=== PATIENT | male | born 1955 | race Caucasian/White ===

== ENCOUNTER → 2024-06-28 | Outpatient (CLI) | payer MEDICARE, OTHER, SELFPAY ==
--- NOTE | 2024-06-28 08:52 | CDU_ITS ---
Reason For Study: Hx CVA Rt. Velocities/BP Lt. Velocities/BP Prox CCA 49.4/8.8 cm/sec. Prox CCA 75.4/11.7 cm/sec. Mid CCA 63.6/12.6 cm/sec. Mid CCA 53.4/10.6 cm/sec. Dist CCA 38.6/8.8 cm/sec. Dist CCA 42.4/11.7 cm/sec. Prox ICA 14.3/5.1 cm/sec. Prox ICA 14.8/5.0 cm/sec. Mid ICA 42.5/15.8 cm/sec. Mid ICA 26.6/8.1 cm/sec. Dist ICA 45.3/13.9 cm/sec. Dist ICA 34.1/10.4 cm/sec. Rt. ICA/CCA = 0.7. Lt. ICA/CCA = 0.6. Prox ECA 57.8/6.4 cm/sec. Prox ECA 62.9/11.0 cm/sec. Rt. Vert. 33.9/11.8 cm/sec. Lt. Vert. 28.0/7.9 cm/sec. Right Extracranial There is intimal thickening but no significant atherosclerotic plaque noted in the right common carotid artery. There is homogeneous, smooth atherosclerotic plaque noted in the right internal carotid artery. There is intimal thickening but no significant atherosclerotic plaque noted in the right external carotid artery. Antegrade flow is noted in the right vertebral artery. Left Extracranial There is intimal thickening but no significant atherosclerotic plaque noted in the left common carotid artery. There is homogeneous, smooth atherosclerotic plaque noted in the left internal carotid artery. There is intimal thickening but no significant atherosclerotic plaque noted in the left external carotid artery. Antegrade flow is noted in the left vertebral artery. Procedure Carotid Duplex [id number]. This is a Carotid Duplex examination using B-mode, color flow and specral Doppler. Exam performed in department. VL/Carotid Duplex Ultrasound Interpretation Summary Mild (<50%) stenosis right extracranial internal carotid. Mild (<50%) stenosis left extracranial internal carotid. Patent and antegrade vertebrals bilaterally. Ordering Physician: Rut Pate Referring Physician: Rut Pate Performed By: Gaston Wilson RVT and Student
--- NOTE | 2024-06-28 08:52 | VDLE_ITS ---
Reason For Study: Swelling RIGHT LEFT CFV is compressible, spontaneous, phasic, CFV is compressible, spontaneous, phasic, competent and demonstrates normal competent, and demonstrates normal augmentation. augmentation. FV is compressible, spontaneous, phasic, FV is compressible, spontaneous, phasic, competent and demonstrates normal competent and demonstrates normal augmentation. augmentation. POP V is compressible, spontaneous, phasic, POP V is compressible, spontaneous, phasic, competent and demonstrates normal competent and demonstrates normal augmentation. augmentation. T/P Trunk is compressible. T/P Trunk is compressible. PTV is compressible. PTV is compressible. RT PerV is compressible. LT PerV is compressible. SFJ is INCOMPETENT and measures 0.85 cm. SFJ is INCOMPETENT and measures 1.16 cm. GSV proximal thigh measures 0.83x0.96 cm. GSV proximal thigh measures 1.10x1.20 cm. GSV at knee measures 0.61x0.71 cm. GSV at knee measures 0.73.x0.84 cm. GSV INCOMPETENT throughout for greater than GSV INCOMPETENT throughout for greater than 0.5 seconds. 0.5 seconds. INCOMPETENT restorative coordinator noted 12 cm above INCOMPETENT restorative coordinator noted 10 cm above medial malleous. medial malleous. SSV mid calf is competent and measures SSV mid calf is INCOMPETENT for greater than 0.40x0.44 cm. 0.5 seconds and measures 0.24x0.29 cm. Procedure This is a venous duplex using B-mode, color flow and spectral Doppler. Exam performed in department. The exam was diagnostic. Patient was scanned in reverse Trendelenburg position during reflux assessment. VL/Venous Duplex US - Manuel Extrem Interpretation Summary Deep veins of the bilateral lower extremities are patent and compressible segme ntally. There is no evidence of right lower extremity deep vein thrombosis. The bilateral great sap henous veins appear patent and compressible segmentally. Positive for reflux in the right saphenofemoral junction, great saphenous vein throughout, medial calf restorative coordinator. Positive for reflux in the left saphenofemoral junction, great saphenous vein t hroughout, medial calf restorative coordinator, small saphenous vein Ordering Physician: Rut Pate Referring Physician: Teresa Jeffery MD Performed By: Gaston Wilson RVT and Student
== END | disposition home or self-care (01) ==
PROVIDERS: PCP Family Medicine; Referring Provider Physician Assistant; Visit Provider Physician Assistant
DX: I83.93 Asymptomatic varicose veins of bilateral lower extremities (principal); M79.89 Other specified soft tissue disorders; R60.0 Localized edema; Z86.73 Personal history of transient ischemic attack (TIA), and cerebral infarction without residual deficits
CPT/HCPCS: 93880; 93970

== ENCOUNTER → 2024-09-12 | Outpatient (CLI) | payer MEDICARE, SELFPAY ==
--- NOTE | 2024-09-12 12:48 | ECHOD_ITS ---
Reason For Study Reason For Study: EMBOLI Procedure This was a 2D Doppler, Color Flow transthoracic echocardiogram. Exam performed in department. Left Ventricle Normal LV size. Moderate concentric left ventricular hypertrophy. Left ventricular systolic function is normal. The left ventricular ejection fraction is 65 %. No regional wall motion abnormalities noted. Right Ventricle Normal RV size. Normal systolic function. Atria Normal left atrium. Normal right atrium. Mitral Valve Normal mitral valve. Tricuspid Valve Normal tricuspid valve. Mild tricuspid valve insufficiency. Pulmonary artery systolic pressure is 24 mmHg. Aortic Valve Trisinus/trileaflet aortic valve. Mild focal aortic valve calcification. Pulmonic Valve Normal pulmonic valve. Great Vessels Mild to moderately dilated aortic root. The pulmonary artery is normal size. Normal inferior vena cava. Pericardium/Pleural No pericardial effusion. MMode/2D Measurements & Calculations LVIDd: 4.3 cm IVSd: 1.5 cm Ao root diam: 4.0 cm RVDd: 3.6 cm LVPWd: 1.2 cm LAV(MOD-bp): 31.3 ml LVAd ap4: 34.8 cm2 SV(MOD-sp4): 65.1 ml LAV(MOD-bp) Indexed: 14.5 ml/m2 LVLd ap4: 9.2 cm SI(MOD-sp4): 30.3 ml/m2 LAV(MOD-sp2): 29.3 ml EDV(MOD-sp4): 107.3 ml LAV(MOD-sp4): 31.4 ml EDV(sp4-el): 112.0 ml LVAs ap4: 19.1 cm2 LVLs ap4: 7.5 cm ESV(MOD-sp4): 42.2 ml ESV(sp4-el): 41.5 ml EF(MOD-sp4): 60.7 % EF(sp4-el): 63.0 % SV(sp4-el): 70.5 ml LA A4 area: 14.1 cm2 LA dimension(2D): 3.4 cm RA A4 area: 14.0 cm2 TAPSE: 2.5 cm Time Measurements MV dec time: 0.34 sec Doppler Measurements & Calculations MV E max alfredo: 65.5 cm/sec Lat Peak E' Alfredo: 6.3 cm/sec Med Peak E' Alfredo: 4.3 cm/sec MV A max alfredo: 94.2 cm/sec E/E' lat: 10.4 E/E' med: 15.2 MV E/A: 0.70 Ao V2 max: 153.4 cm/sec AI max alfredo: 365.4 cm/sec LV V1 max: 113.2 cm/sec Ao max P.4 mmHg AI max P.4 mmHg LV V1 max P.1 mmHg AI dec slope: 99.3 cm/sec2 AI P1/2t: 1077 msec PA V2 max: 113.8 cm/sec TR max alfredo: 228.0 cm/sec TR max P.8 mmHg ECHO/Echo Complete Interpretation Summary Normal LV size. Left ventricular systolic function is normal. The left ventricular ejection fraction is 65 %. Moderate concentric left ventricular hypertrophy. Pulmonary artery systolic pressure is 24 mmHg. Mild focal aortic valve calcification. Ordering Physician: Lance Carbone Referring Physician: LADONNA DUFFY Performed By: Kaia Felipe RDCS
== END | disposition home or self-care (01) ==
LOC: CVS 12:47
PROVIDERS: PCP Family Medicine; Referring Provider Internal Medicine Cardiovascular Disease; Visit Provider Internal Medicine Cardiovascular Disease
DX: I35.1 Nonrheumatic aortic (valve) insufficiency (principal)
CPT/HCPCS: 93306

== ENCOUNTER → 2024-09-25 | Outpatient (CLI) | payer MEDICARE, SELFPAY ==
--- NOTE | 2024-09-26 07:41 | STRESSREP ---
Stress Test Report Pharmacologic myocardial perfusion stress test. 69-year-old man with a history of preoperative surgical assessment Resting EKG demonstrates sinus rhythm with a rate of 61 bpm. Resting blood pressure is 124/84 mmHg. 0.4 mg of regadenoson was infused per usual protocol followed by rapid intravenous saline flush injection. Continuous EKG monitoring was performed. The maximum heart rate was 80 bpm which was 53% of max impacted heart rate the maximum workload was 1 metabolic equivalent. At rest there were no ST or T wave changes noted to suggest ischemia and at peak infusion nonspecific ST changes were noted which did not meet the criteria for ischemia. No clinical angina is noted. The final blood pressure was 122/82 mmHg. Myocardial perfusion protocol. 14.5 mCi of technetium 99m sestamibi was injected at rest. 0.4 mg of regadenoson was infused per usual protocol. At peak infusion 44.1 mCi of technetium 99m sestamibi was injected stress images were obtained stress and rest images were reconstructed and compared in the short axis vertical long and horizontal long axis. Gated images were also obtained. Perfusion SPECT analysis: Review of the stress images demonstrate normal uptake of tracer noted in all areas of the myocardium. The resting images similar demonstrated normal uptake of tracer noted in all areas of the myocardium. No areas of reversibility are noted to suggest ischemia and no previous infarct is noted. Gated SPECT analysis: The gated ejection fraction is 62%. Conclusion: Normal pharmacologic myocardial perfusion stress test. Preserved ejection fraction.
== END | disposition home or self-care (01) ==
LOC: CVS 05:36
PROVIDERS: PCP Family Medicine; Referring Provider Internal Medicine Cardiovascular Disease; Visit Provider Internal Medicine Cardiovascular Disease
DX: I35.1 Nonrheumatic aortic (valve) insufficiency (principal); I25.10 Atherosclerotic heart disease of native coronary artery without angina pectoris; Q21.12 Patent foramen ovale
CPT/HCPCS: 78452; 93017; A9500; A4216; J2785

== ENCOUNTER → 2024-10-14 | Outpatient (CLI) | payer MEDICARE, SELFPAY ==
--- NOTE | 2024-10-14 07:42 | CT_ITS ---
EXAM: CT Abdomen and Pelvis Without Intravenous Contrast CLINICAL INDICATION: LT GROIN MASS TECHNIQUE: Axial computed tomography images of the abdomen and pelvis without intravenous contrast. This CT exam was performed using one or more of the following dose reduction techniques: automated exposure control, adjustment of the mA and/or kV according to patient size, and/or use of iterative reconstruction technique. COMPARISON: No relevant prior studies available. FINDINGS: LUNG BASES: Unremarkable. No mass. No consolidation. MEDIASTINUM: Small esophageal hiatal hernia. ABDOMEN: LIVER: Hepatomegaly with fatty infiltration. GALLBLADDER AND BILE DUCTS: Unremarkable. No calcified stones. No ductal dilation. PANCREAS: Unremarkable. No ductal dilation. SPLEEN: Unremarkable. No splenomegaly. ADRENALS: Unremarkable. No mass. KIDNEYS AND URETERS: Left renal cysts, largest measuring up to 3.1 cm. No obstructing stones. STOMACH AND BOWEL: Scattered diverticula in the colon. There is mucosal thickening in the sigmoid colon with surrounding inflammation consistent with acute diverticulitis. No abscess. No obstruction. PELVIS: APPENDIX: No findings to suggest acute appendicitis. BLADDER: Urinary bladder calculi. REPRODUCTIVE: The prostate gland is enlarged measuring 6.0 cm in maximum dimension. ABDOMEN and PELVIS: INTRAPERITONEAL SPACE: Unremarkable. No free air. No significant fluid collection. BONES/JOINTS: Grade 1 anterior spondylolisthesis of L4 over L5. Severe endplate degenerative change and disc disease of L4-5. No acute fracture. No dislocation. SOFT TISSUES: Umbilical hernia containing fat. Large left inguinal hernia containing fat. VASCULATURE: Scattered calcified atherosclerotic disease of aorta. No abdominal aortic aneurysm. LYMPH NODES: Unremarkable. No enlarged lymph nodes. CT/Abdomen/Pelvis without Cont IMPRESSION: 1. Scattered diverticula in the colon. There is mucosal thickening in the sig moid colon with surrounding inflammation consistent with acute diverticulitis. No abscess. 2. The prostate gland is enlarged. Correlation with PSA values may be helpful if not previously performed. 3. Small esophageal hiatal hernia. 4. Hepatomegaly with fatty infiltration. 5. Umbilical hernia containing fat. 6. Large left inguinal hernia containing fat. 7. Simple left renal cyst. Reading Location: [facility]
== END | disposition home or self-care (01) ==
LOC: CT 07:37
PROVIDERS: PCP Family Medicine; Referring Provider Family Medicine; Visit Provider Family Medicine
DX: R19.09 Other intra-abdominal and pelvic swelling, mass and lump (principal)
CPT/HCPCS: 74176

== ENCOUNTER 2024-12-07 05:46 | Day surgery (SDC) | payer MEDICARE, SELFPAY ==
--- NOTE | 2024-11-27 18:20 | PAT.ANESEVAL ---
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 When Was Last Pacemaker Check QUESTION #4 FULL TEXT: You/Your Family Experience fever (hyperthermia) with Anesthesia Last Oral Intake Last Oral intake: Last Oral Intake NPO since Meds taken in AM with sips of water? Meds patient instructed to take am of surgery PONV PONV - linux developer: PONV - linux developer Female No 11/23/24 08:20 HX of Motion Sickness Yes 11/23/24 08:20 HX of N/V After Surgery Yes 11/23/24 08:20 Non-Smoker Yes 11/23/24 08:20 Duration of Surgery greater Yes 11/23/24 08:20 than 60 minutes Number of Risk Factors 4 11/23/24 08:20 PONV Score Severe Risk 11/23/24 08:20 Height & Weight Height & Weight: Anesthesia: Height & Weight Height 6 ft 2 in 11/01/24 12:59 Respiratory Assessment Respiratory Assessment - linux developer: Respiratory Tract Infection Hx - linux developer Hx Respiratory Tract Infection No 11/23/24 08:20 STOP Sleep Apnea STOP Sleep Apnea - linux developer: STOP Sleep Apnea - linux developer Hx Hypertension Yes: CONTROLLED WITH MEDS 11/23/24 08:20 Hx Sleep Apnea No 11/23/24 08:20 CPAP BIPAP Do you snore loudly (louder No 11/23/24 08:20 than talking or can be heard Do you often feel tired/ No 11/23/24 08:20 fatigued/ sleepy during daytime? Has anyone observed you stop No 11/23/24 08:20 breathing during sleep? STOP Results Negative 11/23/24 08:20 QUESTION #5 FULL TEXT : Do you snore loudly (louder than talking or can be heard through closed doors)? 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 Specify any problems Hx of Preganancy in last 3 N/A 11/23/24 08:20 Months Nurse Filling Out Transfusion [id number] 11/23/24 08:20 & Questions: Date: 11/23/24 11/23/24 08:20 Time: 08:11/23/24 08:20 Patient unable to answer at this time (ie. confused, unrespo /Reproduction History /Reproductive History - linux developer: /Reproductive Hx- linux developer Hx Now Gestational Age (in weeks): EDC: Hx Hx Para Hx Section SAB PFSH Medical History (Updated 11/23/24 @ 08:37 by Primitivo Casillas) Wears glasses Former smoker History of Holter monitoring Cardiology follow-up encounter History of echocardiogram History of stress test Left inguinal hernia BPH (benign prostatic hyperplasia) Patent foramen ovale Nonrheumatic aortic (valve) insufficiency Carotid stenosis History of CVA (cerebrovascular accident) Varicose veins of legs Bilateral thumb pain History of elevated PSA Prediabetes Hx of arterial ischemic stroke HTN (hypertension) Home Medications ?Medication ?Instructions ?Recorded ?Last Taken ?Type Lactobacillus acidophilus 1 1,000 mmu cells PO QODAY 03/24/24 Unknown History billion cell capsule amlodipine 10 mg tablet 10 mg PO QDAY 03/24/24 Unknown History atorvastatin 20 mg tablet 20 mg PO QDAY 03/24/24 Unknown History betamethasone dipropionate 0.05 % 1 applic topical BID 03/24/24 Unknown History topical cream glucosamine HCl 750 mg tablet 750 mg PO QDAY 03/24/24 Unknown History multivitamin 1 tab PO QAM 03/24/24 Unknown History saw palmetto 500 mg capsule 1,000 mg PO QDAY 03/24/24 Unknown History Allergy/AdvReac Type Severity Reaction Status Date / Time Penicillins Allergy Intermediate Rash Verified 11/23/24 08:18 Family History Other CVA (cerebral vascular accident) Diabetes Hypertension Surgical History Hx of cholecystectomy (~2003) S/P hernia surgery (~1971) Social History Smoking Status: Former smoker Tobacco: How many years used: 20 alcohol intake: never substance use type: does not use Audit: Pertinent Findings Pertinent Findings EKG Perinent findings: August 18, 2024. Sinus rhythm. First-degree AV block. Stress test pertinent findings: September 26, 2024. EF of 62%. No ischemia. No previous infarct. Echo (EF%) pertinent findings: September 12, 2024. EF 65%. PASP is 24 mmHg. No aortic stenosis noted. Consult pertinent findings: August 18, 2024. Dr. Carbone. 1. History of arterial ischemic stroke?acute-will repeat echo (see above) with a bubble study. Continue antiplatelet therapy. No contraindication to venous surgery. 2. Patent foramen ovale?acute-patient has a history of patent danielle ovale. Repeat echo. 3. Nonrheumatic aortic valve insufficiency?acute-mild per history. Repeat echo. Additional pertinent findings: 07/05/2023. 30-day event monitor. Average rhythm was sinus. Ventricular burden was 1%. Ventricular burden was less than 1%. 9 triggered events corresponded to sinus rhythm with PVCs. No symptoms were recorded. Recommendation Anesthesia Recommendation Anesthesia recommendation: OPTIMIZED for anesthesia (Patient is cleared for surgery. No cardiac cath was found.)
[2024-12-07] VITALS (9 sets, daily range): BP systolic 93–139; BP diastolic 59–89; PULSE 61–78; RESP 14–18; TEMP 36.2–36.3; O2SAT 92–98; BMI 27.0
--- OUTSIDE RECORDS SUMMARY | 2024-12-07 05:50 | XMS RPT_ITS | CCD ---
Author Organization [facility] Care Team Providers Care Merchandise For Resale Purchasing Agent Name Role Phone Neena العلي II Unavailable Teresa Quintero Julie O Unavailable Unavailable Teresa Duffy Unavailable Unavailable Unavailable Unavailable Unavailable Clive REESE, Teresa Suarez Primary Care Provider [phone] Dr. Teresa Duffy Primary Care Unavail ana Duffy, Dr. Teresa Suarez Attending Unavail Dr. Teresa Rob Referring Unavail MD NEENA Phillips Referring Karen Duffy, Dr. Teresa Suarez Primary Care Unavail MD NEENA Phillips Attending MD NEENA Matos Attending MD NEENA Matos Referring Unavailyisel Duffy, Dr. Teresa Suarez Primary Care Unavail MD TERESA Rob Primary Care Unavaila ble العلي II, Dr. Neena Guevara Referring Unavai lable العلي II, Dr. Neena Guevara Attending Unavai labcourt العلي II, Dr. Neena Guevara Attending Unavai lable العلي II, Dr. Neena Guevara Admitting MD TERESA Garcia Primary Care Unavaila ble العلي II, Dr. Neena Guevara Referring Teresa Garcia MD Primary Care Provider Teresa Duffy MD Primary Care Provider Teresa Duffy MD Primary Care Provider Teresa Duffy MD Unavailable Nannette Desir LPN Unavailable Unavailable TERESA DUFFY Primary Care Unavailable JOB BANKS Attending Unava ilable LEYDI RENAE Attending Unavailable TERESA DUFFY Primary Care Unavailable TERESA DUFFY Primary Care Unavailable KEN VERGARA Referring Unavailable KEN VERGARA Attending Unavailable JOB BANKS Referring Unava ilable TERESA DUFFY Primary Care Unavailable URMILAPATRICIA Perez Admitting Unavailab le CARMENZA GARCIA Attending Unavailable KEN VERGARA Consulting Unavailable TERESA DUFFY Primary Care Unavailable MARY KAY FOX Attending Unavailabl MARY KAY Yung Attending Unavailabl e TERESA DUFFY Primary Care Unavailable TERESA DUFFY Primary Care Unavailable TERESA DUFFY Primary Care Unavailable TERESA DUFFY Referring Unavailable TERESA DUFFY Primary Care Unavailable CARMENZA GARCIA Referring Unavailable TERESA DUFFY Primary Care Unavailable TERESA DUFFY Referring Unavailable TERESA DUFFY Primary Care Unavailable TERESA DUFFY Referring Unavailable TERESA DUFFY Primary Care Unavailable Clive REESE, Teresa Suarez Primary Care Provider TERESA DUFFY Primary Care Unavailable JUNIOR SHIPLEY Attending Unavailable SIRIA MACK Referring UnavailTeresa Cote MD Unavailable Teresa Duffy MD Primary Care Provider Teresa Duffy MD Primary Care Provider Dr. Teresa Duffy MD Primary Care Provider [phone] Dr. Teresa Duffy MD Referring Provider Rut Contreras Attending Provider Rut Contreras Referring Provider Dr. Tim Ramirez MD Attending Provider Dr. Lance Carbone MD Attending Provider Dr. Lance Carbone MD Referring Provider Dr. Teresa Duffy MD Primary Care Provider Rut Contreras Attending Provider Dr. Teresa Duffy MD Referring Provider Raf REESE, Dr. Lucas Other Provider [phone] Clive REESE, Dr. Teresa Ha Attending Provider TERESA DUFFY Attending Unavailable TERESA DUFFY Primary Care Unavailable TERESA DUFFY Attending Unavailable TERESA DUFFY Primary Care Unavailable TERESA DUFFY Attending Unavailable TERESA DUFFY Primary Care Unavailable Clive REESE, Dr. Teresa Ha Primary Care Provider Herlinda GREER, Rut Attending Provider [phone] Tiffani REESE, Dr. Gary Freedman Attending Provider Pate, Rut Referring Unavailable Teresa Duffy Primary Care Unavailable Tim Ramirez Attending Unavailable Teresa Duffy Primary Care Unavailable Pate, Rut Attending Unavailable Teresa Duffy Referring Unavailable Gary Nixon Attending Unavailable Gary Nixon Referring Unavailable Teresa Duffy Primary Care Unavailable Teresa Duffy Attending Unavailable Teresa Duffy Referring Unavailable Teresa Duffy Primary Care Unavailable Pate, Rut Attending Unavailable Pate, Rut Referring Unavailable Teresa Duffy Primary Care Unavailable Teresa Duffy Primary Care Unavailable Raf, Lance Attending Unavailable Raf, Lance Referring Unavailable Raf, Lance Attending Unavailable Raf, Magnolia Referring Unavailable Teresa Duffy Primary Care Unavailable Teresa Duffy Primary Care Unavailable Raf, Magnolia Attending Unavailable Teresa Duffy Referring Unavailable Raf, Magnolia Attending Unavailable Teresa Duffy Primary Care Unavailable Raf, Magnolia Referring Unavailable Raf, Magnolia Consulting Unavailable Raf, Lance Attending Unavailable Teresa Duffy Primary Care Unavailable Pate, Rut Attending Unavailable Teresa Duffy Primary Care Unavailable Teresa Duffy Referring Unavailable Pate, Rut Attending Unavailable Teresa Duffy Primary Care Unavailable Teresa Duffy Referring Unavailable Gary Nixon Attending Unavailable Teresa Duffy Referring Unavailable Teresa Duffy Primary Care Unavailable Allergies Allergy Classification Reported Allergen(s) Allergy Type Date of Onset Reaction(s) Facility Penicillins (antibiotic) (1 source) Penicillins; Translations: [Penicillins] Drug Allergy [facility] Work Phone: (20 sources) Penicillins; Translations: [Penicillins] Allergy to drug (finding) 5 [facility] (17 sources) Penicillins Drug Allergy 5 Intolerance, Unknown [facility] (1 source) Penicillins Propensity to adverse reactions 3 Unknown [facility] (3 sources) Penicillins Allergy to substance 5 Rash [facility] (1 source) Penicillins Drug allergy (disorder) 5 [facility] Repository Medications Current Medications Medication Drug Class(es) Dates Sig (Normalized) Sig (Original) amLODIPine 10 mg oral tablet (20 sources) Dihydropyridine Calcium Channel Rosa Start: 03-24-2024 take 1 tablet by mouth once daily Amlodipine 10 mg tablet Active 10 mg PO daily March 24, 2024 12:00am Start: 04-13-2023 End: 04-14-2023 amLODIPine (NORVASC) tablet 10 mg Start: 05-15-2019 End: 08-05-2023 take 1 tablet by mouth once daily amLODIPine (Norvasc) 10 mg tablet Indications: Primary hypertension Take 1 tablet (10 mg) by mouth once daily. 90 tablet 3 08/05/2023 Active Comment on above: Take 10 mg by mouth once daily. atorvastatin 20 mg oral tablet (20 sources) HMG-CoA Reductase Inhibitor Start: 04-12-2023 End: 04-14-2023 atorvastatin (LIPITOR) tablet 40 mg Start: 06-15-2017 take 1 tablet by florencia th once daily Atorvastatin 20 mg tablet Active 20 mg PO daily March 24, 2024 12:00am betamethasone 0.5 mg/ml topical cream (20 sources) Corticosteroid Start: 03-24-2024 Betamethasone Dipropionate 0.05 % cream Active 1 NMA TOPICAL TWICE A DAY March 24, 2024 12:00am Start: 08-05-2023 End: 08-05-2023 betamethasone dipropionate 0 .05 % cream Indications: Healthcare maintenance Apply 1 Application topically once daily. 15 g 3 08/05/2023 Active Betamethasone Di propionate 0.05 % External Cream APPLY SPARINGLY TO AFFECTED AREA(S) ONCE DAILY Quantity: 1 Refills: 0 Ordered: 17-Apr-2022 Teresa Duffy MD Active glucosamine hydrochloride 750 mg oral tablet (20 sources) Start: 08-06-2020 take 1 tablet by mouth once daily Glucosamine Hcl 750 mg tablet Active 750 mg PO daily March 24, 2024 12:00am administer with a meal Start: 08-06-2020 take 1 tablet by florencia th once daily Glucosamine 750 MG Oral Tablet Take 1 tablet daily Quantity: 30 Refills: 5 Ordered: 06-Aug-2020 Teresa Duffy MD Start : 06-Aug-2020 Active Comment on above: Take by mouth. L. acidophilus/Bifid. animalis (Probiotic) 5 billion cell CpSP (2 sources) L. acidophilus/B ifid. animalis (Probiotic) 5 billion cell CpSP Take by mouth . 0 Active lactobacillus acidophilus [id number] unt oral capsule (16 sources) Start: 03-24-2024 Lactobacillus Acidophilus 1 billion cell capsule Active 1000 NMA PO daily March 24, 2024 12:00am take 1 tablet by mouth once georgette y Lactobacillus acidophilus (PROBIOTIC ACIDOPHILUS ORAL) Take 1 tablet by mouth once daily. Active take 1 tablet by mouth once georgette y Lactobacillus acidophilus (PROBIOTIC ACIDOPHILUS ORAL) Take 1 tablet by mouth once daily. 0 Active multivitamin (THERAGRAN) per tablet (4 sources) take 1 tablet by florencia th once daily multivitamin (THERAGRAN) per tablet Take 1 (one) tablet by mouth daily . 0 Active take 1 tablet by mouth once georgette y multivitamin (THERAGRAN) per tablet Take 1 (one) tablet by mouth daily . 0 multivitamin tablet (13 sources) multivitamin tab let Take by mouth. Active multivitamin tab let Take by mouth. 0 Active Multivitamin tablet (3 sources) Start: 03-24-2024 Multivitamin t ablet Active 1 {tbl} PO EVERY MORNING March 24, 2024 12:00am Saw Dresher 160 mg capsule (3 sources) Saw Dresher 160 mg capsule Take by mouth. Active Saw Dresher 160 mg capsule Take by mouth. 0 Active Comment on above: Take by mouth. Saw Dresher (6 sources) Start: 03-24-2024 take 1 capsule by mouth once daily at mealtime Saw Dresher 500 mg capsule Active 1000 mg PO daily March 24, 2024 12:00am give with food (meal/snack) Saw Dresher CAP S Refills: 0 Active SAW PALMETTO ORAL (15 sources) SAW PALMETTO ORA L Take by mouth. Active SAW PALMETTO ORA L Take by mouth . 0 Active SAW PALMETTO ORA L Take by mouth. 0 Active Completed/Discontinued Medications Medication Drug Class(es) Dates Sig (Normalized) Sig (Original) Acetaminophen (1 source) Start: 04-12-2023 End: 04-14-2023 take 1 tablet by mouth every four hours as needed for headache acetaminophen (TYLENOL) tablet 650 mg aspirin 81 mg chewable tablet (10 sources) Platelet Aggregation Inhibitor, Nonsteroidal Anti-inflammatory Drug Start: 04-13-2023 End: 05-15-2023 aspirin 81 mg chewable tablet Chew and Swallow 1 (one) tablet (81 mg total) daily Start: 04/15/23. 30 tablet 0 04/15/2023 05/15/2023 take 1 tablet by mouth once georgette y aspirin 81 MG EC tablet Take 1 (one) tablet (81 mg total) by mouth daily . 0 Active azithromycin 500 mg oral tablet (3 sources) Macrolide Antimicrobial Start: 01-06-2022 take 1 tablet by mouth once daily Azithromycin 500 MG Oral Tablet TAKE 1 TABLET DAILY UNTIL FINISHED. Quantity: 5 Refills: 0 Ordered: 06-Jan-2022 Teresa Duffy MD Start : 06-Jan-2022 Active benoxinate hydrochloride 4 mg/ml / fluorescein sodium 3 mg/ml ophthalmic solution (1 source) Diagnostic Dye Start: 04-06-2023 End: 04-07-2023 fluorescein-benoxi olesya 0.3-0.4 % 1 Drop (FLURESS) bromfenac 0.7 mg/ml ophthalmic solution (2 sources) Nonsteroidal Anti-inflammatory Drug Start: 07-28-2021 End: 04-06-2023 take 1 drop(s) into the eye(s) four times daily bromfenac (PROLENSA) 0.07 % drop Use 1 Drop in the left eye four times daily. 0 07/28/2021 04/06/2023 Discontinued (Course of therapy completed) Start: 07-28-2021 take 1 drop(s) into the eye(s) four times daily bromfenac (PROLENSA) 0.07 % drop Use 1 Drop in the left eye four times daily. 0 07/28/2021 Active Comment on above: Use 1 Drop in the le ft eye four times daily. clopidogrel 75 mg oral tablet (20 sources) P2Y12 Platelet Inhibitor Start: End: take 1 tablet by mouth once daily Clopidogrel 75 mg tablet Discontinued 75 mg PO daily July 27, 2024 1:00am August 18, 2024 1:01pm Start: 04-13-2023 End: 11-02-2023 take 1 tablet by mouth once daily clopidogrel (Plavix) 75 mg tablet Indications: Primary hypertension take 1 tablet by mouth once daily 30 tablet 05/26/2023 Active docusate sodium 50 mg / sennosides, care home 8.6 mg oral tablet (1 source) Start: 04-12-2023 End: 04-14-2023 senna-docusate (SENNA-S) 8.6-50 mg per tablet 1 tablet 0.4 ml enoxaparin sodium 100 mg/ml prefilled syringe (1 source) Low Molecular Weight Heparin Start: 04-13-2023 End: 04-14-2023 enoxaparin (LOVENOX) syringe 40 mg gadoterate meglumine (DOTAREM) injection 20 mL (1 source) Start: 04-12-2023 End: 04-12-2023 gadoterate meglumine (DOTAREM) injection 20 mL Multiple Vitamin TABS (3 sources) Multiple Vitamin TABS Refills: 0 Active Multiple Vitamin TABS (15 sources) Multiple Vitamin TABS Quantity: 0 Refills: 0 Ordered: 14-Sep-2018 DO Active multivitamin (THERAGRAN) per tablet 1 tablet (1 source) Start: 04-12-2023 End: 04-14-2023 take 1 tablet by mouth once daily 1 tablet, Oral, Daily, First dose on Wed04/12/23 at 0900 perflutren lipid microspheres (Definity) injection 2 mL of dilution (2 sources) Start: 04-30-2023 End: 04-30-2023 perflutren lipid microspheres (Definity) injection 2 mL of dilution phenylephrine hydrochloride 25 mg/ml ophthalmic solution (1 source) alpha-1 Adrenergic Agonist Start: 04-06-2023 End: 04-07-2023 PHENYLephrine 2.5 % 1 Drop (AK-DILATE, LOUIS-SYNEPHRINE) microencapsulated potassium chloride 20 meq extended release oral tablet (2 sources) Start: 04-13-2023 End: 04-13-2023 potassium chloride SA (K-DUR,KLOR-CON) CR tablet 20 mEq propylene glycol 6 mg/ml ophthalmic solution (2 sources) Start: 07-28-2021 End: 04-06-2023 propylene glycoL (SYSTANE COMPLETE) 0.6 % drop Use 1 Drop in the left eye three times daily. 0 07/28/2021 04/06/2023 Discontinued (Discontinued by Patient) Start: 07-28-2021 propylene glyc oL (SYSTANE COMPLETE) 0.6 % drop Use 1 Drop in the left eye three times daily. 0 07/28/2021 Active Comment on above: Use 1 Drop in the le ft eye three times daily. saccharomyces boulardii 250 mg oral capsule (3 sources) End: take 1 capsule by mouth in the morning saccharomyces boulardii (Florastor) 250 mg capsule Take 1 capsule (250 mg) by mouth in the morning and 1 capsule (250 mg) before bedtime. 0 04/19/2023 Discontinued (Duplicate order) Saw Dresher CAPS (15 sources) Saw Dresher CAP S Quantity: 0 Refills: 0 Ordered: 14-Sep-2018 DO Active Sodium Chloride (1 source) Start: End: sodium chloride (PF) (NS) flush 5 mL tropicamide 10 mg/ml ophthalmic solution (1 source) Anticholinergic Start: End: tropicamide 1 % 1 Drop (MYDRIACYL) Problems Active Problems Problem Classification Problem Date Documented Da te Episodic/Chronic Abdominal hernia (1 source) Left inguinal hernia ; Translations: [Unilateral inguinal hernia, without obstruction or gangrene, not specified as recurrent] 11-01-2024 Episodic Abdominal pain (1 source) Unspecified abdominal pain; Translations: [Unspecified abdominal pain] Onset: 10-15-2022 Episodic Acute cerebrovascular disease (20 sources) Cerebral infarction, unspecified; Translations: [Cerebral artery occlusion, unspecified with cerebral infarction] Onset: 04-11-2023 04-13-2023 Chronic Allergic reactions (10 sources) Nummular eczema; Translations: [Contact dermatitis and other eczema, unspecified cause] Onset: 11-24-2022 11-26-2022 Episodic Calculus of urinary tract (20 sources) History of calculus of kidney; Translations: [Personal history of urinary calculi] Onset: 10-15-2022 11-26-2022 Episodic Cardiac and circulatory congenital anomalies (8 sources) Patent foramen ovale; Translations: [Patent foramen ovale] Onset: 08-18-2024 07-27-2024 Chronic Cataract (6 sources) Bilateral senile combined form cataracts of eyes; Translations: [Combined forms of age-related cataract, bilateral] Onset: 10-10-2014 Chronic Coronary atherosclerosis and other heart disease (1 source) Atherosclerotic heart disease of [place] coronary artery without angina pectoris; Translations: [Atherosclerotic heart disease of [place] coronary artery without angina pectoris] Onset: 10-11-2024 Chronic Deficiency and other anemia (16 sources) Increased hemoglobin; Translations: [Other hemoglobinopathies] Resolved: 08-06-2020 08-11-2024 Chronic Diabetes mellitus without complication (20 sources) Impaired fasting glycaemia; Translations: [Impaired fasting glucose] Onset: 06-18-2022 06-18-2022 Episodic Disorders of lipid metabolism (4 sources) Hypercholesterolemia; Translations: [Pure hypercholesterolemia, unspecified] Onset: 02-14-2020 Chronic Essential hypertension (20 sources) Hypertensive disorder; Translations: [Unspecified essential hypertension] Onset: 04-05-2018 Chronic Genitourinary symptoms and ill-defined conditions (12 sources) Blood in urine; Translations: [Hematuria, unspecified] Episodic Heart valve disorders (8 sources) Aortic incompetence, non-rheumatic ; Translations: [Nonrheumatic aortic (valve) insufficiency] Onset: 10-11-2024 07-27-2024 Chronic Hyperplasia of prostate (20 sources) Hyperplasia of prostate; Translations: [Benign localized hyperplasia of prostate with urinary obstruction and other lower urinary tract symptoms (LUTS)] Onset: 06-18-2022 06-18-2022 Chronic Immunizations and screening for infectious disease (3 sources) Viral screening status; Translations: [Encounter for screening for other viral diseases] Onset: 02-03-2024 08-05-2023 Episodic Occlusion or stenosis of precerebral arteries (6 sources) Carotid artery stenosis; Translations: [Occlusion and stenosis of unspecified carotid artery] 07-27-2024 Chronic Comment on above: mild <50% bilaterall y Other and ill-defined cerebrovascular disease (4 sources) Cerebrovascular disease; Translations: [Other cerebrovascular vasospasm and vasoconstriction] Onset: 05-12-2023 04-13-2023 Chronic Other and ill-defined cerebrovascular disease (1 source) Other cerebrovascular vasospasm and vasoconstriction; Translations: [Other cerebrovascular vasospasm and vasoconstriction] Onset: 05-12-2023 Chronic Other and ill-defined cerebrovascular disease (2 sources) Cerebrovascular disease, unspecified; Translations: [Cerebrovascular disease, unspecified] Onset: 04-30-2023 Chronic Other circulatory disease (13 sources) History of cerebrovascular accident; Translations: [Personal history of transient ischemic attack (TIA), and cerebral infarction without residual deficits] 07-27-2024 Episodic Other connective tissue disease (3 sources) Pain in thumb ; Translations: [Pain in right finger(s)] 07-27-2024 Episodic Other eye disorders (4 sources) Constricted pupil; Translations: [Miosis] Onset: 03-04-2022 Chronic Other eye disorders (5 sources) Bilateral vitreous floaters; Translations: [Other vitreous opacities, bilateral] Onset: 10-10-2014 09-17-2015 Chronic Other eye disorders (1 source) Bilateral pinguecula of eyes; Translations: [Pinguecula, bilateral] 04-25-2024 Episodic Other gastrointestinal disorders (2 sources) Groin mass; Translations: [Other intra-abdominal and pelvic swelling, mass and lump] 09-18-2024 Episodic Other gastrointestinal disorders (1 source) Other intra-abdominal and pelvic swelling, mass and lump; Translations: [Other intra-abdominal and pelvic swelling, mass and lump] Onset: 10-18-2024 Episodic Other hematologic conditions (4 sources) Increased hemoglobin; Translations: [Elevated hemoglobin] Episodic Other lower respiratory disease (7 sources) Cough; Translations: [Cough] Episodic Other male genital disorders (1 source) Impotence; Translations: [Erectile dysfunction] Chronic Other male genital disorders (7 sources) Male erectile dysfunction, unspecified; Translations: [Erectile dysfunction] Chronic Other nervous system disorders (2 sources) Aphasia; Translations: [Aphasia] Onset: 04-11-2023 Chronic Other non-traumatic joint disorders (2 sources) Bilateral pain of joint of hands; Translations: [Pain in joints of right hand] 08-04-2022 Episodic Other nutritional; endocrine; and metabolic disorders (2 sources) Obesity; Translations: [Obesity] Chronic Other nutritional; endocrine; and metabolic disorders (1 source) Body mass index 25-29 - overweight; Translations: [BMI 28.0-28.9,adult] Chronic Other nutritional; endocrine; and metabolic disorders (5 sources) Overweight in adulthood with body mass index of 25 or more but less than 30; Translations: [Overweight] Episodic Other nutritional; endocrine; and metabolic disorders (5 sources) Body mass index 25-29 - overweight; Translations: [Body Mass Index 28.0-28.9, adult] Episodic Residual codes; unclassified (18 sources) At risk of heart disease; Translations: [Other specified conditions influencing health status] Episodic Residual codes; unclassified (3 sources) History of clinical finding in subject; Translations: [Personal history of other specified conditions] 07-27-2024 Episodic Screening and history of mental health and substance abuse codes (2 sources) Personal history of nicotine dependence; Translations: [Personal history of tobacco use] Onset: 11-24-2022 11-26-2022 Episodic Transient cerebral ischemia (1 source) Transient cerebral ischemia Unclassified (2 sources) Mass; Translations: [Mass] Onset: 09-18-2024 Unclassified (2 sources) Annual Exam; Translations: [Annual Exam] Onset: 08-11-2024 Past or Other Problems Problem Classification Problem Date Documented Date Episodic/Chronic Aortic; peripheral; and visceral artery aneurysms (20 sources) Dilatation of aorta; Translations: [Aortic ectasia, unspecified site] Onset: 06-18-2022 Resolved: 04-19-2023 08-04-2022 Chronic Other circulatory disease (1 source) Personal history of transient ischemic attack (TIA), and cerebral infarction without residual deficits; Translations: [Personal history of transient ischemic attack (TIA), and cerebral infarction without residual deficits] Onset: 08-18-2024 Episodic Other connective tissue disease (4 sources) Pain in right finger(s); Translations: [Pain in right finger(s)] Onset: 02-11-2024 Episodic Other connective tissue disease (4 sources) Pain in left finger(s); Translations: [Pain in left finger(s)] Onset: 02-11-2024 Episodic Other connective tissue disease (3 sources) Bilateral thumb pain; Translations: [Pain in right finger(s)] 02-11-2024 Episodic Other eye disorders (5 sources) Corneal scar; Translations: [Unspecified corneal scar and opacity] Onset: 03-04-2022 Episodic Other eye disorders (3 sources) Meibomian gland dysfunction of bilateral eyes; Translations: [Meibomian gland dysfunction right eye, upper and lower eyelids] Onset: 02-04-2018 02-04-2018 Episodic Other eye disorders (1 source) Chalazion of lower eyelid of left eye; Translations: [Chalazion left lower eyelid] Onset: 02-04-2018 Resolved: 03-09-2018 03-09-2018 Episodic Other non-traumatic joint disorders (20 sources) Joint pain; Translations: [Pain in joint, site unspecified] Onset: 06-18-2022 06-18-2022 Episodic Other nutritional; endocrine; and metabolic disorders (1 source) Overweight in adulthood with body mass index of 25 or more but less than 30; Translations: [Overweight with body mass index (BMI) of 28 to 28.9 in adult] Other screening for suspected conditions (not mental disorders or infectious disease) (20 sources) Raised prostate specific antigen; Translations: [Patient encounter status] Onset: 06-18-2022 06-18-2022 Episodic Other skin disorders (3 sources) Cutaneous horn; Translations: [Other specified epidermal thickening] Onset: 10-10-2014 10-10-2014 Episodic Residual codes; unclassified (1 source) Influenza vaccination declined; Translations: [Immunization not carried out because of patient refusal] 02-11-2024 Episodic Spondylosis; intervertebral disc disorders; other back problems (20 sources) Chronic neck pain; Translations: [Cervicalgia] Onset: 06-18-2022 06-18-2022 Episodic Unclassified (5 sources) Patient encounter status; Translations: [Screening for cardiovascular condition] Unclassified (13 sources) Onset: 08-04-2022 Resolved: 08-11-2024 08-04-2022 Varicose veins of lower extremity (11 sources) Varicose veins of lower extremity; Translations: [Varicose veins of bilateral lower extremities with pain] Onset: 02-11-2024 02-11-2024 Episodic NEGATED: Highlighted row has not occurred!Residual codes; unclassified (13 sources) Disease Episodic Results Test Name Value Interpretation Reference Range Facility MR/PATJimenez 11-27-2024 MR/PAT.[facility] Medical Records Department [address] [place] [address] PAT - Anesthesia 11/27/24 1820 MR#: [id number] Acct: [id number] Name: NEENA ROMAN Rep #: [id number] : [id number] 69 From: John Oquendo MD PCP: Dr. Teresa Duffy MD [place] [facility] [place] Race: C [place] [facility] [place] Pre-Assessment Diagnosis/Proposed Procedure Planned Operative Procedure(s): ROBOTIC LEFT INGUINAL HERNIA WITH MESH, UMBILICAL Anesthesia History Anesthesia History - dopster: Anesthesia History - dopster Hx Hospitalization No 11/23/24 08:20 Any Problems With Anesthesia No 11/23/24 08:20 Cholinesterase deficiency No 11/23/24 08:20 You/Your Family Experience No 11/23/24 08:20 fever (hyperthermia) with Relationship Recent Exposure to Contagious Disease Does patient have nerve No 11/23/24 08:20 stimulator Patient instructed to have device shut off --Does patient have Pacemaker or ICD? When Was Last Pacemaker Check QUESTION #4 FULL TEXT: You/Your Family Experience fever (hyperthermia) with Anesthesia Last Oral Intake Last Oral intake: Last Oral Intake NPO since Meds taken in AM with sips of water? Meds patient instructed to take am of surgery PONV PONV - dopster: PONV - dopster Female No 11/23/24 08:20 HX of Motion Sickness Yes 11/23/24 08:20 HX of N/V After Surgery Yes 11/23/24 08:20 Non-Smoker Yes 11/23/24 08:20 Duration of Surgery greater Yes 11/23/24 08:20 than 60 minutes Number of Risk Factors 4 11/23/24 08:20 PONV Score Severe Risk 11/23/24 08:20 Height Weight Height Weight: Anesthesia: Height Weight Height 6 ft 2 in 11/01/24 12:59 Respiratory Assessment Respiratory Assessment - dopster: Respiratory Tract Infection Hx - dopster Hx Respiratory Tract Infection No 11/23/24 08:20 STOP Sleep Apnea STOP Sleep Apnea - dopster: STOP Sleep Apnea - dopster Hx Hypertension Yes: CONTROLLED WITH MEDS 11/23/24 08:20 Hx Sleep Apnea No 11/23/24 08:20 CPAP BIPAP Do you snore loudly (louder No 11/23/24 08:20 than talking or can be heard Do you often feel tired/ No 11/23/24 08:20 fatigued/ sleepy during daytime? Has anyone observed you stop No 11/23/24 08:20 breathing during sleep? STOP Results Negative 11/23/24 08:20 QUESTION #5 FULL TEXT : Do you snore loudly (louder than talking or can be heard through closed doors)? 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 Specify any problems Hx of Preganancy in last 3 N/A 11/23/24 08:20 Months Nurse Filling Out Transfusion CPOWERS2 11/23/24 08:20 Questions: Date: 11/23/24 11/23/24 08:20 Time: 11/23/24 08:20 Patient unable to answer at this time (ie. confused, unrespo /Reproduction History /Reproductive History - dopster: /Reproductive Hx- dopster Hx Now Gestational Age (in weeks): EDC: Hx Hx Para Hx Section SAB PFSH Medical History (Updated 11/23/24 @ 08:37 by Primitivo Casillas) Wears glasses Former smoker History of Holter monitoring Cardiology follow-up encounter History of echocardiogram History of stress test Left inguinal hernia BPH (benign prostatic hyperplasia) Patent foramen ovale Nonrheumatic aortic (valve) insufficiency Carotid stenosis History of CVA (cerebrovascular accident) Varicose veins of legs Bilateral thumb pain History of elevated PSA Prediabetes Hx of arterial ischemic stroke HTN (hypertension) Home Medications ???Medication ???Instructions ???Recorded ???Last Taken ???Type Lactobacillus acidophilus 1 1,000 mmu cells PO QODAY 03/24/24 Unknown History billion cell capsule amlodipine 10 mg tablet 10 mg PO QDAY 03/24/24 Unknown His tory atorvastatin 20 mg tablet 20 mg PO QDAY 03/24/24 Unknown His tory betamethasone dipropionate 0.05 % 1 applic topical BID (more content not included)... Normal [facility] Surgery Visit Reporton 11-01 Surgery Visit Report [facility] [address] [place] [address] OFFICE VISIT Date of Service: 11/01/24 MR#: [id number] Acct: [id number] Name: NEENA ROMAN Rep #: [id number] : 1955 Provider: Dr. Gary delgado MD Age/Sex: 69/M Location: [facility] Status: Signed Intake Vital Signs 08/18/24 12:56 11/01/24 12:59 Height 6 ft 1 in 6 ft 2 in Weight: 208 lb 4 oz BMI 26.7 BP 132/78 H Blood Pressure Location Rt brachial Position Sitting Respiration 18 Pulse 63 Pulse Source Monitor Temp 97.2 F L Temp Source Temporal Pulse Oximetry (%) 97 Oxygen Delivery Method room air Intake Visit Reasons: UMBILICAL, INGUINAL HERNIAS Chief Complaint: umbilical, inguinal herias Accompanied by: Is patient in pain?: No Allergies Penicillins Allergy (Intermediate, Verified 11/01/24 13:00) Rash Medications ???Medication ???Instructions ???Recorded ???Confirmed ???Type Lactobacillus acidophilus 1 1,000 mmu cells PO QDAY 03/24/24 0 11/01/24 History billion cell capsule amlodipine 10 mg tablet 10 mg PO QDAY 03/24/24 11/01/24 Hi story atorvastatin 20 mg tablet 20 mg PO QDAY 03/24/24 11/01/24 Hi story betamethasone dipropionate 0.05 % 1 applic topical BID 03/24/2409/22 History topical cream glucosamine HCl 750 mg tablet 750 mg PO QDAY 03/24/24 11/01/24 H istory multivitamin 1 tab PO QAM 03/24/24 11/01/24 His rosalba saw katlino 500 mg capsule 1,000 mg PO QDAY 03/24/24 11/01/24 History Have you fallen in the past year?: No PFSH Medical History Left inguinal hernia BPH (benign prostatic hyperplasia) Patent foramen ovale Nonrheumatic aortic (valve) insufficiency Carotid stenosis History of CVA (cerebrovascular accident) Prediabetes Varicose veins of legs Bilateral thumb pain History of elevated PSA Hx of arterial ischemic stroke HTN (hypertension) Surgical History Hx of cholecystectomy ( 2003) S/P hernia surgery ( 1971) Family History Other CVA (cerebral vascular accident) Diabetes Hypertension Social History Smoking Status: Former smoker Tobacco: How many years used: 20 alcohol intake: never substance use type: does not use HPI HPI HPI: The patient is a 69-year-old male who is being seen today for evaluation of a left inguinal hernia as well as an umbilical hernia. He states that this is causing him increasing pain and discomfort. He underwent recent imaging that showed left inguinal hernia as well as an umbilical hernia containing fat. Patient presents today for evaluation of these hernias and to discuss possible repair ROS General General: Yes fatigue; No weight change, appetite, colon cancer, breast cancer or weakness HEENT HEENT: No difficulty swallowing, eye injury, eye surgery, swollen glands or hoarseness Endo Endocrine: No thyroid disease, diabetes mellitus, thyroid cancer, Hair loss, heat intolerance or cold intolerance Skin Skin: No rash or changing moles Musc Musculoskeletal: No back problems, arthritis, rheumatoid arthritis, gout or joint pain Cardio Cardiovascular: No murmur, pacemaker, heart disease, atrial fibrillation, high blood pressure, heart attack, heart stent, palpitations, shortness of breath with exertion or chest pain Psych Psychiatric: No depression, anxiety or hearing voices Resp Respiratory: No shortness of breath, No sleep apnea, No cough, No COPD, No asthma, No emphysema and No wheezing Gastro Gastrointestinal: No abdominal pain, No nausea or vomiting, No diarrhea, No constipation, No blood in stool, No acid reflux, No hemorrhoids, No ulcers, No gallbladder problem and No black,tarry stools Mahesh Hematologic: No blood thinners, No blood disorders, No bleeding, No anemia and No blood clots Neuro Neurologic: No numbness, No tingling and No weakness Exam Const General: cooperative, healthy appearing and comfortable [facility] Head: normal to inspection, normocephalic and atraumatic Eyes General: appearance normal, both eyes and all related structures Resp Effort Inspection: normal respiratory effort GI Other: Examination of the abdomen reveals soft nontender abdomen. He does have a small fat-containing umbilical hernia Other: Patient has a moderate-sized left inguinal hernia that is reducible. No evidence of right inguinal hernia Assessment and Plan Assessment and Plan (1) Left inguinal hernia: Status: Acute Plan: The patient is a 69-year-old male with a left inguinal hernia as well as a small fat-containing umbilical her (more content not included)... Normal [facility] Abdomen/Pelvis without Conto n 10-14-2024 Abdomen/Pelvis without Cont [facility] Services [address] [place] [address] [id number] Abdomen/Pelvis without Cont MR#: [id number] Acct: [id number] Name: NEENA ROMAN Rep #: [id number] : 1955 M 69 From: Laron Bey MD PCP: Dr. Teresa Duffy MD Status: REG CLI Study: Abdomen/Pelvis without Cont Date of Exam: 09/28 12/22 Exam# [id number] Ordering Dr: Teresa Duffy MD EXAM: CT Abdomen and Pelvis Without Intravenous Contrast CLINICAL INDICATION: LT GROIN MASS TECHNIQUE: Axial computed tomography images of the abdomen and pelvis without intravenous contrast. This CT exam was performed using one or more of the following dose reduction techniques: automated exposure control, adjustment of the mA and/or kV according to patient size, and/or use of iterative reconstruction technique. COMPARISON: No relevant prior studies available. FINDINGS: LUNG BASES: Unremarkable. No mass. No consolidation. MEDIASTINUM: Small esophageal hiatal hernia. ABDOMEN: LIVER: Hepatomegaly with fatty infiltration. GALLBLADDER AND BILE DUCTS: Unremarkable. No calcified stones. No ductal dilation. PANCREAS: Unremarkable. No ductal dilation. SPLEEN: Unremarkable. No splenomegaly. ADRENALS: Unremarkable. No mass. KIDNEYS AND URETERS: Left renal cysts, largest measuring up to 3.1 cm. No obstructing stones. STOMACH AND BOWEL: Scattered diverticula in the colon. There is mucosal thickening in the sigmoid colon with surrounding inflammation consistent with acute diverticulitis. No abscess. No obstruction. PELVIS: APPENDIX: No findings to suggest acute appendicitis. BLADDER: Urinary bladder calculi. REPRODUCTIVE: The prostate gland is enlarged measuring 6.0 cm in maximum dimension. ABDOMEN and PELVIS: INTRAPERITONEAL SPACE: Unremarkable. No free air. No significant fluid collection. BONES/JOINTS: Grade 1 anterior spondylolisthesis of L4 over L5. Severe endplate degenerative change and disc disease of L4-5. No acute fracture. No dislocation. SOFT TISSUES: Umbilical hernia containing fat. Large left inguinal hernia containing fat. VASCULATURE: Scattered calcified atherosclerotic disease of aorta. No abdominal aortic aneurysm. LYMPH NODES: Unremarkable. No enlarged lymph nodes. CT/Abdomen/Pelvis without Cont IMPRESSION: 1. Scattered diverticula in the colon. There is mucosal thickening in the sigmoid colon with surrounding inflammation consistent with acute diverticulitis. No abscess. 2. The prostate gland is enlarged. Correlation with PSA values may be helpful if not previously performed. 3. Small esophageal hiatal hernia. 4. Hepatomegaly with fatty infiltration. 5. Umbilical hernia containing fat. 6. Large left inguinal hernia containing fat. 7. Simple left renal cyst. Reading Location: [facility] CC: Dr. Teresa Duffy MD Grouter Helper: Signed Normal [facility] Stress Reporton 09-26-2024 Stress Report [facility] [address] [place] [address] MR#: [id number] Acct: [id number] Name: NEENA ROMAN Rep #: [id number] : 1955 69 From: Lance Carbone MD Primary Care: Dr. Teresa Duffy MD Status: REG CLI Referring Dr: Lance Carbone MD Sex: M C Stress Test Report Pharmacologic myocardial perfusion stress test. 69-year-old man with a history of preoperative surgical assessment Resting EKG demonstrates sinus rhythm with a rate of 61 bpm. Resting blood pressure is 124/84 mmHg. 0.4 mg of regadenoson was infused per usual protocol followed by rapid intravenous saline flush injection. Continuous EKG monitoring was performed. The maximum heart rate was 80 bpm which was 53% of max impacted heart rate the maximum workload was 1 metabolic equivalent. At rest there were no ST or T wave changes noted to suggest ischemia and at peak infusion nonspecific ST changes were noted which did not meet the criteria for ischemia. No clinical angina is noted. The final blood pressure was 122/82 mmHg. Myocardial perfusion protocol. 14.5 mCi of technetium 99m sestamibi was injected at rest. 0.4 mg of regadenoson was infused per usual protocol. At peak infusion 44.1 mCi of technetium 99m sestamibi was injected stress images were obtained stress and rest images were reconstructed and compared in the short axis vertical long and horizontal long axis. Gated images were also obtained. Perfusion SPECT analysis: Review of the stress images demonstrate normal uptake of tracer noted in all areas of the myocardium. The resting images similar demonstrated normal uptake of tracer noted in all areas of the myocardium. No areas of reversibility are noted to suggest ischemia and no previous infarct is noted. Gated SPECT analysis: The gated ejection fraction is 62%. Conclusion: Normal pharmacologic myocardial perfusion stress test. Preserved ejection fraction. 09/26/24 0744 Date Lance Carbone MD CC: Dr. Lance Carbone MD; Dr. Teresa Duffy MD Date Dictated: 09/26/2441 Date Transcribed: 09/26/24740 Grouter Helper: CO Signed Normal [facility] Echo Completeon 09-12-2024 Echo Complete [facility] [address] [place] [address] Echo Complete 09/12/24 1306 MR#: [id number] Acct: [id number] Name: NEENA ROMAN Rep #: [id number] : 1955 69 From: Lance Carbone MD Attending Dr: Dr. Lance Carbone MD Status: LEIGH ANN GAO Ordering Dr: Lance Carbone MD Date: 09/12/24 Location: [facility] Sex: M C Admitted: Reason For Study Reason For Study: EMBOLI Procedure This was a 2D Doppler, Color Flow transthoracic echocardiogram. Exam performed in department. Left Ventricle Normal LV size. Moderate concentric left ventricular hypertrophy. Left ventricular systolic function is normal. The left ventricular ejection fraction is 65 %. No regional wall motion abnormalities noted. Right Ventricle Normal RV size. Normal systolic function. Atria Normal left atrium. Normal right atrium. Mitral Valve Normal mitral valve. Tricuspid Valve Normal tricuspid valve. Mild tricuspid valve insufficiency. Pulmonary artery systolic pressure is 24 mmHg. Aortic Valve Trisinus/trileaflet aortic valve. Mild focal aortic valve calcification. Pulmonic Valve Normal pulmonic valve. Great Vessels Mild to moderately dilated aortic root. The pulmonary artery is normal size. Normal inferior vena cava. Pericardium/Pleural No pericardial effusion. MMode/2D Measurements Calculations LVIDd: 4.3 cm IVSd: 1.5 cm Ao root diam: 4.0 cm RVDd: 3.6 cm LVPWd: 1.2 cm LAV(MOD-bp): 31.3 ml LVAd ap4: 34.8 cm2 SV(MOD-sp4): 65.1 ml LAV(MOD-bp) Indexed: 14.5 ml/m2 LVLd ap4: 9.2 cm SI(MOD-sp4): 30.3 ml/m2 LAV(MOD-sp2): 29.3 ml EDV(MOD-sp4): 107.3 ml LAV(MOD-sp4): 31.4 ml EDV(sp4-el): 112.0 ml LVAs ap4: 19.1 cm2 LVLs ap4: 7.5 cm ESV(MOD-sp4): 42.2 ml ESV(sp4-el): 41.5 ml EF(MOD-sp4): 60.7 % EF(sp4-el): 63.0 % SV(sp4-el): 70.5 ml LA A4 area: 14.1 cm2 LA dimension(2D): 3.4 cm RA A4 area: 14.0 cm2 TAPSE: 2.5 cm Time Measurements MV dec time: 0.34 sec Doppler Measurements Calculations MV E max devonte: 65.5 cm/sec Lat Peak E' Devonte: 6.3 cm/sec Med Peak E' Devonte: 4.3 cm/sec MV A max devonte: 94.2 cm/sec E/E' lat: 10.4 E/E' med: 15.2 MV E/A: 0.70 Ao V2 max: 153.4 cm/sec AI max devonte: 365.4 cm/sec LV V1 max: 113.2 cm/sec Ao max P.4 mmHg AI max P.4 mmHg LV V1 max P.1 mmHg AI dec slope: 99.3 cm/sec2 AI P1/2t: 1077 msec PA V2 max: 113.8 cm/sec TR max devonte: 228.0 cm/sec TR max P.8 mmHg ECHO/Echo Complete Interpretation Summary Normal LV size. Left ventricular systolic function is normal. The left ventricular ejection fraction is 65 %. Moderate concentric left ventricular hypertrophy. Pulmonary artery systolic pressure is 24 mmHg. Mild focal aortic valve calcification. Ordering Physician: Lance Carbone Referring Physician: TERESA DUFFY Performed By: Kaia Felipe RDCS 09/12/241628 Date Lance Carbone MD CC: Dr. Lance Carbone MD; Dr. Teresa Duffy MD Date Dictated: 09/12/241305 Date Transcribed: 09/12/241628 Grouter Helper: Signed Normal [facility] Echocardiogram study reportO rdered By: Lance Carbone on 09-12-2024 Study report [facility] [address] [place] [address] Echo Complete 09/12/24 1306 MR#: [id number] Acct: [id number] Name: NEENA ROMAN Rep #:[id number] : 1955 69 From: Lance Sharma Attending Dr: MD Jasmeet Mayers tatus: LEIGH ANN CLI Ordering Dr: Lance Carbone MD Date: Location: [facility] Sex: M C Admitted: Reason For Study Reason For Study: EMBOLI Procedure This was a 2D Doppler, Color Flow transthoracic echocardiogram. Exam performed in department. Left Ventricle Normal LV size. Moderate concentric left ventricular hypertrophy. Left ventricular systolic function is normal. The left ventricular ejection fraction is 65 %. No regional wall motion abnormalities noted. Right Ventricle Normal RV size. Normal systolic function. Atria Normal left atrium. Normal right atrium. Mitral Valve Normal mitral valve. Tricuspid Valve Normal tricuspid valve. Mild tricuspid valve insufficiency. Pulmonary artery systolic pressure is 24 mmHg. Aortic Valve Trisinus/trileaflet aortic valve. Mild focal aortic valve calcification. Pulmonic Valve Normal pulmonic valve. Great Vessels Mild to moderately dilated aortic root. The pulmonary artery is normal size. Normal inferior vena cava. Pericardium/Pleural No pericardial effusion. MMode/2D Measurements & Calculations LVIDd: 4.3 cm IVSd: 1.5 cm Ao root diam: 4.0 cm RVDd: 3.6 cm LVPWd: 1.2 cm LAV(MOD-bp): 31.3 ml LVAd ap4: 34.8 cm2 SV(MOD-sp4): 65.1 ml LAV(MOD-bp) Indexed: 14.5 ml/m2 LVLd ap4: 9.2 cm SI(MOD-sp4): 30.3 ml/m2 LAV(MOD-sp2): 29.3 ml EDV(MOD-sp4): 107.3 ml LAV(MOD-sp4): 31.4 ml EDV(sp4-el): 112.0 ml LVAs ap4: 19.1 cm2 LVLs ap4: 7.5 cm ESV(MOD-sp4): 42.2 ml ESV(sp4-el): 41.5 ml EF(MOD-sp4): 60.7 % EF(sp4-el): 63.0 % SV(sp4-el): 70.5 ml LA A4 area: 14.1 cm2 LA dimension(2D): 3.4 cm RA A4 area: 14.0 cm2 TAPSE: 2.5 cm Time Measurements MV dec time: 0.34 sec Doppler Measurements & Calculations MV E max devonte: 65.5 cm/sec Lat Peak E' Devonte: 6.3 cm/sec Med Peak E' Devonte: 4.3 cm/sec MV A max devonte: 94.2 cm/sec E/E' lat: 10.4 E/E' med: 15.2 MV E/A: 0.70 Ao V2 max: 153.4 cm/sec AI max devonte: 365.4 cm/sec LV V1 max: 113.2 cm/sec Ao max P.4 mmHg AI max P.4 mmHg LV V1 max P.1 mmHg AI dec slope: 99.3 cm/sec2 AI P1/2t: 1077 msec PA V2 max: 113.8 cm/sec TR max devonte: 228.0 cm/sec TR max P.8 mmHg ECHO/Echo Complete Interpretation Summary Normal LV size. Left ventricular systolic function is normal. The left ventricular ejection fraction is 65 %. Moderate concentric left ventricular hypertrophy. Pulmonary artery systolic pressure is 24 mmHg. Mild focal aortic valve calcification. Ordering Physician: Lance Carbone Referring Physician: TERESA DUFFY Performed By: Kaia Felipe RDCS 09/12/24 1629 Date _ Lance Carbone MD CC: Dr. Lance Carbone MD; Dr. Teresa Duffy MD ~ Date Dictated: 09/12/24 1306 Date Transcribed: 09/12/24 1629 Grouter Helper: Signed [facility] Work Phone: 12 Lead EKG performed by [facility] on 08-18-2024 12 Lead EKG performed by [facility] [address] [place] [address] 12 Lead EKG performed by [facility] 08/18/24 1257 MR#: [id number] Acct: [id number] Name: NEENA ROMAN Rep #: [id number] : 1955 69 From: Lance Carbone MD Attending Dr: Dr. Lance Carbone MD Status: DEP A MB Ordering Dr: Lance Carbone MD Date: 08/18/24 [place] [facility] [place]: M C Admitted: BMS/12 Lead EKG performed by [facility] ECG Report Interpretation ----Sinus Rhythm -First degree A-V block Lu = [id number] RHYTHMElectronically signed on 08/19/2024 at 11:08 by Lance Carbone [employer] Version [id number] 08/19/24 1112 Date Lance Carbone MD CC: Dr. Teresa Duffy MD Date Dictated: 08/18/24 1257 Date Transcribed: 08/18/24 1257 Grouter Helper: CO Signed Normal [facility] Cardiology Visit Reporton Cardiology Visit Report [facility] [address] [place] [address] OFFICE VISIT Date of Service: 08/18/24 MR#: [id number] Acct: [id number] Name: NEENA ROMAN Rep #: [id number] : 1955 Provider: Dr. Lance Carbone MD Age/Sex: 69/M [place] [facility] [place]: Signed HPI HPI History of Present Illness Details: 69-year-old man who presents for preoperative cardiac evaluation. He has had a remote history of a transient ischemic attack and has a history of venous reflux and saw the vascular surgeon. He apparently had a bubble study performed in 2022 which demonstrated evidence of a nyovz-ze-[id number] shunt. There was mild aortic regurgitation noted. He is therefore being referred for cardiology evaluation. He denies any chest pain or shortness breath or paroxysmal nocturnal dyspnea noted pedal edema no neck arm or jaw discomfort suggest angina. Previous carotid duplex demonstrated no significant stenosis and a CCTA demonstrated coronary calcium score of 209. The LAD was 209 the left circumflex left main and right coronary artery were all 0. Previous 30-day event monitor demonstrated average heart rate of 73 bpm and no acute changes. Lipid profile demonstrates total cholesterol of 88 HDL 38 and LDL of 36. His physical exam here is unremarkable and his electrocardiogram demonstrates sinus with a rate of 64 bpm. Intake Vital Signs 03/24/24 09:44 08/18/24 12:56 Height 6 ft 1 in 6 ft 1 in Weight: 209 lb BMI 27.6 BP 136/90 H Blood Pressure Location Lt brachial Position Sitting Respiration 16 Pulse 66 Pulse Source Monitor Intake Visit Reasons: HX OF TIA ([facility]) Clothing Pattern Preparer Required: No Accompanied by: Significant Other Is patient in pain?: No Allergies Penicillins Allergy (Intermediate, Verified 08/18/24 13:00) Rash Medications ???Medication ???Instructions ???Recorded ???Confirmed ???Type Lactobacillus acidophilus 1 1,000 mmu cells PO QDAY 03/24/24 0 08/18/24 History billion cell capsule amlodipine 10 mg tablet 10 mg PO QDAY 03/24/24 08/18/24 Hi story atorvastatin 20 mg tablet 20 mg PO QDAY 03/24/24 08/18/24 Hi story betamethasone dipropionate 0.05 % 1 applic topical BID 03/24/24 History topical cream glucosamine HCl 750 mg tablet 750 mg PO QDAY 03/24/24 08/18/24 H istory multivitamin 1 tab PO QAM 03/24/24 08/18/24 His tory saw palmetto 500 mg capsule 1,000 mg PO QDAY 03/24/24 08/18/24 History Have you fallen in the past year?: Yes [facility] Medical History BPH (benign prostatic hyperplasia) Patent foramen ovale Nonrheumatic aortic (valve) insufficiency Carotid stenosis History of CVA (cerebrovascular accident) Prediabetes Varicose veins of legs Bilateral thumb pain History of elevated PSA Hx of arterial ischemic stroke HTN (hypertension) Surgical History Hx of cholecystectomy ( 2003) S/P hernia surgery ( 1971) Family History Other CVA (cerebral vascular accident) Diabetes Hypertension Social History Smoking Status: Former smoker Tobacco: How many years used: 20 ROS Const Const: Negative for fatigue, weakness, headache(s), daytime sleepiness or difficulty sleeping ENT ENT: Negative for headache(s), dizziness or Nosebleed/epistaxis Cardio Chest Pain: No Palpitations: No Edema: None Resp Respiratory: Negative for SOB with activity, SOB at rest, SOB orthopnea SOB lying down or Cough GI GI: Negative nausea, vomiting or heartburn Neuro Neuro: Negative for dizziness, lightheadedness, near syncope, headache(s) or weakness Endo Endo: Negative for fatigue Cardiology Exam Const Appearance: cooperative, healthy appearing, no acute distress, well developed and well groomed Nutritional Appearance: average body habitus and well nourished Orientation: alert, awake and oriented x3 Head Head: normal to inspection, normocephalic and atraumatic Ears: hearing grossly normal bilaterally and external ears normal Nose: external nose normal, nares normal, nasal mucous membranes and turbinates normal, septum normal and no nasal discharge Face and Sinus: face symmetric Mouth: oral mucosae normal, tongue normal, oropharynx normal and moist mucous membranes Teeth and gingiva: dentition normal Throat: posterior oropharynx normal, tonsils normal and uvula midline Eyes General: appearance normal, both eyes and all related structures Eyelids: eyelids normal Conjunctivae: conjunctivae normal Pupils: PERRL, normal by confrontation and accommodation normal EOM: EOM intact bilaterally Neck Neck: normal visual inspection, trachea m (more content not included)... Normal [facility] CBC (INCLUDES DIFF/PLT)on ABSOLUTE BAND NEUTROPHILS Normal [facility] Comment on above: Performed By: #### 8 563, 6399, 7600, 927, 70851, 13721, 38984 #### [facility] of [address], [address] [place] [address] Packaging Technician: Maykel Russell MD ABSOLUTE BASOPHILS Normal [facility] Comment on above: Performed By: #### 8 563, 6399, 7600, 927, 15781, 65189, 65333 #### [facility] of [address], [address] [place] [address] Packaging Technician: Maykel Russell MD ABSOLUTE BLASTS Normal [facility] Comment on above: Performed By: #### 8 563, 6399, 7600, 927, 58399, 30862, 66660 #### [facility] of [address], [address] [place] [address] Packaging Technician: Maykel Russell MD ABSOLUTE EOSINOPHILS [facility] Comment on above: Performed By: #### 8 563, 6399, 7600, 927, 66268, 19961, 12264 #### [facility] of [address], [address] [place] [address] Packaging Technician: Maykel Russell MD ABSOLUTE LYMPHOCYTES [facility] Comment on above: Performed By: #### 8 563, 6399, 7600, 927, 53586, 98519, 20252 #### [facility] of [address], [address] [place] [address] Packaging Technician: Maykel Russell MD ABSOLUTE METAMYELOCYTES Normal [facility] Comment on above: Performed By: #### 8 563, 6399, 7600, 927, 41178, 62065, 16104 #### [facility] of [place] [address] Packaging Technician: Maykel Russell MD ABSOLUTE MONOCYTES Normal [facility] Comment on above: Performed By: #### 8 563, 6399, 7600, 927, 70302, 49970, 80403 #### [facility] of [place] [address], [address] [place] [address] Packaging Technician: Maykel Russell MD ABSOLUTE MYELOCYTES Normal [facility] Comment on above: Performed By: #### 8 563, 6399, 7600, 927, 94467, 44619, 18515 #### [facility] of [place] [address] , [address] [place] [address] Packaging Technician: Maykel Russell MD ABSOLUTE NEUTROPHILS [facility] Comment on above: Performed By: #### 8 563, 6399, 7600, 927, 96772, 07440, 20000 #### [facility] of [address], [address] [place] [address] Packaging Technician: Maykel Russell MD ABSOLUTE NUCLEATED RBC Normal [facility] Comment on above: Performed By: #### 8 563, 6399, 7600, 927, 73607, 65363, 67633 #### [facility] of [place] [address] [address] , [address] [place] [address] Packaging Technician: Maykel Russell MD ABSOLUTE PROMYELOCYTES Normal [facility] Comment on above: Performed By: #### 8 563, 6399, 7600, 927, 94659, 91487, 05304 #### [facility] of [place] [address] , [address] [place] [address] Packaging Technician: Maykel Russell MD BAND NEUTROPHILS Normal [facility] Comment on above: Performed By: #### 8 563, 6399, 7600, 927, 09981, 99926, 17640 #### [facility] of [facility] [address] , [address] [place] [address] Packaging Technician: Maykel Russell MD BASOPHILS Normal [facility] Comment on above: Performed By: #### 8 563, 6399, 7600, 927, 64138, 32291, 65630 #### [facility] of [place] [address] [address] , [address] [place] [address] Packaging Technician: Maykel Russell MD BLASTS Normal [facility] Comment on above: Performed By: #### 8 563, 6399, 7600, 927, 23527, 82142, 94982 #### [facility] of [facility] [address], [address] [place] [address] Packaging Technician: Maykel Russell MD COMMENT(S) Normal [facility] Comment on above: Performed By: #### 8 563, 6399, 7600, 927, 73760, 24934, 79570 #### [facility] of [place] [address], [address] [place] [address] Packaging Technician: Maykel Russell MD [facility] Normal [facility] Comment on above: Performed By: #### 8 563, 6399, 7600, 927, 01130, 68784, 12298 #### [facility] of [facility] [address], [address] [place] [address] Packaging Technician: Maykel Russell MD [facility] Normal [facility] Comment on above: Performed By: #### 8 563, 6399, 7600, 927, 27630, 45882, 40380 #### [facility] of [facility] [address], [address] [place] [address] Packaging Technician: Maykel Russell MD [facility] Normal [facility] Comment on above: Performed By: #### 8 563, 6399, 7600, 927, 45747, 35768, 54339 #### [facility] of [facility] [address], [address] [place] [address] Packaging Technician: Maykel Russell MD [facility] Normal [facility] Comment on above: Performed By: #### 8 563, 6399, 7600, 927, 65376, 51273, 11653 #### [facility] of [facility] [address], [address] [place] [address] Packaging Technician: Maykel Russell MD [facility] Normal [facility] Comment on above: Performed By: #### 8 563, 6399, 7600, 927, 16881, 18787, 54962 #### [facility] of [facility] [address], [address] [place] [address] Packaging Technician: Maykel Russell MD [facility] Normal [facility] Comment on above: Performed By: #### 8 563, 6399, 7600, 927, 98359, 47293, 37758 #### [facility] of [facility] [address], [address] [place] [address] Packaging Technician: Maykel Russell MD MCV Normal [facility] Comment on above: Performed By: #### 8 563, 6399, 7600, 927, 07174, 58540, 81757 #### [facility] [address], [address] [place] [address] Packaging Technician: Maykel Russell MD METAMYELOCYTES Normal [facility] Comment on above: Performed By: #### 8 563, 6399, 7600, 927, 79326, 50444, 23571 #### [facility] of [place] [address], [address] [place] [address] Packaging Technician: Maykel Russell MD MONOCYTES Normal [facility] Comment on above: Performed By: #### 8 563, 6399, 7600, 927, 76471, 09684, 22751 #### [facility] of [facility] [address], [address] [place] [address] Packaging Technician: Maykel Russell MD MPV Normal [facility] Comment on above: Performed By: #### 8 563, 6399, 7600, 927, 55274, 90601, 67115 #### [facility] [address], [address] [place] [address] Packaging Technician: Maykel Russell MD MYELOCYTES Normal [facility] Comment on above: Performed By: #### 8 563, 6399, 7600, 927, 54515, 91478, 82430 #### [facility] [address], [address] [place] [address] Packaging Technician: Maykel Russell MD NEUTROPHILS Normal [facility] Comment on above: Performed By: #### 8 563, 6399, 7600, 927, 18238, 94453, 93934 #### [facility] [address], [address] [place] [address] Packaging Technician: Maykel Russell MD NUCLEATED RBC Normal [facility] Comment on above: Performed By: #### 8 563, 6399, 7600, 927, 34119, 62485, 27670 #### [facility] [address], [address] [place] [address] Packaging Technician: Maykel Russell MD PLATELET COUNT Normal [facility] Comment on above: Performed By: #### 8 563, 6399, 7600, 927, 31134, 04066, 44783 #### [facility] [address], [address] [place] [address] Packaging Technician: Maykel Russell MD PROMYELOCYTES Normal [facility] Comment on above: Performed By: #### 8 563, 6399, 7600, 927, 81977, 24341, 00386 #### [facility] [address], [address] [place] [address] Packaging Technician: Maykel Russell MD RDW Normal [facility] Comment on above: Performed By: #### 8 563, 6399, 7600, 927, 54169, 43547, 87625 #### [facility] [address], [address] [place] [address] Packaging Technician: Maykel Russell MD REACTIVE LYMPHOCYTES [facility] Comment on above: Performed By: #### 8 563, 6399, 7600, 927, 02675, 39084, 07901 #### [facility] [address], [address] [place] [address] Packaging Technician: Maykel Russell MD RED BLOOD CELL COUNT [facility] Comment on above: Performed By: #### 8 563, 6399, 7600, 927, 27299, 22472, 35339 #### [facility] of [facility] [address], [address] [place], [place] [address] Packaging Technician: Maykel Russell MD WHITE BLOOD CELL COUNT Normal [facility] Comment on above: Performed By: #### 8 563, 6399, 7600, 927, 41261, 45569, 34689 #### [facility] [address], [address] [place] [address] Packaging Technician: Maykel Russell MD COMPREHENSIVE METABOLIC PANE L W/ANION GAPon 08-03-2024 ALBUMIN Normal [facility] Comment on above: Performed By: #### 8 563, 6399, 7600, 927, 03787, 11543, 36434 #### [facility] [address], [address] [place] [address] Packaging Technician: Maykel Russell MD ALKALINE PHOSPHATASE [facility] Comment on above: Performed By: #### 8 563, 6399, 7600, 927, 19815, 99080, 88335 #### [facility] [address], [address] [place] [address] Packaging Technician: Maykel Russell MD ALT Normal [facility] Comment on above: Performed By: #### 8 563, 6399, 7600, 927, 84572, 02568, 69324 #### [facility] [address], [address] [place] [address] Packaging Technician: Maykel Russell MD AST Normal [facility] Comment on above: Performed By: #### 8 563, 6399, 7600, 927, 63914, 33879, 59855 #### [facility] [address], [address] [place] [address] Packaging Technician: Maykel Russell MD BILIRUBIN, TOTAL Normal [facility] Comment on above: Performed By: #### 8 563, 6399, 7600, 927, 01221, 49145, 82467 #### [facility] [address], [address] [place] [address] Packaging Technician: Maykel Russell MD CALCIUM Normal [facility] Comment on above: Performed By: #### 8 563, 6399, 7600, 927, 01137, 10409, 05138 #### [facility] [address], [address] [place] [address] Packaging Technician: Maykel Russell MD CARBON DIOXIDE Normal [facility] Comment on above: Performed By: #### 8 563, 6399, 7600, 927, 28806, 30487, 56190 #### [facility] [address], [address] [place] [address] Packaging Technician: Maykel Russell MD CHLORIDE Normal [facility] Comment on above: Performed By: #### 8 563, 6399, 7600, 927, 91086, 79581, 90500 #### [facility] [address], [address] [place] [address] Packaging Technician: Maykel Russell MD CREATININE Normal [facility] Comment on above: Performed By: #### 8 563, 6399, 7600, 927, 21724, 48142, 60777 #### [facility] [address], [address] [place] [address] Packaging Technician: Maykel Russell MD EGFR Normal [facility] Comment on above: Performed By: #### 8 563, 6399, 7600, 927, 30949, 66240, 38837 #### [facility] [address], [address] [place] [address] Packaging Technician: Maykel Russell MD ELECTROLYTE BALANCE Normal [facility] Comment on above: Performed By: #### 8 563, 6399, 7600, 927, 55713, 89410, 93737 #### [facility] [address], [address] [place] [address] Packaging Technician: Maykel Russell MD GLUCOSE Normal [facility] Comment on above: Performed By: #### 8 563, 6399, 7600, 927, 46757, 60625, 69039 #### [facility] [address], [address] [place] [address] Packaging Technician: Maykel Russell MD POTASSIUM Normal [facility] Comment on above: Performed By: #### 8 563, 6399, 7600, 927, 83653, 81034, 61985 #### [facility] of [place] [address], [address] [place] [address] Packaging Technician: Maykel Russell MD PROTEIN, TOTAL Normal [facility] Comment on above: Performed By: #### 8 563, 6399, 7600, 927, 58902, 57120, 00363 #### [facility] of [place] [address] , [address] [place] [address] Packaging Technician: Maykel Russell MD SODIUM Normal [facility] Comment on above: Performed By: #### 8 563, 6399, 7600, 927, 59913, 31279, 79291 #### [facility] of [address] , [address] [place] [address] Packaging Technician: Maykel Russell MD UREA NITROGEN (BUN) Normal [facility] Comment on above: Performed By: #### 8 563, 6399, 7600, 927, 93640, 46338, 85303 #### [facility] of [place] [address] , [address] [place] [address] Packaging Technician: Maykel Russell MD HEMOGLOBIN A1c WITH eAGon eAG (mg/dL) Normal [facility] Comment on above: Performed By: #### 8 563, 6399, 7600, 927, 16869, 41126, 32236 #### [facility] of [place] [address] , [address] [place] [address] Packaging Technician: Maykel Russell MD eAG (mmol/L) Normal [facility] Comment on above: Performed By: #### 8 563, 6399, 7600, 927, 53418, 91201, 72880 #### [facility] of [place] [address] , [address] [place] [address] Packaging Technician: Maykel Russell MD HEMOGLOBIN A1c Normal [facility] Comment on above: Performed By: #### 8 563, 6399, 7600, 927, 09116, 93826, 59832 #### [facility] of [place] [address] Packaging Technician: Maykel Russell MD LIPID PANEL, [facility] 03-0 CHOL/HDLC RATIO Normal [facility] Comment on above: Order Comment: FASTI NG:YES FASTING: YES Performed By: #### 8 563, 6399, 7600, 927, 15966, 75973, 71324 #### [facility] [address], [address] [place] [address] Packaging Technician: Maykel Russell MD CHOLESTEROL, TOTAL Normal [facility] Comment on above: Order Comment: FASTI NG:YES FASTING: YES Performed By: #### 8 563, 6399, 7600, 927, 11806, 74754, 48437 #### [facility] of [address], [address] [place] [address] Packaging Technician: Maykel Russell MD HDL CHOLESTEROL Normal [facility] Comment on above: Order Comment: FASTI NG:YES FASTING: YES Performed By: #### 8 563, 6399, 7600, 927, 23881, 39131, 19484 #### [facility] [place] [address] Packaging Technician: Maykel Russell MD LDL-CHOLESTEROL Normal [facility] Comment on above: Order Comment: FASTI NG:YES FASTING: YES Performed By: #### 8 563, 6399, 7600, 927, 67727, 87203, 06366 #### [facility] of [address], [address] [place] [address] Packaging Technician: Maykel Russell MD NON HDL CHOLESTEROL Normal [facility] Comment on above: Order Comment: FASTI NG:YES FASTING: YES Performed By: #### 8 563, 6399, 7600, 927, 96281, 47503, 77515 #### [facility] of [address], [address] [place] [address] Packaging Technician: Maykel Russell MD TRIGLYCERIDES Normal [facility] Comment on above: Order Comment: FASTI NG:YES FASTING: YES Performed By: #### 8 563, 6399, 7600, 927, 22163, 44450, 53551 #### [facility] of [address], [address] [place] [address] Packaging Technician: Maykel Russell MD TSH W/REFLEX TO FT4on 2024 TSH W/REFLEX TO FT4 Normal [facility] Comment on above: Performed By: #### 8 563, 6399, 7600, 927, 21262, 56360, 68513 #### [facility] of [place] [address] Packaging Technician: Maykel Russell MD URINALYSIS MICROSCOPICon BACTERIA NONE SEEN Normal NONE SEEN [facility] Comment on above: Performed By: #### 8 563, 6399, 7600, 927, 33448, 11798, 94461 #### [facility] of [address], [address] [place] [address] Packaging Technician: Maykel Russell MD HYALINE CAST NONE SEEN Normal NONE SEEN [facility] Comment on above: Performed By: #### 8 563, 6399, 7600, 927, 34638, 82670, 77256 #### [facility] of [address], [address] [place] [address] Packaging Technician: Maykel Russell MD NOTE Normal [facility] Comment on above: Result Comment: This urine was analyzed for the presence of WBC, RBC, bacteria, casts, and other formed elements. Only those elements seen were reported. Performed By: #### 8 563, 6399, 7600, 927, 82090, 88857, 77185 #### [facility] of [address] , [address] [place] [address] Packaging Technician: Maykel Russell MD RBC 0-2 Normal < OR = 2 [facility] Comment on above: Performed By: #### 8 563, 6399, 7600, 927, 06314, 46322, 06659 #### [facility] of [address], [address] [place] [address] Packaging Technician: Maykel Russell MD SQUAMOUS EPITHELIAL CELLS NONE SEEN Normal < OR = 5 [facility] Comment on above: Performed By: #### 8 563, 6399, 7600, 927, 71175, 53205, 13551 #### [facility] of [place] [address] , [address] [place] [address] Packaging Technician: Maykel Russell MD WBC NONE SEEN Normal < OR = 5 [facility] Comment on above: Performed By: #### 8 563, 6399, 7600, 927, 46786, 58681, 55409 #### [facility] of [address], [address] [place] [address] Packaging Technician: Maykel Russell MD VITAMIN B12on 08-03-2024 VITAMIN B12 Normal [facility] Comment on above: Performed By: #### 8 563, 6399, 7600, 927, 34111, 81169, 29010 #### [facility] of [address], [address] [place] [address] Packaging Technician: Maykel Russell MD MR/Kassie 07-11-2024 MR/SHAYLA [facility] [address] [place] [address]. [address] [place] [address] OFFICE VISIT Date of Service: 07/11/24 MR#: [id number] Acct: [id number] Name: NEENA ROMAN Rep #: [id number] : 1955 Provider: ZOEY Brown Age/Sex: 69/M Location: [facility] Status: Signed Intake Vital Signs 03/24/24 09:44 07/11/24 10:06 Height 6 ft 1 in Weight: 211 lb BP 139/86 H Blood Pressure Location Rt brachial Position Sitting Respiration 16 Pulse 62 Pulse Source Monitor Temp 98 F Temp Source Temporal Pulse Oximetry (%) 93 Oxygen Delivery Method room air Intake Visit Reasons: 6 WK FU Is patient in pain?: Yes Allergies Penicillins Allergy (Intermediate, Verified 07/11/24 10:08) Rash Medications ???Medication ???Instructions ???Recorded ???Confirmed ???Type Lactobacillus acidophilus 1 1,000 mmu cells PO QDAY 03/24/24 0 07/11/24 History billion cell capsule amlodipine 10 mg tablet 10 mg PO QDAY 03/24/24 07/11/24 Hi story atorvastatin 20 mg tablet 20 mg PO QDAY 03/24/24 07/11/24 Hi story betamethasone dipropionate 0.05 % 1 applic topical BID 03/24/2404/24 History topical cream glucosamine HCl 750 mg tablet 750 mg PO QDAY 03/24/24 07/11/24 H istory multivitamin 1 tab PO QAM 03/24/24 07/11/24 His tory saw palmetto 500 mg capsule 1,000 mg PO QDAY 03/24/24 07/11/24 History Have you fallen in the past year?: No PFSH Medical History Varicose veins of legs Bilateral thumb pain History of elevated PSA Hx of arterial ischemic stroke HTN (hypertension) Surgical History Hx of cholecystectomy ( 2003) S/P hernia surgery ( 1971) Family History Other CVA (cerebral vascular accident) Diabetes Hypertension Social History Smoking Status: Former smoker Tobacco: How many years used: 20 HPI HPI HPI: NEENA ROMAN, is a 69 M who presents to the office today for follow-up after venous reflux study and carotid duplex. 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 He has continued with conservative measures including measured compression stockings, leg elevation, and exercise regimen. His symptoms are overall stable, somewhat improved. He does not have wounds; no pain just mostly heaviness/fatigue. Carotid duplex demonstrated <50% stenosis bilaterally which correlates to CTA report found in clinisync. No recurrent CVA symptoms. No new neurologic symptoms. At last OV, referred to cardiology due to his prior echo at outside hospital which had positive bubble study. He states he has not heard from cardiology to schedule. ROS General General: No weight change, appetite, fatigue, colon cancer, breast cancer or weakness HEENT HEENT: No difficulty swallowing, eye injury, eye surgery, swollen glands or hoarseness Endo Endocrine: No thyroid disease, diabetes mellitus, thyroid cancer, Hair loss, heat intolerance or cold intolerance Skin Skin: No rash or changing moles Musc Musculoskeletal: Yes arthritis and joint pain; No back problems, rheumatoid arthritis or gout Cardio Cardiovascular: Yes high blood pressure; No murmur, pacemaker, heart disease, atrial fibrillation, heart attack, heart stent, palpitations, shortness of breat with exertion or chest pain Psych Psychiatric: No depression, anxiety or hearing voices Resp Respiratory: No shortness of breath, No sleep apnea, No cough, No COPD, No asthma, No emphysema and No wheezing Gastro Gastrointestinal: No abdominal pain, No nausea or vomiting, No diarrhea, No constipation, No blood in stool, No acid reflux, No hemorrhoids, No ulcers, No gallbladder problem and No black,tarry stools Mahesh Hematologic: No blood thinners, No blood disorders, No bleeding, No anemia and No blood clots Neuro Neurologic: No system reviewed and no additional complaints, except as documented, No as per HPI, No abnormal gait, No abnormal hearing, No abnormal movements, No abnormal speech, No behavioral changes, No burning sensations, No confusion, No convulsions, No disequilibrium, No dizziness, No localized weakness, No frequent falls, No headache(s), No lack of coordination, No loss of vision, No memory loss, No numbness, No other visual disturbances, No radicular pain, No restless legs, No sensory deficit, No syncope, No tingling, No tremor(s), No weakness and No other Exam Const General: cooperative, comfortable and no acute distress Orientation: alert, awake and oriented x3 HENMT Head: normal to inspection, normocephalic and atraumatic Ears: hearing gr (more content not included)... Normal [facility] Carotid Duplex Ultrasoundon 06-28-2024 Carotid Duplex Ultrasound [facility] [place] [address] Carotid Duplex Ultrasound 06/28/24 1017 MR#: [id number] Acct: [id number] Name: NEENA ROMAN Rep #: [id number] : 1955 69 From: Tim Ramirez MD Attending Dr: ZOEY Brown Status: REG CLI Ordering Dr: Rut Pate Date: 06/28/24 Location: [facility] Sex: M C Admitted: Reason For Study: Hx CVA Rt. Velocities/BP Lt. Velocities/BP Prox CCA 49.4/8.8 cm/sec. Prox CCA 75.4/11.7 cm/sec. Mid CCA 63.6/12.6 cm/sec. Mid CCA 53.4/10.6 cm/sec. Dist CCA 38.6/8.8 cm/sec. Dist CCA 42.4/11.7 cm/sec. Prox ICA 14.3/5.1 cm/sec. Prox ICA 14.8/5.0 cm/sec. Mid ICA 42.5/15.8 cm/sec. Mid ICA 26.6/8.1 cm/sec. Dist ICA 45.3/13.9 cm/sec. Dist ICA 34.1/10.4 cm/sec. Rt. ICA/CCA = 0.7. Lt. ICA/CCA = 0.6. Prox ECA 57.8/6.4 cm/sec. Prox ECA 62.9/11.0 cm/sec. Rt. Vert. 33.9/11.8 cm/sec. Lt. Vert. 28.0/7.9 cm/sec. Right Extracranial There is intimal thickening but no significant atherosclerotic plaque noted in the right common carotid artery. There is homogeneous, smooth atherosclerotic plaque noted in the right internal carotid artery. There is intimal thickening but no significant atherosclerotic plaque noted in the right external carotid artery. Antegrade flow is noted in the right vertebral artery. Left Extracranial There is intimal thickening but no significant atherosclerotic plaque noted in the left common carotid artery. There is homogeneous, smooth atherosclerotic plaque noted in the left internal carotid artery. There is intimal thickening but no significant atherosclerotic plaque noted in the left external carotid artery. Antegrade flow is noted in the left vertebral artery. Procedure Carotid Duplex 21219. This is a Carotid Duplex examination using B-mode, color flow and specral Doppler. Exam performed in department. VL/Carotid Duplex Ultrasound Interpretation Summary Mild (<50%) stenosis right extracranial internal carotid. Mild (<50%) stenosis left extracranial internal carotid. Patent and antegrade vertebrals bilaterally. Ordering Physician: Rut Pate Referring Physician: Rut Pate Performed By: Gaston Wilson RVT and Student 06/28/24 1551 Date Tim Ramirez MD CC: ZOEY Brown; Dr. Teresa Duffy MD Date Dictated: 06/28/24 1017 Date Transcribed: 06/28/24 1551 Grouter Helper: Signed Normal [facility] Venous Duplex US - Manuel [facility] 06-28-2024 Venous Duplex US - Manuel [facility] [address] [place] [address] Venous Duplex US - Manuel [facility] 06/28/24 0912 MR#: [id number] Acct: [id number] Name: NEENA ROMAN Rep #: [id number] : 1955 69 From: Tim Ramirez MD Attending Dr: ZOEY Brown Status: REG CLI Ordering Dr: Rut Pate Date: 06/28/24 Location: CVS Sex: M C Admitted: Reason For Study: Swelling RIGHT LEFT CFV is compressible, spontaneous, phasic, CFV is compressible, spontaneous, phasic, competent and demonstrates normal competent, and demonstrates normal augmentation. augmentation. FV is compressible, spontaneous, phasic, FV is compressible, spontaneous, phasic, competent and demonstrates normal competent and demonstrates normal augmentation. augmentation. POP V is compressible, spontaneous, phasic, POP V is compressible, spontaneous, phasic, competent and demonstrates normal competent and demonstrates normal augmentation. augmentation. T/P Trunk is compressible. T/P Trunk is compressible. PTV is compressible. PTV is compressible. RT PerV is compressible. LT PerV is compressible. SFJ is INCOMPETENT and measures 0.85 cm. SFJ is INCOMPETENT and measures 1.16 cm. GSV proximal thigh measures 0.83x0.96 cm. GSV proximal thigh measures 1.10x1.20 cm. GSV at knee measures 0.61x0.71 cm. GSV at knee measures 0.73.x0.84 cm. GSV INCOMPETENT throughout for greater than GSV INCOMPETENT throughout for greater than 0.5 seconds. 0.5 seconds. INCOMPETENT lacrosse player noted 12 cm above INCOMPETENT lacrosse player noted 10 cm above medial malleous. medial malleous. SSV mid calf is competent and measures SSV mid calf is INCOMPETENT for greater than 0.40x0.44 cm. 0.5 seconds and measures 0.24x0.29 cm. Procedure This is a venous duplex using B-mode, color flow and spectral Doppler. Exam performed in department. The exam was diagnostic. Patient was scanned in reverse Trendelenburg position during reflux assessment. VL/Venous Duplex US - Manuel Extrem Interpretation Summary Deep veins of the bilateral lower extremities are patent and compressible segmentally. There is no evidence of right lower extremity deep vein thrombosis. The bilateral great saphenous veins appear patent and compressible segmentally. Positive for reflux in the right saphenofemoral junction, great saphenous vein throughout, medial calf lacrosse player. Positive for reflux in the left saphenofemoral junction, great saphenous vein throughout, medial calf lacrosse player, small saphenous vein Ordering Physician: Rut Pate Referring Physician: Teresa Duffy MD Performed By: Gaston Wilson RVT and Student 06/28/241546 Date Tim Ramirez MD CC: ZOEY Brown; Dr. Teresa Duffy MD Date Dictated: 06/28/24911 Date Transcribed: 06/28/241546 Grouter Helper: Signed [facility] MR/BMS.BVSon 06-01-2024 MR/BMS.BVS [facility] [address] [place] [address] OFFICE VISIT Date of Service: 06/01/24 MR#: [id number] Acct: [id number] Name: NEENA ROMAN Rep #: [id number] : 1955 Provider: ZOEY Brown Age/Sex: 69/M Location: [facility] Status: Signed Intake Vital Signs 03/24/24 09:44 06/01/24 09:10 Height 6 ft 1 in Weight: 212 lb 213 lb BMI 27.9 BP 137/90 H 143/86 H Blood Pressure Location Lt brachial Lt brachial Position Sitting Sitting Respiration 16 16 Pulse 68 64 Pulse Source Monitor Monitor Temp 98.4 F 98.2 F Temp Source Temporal Temporal Pulse Oximetry (%) 93 95 Oxygen Delivery Method room air room air Intake Visit Reasons: 2-3M FU Is patient in pain?: No Allergies Penicillins Allergy (Intermediate, Verified 06/01/24 09:11) Rash Medications ???Medication ???Instructions ???Recorded ???Confirmed ???Type Lactobacillus acidophilus 1 1,000 mmu cells PO QDAY 03/24/24 06/01/24 History billion cell capsule amlodipine 10 mg tablet 10 mg PO QDAY 03/24/24 06/01/24 History atorvastatin 20 mg tablet 20 mg PO QDAY 03/24/24 06/01/24 History betamethasone dipropionate 0.05 % 1 applic topical BID 03/24/24 06/01/24 History topical cream glucosamine HCl 750 mg tablet 750 mg PO QDAY 03/24/24 06/01/24 History multivitamin 1 tab PO QAM 03/24/24 06/01/24 History saw palmetto 500 mg capsule 1,000 mg PO QDAY 03/24/24 06/01/24 History Have you fallen in the past year?: No PFSH Medical History Varicose veins of legs Bilateral thumb pain History of elevated PSA Hx of arterial ischemic stroke HTN (hypertension) Surgical History Hx of cholecystectomy ( 2003) S/P hernia surgery ( 1971) Family History Other CVA (cerebral vascular accident) Diabetes Hypertension Social History (Updated 06/01/24 @ 09:09 by Kelsea Pascual) Smoking Status: Former smoker Tobacco: How many years used: 20 HPI HPI HPI: NEENA ROMAN, is a 69 M who presents to the office today for follow-up of his bilateral lower extremity varicose veins with associated lower extremity fatigue and heaviness. At his last office visit, he was instructed to start conservative management measures including use of measured compression stockings, leg elevation at rest, and regular exercise. He has been wearing 20-30mmHg knee-high compression stockings daily as directed. He has noticed maybe mild improvement but not significant in his lower extremity fatigue and heaviness. He remains without wounds. We had also discussed his history of stroke last year for which he was treated at [facility]; we requested records to determine if any carotid workup had been completed and received only an echocardiogram report from [facility] which did show + bubble study with LtR shunt/PFO. Reviewed other available records in clinisync: MRI Brain showing L parietal infarct; CTA Neck reporting tortuous bilateral carotid arteries without hemodynamic stenosis. He states no one discussed the echo findings/PFO with him, he has not seen cardiology for this. ROS General General: No weight change, appetite, fatigue, colon cancer, breast cancer or weakness HEENT HEENT: No difficulty swallowing, eye injury, eye surgery, swollen glands or hoarseness Endo Endocrine: No thyroid disease, diabetes mellitus, thyroid cancer, Hair loss, heat intolerance or cold intolerance Skin Skin: No rash or changing moles Musc Musculoskeletal: Yes arthritis and joint pain; No back problems, rheumatoid arthritis or gout Cardio Cardiovascular: Yes high blood pressure; No murmur, pacemaker, heart disease, atrial fibrillation, heart attack, heart stent, palpitations, shortness of breat with exertion or chest pain Psych Psychiatric: No depression, anxiety or hearing voices Resp Respiratory: No shortness of breath, No sleep apnea, No cough, No COPD, No asthma, No emphysema and No wheezing Gastro Gastrointestinal: No abdominal pain, No nausea or vomiting, No diarrhea, No constipation, No blood in stool, No acid reflux, No hemorrhoids, No ulcers, No gallbladder problem and No black,tarry stools Mahesh Hematologic: No blood thinners, No blood disorders, No bleeding, No anemia and No blood clots Neuro Neurologic: No system reviewed and no additional complaints, except as documented, No as per HPI, No abnormal gait, Yes abnormal hearing, No abnormal movements, No abnormal speech, No behavioral changes, No burning sensations, No confusion, No convulsions, No disequilibrium, No dizziness, Yes localized weakness, No frequent falls, No headache(s), No lack of coordination, No (more content not included)... Normal [facility] OCT MACULA CIRRUS OU (BOTH E YES)on 04-25-2024 [facility] Radiology Study observation (narrative) [facility] MR/Kassie 03-24-2024 MR/BMSDAISHA [facility] [address] [place] [address] OFFICE VISIT Date of Service: 03/24/24 MR#: [id number] Acct: [id number] Name: NEENA ROMAN Rep #: [id number] : 1955 Provider: ZOEY Brown Age/Sex: 68/M [facility] Status: Signed Intake Vital Signs 03/24/24 09:44 Height 6 ft 1 in Weight: 212 lb BMI 27.9 BP 137/90 H Blood Pressure Location Lt brachial Position Sitting Respiration 16 Pulse 68 Pulse Source Monitor Temp 98.4 F Temp Source Temporal Pulse Oximetry (%) 93 Oxygen Delivery Method room air Intake Visit Reasons: PAINFUL VARICOSE VEINS BLE Is patient in pain?: No Allergies Penicillins Allergy (Intermediate, Verified 03/24/24 09:46) Rash Medications ???Medication ???Instructions ???Recorded ???Confirmed ???Type Lactobacillus acidophilus 1 1,000 mmu cells PO QDAY 03/24/24 03/24/24 History billion cell capsule amlodipine 10 mg tablet 10 mg PO QDAY 03/24/24 03/24/24 History atorvastatin 20 mg tablet 20 mg PO QDAY 03/24/24 03/24/24 History betamethasone dipropionate 0.05 % 1 applic topical BID 03/24/24 03/24/24 History topical cream glucosamine HCl 750 mg tablet 750 mg PO QDAY 03/24/24 03/24/24 History multivitamin 1 tab PO QAM 03/24/24 03/24/24 History saw palmetto 500 mg capsule 1,000 mg PO QDAY 03/24/24 03/24/24 History Have you fallen in the past year?: Yes PFSH Medical History (Updated 03/24/24 @ 20:35 by ZOEY Brown) Varicose veins of legs Bilateral thumb pain History of elevated PSA Hx of arterial ischemic stroke HTN (hypertension) Surgical History (Updated 03/24/24 @ 09:43 by Kelsea Pascual) Hx of cholecystectomy ( 2003) S/P hernia surgery ( 1971) Family History (Updated 03/24/24 @ 09:47 by Kelsea Pascual) Other CVA (cerebral vascular accident) Diabetes Hypertension HPI HPI HPI: NEENA ROMAN, is a 68 M who presents to the office today for evaluation of bilateral lower extremity varicose veins. He is accompanied to [facility] today by his . He reports a 20 to 30-year history of bilateral lower extremity varicosities which have progressively worsened with time. His primary symptom is significant lower extremity fatigue and heaviness which worsens as the day goes on. He does not typically notice much aching, burning, or itching along the varicosities. He also typically does not have much edema. He does not have any wounds. He denies any prior venous interventions or history of VTE. He has been wearing nonmeasured compression stockings of uncertain strength and seeing some benefit from this. He also has history of stroke 1 year ago. His symptoms were dysarthria and aphasia. He reports he was initially treated at [facility] and then transferred to [facility], sounds like he received TNK. Fortunately, his symptoms did fully resolve. He notes he had workup but is not sure ultimately if they determined the most likely source. He is uncertain if he was found to have any significant carotid disease. No no prior strokes send no recurrence. He denies any known history of A-fib, CHF, or other cardiac disease. His medical history is otherwise significant for hypertension. He is a former smoker. He is not diabetic. ROS General General: No weight change, appetite, fatigue, colon cancer, breast cancer or weakness HEENT HEENT: No difficulty swallowing, eye injury, eye surgery, swollen glands or hoarseness Endo Endocrine: No thyroid disease, diabetes mellitus, thyroid cancer, Hair loss, heat intolerance or cold intolerance Skin Skin: No rash or changing moles Musc Musculoskeletal: Yes arthritis; No back problems, rheumatoid arthritis, gout or joint pain Cardio Cardiovascular: Yes high blood pressure; No murmur, pacemaker, heart disease, atrial fibrillation, heart attack, heart stent, palpitations, shortness of breat with exertion or chest pain Psych Psychiatric: No depression, anxiety or hearing voices Resp Respiratory: No shortness of breath, No sleep apnea, No cough, No COPD, No asthma, No emphysema and No wheezing Gastro Gastrointestinal: No abdominal pain, No nausea or vomiting, No diarrhea, No constipation, No blood in stool, No acid reflux, No hemorrhoids, No ulcers, Yes gallbladder problem and No black,tarry stools Mahesh Hematologic: No blood disorders, No bleeding, No anemia and No blood clots Neuro Neurologic: No system reviewed and no additional complaints, except as documented, No as per HPI, No abnormal gait, No abnormal hearing, No abnormal movements, No abnormal speech, No behavioral changes, No burning sensations, No confusion, No convulsions, No disequilibrium, No dizziness, No localized weakness, No frequent falls, No headache(s), No lack of coordination (more content not included)... Normal [facility] XR HAND LEFT 3+ VIEWSon 01-29 XR HAND LEFT 3+ VIEWS Interpreted By: Yosef Butts, STUDY: XR HAND LEFT 3+ VIEWS; ; 02/11/2024 8:41 am INDICATION: Signs/Symptoms:dx. ,M79.644 Pain in right finger(s),M79.645 Pain in left finger(s) COMPARISON: None. ACCESSION NUMBER(S): [id number] ORDERING CLINICIAN: TERESA DUFFY FINDINGS: Left hand, three views There is severe joint space narrowing osteophytosis in the 1st CMC joint. Mild osteophytosis in the 1st IP and 2nd and 3rd DIP joints. There is no erosions or chondrocalcinosis. 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 ,M79.644 Pain in right finger(s),M79.645 Pain in left finger(s) COMPARISON: None. ACCESSION NUMBER(S): [id number] ORDERING CLINICIAN: TERESA DUFFY FINDINGS: Right hand, three views There is joint space narrowing osteophytosis in the 2nd and 3rd MCP joints and in the 2nd DIP joint. Mild osteophytosis in the 3rd and 4th MCP joints as well. There is mild joint space narrowing status the 1st CMC joint. There is no erosions. There is no chondrocalcinosis. There is no fracture or dislocation seen IMPRESSION: Mild multifocal degenerative changes throughout the hand as described above MACRO: None Signed by: Yosef Butts 02/12/2024 9:53 AM Dictation workstation: [id number] [facility] Basic metabolic 2000 panelon 02-03-2024 Anion gap [Moles/Vol] 9 mmol/L Low 10-20 [facility] Comment on above: Performed By: #### 2 4321-2 #### JLUIS SOUSA ([id number]) [facility] ([facility]) [address] [place] [address] Calcium [Mass/Vol] 9.9 mg/dL Normal 8.6-10.3 [facility] Comment on above: Performed By: #### 2 4321-2 #### JLUIS SOUSA ([id number]) [facility] ([facility]) [address] [place] [address] Chloride [Moles/Vol] 104 mmol/L Normal 98-107 [facility] Comment on above: Performed By: #### 2 4321-2 #### JLUIS SOUSA ([id number]) [facility] ([facility]) [address] [place] [address] CO2 [Moles/Vol] 29 mmol/L Normal 21-32 [facility] Comment on above: Performed By: #### 2 4321-2 #### JLUIS SOUSA ([id number]) [facility] ([facility]) [address] [place] [address] Creatinine [Mass/Vol] 0.95 mg/dL Normal 0.50-1.30 [facility] Comment on above: Performed By: #### 2 1-2 #### JLUIS SOUSA ([id number]) [facility] ([facility]) [address] [place] [address] Glomerular filtration rate/1.73 sq M.predicted 86 mL/min/1.73m*2 Normal >60 [facility] Comment on above: Result Comment: Calc ulations of estimated GFR are performed using the 2020 CKD-EPI Study Refit equation without the race variable for the IDMS-Traceable creatinine methods. https://jasn.asnjournals.org/content//ASN.34572 42833 Performed By: #### 2 1-2 #### JLUIS SOUSA ([id number]) [facility] ([facility]) [facility] [place] [address] Glucose [Mass/Vol] 100 mg/dL High 74-99 [facility] Comment on above: Performed By: #### 2 4321-2 #### JLUIS SOUSA ([id number]) [facility] ([facility]) [facility] [place] [address] Potassium [Moles/Vol] 4.2 mmol/L Normal 3.5-5.3 [facility] Comment on above: Performed By: #### 2 4321-2 #### JLUIS SOUSA ([id number]) [facility] ([facility]) [facility] [place] [address] Sodium [Moles/Vol] 138 mmol/L Normal 136-145 [facility] Comment on above: Performed By: #### 2 4321-2 #### JLUIS SOUSA ([id number]) [facility] ([facility]) [address] [place] [address] Urea nitrogen [Mass/Vol] 21 mg/dL Normal 6-23 [facility] Comment on above: Performed By: #### 2 4321-2 #### JLUIS SOUSA ([id number]) [facility] ([facility]) [address] [place] [address] HbA1c (Bld) [Mass fraction]o n 02-03-2024 Average glucose Estimated from glycated hemoglobin (Bld) [Mass/Vol] 128 mg/dL Normal Not Established [facility] Comment on above: Order Comment: Diagn osis of Diabetes-Adults Non-Diabetic: < or = 5.6% Increased risk for developing diabetes: 5.7-6.4% Diagnostic of diabetes: > or = 6.5% Performed By: #### 4 548-4 #### LONNIE Callejas ([id number]) [facility] ([facility]) [address] [place] [address] Hemoglobin A1c/Hemoglobin.to cecille 02-03-2024 HbA1c (Bld) [Mass fraction] 6.1 % High see below [facility] Comment on above: Order Comment: Diagn osis of Diabetes-Adults Non-Diabetic: < or = 5.6% Increased risk for developing diabetes: 5.7-6.4% Diagnostic of diabetes: > or = 6.5% Performed By: #### 4 548-4 #### LONNIE Callejas ([id number]) [facility] ([facility]) [address] [place] [address] Hepatitis C virus Abon 02-02 HCV Ab Ql (S) Non-Reactive Normal Nonreactive [facility] Comment on above: Result Comment: Resu lts from patients taking biotin supplements or receiving high-dose biotin therapy should be interpreted with caution due to possible interference with this test. Providers may contact their local laboratory for further information. Performed By: #### 1 6128-1 #### LONNIE Callejas ([id number]) [facility] ([facility]) [address] [place] [address] CBC W Auto Differential pane l (Bld)on 07-26-2023 Basophils (Bld) [#/Vol] 0.06 x10*3/uL Normal 0.00-0.10 [facility] Comment on above: Performed By: #### 5 7021-8 #### JLUIS SOUSA ([id number]) [facility] ([facility]) [address] [place] [address] Basophils/100 WBC (Bld) 0.8 % Normal 0.0-2.0 [facility] Comment on above: Performed By: #### 5 7021-8 #### JLUIS SOUSA ([id number]) [facility] ([facility]) [address] [place] [address] Eosinophils (Bld) [#/Vol] 0.19 x10*3/uL Normal 0.00-0.70 [facility] Comment on above: Performed By: #### 5 7021-8 #### JLUIS SOUSA ([id number]) [facility] ([facility]) [address] [place] [address] Eosinophils/100 WBC (Bld) 2.7 % Normal 0.0-6.0 [facility] Comment on above: Performed By: #### 5 7021-8 #### JLUIS SOUSA ([id number]) [facility] ([facility]) [address] [place] [address] Erythrocyte distribution width (RBC) [Ratio] 14.3 % Normal 11.5-14.5 [facility] Comment on above: Performed By: #### 5 7021-8 #### JLUIS SOUSA ([id number]) [facility] ([facility]) [address] [place] [address] Hematocrit (Bld) [Volume fraction] 49.0 % Normal 41.0-52.0 [facility] Comment on above: Performed By: #### 5 7021-8 #### JLUIS SOUSA ([id number]) [facility] ([facility]) [address] [place] [address] Hemoglobin (Bld) [Mass/Vol] 16.6 g/dL Normal 13.5-17.5 [facility] Comment on above: Performed By: #### 5 7021-8 #### JLUIS SOUSA ([id number]) [facility] ([facility]) [address] [place] [address] 134[address] Immature granulocytes (Bld) [#/Vol] 0.01 x10*3/uL Normal 0.00-0.70 [facility] Comment on above: Performed By: #### 5 7021-8 #### JLUIS SOUSA ([id number]) [facility] ([facility]) [address] [place] [address] Immature granulocytes/100 WBC (Bld) 0.1 % Normal 0.0-0.9 [facility] Comment on above: Result Comment: Rosalba ture Granulocyte Count (IG) includes promyelocytes, myelocytes and metamyelocytes but does not include bands. Percent differential counts (%) should be interpreted in the context of the absolute cell counts (cells/UL). Performed By: #### 5 7021-8 #### JLUIS SOUSA ([id number]) [facility] ([facility]) [address] [place] [address] Lymphocytes (Bld) [#/Vol] 1.46 x10*3/uL Normal 1.20-4.80 [facility] Comment on above: Performed By: #### 5 7021-8 #### JLUIS SOUSA ([id number]) [facility] ([facility]) [address] [place] [address] 09041 Lymphocytes/100 WBC (Bld) 20.5 % Normal 13.0-44.0 [facility] Comment on above: Performed By: #### 5 7021-8 #### JLUIS SOUSA ([id number]) [facility] ([facility]) [address] [place] [address] 72844 MCH (RBC) [Entitic mass] 29.4 pg Normal 26.0-34.0 [facility] Comment on above: Performed By: #### 5 7021-8 #### JLUIS SOUSA ([id number]) [facility] ([facility]) [address] [place] [address] 91753 MCHC (RBC) [Mass/Vol] 33.9 g/dL Normal 32.0-36.0 [facility] Comment on above: Performed By: #### 5 7021-8 #### JLUIS SOUSA ([id number]) [facility] ([facility]) [address] [place] [address] 30006 MCV (RBC) [Entitic vol] 87 fL Normal 80-100 [facility] Comment on above: Performed By: #### 5 7021-8 #### JLUIS SOUSA ([id number]) [facility] ([facility]) [address] [place] [address] 99796 Monocytes (Bld) [#/Vol] 0.56 x10*3/uL Normal 0.10-1.00 [facility] Comment on above: Performed By: #### 5 7021-8 #### JLUIS SOUSA ([id number]) [facility] ([facility]) [address] [place] [address] 38[address] Monocytes/100 WBC (Bld) 7.9 % Normal 2.0-10.0 [facility] Comment on above: Performed By: #### 5 7021-8 #### JLUIS SOUSA ([id number]) [facility] ([facility]) [address] [place] [address] Neutrophils (Bld) [#/Vol] 4.83 x10*3/uL Normal 1.20-7.70 [facility] Comment on above: Result Comment: Perc ent differential counts (%) should be interpreted in the context of the absolute cell counts (cells/uL). Performed By: #### 5 7021-8 #### JLUIS SOUSA ([id number]) [facility] ([facility]) [address] [place] [address] 81346 Neutrophils/100 WBC (Bld) 68.0 % Normal 40.0-80.0 [facility] Comment on above: Performed By: #### 5 7021-8 #### JLUIS SOUSA ([id number]) [facility] ([facility]) [address] [place] [address] 64935 Nucleated RBC/100 WBC (Bld) [Ratio] 0.0 /100 WBCs Normal 0.0-0.0 [facility] Comment on above: Performed By: #### 5 7021-8 #### JLUIS SOUSA ([id number]) [facility] ([facility]) [address] [place] [address] 70619 Platelets (Bld) [#/Vol] 218 x10*3/uL Normal 150-450 [facility] Comment on above: Performed By: #### 5 7021-8 #### JLUIS SOUSA ([id number]) [facility] ([facility]) [address] [place] [address] 58386 RBC (Bld) [#/Vol] 5.65 x10*6/uL Normal 4.50-5.90 [facility] Comment on above: Performed By: #### 5 7021-8 #### JLUIS SOUSA ([id number]) [facility] ([facility]) [address] [place] [address] 32109 WBC (Bld) [#/Vol] 7.1 x10*3/uL Normal 4.4-11.3 [facility] Comment on above: Performed By: #### 5 7021-8 #### JLUIS SOUSA ([id number]) [facility] ([facility]) [address] [place] [address] 35537 Comprehensive metabolic 2000 panelon 07-26-2023 Albumin BCP dye [Mass/Vol] 4.5 g/dL Normal 3.4-5.0 [facility] Comment on above: Performed By: #### 2 4323-8 #### JLUIS SOUSA ([id number]) [facility] ([facility]) [address] [place] [address] 84093 ALP [Catalytic activity/Vol] 56 U/L Normal 33-136 [facility] Comment on above: Performed By: #### 2 4323-8 #### JLUIS SOUSA ([id number]) [facility] ([facility]) [address] [place] [address] ALT With P-5'-P [Catalytic activity/Vol] 23 U/L Normal 10-52 [facility] Comment on above: Result Comment: Rosa ents treated with Sulfasalazine may generate falsely decreased results for ALT. Performed By: #### 2 4323-8 #### JLUIS SOUSA ([id number]) [facility] ([facility]) [address] [place] [address] Anion gap [Moles/Vol] 11 mmol/L Normal 10-20 [facility] Comment on above: Performed By: #### 2 432-8 #### JLUIS SOUSA ([id number]) [facility] ([facility]) [address] [place] [address] 82528 AST With P-5'-P [Catalytic activity/Vol] 28 U/L Normal 9-39 [facility] Comment on above: Performed By: #### 2 4322-8 #### JLUIS SOUSA ([id number]) [facility] ([facility]) [address] [place] [address] Bilirubin [Mass/Vol] 2.0 mg/dL High 0.0-1.2 [facility] Comment on above: Performed By: #### 2 432-8 #### JLUIS SOUSA ([id number]) [facility] ([facility]) [address] [place] [address] 83938 Calcium [Mass/Vol] 9.3 mg/dL Normal 8.6-10.3 [facility] Comment on above: Performed By: #### 2 4323-8 #### JLUIS SOUSA ([id number]) [facility] ([facility]) [address] [place] [address] 79717 Chloride [Moles/Vol] 106 mmol/L Normal 98-107 [facility] Comment on above: Performed By: #### 2 4323-8 #### JLUIS SOUSA ([id number]) [facility] ([facility]) [address] [place] [address] 96889 CO2 [Moles/Vol] 27 mmol/L Normal 21-32 [facility] Comment on above: Performed By: #### 2 4323-8 #### JLUIS SOUSA ([id number]) [facility] ([facility]) [address] [place] [address] Creatinine [Mass/Vol] 0.87 mg/dL Normal 0.50-1.30 [facility] Comment on above: Performed By: #### 2 4323-8 #### JLUIS SOUSA ([id number]) [facility] ([facility]) [address] [place] [address] GFR/1.73 sq M.predicted MDRD (S/P/Bld) [Vol rate/Area] mL/min/{1.73_m2} Normal >60 [facility] Comment on above: Result Comment: Calc ulations of estimated GFR are performed using the 2020 CKD-EPI Study Refit equation without the race variable for the IDMS-Traceable creatinine methods. https://jasn.asnjournals.org/content/early//ASN.32077 44561 Performed By: #### 2 4323-8 #### JLUIS SOUSA ([id number]) [facility] ([facility]) [facility] [place] [address] Glucose [Mass/Vol] 99 mg/dL Normal 74-99 [facility] Comment on above: Performed By: #### 2 4323-8 #### JLUIS SOUSA ([id number]) [facility] ([facility]) [address] [place] [address] Potassium [Moles/Vol] 3.9 mmol/L Normal 3.5-5.3 [facility] Comment on above: Performed By: #### 2 4323-8 #### JLUIS SOUSA ([id number]) [facility] ([facility]) [facility] [place] [address] Protein [Mass/Vol] 6.6 g/dL Normal 6.4-8.2 [facility] Comment on above: Performed By: #### 2 4323-8 #### JLUIS SOUSA ([id number]) [facility] ([facility]) [facility] [place] [address] Sodium [Moles/Vol] 140 mmol/L Normal 136-145 [facility] Comment on above: Performed By: #### 2 4323-8 #### JLUIS SOUSA ([id number]) [facility] ([facility]) [address] [place] [address] 26827 Urea nitrogen [Mass/Vol] 16 mg/dL Normal 6-23 [facility] Comment on above: Performed By: #### 2 4323-8 #### JLUIS SOUSA ([id number]) [facility] ([facility]) [address] [place] [address] 93376 HbA1c (Bld) [Mass fraction]o n 07-26-2023 Average glucose Estimated from glycated hemoglobin (Bld) [Mass/Vol] 131 mg/dL Normal Not Established [facility] Comment on above: Order Comment: Diagn osis of Diabetes-Adults Non-Diabetic: < or = 5.6% Increased risk for developing diabetes: 5.7-6.4% Diagnostic of diabetes: > or = 6.5% Monitoring of Diabetes Age (y)....................... Therapeutic Goal (%) Adults: >18.........................<7.0 Pediatrics: 13-18...................<7.5 Pediatrics: 7-12....................<8.0 Pediatrics: 0-6..................... 7.5-8.5 [place] [employer]. Diabetes Care 33(S1), May 2009 Performed By: #### 4 548-4 #### JLUIS SOUSA ([id number]) [facility] ([facility]) [address] [place] [address] 60001 Hemoglobin A1c/Hemoglobin.to cecille 07-26-2023 HbA1c (Bld) [Mass fraction] 6.2 % High see below [facility] Comment on above: Order Comment: Diagn osis of Diabetes-Adults Non-Diabetic: < or = 5.6% Increased risk for developing diabetes: 5.7-6.4% Diagnostic of diabetes: > or = 6.5% Monitoring of Diabetes Age (y)....................... Therapeutic Goal (%) Adults: >18.........................<7.0 Pediatrics: 13-18...................<7.5 Pediatrics: 7-12....................<8.0 Pediatrics: 0-6..................... 7.5-8.5 [employer]. Diabetes Care 33(S1)May 2009 Performed By: #### 4 548-4 #### JLUIS SOUSA ([id number]) [facility] ([facility]) [address] [place] [address] Lipid 1996 panelon 4 Cholesterol [Mass/Vol] 88 mg/dL Normal 0-199 Un [facility] Comment on above: Result Comment: Age Desirable Borderline High High 0-19 Y 0 - 169 170 - 199 >/= 200 20-24 Y 0 - 189 190 - 224 >/= 225 >24 Y 0 - 199 200 - 239 >/= 240 All ranges are based on fasting samples. Specific therapeutic targets will vary based on patient-specific cardiac risk. Pediatric guidelines reference:Pediatrics 2011, 128(S5).Adult guidelines reference: NCEP ATPIII Guidelines,ALICIA 2001, 258:2486-97 Venipuncture immediately after or during the administration of Metamizole may lead to falsely low results. Testing should be performed immediately prior to Metamizole dosing. Performed By: #### 2 4331-1 #### JLUIS SOUSA ([id number]) [facility] ([facility]) [address] [place] [address] 59634 Cholesterol in HDL [Mass/Vol] 38.0 mg/dL Normal [facility] Comment on above: Result Comment: Age Very Low Low Normal High 0-19 Y < 35 < 40 40-45 ---- 20-24 Y ---- < 40 >45 ---- >24 Y ---- < 40 40-60 >60 Performed By: #### 2 4331-1 #### JLUIS SOUSA ([id number]) [facility] ([facility]) [address] [place] [address] 94316 Cholesterol in LDL [Mass/Vol] 36 mg/dL Normal <=99 [facility] Comment on above: Result Comment: Near Borderline AGE Desirable Optimal High High Very High 0-19 Y 0 - 109 --- 110-129 >/= 130 ---- 20-24 Y 0 - 119 --- 120-159 >/= 160 ---- >24 Y 0 - 99 100-129 130-159 160-189 >/=190 Performed By: #### 2 4331-1 #### JLUIS SOUSA ([id number]) [facility] ([facility]) [address] [place] [address] 75526 Cholesterol in VLDL [Mass/Vol] 14 mg/dL Normal 0-40 [facility] Comment on above: Performed By: #### 2 4331-1 #### JLUIS SOUSA ([id number]) [facility] ([facility]) [address] [place] [address] 64895 CHOLESTEROL/HDL RATIO 2.3 Normal [facility] Comment on above: Result Comment: Ref Values Desirable < 3.4 High Risk > 5.0 Performed By: #### 2 4331-1 #### JLUIS SOUSA ([id number]) [facility] ([facility]) [address] [place] [address] 01703 NON HDL CHOLESTEROL 50 mg/dL Normal 0-149 [facility] Comment on above: Result Comment: Age Desirable Borderline High High Very High 0-19 Y 0 - 119 120 - 144 >/= 145 >/= 160 20-24 Y 0 - 149 150 - 189 >/= 190 ---- >24 Y 30 mg/dL above LDL Cholesterol goal Performed By: #### 2 4331-1 #### JLUIS SOUSA ([id number]) [facility] ([facility]) [address] [place] [address] 65501 Triglyceride [Mass/Vol] 68 mg/dL Normal 0-149 [facility] Comment on above: Result Comment: Age Desirable Borderline High High Very High 0 D-90 D 19 - 174 ---- ---- ---- 91 D- 9 Y 0 - 74 75 - 99 >/= 100 ---- 10-19 Y 0 - 89 90 - 129 >/= 130 ---- 20-24 Y 0 - 114 115 - 149 >/= 150 ---- >24 Y 0 - 149 150 - 199 200- 499 >/= 500 Venipuncture immediately after or during the administration of Metamizole may lead to falsely low results. Testing should be performed immediately prior to Metamizole dosing. Performed By: #### 2 4331-1 #### JLUIS SOUSA ([id number]) [facility] ([facility]) [address] [place], [place] [id number] MCT-CARDIAC EVENT MONITORon 07-05-2023 MCT-CARDIAC EVENT MONITOR This is a summary report. The complete report is available in the patient's medical record. If you cannot access the medical record, please contact the sending organization for a detailed fax or copy. ?? [place] REPORT: 05/22/2023 - 06/20/2023 ?? INDICATIONS: CEREBRAL INFARCTION This is a 30-day event monitor indication for the study is cerebral infarction Minimum heart rate 48 bpm, average 73 bpm, maximum 133 bpm Ventricular ectopy total burden 1% Supraventricular ectopy total burden less than 1% No high-grade AV block, no pauses, no atrial fibrillation 9 patient triggered events correspond to sinus rhythm with PVCs, no symptoms were recorded Normal [facility] TRANSTHORACIC ECHO (TTE) COM PLETEon 04-30-2023 TRANSTHORACIC ECHO ([place]) [place] [address] [phone], TRANSTHORACIC ECHOCARDIOGRAM REPORT Patient Name: NEENA Suarez Physician: [id number] Alfredo Ballard MD Study Date: 04/30/2023 Ordering Provider: [id number] TERESA DUFFY MRN/PID: [id number] Fellow: Nurse: Isabelle Guerrero RN Date of /Age: 10 1955 Head Of English: Herman Parker RDCS years Gender: M Additional Staff: Height: 187.96 cm Admit Date: Weight: 94.80 kg Admission Status: Outpatient BSA: 2.21 m2 Department Location: [facility] Echo Lab Blood Pressure: 148 /84 mmHg Study Type: TRANSTHORACIC ECHO (TTE) COMPLETE Diagnosis/ICD: Cerebrovascular disease, unspecified-I67.9 CPT Codes: Echo Complete w Full Doppler-31992 Study Detail: The following Echo studies were performed: 2D, M-Mode, Doppler and color flow. Definity used as a contrast agent for endocardial border definition and agitated saline used as a contrast agent for intraseptal flow evaluation. Total contrast used for this procedure was 2.00cc mL via IV push. PHYSICIAN INTERPRETATION: Left Ventricle: Left ventricular systolic function is normal, with an estimated ejection fraction of 60%. There are no regional wall motion abnormalities. The left ventricular cavity size is normal. Spectral Doppler shows a pseudonormal pattern of left ventricular diastolic filling. Left Atrium: The left atrium is normal in size. Right Ventricle: The right ventricle is normal in size. There is normal right ventricular global systolic function. Right Atrium: The right atrium is normal in size. Aortic Valve: The aortic valve is probably trileaflet. There is mild aortic valve regurgitation. The peak instantaneous gradient of the aortic valve is 11.7 mmHg. The mean gradient of the aortic valve is 6.0 mmHg. Mitral Valve: The mitral valve is normal in structure. There is no evidence of mitral valve regurgitation. Tricuspid Valve: The tricuspid valve is structurally normal. No evidence of tricuspid regurgitation. Pulmonic Valve: The pulmonic valve is not well visualized. The pulmonic valve regurgitation was not well visualized. Pericardium: There is no pericardial effusion noted. Aorta: The aortic root is normal. Systemic Veins: The inferior vena cava appears to be of normal size. CONCLUSIONS: 1. Left ventricular systolic function is normal with a 60% estimated ejection fraction. 2. Spectral Doppler shows a pseudonormal pattern of left ventricular diastolic filling. 3. Mild aortic valve regurgitation. 4. Bubble study is positive for a rgceo-vv-fvyl shunt consistent with a patent foramen ovale (PFO). QUANTITATIVE DATA SUMMARY: 2D MEASUREMENTS: Normal Ranges: Ao Root d: 3.50 cm (2.0-3.7cm) LAs: 3.30 cm (2.7-4.0cm) IVSd: 1.27 cm (0.6-1.1cm) LVPWd: 1.17 cm (0.6-1.1cm) LVIDd: 4.20 cm (3.9-5.9cm) LVIDs: 2.86 cm LV Mass Index: 82.4 g/m2 LV % FS 31.9 % LA VOLUME: Normal Ranges: LA Vol A4C: 39.0 ml (22+/-6mL/m2) LA Vol A2C: 36.2 ml LA Vol BP: 38.8 ml LA Vol Index A4C: 17.6ml/m2 LA Vol Index A2C: 16.3 ml/m2 LA Vol Index BP: 17.5 ml/m2 LA Area A4C: 14.6 cm2 LA Area A2C: 14.5 cm2 LA Major Beryl A4C: 4.6 cm LA Major Beryl A2C: 4.9 cm LA Volume Index: 16.2 ml/m2 LA Vol A4C: 35.7 ml LA Vol A2C: 35.9 ml LV SYSTOLIC FUNCTION BY 2D PLANIMETRY (MOD): Normal Ranges: EF-A4C View: 55.4 % (>=55%) EF-A2C View: 62.5 % EF-Biplane: 58.5 % LV DIASTOLIC FUNCTION: Normal Ranges: MV Peak E: 0.74 m/s (0.7-1.2 m/s) MV Peak A: 0.75 m/s (0.42-0.7 m/s) E/A Ratio: 1.00 (1.0-2.2) MV lateral e' 0.10 m/s MV medial e' 0.07 m/s MITRAL VALVE: Normal Ranges: MV DT: 243 msec (150-240msec) AORTIC VALVE: Normal Ranges: AoV Vmax: 1.71 m/s (<=1.7m/s) AoV Peak P.7 mmHg (<20mmHg) AoV Mean P.0 mmHg (1.7-11.5mmHg) LVOT Max Devonte: 1.19 m/s (<=1.1m/s) AoV VTI: 34.70 cm (18-25cm) LVOT VTI: 25.00 cm LVOT Diameter: 2.30 cm (1.8-2.4cm) AoV Area, VTI: 2.99 cm2 (2.5-5.5cm2) AoV Area,Vmax: 2.89 cm2 (2.5-4.5cm2) AoV Dimensionless Index: 0.72 RIGHT VENTRICLE: RV Basal 3.51 cm RV Mid 2.57 cm RV Major 7.8 cm TAPSE: 21.7 mm RV s' 0.14 m/s [id number] Alfredo Ballard MD Electronically signed on 04/30/2023 at 8:26:44 PM Final [facility] US Heart TransthoracicOrdere d By: Alfredo Ballard on 04-30-2023 Aortic Valve Area by Continuity of Peak Velocity 2.89 [facility] Work Phone: 39 Aortic Valve Area by Continuity of VTI 2.99 [facility] Work Phone: 39 AV mn grad 6.0 [facility] Work Phone: 39 AV pk grad 11.7 [facility] Work Phone: 39 AV pk devonte 1.71 [facility] Work Phone: 39 LA vol index A/L 17.5 [facility] Work Phone: 39 LV A4C EF 55.4 [facility] Work Phone: 39 LV biplane EF 59 [facility] Work Phone: 39 LVIDd 4.20 [facility] Work Phone: 39 LVOT diam 2.30 [facility] Work Phone: 39 MV E/A ratio 1.00 [facility] Work Phone: 39 RV free wall pk S' 13.90 [facility] Work Phone: [phone] Tricuspid annular plane systolic excursion 2.2 [facility] Work Phone: [facility] Work Phone: Heart Transthoracicon [place] [phone], TRANSTHORACIC ECHOCARDIOGRAM REPORT Patient Name: NEENA ROMAN Reading Physician: [id number] Alfredo Ballard MD Study Date: 04/30/2023 Ordering Provider: [id number] TERESA DUFFY MRN/PID: [id number] Fellow: Nurse: Isabelle Guerrero RN Date of /Age: 10 1955 Head Of English: Herman Parker RDCS years Gender: M Additional Staff: Height: 187.96 cm Admit Date: Weight: 94.80 kg Admission Status: Outpatient BSA: 2.21 m2 Department Location: [facility] Echo Lab Blood Pressure: 148 /84 mmHg Study Type: TRANSTHORACIC ECHO (TTE) COMPLETE Diagnosis/ICD: Cerebrovascular disease, unspecified-I67.9 CPT Codes: Echo Complete w Full Doppler-98000 Study Detail: The following Echo studies were performed: 2D, M-Mode, Doppler and color flow. Definity used as a contrast agent for endocardial border definition and agitated saline used as a contrast agent for intraseptal flow evaluation. Total contrast used for this procedure was 2.00cc mL via IV push. PHYSICIAN INTERPRETATION: Left Ventricle: Left ventricular systolic function is normal, with an estimated ejection fraction of 60%. There are no regional wall motion abnormalities. The left ventricular cavity size is normal. Spectral Doppler shows a pseudonormal pattern of left ventricular diastolic filling. Left Atrium: The left atrium is normal in size. Right Ventricle: The right ventricle is normal in size. There is normal right ventricular global systolic function. Right Atrium: The right atrium is normal in size. Aortic Valve: The aortic valve is probably trileaflet. There is mild aortic valve regurgitation. The peak instantaneous gradient of the aortic valve is 11.7 mmHg. The mean gradient of the aortic valve is 6.0 mmHg. Mitral Valve: The mitral valve is normal in structure. There is no evidence of mitral valve regurgitation. Tricuspid Valve: The tricuspid valve is structurally normal. No evidence of tricuspid regurgitation. Pulmonic Valve: The pulmonic valve is not well visualized. The pulmonic valve regurgitation was not well visualized. Pericardium: There is no pericardial effusion noted. Aorta: The aortic root is normal. Systemic Veins: The inferior vena cava appears to be of normal size. CONCLUSIONS: 1. Left ventricular systolic function is normal with a 60% estimated ejection fraction. 2. Spectral Doppler shows a pseudonormal pattern of left ventricular diastolic filling. 3. Mild aortic valve regurgitation. 4. Bubble study is positive for a ghcvf-qx-dgqo shunt consistent with a patent foramen ovale (PFO). QUANTITATIVE DATA SUMMARY: 2D MEASUREMENTS: Normal Ranges: Ao Root d: 3.50 cm (2.0-3.7cm) LAs: 3.30 cm (2.7-4.0cm) IVSd: 1.27 cm (0.6-1.1cm) LVPWd: 1.17 cm (0.6-1.1cm) LVIDd: 4.20 cm (3.9-5.9cm) LVIDs: 2.86 cm LV Mass Index: 82.4 g/m2 LV % FS 31.9 % LA VOLUME: Normal Ranges: LA Vol A4C: 39.0 ml (22+/-6mL/m2) LA Vol A2C: 36.2 ml LA Vol BP: 38.8 ml LA Vol Index A4C: 17.6ml/m2 LA Vol Index A2C: 16.3 ml/m2 LA Vol Index BP: 17.5 ml/m2 LA Area A4C: 14.6 cm2 LA Area A2C: 14.5 cm2 LA Major Beryl A4C: 4.6 cm LA Major Beryl A2C: 4.9 cm LA Volume Index: 16.2 ml/m2 LA Vol A4C: 35.7 ml LA Vol A2C: 35.9 ml LV SYSTOLIC FUNCTION BY 2D PLANIMETRY (MOD): Normal Ranges: EF-A4C View: 55.4 % (>=55%) EF-A2C View: 62.5 % EF-Biplane: 58.5 % LV DIASTOLIC FUNCTION: Normal Ranges: MV Peak E: 0.74 m/s (0.7-1.2 m/s) MV Peak A: 0.75 m/s (0.42-0.7 m/s) E/A Ratio: 1.00 (1.0-2.2) MV lateral e' 0.10 m/s MV medial e' 0.07 m/s MITRAL VALVE: Normal Ranges: MV DT: 243 msec (150-240msec) AORTIC VALVE: Normal Ranges: AoV Vmax: 1.71 m/s (<=1.7m/s) AoV Peak P.7 mmHg (<20mmHg) AoV Mean P.0 mmHg (1.7-11.5mmHg) LVOT Max Devonte: 1.19 m/s (<=1.1m/s) AoV VTI: 34.70 cm (18-25cm) LVOT VTI: 25.00 cm LVOT Diameter: 2.30 cm (1.8-2.4cm) AoV Area, VTI: 2.99 cm2 (2.5-5.5cm2) AoV Area,Vmax: 2.89 cm2 (2.5-4.5cm2) AoV Dimensionless Index: 0.72 RIGHT VENTRICLE: RV Basal 3.51 cm RV M (more content not included)... MYRTLEO Alfredo Ballard MD - 04/30/2023 [place] [address] [phone], TRANSTHORACIC ECHOCARDIOGRAM REPORT Patient Name: NEENA Samantha JONAH Reading Physician: [id number] Alfredo Ballard MD Study Date: 04/30/2023 Ordering Provider: [id number] TERESA DUFFY MRN/PID: [id number] Fellow: Nurse: Isabelle Guerrero RN Date of /Age: 10 1955 Head Of English: Herman Parker RDCS years Gender: M Additional Staff: Height: 187.96 cm Admit Date: Weight: 94.80 kg Admission Status: Outpatient BSA: 2.21 m2 Department Location: [facility] Echo Lab Blood Pressure: 148 /84 mmHg Study Type: TRANSTHORACIC ECHO (TTE) COMPLETE Diagnosis/ICD: Cerebrovascular disease, unspecified-I67.9 CPT Codes: Echo Complete w Full Doppler-11681 Study Detail: The following Echo studies were performed: 2D, M-Mode, Doppler and color flow. Definity used as a contrast agent for endocardial border definition and agitated saline used as a contrast agent for intraseptal flow evaluation. Total contrast used for this procedure was 2.00cc mL via IV push. PHYSICIAN INTERPRETATION: Left Ventricle: Left ventricular systolic function is normal, with an estimated ejection fraction of 60%. There are no regional wall motion abnormalities. The left ventricular cavity size is normal. Spectral Doppler shows a pseudonormal pattern of left ventricular diastolic filling. Left Atrium: The left atrium is normal in size. Right Ventricle: The right ventricle is normal in size. There is normal right ventricular global systolic function. Right Atrium: The right atrium is normal in size. Aortic Valve: The aortic valve is probably trileaflet. There is mild aortic valve regurgitation. The peak instantaneous gradient of the aortic valve is 11.7 mmHg. The mean gradient of the aortic valve is 6.0 mmHg. Mitral Valve: The mitral valve is normal in structure. There is no evidence of mitral valve regurgitation. Tricuspid Valve: The tricuspid valve is structurally normal. No evidence of tricuspid regurgitation. Pulmonic Valve: The pulmonic valve is not well visualized. The pulmonic valve regurgitation was not well visualized. Pericardium: There is no pericardial effusion noted. Aorta: The aortic root is normal. Systemic Veins: The inferior vena cava appears to be of normal size. CONCLUSIONS: 1. Left ventricular systolic function is normal with a 60% estimated ejection fraction. 2. Spectral Doppler shows a pseudonormal pattern of left ventricular diastolic filling. 3. Mild aortic valve regurgitation. 4. Bubble study is positive for a ggmhb-rr-egss shunt consistent with a patent foramen ovale (PFO). QUANTITATIVE DATA SUMMARY: 2D MEASUREMENTS: Normal Ranges: Ao Root d: 3.50 cm (2.0-3.7cm) LAs: 3.30 cm (2.7-4.0cm) IVSd: 1.27 cm (0.6-1.1cm) LVPWd: 1.17 cm (0.6-1.1cm) LVIDd: 4.20 cm (3.9-5.9cm) LVIDs: 2.86 cm LV Mass Index: 82.4 g/m2 LV % FS 31.9 % LA VOLUME: Normal Ranges: LA Vol A4C: 39.0 ml (22+/-6mL/m2) LA Vol A2C: 36.2 ml LA Vol BP: 38.8 ml LA Vol Index A4C: 17.6ml/m2 LA Vol Index A2C: 16.3 ml/m2 LA Vol Index BP: 17.5 ml/m2 LA Area A4C: 14.6 cm2 LA Area A2C: 14.5 cm2 LA Major Beryl A4C: 4.6 cm LA Major Beryl A2C: 4.9 cm LA Volume Index: 16.2 ml/m2 LA Vol A4C: 35.7 ml LA Vol A2C: 35.9 ml LV SYSTOLIC FUNCTION BY 2D PLANIMETRY (MOD): Normal Ranges: EF-A4C View: 55.4 % (>=55%) EF-A2C View: 62.5 % EF-Biplane: 58.5 % LV DIASTOLIC FUNCTION: Normal Ranges: MV Peak E: 0.74 m/s (0.7-1.2 m/s) MV Peak A: 0.75 m/s (0.42-0.7 m/s) E/A Ratio: 1.00 (1.0-2.2) MV lateral e' 0.10 m/s MV medial e' 0.07 m/s MITRAL VALVE: Normal Ranges: MV DT: 243 msec (150-240msec) AORTIC VALVE: Normal Ranges: AoV Vmax: 1.71 m/s (<=1.7m/s) AoV Peak P.7 mmHg (<20mmHg) AoV Mean P.0 mmHg (1.7-11.5mmHg) LVOT Max Devonte: 1.19 m/s (<=1.1m/s) AoV VTI: 34.70 cm (18-25cm) LVOT VTI: 25.00 cm LVOT Diameter: 2.30 cm (1.8-2.4cm) AoV Area, VTI: 2.99 cm2 (2.5-5.5cm2) AoV Area,Vmax: 2.89 cm2 (2.5-4.5cm2) AoV Dimensionless Index: 0.72 RIGHT VENTRICLE: RV Basal 3.51 cm RV Mid 2.57 cm RV Major 7.8 cm TAPSE: 21.7 mm RV s' 0.14 m/s [id number] Alfredo Ballard MD Electronically signed on 04/30/2023 at 8:26:44 PM Final [facility] Work Phone: Basic metabolic 2000 panelon 04-14-2023 Anion gap [Moles/Vol] 11 mmol/L 10 - 2 0 mmol/L [facility] Calcium [Mass/Vol] 8.7 mg/dL 8.4 - 10. 2 mg/dL [facility] Chloride [Moles/Vol] 111 mmol/L High 98 - 10 8 mmol/L [facility] Creatinine [Mass/Vol] 0.89 mg/dL 0.80 - 1.30 mg/dL [facility] GFR/1.73 sq M.predicted CKD-EPI (S/P/Bld) [Vol rate/Area] 92 - PINF [facility] Comment on above: Estimated GFR was ca lculated using the 2020 CKD-EPI creatinine equation. Glucose [Mass/Vol] 148 mg/dL High 65 - 99 mg/dL [facility] HCO3 [Moles/Vol] 20 mmol/L Low 21 - 32 mmol/L [facility] Interpretation and review of laboratory results Abnormal [facility] Potassium [Moles/Vol] 3.6 mmol/L 3.5 - 5.1 mmol/L [facility] Sodium [Moles/Vol] 138 mmol/L 135 - 145 mmol/L [facility] Urea nitrogen [Mass/Vol] 17 mg/dL 8 - 25 mg/dL [facility] Urea nitrogen/Creatinine [Mass ratio] 19.1 mg/mg 10.0 - 20.0 [facility] has implemented the eGFR calculation approach that does not have a coefficient for race that conforms to the NKF-ASN Task Force Recommendations. [facility] CBC panel Auto (Bld)on 04-14 Erythrocyte distribution width (RBC) [Entitic vol] 14.2 % 11.6 - 14.8 % [facility] Hematocrit (Bld) [Volume fraction] 46.0 % 41.0 - 53.0 % [facility] Hemoglobin (Bld) [Mass/Vol] 15.5 g/dL 13.5 - 17.5 g/dL [facility] MCH (RBC) [Entitic mass] 29.5 pg 26.0 - 34.0 pg [facility] MCHC (RBC) [Mass/Vol] 33.7 g/dL 31.0 - 37.0 g/dL [facility] MCV (RBC) [Entitic vol] 87.5 fL 80.0 - 100.0 fL [facility] Nucleated RBC (Bld) [#/Vol] 0.00 10*3/uL [facility] Nucleated RBC/100 WBC (Bld) [Ratio] 0.0 % [facility] Platelet mean volume (Bld) [Entitic vol] 9.6 fL 9.4 - 12.4 fL [facility] Platelets (Bld) [#/Vol] 210 10*3/uL [facility] RBC (Bld) [#/Vol] 5.26 10*6/uL [facility] WBC (Bld) [#/Vol] 10.34 10*3/uL [facility] Basic metabolic 2000 panelon 04-13-2023 Anion gap [Moles/Vol] 7 mmol/L Low 10 - 2 0 mmol/L [facility] Calcium [Mass/Vol] 8.4 mg/dL 8.4 - 10. 2 mg/dL [facility] Chloride [Moles/Vol] 112 mmol/L High 98 - 10 8 mmol/L [facility] Creatinine [Mass/Vol] 0.82 mg/dL 0.80 - 1.30 mg/dL [facility] GFR/1.73 sq M.predicted CKD-EPI (S/P/Bld) [Vol rate/Area] 94 - PINF [facility] Comment on above: Estimated GFR was ca lculated using the 2020 CKD-EPI creatinine equation. Glucose [Mass/Vol] 95 mg/dL 65 - 99 mg/dL [facility] HCO3 [Moles/Vol] 26 mmol/L 21 - 32 mmol/L [facility] Interpretation and review of laboratory results Abnormal [facility] Potassium [Moles/Vol] 3.7 mmol/L 3.5 - 5.1 mmol/L [facility] Sodium [Moles/Vol] 141 mmol/L 135 - 145 mmol/L [facility] Urea nitrogen [Mass/Vol] 16 mg/dL 8 - 25 mg/dL [facility] Urea nitrogen/Creatinine [Mass ratio] 19.5 mg/mg 10.0 - 20.0 [facility] has implemented the eGFR calculation approach that does not have a coefficient for race that conforms to the NKF-ASN Task Force Recommendations. [facility] CBC panel Auto (Bld)on 04-13 Erythrocyte distribution width (RBC) [Entitic vol] 14.1 % 11.6 - 14.8 % [facility] Hematocrit (Bld) [Volume fraction] 41.2 % 41.0 - 53.0 % [facility] Hemoglobin (Bld) [Mass/Vol] 13.9 g/dL 13.5 - 17.5 g/dL [facility] MCH (RBC) [Entitic mass] 29.5 pg 26.0 - 34.0 pg [facility] MCHC (RBC) [Mass/Vol] 33.7 g/dL 31.0 - 37.0 g/dL [facility] MCV (RBC) [Entitic vol] 87.5 fL 80.0 - 100.0 fL [facility] Nucleated RBC (Bld) [#/Vol] 0.00 10*3/uL [facility] Nucleated RBC/100 WBC (Bld) [Ratio] 0.0 % [facility] Platelet mean volume (Bld) [Entitic vol] 9.7 fL 9.4 - 12.4 fL [facility] Platelets (Bld) [#/Vol] 185 10*3/uL [facility] RBC (Bld) [#/Vol] 4.71 10*6/uL [facility] WBC (Bld) [#/Vol] 9.31 10*3/uL [facility] Potassium Levelon 04-13-2023 Potassium [Moles/Vol] 3.8 mmol/L 3.5 - 5.1 mmol/L [facility] Potassium [Moles/Vol]on 03-31 Interpretation and review of laboratory results Normal [facility] XR HAND LEFT 2 VIEWSon 04-13 XR HAND LEFT 2 VIEWS EXAMINATION: XR HAND LEFT 2 VIEWS 04/13/2023 10:32 AM HISTORY: ORDERING SYSTEM PROVIDED HISTORY: Pain, swelling, TECHNOLOGIST PROVIDED HISTORY: Illness/Other Reason for exam: LT HAND PAIN X 1 DAYATTN: 1ST METACARPl Cancer History: u Surgery, RadiationHistory: u Encounter Type: Initial Additional signs and symptoms: . ORDERING SYSTEM PROVIDED DIAGNOSIS CODES: COMPARISON: None. FINDINGS: Two views of the left hand obtained. Bone mineralization normal. Alignment normal. No acute fracture. No dislocation. Severe osteoarthritis in the 1st carpometacarpal joint with joint space narrowing and osteophyte formation. Mild degenerative changes in multiple interphalangeal joints. IMPRESSION: 1. No fracture or dislocation. 2. Severe osteoarthritis in the 1st carpometacarpal joint. [email or web address] Workstation ID: [id number] Dictated by: JACINTO DEL REAL on WedApr 13, 2023 11:59:39 AM EST Transcribed by: TARA NIEVES on WedApr 13, 2023 12:18:30 PM EST Finalized by: JACINTO DEL REAL on WedApr 13, 2023 3:54:52 PM EST Normal [facility] Comment on above: Order Comment: Injur y/Trauma or Illness?:Illness/Other How long have you had these symptoms (acute/chronic)?:Acute Reason for exam?:LT HAND PAIN X 1 DAYATTN: 1ST METACARPl History of cancer?:u Surgeries, chemotherapy, or radiation?:u Type of Exam?:Initial Additional signs and symptoms?:. XR Hand Left 2 Viewson 04-13 1. No fracture or dislocation. 2. Severe osteoarthritis in the 1st carpometacarpal joint. [email or web address] Workstation ID: [id number] GE RIS EXAMINATION: XR HAND LEFT 2 VIEWS 04/13/2023 10:32 AM HISTORY: ORDERING SYSTEM PROVIDED HISTORY: Pain, swelling, TECHNOLOGIST PROVIDED HISTORY: Illness/Other Reason for exam: LT HAND PAIN X 1 DAYATTN: 1ST METACARPl Cancer History: u Surgery, RadiationHistory: u Encounter Type: Initial Additional signs and symptoms: . ORDERING SYSTEM PROVIDED DIAGNOSIS CODES: COMPARISON: None. FINDINGS: Two views of the left hand obtained. Bone mineralization normal. Alignment normal. No acute fracture. No dislocation. Severe osteoarthritis in the 1st carpometacarpal joint with joint space narrowing and osteophyte formation. Mild degenerative changes in multiple interphalangeal joints. GE RIS Jacinto Del Real MD - 04/13/2023 EXAMINATION: XR HAND LEFT 2 VIEWS 04/13/2023 10:32 AM HISTORY: ORDERING SYSTEM PROVIDED HISTORY: Pain, swelling, TECHNOLOGIST PROVIDED HISTORY: Illness/Other Reason for exam: LT HAND PAIN X 1 DAYATTN: 1ST METACARPl Cancer History: u Surgery, RadiationHistory: u Encounter Type: Initial Additional signs and symptoms: . ORDERING SYSTEM PROVIDED DIAGNOSIS CODES: COMPARISON: None. FINDINGS: Two views of the left hand obtained. Bone mineralization normal. Alignment normal. No acute fracture. No dislocation. Severe osteoarthritis in the 1st carpometacarpal joint with joint space narrowing and osteophyte formation. Mild degenerative changes in multiple interphalangeal joints. IMPRESSION: 1. No fracture or dislocation. 2. Severe osteoarthritis in the 1st carpometacarpal joint. [facility] Workstation ID: [id number] [facility] Radiology Study observation (narrative) [facility] XR Hand Left 2 ViewsOrdered By: Jacinto Del Real on 04-13-2023 [facility] Work Phone: Basic metabolic 2000 panelon 04-12-2023 Anion gap [Moles/Vol] 8 mmol/L Low 10 - 2 0 mmol/L [facility] Calcium [Mass/Vol] 8.2 mg/dL Low 8.4 - 10. 2 mg/dL [facility] Chloride [Moles/Vol] 111 mmol/L High 98 - 10 8 mmol/L [facility] Creatinine [Mass/Vol] 0.77 mg/dL Low 0.80 - 1.30 mg/dL [facility] GFR/1.73 sq M.predicted CKD-EPI (S/P/Bld) [Vol rate/Area] 96 - PINF [facility] Comment on above: Estimated GFR was ca lculated using the 2020 CKD-EPI creatinine equation. Glucose [Mass/Vol] 101 mg/dL High 65 - 99 mg/dL [facility] HCO3 [Moles/Vol] 26 mmol/L 21 - 32 mmol/L [facility] Potassium [Moles/Vol] 3.6 mmol/L 3.5 - 5.1 mmol/L [facility] Sodium [Moles/Vol] 141 mmol/L 135 - 145 mmol/L [facility] Urea nitrogen [Mass/Vol] 18 mg/dL 8 - 25 mg/dL [facility] Urea nitrogen/Creatinine [Mass ratio] 23.4 mg/mg High 10.0 - 20.0 [facility] has implemented the eGFR calculation approach that does not have a coefficient for race that conforms to the NKF-ASN Task Force Recommendations. [facility] CBC panel Auto (Bld)on 04-12 Erythrocyte distribution width (RBC) [Entitic vol] 14.2 % 11.6 - 14.8 % [facility] Hematocrit (Bld) [Volume fraction] 40.8 % Low 41.0 - 53.0 % [facility] Hemoglobin (Bld) [Mass/Vol] 14.0 g/dL 13.5 - 17.5 g/dL [facility] Interpretation and review of laboratory results Abnormal [facility] MCH (RBC) [Entitic mass] 30.0 pg 26.0 - 34.0 pg [facility] MCHC (RBC) [Mass/Vol] 34.3 g/dL 31.0 - 37.0 g/dL [facility] MCV (RBC) [Entitic vol] 87.6 fL 80.0 - 100.0 fL [facility] Nucleated RBC (Bld) [#/Vol] 0.00 10*3/uL [facility] Nucleated RBC/100 WBC (Bld) [Ratio] 0.0 % [facility] Platelet mean volume (Bld) [Entitic vol] 10.2 fL 9.4 - 12.4 fL [facility] Platelets (Bld) [#/Vol] 191 10*3/uL [facility] RBC (Bld) [#/Vol] 4.66 10*6/uL [facility] WBC (Bld) [#/Vol] 8.87 10*3/uL [facility] ECHOCARDIOGRAM COMPLETE W BU BBLE STUDYon 04-12-2023 ECHOCARDIOGRAM COMPLETE W BUBBLE STUDY Patient Info Name: NEENA ROMAN Age: 68 years : 1955 Gender: Male Ht: 188 cm Wt: 98 kg BSA: 2.28 m2 HR: 62 bpm BP: 156 / 97 mmHg Heart Rhythm: Sinus Rhythm Technical Quality: Fair, Technically difficult Exam Date: 04/12/2023 8:33 AM Patient Status: Inpatient Head Of English: Soraya Reilly RDCS Exam Type: ECHOCARDIOGRAM COMPLETE W BUBBLE STUDY Study Info Indications G45.9 - Transient cerebral ischemic attack, unspecified Referring Physician: JOB BANKS ; [id number] BMI: 27.73 kg/m2 Summary 1. Left ventricular systolic function is normal with an ejection fraction by Biplane Method of Discs of 63 %. 2. RV is enlarged with normal RV function. 3. There is grade 1 diastolic dysfunction, consistent with impaired relaxation and low or normal left atrial pressures. 4. Trileaflet aortic valve, mild leaflet thickening and focal calcification. No significant stenosis. Trivial AI. 5. There is no pulmonary hypertension, estimated right ventricle systolic pressure is 27 mmHg. 6. Technically difficult saline contrast study due to image quality and timing of saline injection. There is evidence of a right to left shunt identified with saline contrast with both free breathing and Valsalva. . History/Risk Factors Hypertension: Yes Dyslipidemia: Yes Tobacco Use: Former History/Risk Factors History of Stroke. Procedure(s): Complete two-dimensional, color flow and Doppler transthoracic echocardiogram is performed. Saline contrast injection was performed. Left Ventricle Left ventricular chamber dimension is normal. Left ventricular systolic function is normal with an ejection fraction by Biplane Method of Discs of 63 %. Normal left ventricular mass. Left ventricular segmental wall motion is normal. There is grade 1 diastolic dysfunction, consistent with impaired relaxation and low or normal left atrial pressures. Right Ventricle RV is enlarged with normal RV function. Left Atria Left atrial chamber is normal with a left atrial volume index of 29 ml/m2 by BP MOD. Right Atria Right atrial chamber dimension is normal. Atrial Septum Technically difficult saline contrast study due to image quality and timing of saline injection. There is evidence of a right to left shunt identified with saline contrast with both free breathing and Valsalva. . Aortic Valve Trileaflet aortic valve, mild leaflet thickening and focal calcification. No significant stenosis. Trivial AI. Pulmonic Valve The pulmonic valve is normal. There is no pulmonic valve stenosis. There is no pulmonic regurgitation. Mitral Valve The mitral valve has normal leaflets. There is no mitral valve stenosis. There is no mitral valve regurgitation. Tricuspid Valve The tricuspid valve leaflets are normal. There is no significant tricuspid valve stenosis. There is trace tricuspid valve regurgitation. There is no pulmonary hypertension, estimated right ventricle systolic pressure is 27 mmHg. Pericardium/Pleural There is no pericardial effusion. Inferior Vena Cava Dilated inferior vena cava with >50% collapse upon inspiration consistent with elevated right atrial pressure. Aorta The aortic measurements are indexed to age and body surface area. The aortic root is normal measuring 3.7 cm with an index of 1.6 cm/m2. Wall Motion Scoring Wall Motion Scoring Index: 1.00 Left Ventricular Outflow Tract ---- Name Value Normal ---- LVOT 2D ---- LVOT Diameter 2.4 cm LVOT Doppler ---- LVOT Peak Velocity 1.2 m/s LVOT Mean Gradient 3 mmHg LVOT VTI 27 cm LVOT VTI/AV VTI Ratio 0.9 LVOT Stroke Volume 121 ml LVOT Stroke Index 53.03 ml/m2 Pulmonic Valve ---- Name Value Normal ---- RVOT Doppler ---- RVOT Peak Velocity 84 cm/s RVOT Mean Gradient 2 mmHg RVOT VTI 23 cm PV Doppler ---- PV Peak Velocity 0.94 m/s PV Mean Gradient 2 mmHg PV VTI 24 cm Mitral Valve ---- Name Value Normal ---- MV Doppler ---- MV Peak Velocity 1.02 m/s MV Mean Gradient 2 mmHg MV VTI 33 cm MV Decel [place] 223 cm/s2 MV PHT 101 ms MV Area (PHT) 2.2 cm2 4.0-5.0 MV Area (Cont Eq VTI) (more content not included)... Normal [facility] Comment on above: Order Comment: Recs per neurology Echocardiogram complete with bubble studyOrdered By: Myra Driscoll on 04-12-2023 Aortic valve area 4.21571 cm [facility] Work Phone: [phone] mean gradient 4 mmHg [facility] Work Phone: [phone] [facility] Work Phone: [phone] [facility] Work Phone: Echocardiogram complete with bubble studyon 04-12-2023 Patient Info Name: NEENA ROMAN Age: 68 years : 1955 Gender: Male Ht: 188 cm Wt: 98 kg BSA: 2.28 m2 HR: 62 bpm BP: 156 / 97 mmHg Heart Rhythm: Sinus Rhythm Technical Quality: Fair, Technically difficult Exam Date: 04/12/2023 8:33 AM Patient Status: Inpatient Head Of English: Soraya Reilly [facility] Exam Type: ECHOCARDIOGRAM COMPLETE W BUBBLE STUDY Study Info Indications G45.9 - Transient cerebral ischemic attack, unspecified Referring Physician: JOB BANKS ; [id number] BMI: 27.73 kg/m2 Summary 1. Left ventricular systolic function is normal with an ejection fraction by Biplane Method of Discs of 63 %. 2. RV is enlarged with normal RV function. 3. There is grade 1 diastolic dysfunction, consistent with impaired relaxation and low or normal left atrial pressures. 4. Trileaflet aortic valve, mild leaflet thickening and focal calcification. No significant stenosis. Trivial AI. 5. There is no pulmonary hypertension, estimated right ventricle systolic pressure is 27 mmHg. 6. Technically difficult saline contrast study due to image quality and timing of saline injection. There is evidence of a right to left shunt identified with saline contrast with both free breathing and Valsalva. . History/Risk Factors Hypertension: Yes Dyslipidemia: Yes Tobacco Use: Former History/Risk Factors History of Stroke. Procedure(s): Complete two-dimensional, color flow and Doppler transthoracic echocardiogram is performed. Saline contrast injection was performed. Left Ventricle Left ventricular chamber dimension is normal. Left ventricular systolic function is normal with an ejection fraction by Biplane Method of Discs of 63 %. Normal left ventricular mass. Left ventricular segmental wall motion is normal. There is grade 1 diastolic dysfunction, consistent with impaired relaxation and low or normal left atrial pressures. Right Ventricle RV is enlarged with normal RV function. Left Atria Left atrial chamber is normal with a left atrial volume index of 29 ml/m2 by BP MOD. Right Atria Right atrial chamber dimension is normal. Atrial Septum Technically difficult saline contrast study due to image quality and timing of saline injection. There is evidence of a right to left shunt identified with saline contrast with both free breathing and Valsalva. . Aortic Valve Trileaflet aortic valve, mild leaflet thickening and focal calcification. No significant stenosis. Trivial AI. Pulmonic Valve The pulmonic valve is normal. There is no pulmonic valve stenosis. There is no pulmonic regurgitation. Mitral Valve The mitral valve has normal leaflets. There is no mitral valve stenosis. There is no mitral valve regurgitation. Tricuspid Valve The tricuspid valve leaflets are normal. There is no significant tricuspid valve stenosis. There is trace tricuspid valve regurgitation. There is no pulmonary hypertension, estimated right ventricle systolic pressure is 27 mmHg. Pericardium/Pleural There is no pericardial effusion. Inferior Vena Cava Dilated inferior vena cava with >50% collapse upon inspiration consistent with elevated right atrial pressure. Aorta The aortic measurements are indexed to age and body surface area. The aortic root is normal measuring 3.7 cm with an index of 1.6 cm/m2. Wall Motion Scoring Wall Motion Scoring Index: 1.00 Left Ventricular Outflow Tract ---- Name Value Normal ---- LVOT 2D ---- LVOT Diameter 2.4 cm LVOT Doppler ---- LVOT Peak Velocity 1.2 m/s LVOT Mean Gradient 3 mmHg LVOT VTI 27 cm LVOT VTI/AV VTI Ratio 0.9 LVOT Stroke Volume 121 ml LVOT Stroke Index 53.03 ml/m2 Pulmonic Valve ---- Name Value Normal ---- RVOT Doppler ---- RVOT Peak Velocity 84 cm/s RVOT Mean Gradient 2 mmHg RVOT VTI 23 cm PV Doppler ----- (more content not included)... [employer] SYNAPSE CV Myra Driscoll MD - 04/12/2023 Patient Info Name: NEENA ROMAN Age: 68 years : 1955 Gender: Male Ht: 188 cm Wt: 98 kg BSA: 2.28 m2 HR: 62 bpm BP: 156 / 97 mmHg Heart Rhythm: Sinus Rhythm Technical Quality: Fair, Technically difficult Exam Date: 04/12/2023 8:33 AM Patient Status: Inpatient Head Of English: Soraya Reilly [facility] Exam Type: ECHOCARDIOGRAM COMPLETE W BUBBLE STUDY Study Info Indications G45.9 - Transient cerebral ischemic attack, unspecified Referring Physician: JOB BANKS ; [id number] BMI: 27.73 kg/m2 Summary 1. Left ventricular systolic function is normal with an ejection fraction by Biplane Method of Discs of 63 %. 2. RV is enlarged with normal RV function. 3. There is grade 1 diastolic dysfunction, consistent with impaired relaxation and low or normal left atrial pressures. 4. Trileaflet aortic valve, mild leaflet thickening and focal calcification. No significant stenosis. Trivial AI. 5. There is no pulmonary hypertension, estimated right ventricle systolic pressure is 27 mmHg. 6. Technically difficult saline contrast study due to image quality and timing of saline injection. There is evidence of a right to left shunt identified with saline contrast with both free breathing and Valsalva. . History/Risk Factors Hypertension: Yes Dyslipidemia: Yes Tobacco Use: Former History/Risk Factors History of Stroke. Procedure(s): Complete two-dimensional, color flow and Doppler transthoracic echocardiogram is performed. Saline contrast injection was performed. Left Ventricle Left ventricular chamber dimension is normal. Left ventricular systolic function is normal with an ejection fraction by Biplane Method of Discs of 63 %. Normal left ventricular mass. Left ventricular segmental wall motion is normal. There is grade 1 diastolic dysfunction, consistent with impaired relaxation and low or normal left atrial pressures. Right Ventricle RV is enlarged with normal RV function. Left Atria Left atrial chamber is normal with a left atrial volume index of 29 ml/m2 by BP MOD. Right Atria Right atrial chamber dimension is normal. Atrial Septum Technically difficult saline contrast study due to image quality and timing of saline injection. There is evidence of a right to left shunt identified with saline contrast with both free breathing and Valsalva. . Aortic Valve Trileaflet aortic valve, mild leaflet thickening and focal calcification. No significant stenosis. Trivial AI. Pulmonic Valve The pulmonic valve is normal. There is no pulmonic valve stenosis. There is no pulmonic regurgitation. Mitral Valve The mitral valve has normal leaflets. There is no mitral valve stenosis. There is no mitral valve regurgitation. Tricuspid Valve The tricuspid valve leaflets are normal. There is no significant tricuspid valve stenosis. There is trace tricuspid valve regurgitation. There is no pulmonary hypertension, estimated right ventricle systolic pressure is 27 mmHg. Pericardium/Pleural There is no pericardial effusion. Inferior Vena Cava Dilated inferior vena cava with >50% collapse upon inspiration consistent with elevated right atrial pressure. Aorta The aortic measurements are indexed to age and body surface area. The aortic root is normal measuring 3.7 cm with an index of 1.6 cm/m2. Wall Motion Scoring Wall Motion Scoring Index: 1.00 Left Ventricular Outflow Tract ---- Name Value Normal ---- LVOT 2D ---- LVOT Diameter 2.4 cm LVOT Doppler ---- LVOT Peak Velocity 1.2 m/s LVOT Mean Gradient 3 mmHg LVOT VTI 27 cm LVOT VTI/AV VTI Ratio 0.9 LVOT Stroke Volume 121 ml LVOT Stroke Index 53.03 ml/m2 Pulmonic Valve ---- Name Value Normal ---- RVOT Doppler ---- RVOT Peak Velocity 84 cm/s RVOT Mean Gradient 2 mmHg RVOT VTI 23 cm PV Doppler ---- PV Peak Velocity 0.94 m/s PV Mean Gradient 2 mmHg PV VTI 24 cm Mitral Valve ---- Name Value Normal ---- MV Doppler ---- MV Peak Velocity 1.02 m/s MV Mean Gradien (more content not included)... [facility] HbA1c (Bld) [Mass fraction]O rdered By: Jose Martin Granda on 04-12-2023 Average glucose Estimated from glycated hemoglobin (Bld) [Mass/Vol] 126 mg/dL High 68 - 114 mg/dL [facility] Interpretation and review of laboratory results Abnormal [facility] Normal: 4.0% - 5.6% Increased risk for diabetes: 5.7% - 6.4% Diabetes: >= 6.5% Pediatrics: No established reference range Estimated average glucose: 68-114 mg/dL [facility] Hemoglobin [id number] By: Velma Granda on 04-12-2023 HbA1c (Bld) [Mass fraction] 6.0 % High 4.0 - 5.6 % [facility] Lipid 1996 panelon 3 Cholesterol [Mass/Vol] 71 mg/dL Low 100 - 199 mg/dL [facility] Comment on above: National Cholesterol Education Program Guidelines: Cholesterol Desirable: <200 mg/dL Borderline High: 200-239 mg/dL High: greater than or equal to 240 mg/dL Cholesterol in HDL [Mass/Vol] 37 mg/dL Low 40 - 59 mg/dL [facility] Comment on above: National Cholesterol Education Program Guidelines: HDL Cholesterol Low: <40 mg/dL Near Optimal: 40-59 mg/dL High: greater than or equal to 60 mg/dL Cholesterol in LDL [Mass/Vol] 27 mg/dL 10 - 130 mg/dL [facility] Comment on above: National Cholesterol Education Program Guidelines: LDL Cholesterol Optimal: <100 mg/dL Near Optimal/above Optimal: 100-129 mg/dL Borderline High: 130-159 mg/dL High: 160-189 mg/dL Very High: greater than or equal to 190 mg/dL Cholesterol non HDL [Mass/Vol] 34 mg/dL [facility] Comment on above: National Cholesterol Education Program Guidelines: NON HDL Cholesterol Desirable: <130 mg/dL Borderline High: 130-159 mg/dL High: 160-189 mg/dL Very High: > or = 190 mg/dL Cholesterol.total/Chol esterol in HDL [Mass ratio] 1.9 {ratio} ratio [facility] Comment on above: Males Cholesterol/HD L Ratio: Average risk: 5.0 1/2 average risk: 3.4 2 x average risk: 9.6 Triglyceride [Mass/Vol] 36 mg/dL 30 - 150 mg/dL [facility] Comment on above: National Cholesterol Education Program Guidelines: Triglyceride Normal: <150 mg/dL Borderline High: 150-199 mg/dL High: 200-499 mg/dL Very High: greater than or equal to 500 mg/dL MR BRAIN WITH AND WITHOUT CO NTRASTon 04-12-2023 MR BRAIN WITH AND WITHOUT CONTRAST EXAMINATION: MR BRAIN WITH AND WITHOUT CONTRAST HISTORY: ORDERING SYSTEM PROVIDED HISTORY: Stroke, follow up; Recs per Neurolgy, TECHNOLOGIST PROVIDED HISTORY: Illness/Other Reason for exam: cva Encounter Type: Initial Additional signs and symptoms: cva ORDERING SYSTEM PROVIDED DIAGNOSIS CODES: COMPARISON: None Correlation: Noncontrast CT examination of the head and a CTA examination of the head neck both done 04/11/2023 TECHNIQUE: MRI brain with and without contrast. CONTRAST: GADOTERATE MEGLUMINE 0.5 MMOL/ML (376.9 MG/ML) INTRAVENOUS SOLUTION - 20 mL, FINDINGS: There is mild generalized cerebral and cerebellar atrophy. There is an approximate 5 cm area of somewhat ribbon like diffusion-weighted signal abnormality in the left parietal region. This primarily involves the cortical mccord matter and is low in signal intensity on the axial diffusion coefficient images. The findings are consistent with acute/subacute area of infarction.There is extensive patchy confluent high-signal intensity in the periventricular white matter of the cerebral hemispheres and numerous scattered high-signal intensity white-matter lesions consistent with other chronic small vessel ischemic changes. No intra-axial or extra-axial mass, intracranial hemorrhage or any abnormal extra-axial fluid collection is seen. There is some mild related mass effect in the area of acute/subacute infarction but no midline shift. There is mild ex vacuo enlargement of the ventricular system fell proportional to the atrophy seen. The basilar, posterior cerebral, middle cerebral and anterior cerebral arteries are patent. Sella is not expanded. The globes appear intact and unremarkable. There is no obvious orbital pathology. The cerebellar tonsils are anatomically positioned. There is minimal ethmoid sinus mucosal thickening. The paranasal sinuses otherwise are clear, as are the mastoids. IMPRESSION: 1. 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 2. Mild atrophy. 3. Other extensive chronic small vessel ischemic changes. Workstation ID: [id number] Dictated by: TIM FREY on WedApr 12, 2023 4:59:08 PM EST Transcribed by: TIM FREY on WedApr 12, 2023 4:59:08 PM EST Finalized by: TIM FREY on WedApr 12, 2023 4:59:08 PM EST Normal [facility] Comment on above: Order Comment: Injur y/Trauma or Illness?:Illness/Other How long have you had these symptoms (acute/chronic)?:Acute Reason for exam?:cva Type of Exam?:Initial Additional signs and symptoms?:cva MR Brain With And Without Co ntraston 04-12-2023 1. 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 2. Mild atrophy. 3. Other extensive chronic small vessel ischemic changes. Workstation ID: [id number] Moe Delo EXAMINATION: MR BRAIN WITH AND WITHOUT CONTRAST HISTORY: ORDERING SYSTEM PROVIDED HISTORY: Stroke, follow up; Recs per Neurolgy, TECHNOLOGIST PROVIDED HISTORY: Illness/Other Reason for exam: cva Encounter Type: Initial Additional signs and symptoms: cva ORDERING SYSTEM PROVIDED DIAGNOSIS CODES: COMPARISON: None Correlation: Noncontrast CT examination of the head and a CTA examination of the head neck both done 04/11/2023 TECHNIQUE: MRI brain with and without contrast. CONTRAST: GADOTERATE MEGLUMINE 0.5 MMOL/ML (376.9 MG/ML) INTRAVENOUS SOLUTION - 20 mL, FINDINGS: There is mild generalized cerebral and cerebellar atrophy. There is an approximate 5 cm area of somewhat ribbon like diffusion-weighted signal abnormality in the left parietal region. This primarily involves the cortical mccord matter and is low in signal intensity on the axial diffusion coefficient images. The findings are consistent with acute/subacute area of infarction.There is extensive patchy confluent high-signal intensity in the periventricular white matter of the cerebral hemispheres and numerous scattered high-signal intensity white-matter lesions consistent with other chronic small vessel ischemic changes. No intra-axial or extra-axial mass, intracranial hemorrhage or any abnormal extra-axial fluid collection is seen. There is some mild related mass effect in the area of acute/subacute infarction but no midline shift. There is mild ex vacuo enlargement of the ventricular system fell proportional to the atrophy seen. The basilar, posterior cerebral, middle cerebral and anterior cerebral arteries are patent. Sella is not expanded. The globes appear intact and unremarkable. There is no obvious orbital pathology. The cerebellar tonsils are anatomically positioned. There is minimal ethmoid sinus mucosal thickening. The paranasal sinuses otherwise are clear, as are the mastoids. [employer] [facility] Tim Frey M D - 04/12/2023 EXAMINATION: MR BRAIN WITH AND WITHOUT CONTRAST HISTORY: ORDERING SYSTEM PROVIDED HISTORY: Stroke, follow up; Recs per Neurolgy, TECHNOLOGIST PROVIDED HISTORY: Illness/Other Reason for exam: cva Encounter Type: Initial Additional signs and symptoms: cva ORDERING SYSTEM PROVIDED DIAGNOSIS CODES: COMPARISON: None Correlation: Noncontrast CT examination of the head and a CTA examination of the head neck both done 04/11/2023 TECHNIQUE: MRI brain with and without contrast. CONTRAST: GADOTERATE MEGLUMINE 0.5 MMOL/ML (376.9 MG/ML) INTRAVENOUS SOLUTION - 20 mL, FINDINGS: There is mild generalized cerebral and cerebellar atrophy. There is an approximate 5 cm area of somewhat ribbon like diffusion-weighted signal abnormality in the left parietal region. This primarily involves the cortical mccord matter and is low in signal intensity on the axial diffusion coefficient images. The findings are consistent with acute/subacute area of infarction.There is extensive patchy confluent high-signal intensity in the periventricular white matter of the cerebral hemispheres and numerous scattered high-signal intensity white-matter lesions consistent with other chronic small vessel ischemic changes. No intra-axial or extra-axial mass, intracranial hemorrhage or any abnormal extra-axial fluid collection is seen. There is some mild related mass effect in the area of acute/subacute infarction but no midline shift. There is mild ex vacuo enlargement of the ventricular system fell proportional to the atrophy seen. The basilar, posterior cerebral, middle cerebral and anterior cerebral arteries are patent. Sella is not expanded. The globes appear intact and unremarkable. There is no obvious orbital pathology. The cerebellar tonsils are anatomically positioned. There is minimal ethmoid sinus mucosal thickening. The paranasal sinuses otherwise are clear, as are the mastoids. IMPRESSION: 1. 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 2. Mild atrophy. 3. Other extensive chronic small vessel ischemic changes. Workstation ID: [id number] [facility] Radiology Study observation (narrative) [facility] MR Brain With And Without Co ntrastOrdered By: Tim Frey on 04-12-2023 [facility] Work Phone: No Panel Informationon 04-12 Interpretation and review of laboratory results Abnormal [facility] CT ANGIOGRAM HEAD NECK (STRO KE)on 04-11-2023 CT ANGIOGRAM HEAD NECK (STROKE) EXAMINATION: CT ANGIOGRAM HEAD NECK (STROKE) HISTORY: Aphasia COMPARISON: None available at time of dictation. TECHNIQUE: CT angiogram of the head and neck was performed. Coronal, sagittal and 3-D reformats were created and reviewed. Carotid stenosis measurements were made according to the NASCET criteria. Dose reduction techniques were achieved by using automated exposure control and/or adjustment of mA and/or kV according to patient size and/or use of iterative reconstruction technique CONTRAST: The amount and type of contrast are recorded in the medical record. FINDINGS: CTA Neck: No flow-limiting stenosis at the origin of the great vessels. The subclavian and axillary arteries are widely patent. There is tortuosity of the cervical internal carotid arteries. However, no hemodynamically significant region of extracranial carotid narrowing, dissection or evidence of carotid occlusion. The vertebral arteries are codominant. Both vertebral arteries are patent at their origins and throughout their course within the neck. CTA head: No flow limiting intracranial arterial stenosis or evidence of large vessel occlusion. There is no evidence of an intracranial aneurysm. The dural sinuses are opacified with intravascular contrast material. The left posterior communicating artery is prominent with the P1 segment of the left posterior cerebral artery correspondingly hypoplastic. The A1 segment of the left anterior cerebral artery is also hypoplastic and smaller than its counterpart on the left. These latter findings reflect developmental intracranial vascular variation. IMPRESSION: 1. No flow limiting arterial stenosis within the neck. 2. No evidence of intracranial large vessel occlusion. Workstation ID: [id number] Dictated by: NICKI TAYLOR on Scott Apr 11, 2023 9:56:39 PM EST Transcribed by: NICKI TAYLOR on Scott Apr 11, 2023 9:56:39 PM EST Finalized by: NICKI TAYLOR on Scott Apr 11, 2023 9:56:39 PM EST [facility] Comment on above: Order Comment: Injur y/Trauma or Illness?:Illness/Other How long have you had these symptoms (acute/chronic)?:Acute Reason for exam?:aphasia Type of Exam?:Initial Additional signs and symptoms?:aphasia CT HEAD WITHOUT CONTRAST ([facility])on 04-11-2023 CT HEAD WITHOUT CONTRAST (STROKE) EXAMINATION: CT HEAD WITHOUT CONTRAST (STROKE) HISTORY: Difficulty speaking COMPARISON: None TECHNIQUE: CT of the head was performed. Axial, coronal, sagittal reformats were created and reviewed. Dose reduction techniques were achieved by using automated exposure control and/or adjustment of mA and/or kV according to patient size and/or use of iterative reconstruction technique. CONTRAST: None FINDINGS: No acute intracranial hemorrhage, extra-axial fluid collection, midline shift or mass effect is seen. No space-occupying lesion is demonstrated. Sulcal and ventricular prominence is compatible with intracranial volume loss. Areas of diminished attenuation are seen within the hemispheric white matter. While nonspecific, they likely reflect chronic microvascular ischemic change. No CT evidence of an acute ischemic event. Only a small amount of mucosal thickening is seen within the paranasal sinuses. The mastoids are well aerated. IMPRESSION: 1. No CT evidence of an acute intracranial hemorrhage or acute ischemic event. 2. Intracranial volume loss and probable superimposed chronic microvascular ischemic change. Workstation ID: [id number] Dictated by: NICKI TAYLOR on Scott Apr 11, 2023 8:51:13 PM EST Transcribed by: NICKI TAYLOR on Scott Apr 11, 2023 8:51:13 PM EST Finalized by: NICKI TAYLOR on Scott Apr 11, 2023 8:51:13 PM EST [facility] Comment on above: Order Comment: Injur y/Trauma or Illness?:Illness/Other How long have you had these symptoms (acute/chronic)?:Acute Reason for exam?:PT WOKE UP FROM [facility] TODAY WITH SPEAKING TROUBLE, Type of Exam?:Initial Additional signs and symptoms?:difficulty speaking XR CHEST PA/APon 04-11-2023 XR CHEST PA/AP EXAMINATION: XR CHEST PA/AP 04/11/2023 8:53 pm HISTORY: ORDERING SYSTEM PROVIDED HISTORY: ams, TECHNOLOGIST PROVIDED HISTORY: Illness/Other Reason for exam: aphasia Cancer History: u Surgery, RadiationHistory: u Encounter Type: Initial Additional signs and symptoms: aphasia ORDERING SYSTEM PROVIDED DIAGNOSIS CODES: R47.01 Aphasia COMPARISON: None FINDINGS: Trachea, mediastinum and heart size are unremarkable. The lungs show slight chronic changes without effusion or nodule or pneumothorax. Diaphragm and bony elements are intact. IMPRESSION: Nonacute portable chest. Workstation ID: [id number] Dictated by: KEN MARQUES on WedApr 11, 2023 9:30:04 PM EST Transcribed by: KNE MARQUES on WedApr 11, 2023 9:30:04 PM EST Finalized by: KEN MARQUES on Scott Apr 11, 2023 9:30:04 PM EST [facility] Comment on above: Order Comment: Injur y/Trauma or Illness?:Illness/Other How long have you had these symptoms (acute/chronic)?:Acute Reason for exam?:aphasia History of cancer?:u Surgeries, chemotherapy, or radiation?:u Type of Exam?:Initial Additional signs and symptoms?:aphasia Order Reconciliationon 11-24 Order Reconciliation Page 1 Discharge Reconciliation Document Reconciliation Type: Discharge requested on behalf of Neena العلي (Physician) done by Neena العلي) Discharge - Reconciliation: 24-Nov-2022 10:27 by: Neena العلي) Home Medications EnteredHOME MEDICATIONS AT DISCHARGE DateReconciliation Comment/ Additional Information glucosamine 1 tab(s) orally once a day 20-Nov-2022 11:41 glucosamine 1 tab(s) orally once a day 20-Nov-2022 11:41 glucosamine is continued as glucosamine Lipitor 20 mg oral tablet 1 tab(s) orally once a day 17-Oct-2018 13:37 Lipitor 20 mg oral tablet 1 tab(s) orally once a day 17-Oct-2018 13:37 Lipitor 20 mg oral tablet is continued as Lipitor 20 mg oral tablet Multiple Vitamins oral tablet 1 tab(s) orally once a day 17-Oct-2018 13:37 Multiple Vitamins oral tablet 1 tab(s) orally once a day 17-Oct-2018 13:37 Multiple Vitamins oral tablet is continued as Multiple Vitamins oral tablet Norvasc 10 mg oral tablet 1 tab(s) orally once a day 17-Oct-2018 13:36 Norvasc 10 mg oral tablet 1 tab(s) orally once a day 17-Oct-2018 13:36 Norvasc 10 mg oral tablet is continued as Norvasc 10 mg oral tablet Probiotic Formula oral capsule 1 cap(s) orally once a day 20-Nov-2022 11:41 Probiotic Formula oral capsule 1 cap(s) orally once a day 20-Nov-2022 11:41 Probiotic Formula oral capsule is continued as Probiotic Formula oral capsule Saw Dresher oral capsule 1 cap(s) orally once a day 17-Oct-2018 13:38 Saw Dresher oral capsule 1 cap(s) orally once a day 17-Oct-2018 13:38 Saw Dresher oral capsule is continued as Saw Dresher oral capsule Current OrdersDateHOME MEDICATIONS AT DISCHARGE DateReconciliation Comment/ Additional Information dexAMETHasone Injectable (DECADRON)DOSE = 6 mg IntraVenous Push OnceClinician Notes: ACS-PREOP 24-Nov-2022 07:04 dexAMETHasone Injectable is not required Lactated Ringers Infusion IV Bag Volume = 1,000 mL Run at: 100 mL/hr IntraVenous Clinician Notes: Shaye-operative order ONLY 24-Nov-2022 07:04 Lactated Ringers Infusion is not required Midazolam Injectable (VERSED)DOSE = 1 mg IntraVenous Push Once, PRN AnxietyClinician Notes: ACS-PREOP 24-Nov-2022 07:04 Midazolam Injectable is not required Naloxone Injectable (NARCAN)DOSE = 0.2 mg IntraVenous Push Once, PRN If patient RR below 10, obtunded or unarousableClinician Notes: DO NOT ADMINISTER UNTIL PHYSiCIAN HAS BEEN NOTIFIED AND ASSESSED PATIENT 24-Nov-2022 07:04 Naloxone Injectable is not required Ondansetron Injectable (ZOFRAN)DOSE = 4 mg IntraVenous Push Once, PRN PONV, first lineClinician Notes: ACS-PREOP 24-Nov-2022 07:04 Ondansetron Injectable is not required Home Medications Added During Discharge Reconciliation Call Physician For: inability to urinate every 8-12 hours and your bladder becomes too full or painful. Call Physician For: signs and sypmtoms of infection Increased redness or swelling at incision site, increased pain/tenderness at surgical site, increased temperature greater than 100 degress, increasing and/or progressive drainage from surgical site, and/or unusual odor from surgical site. Diet Regular Discharge Discharge Diagnosis< N20.0 Right renal stone Discharge Provider, Neena العلي Discharge Disposition : .Home Condition at Discharge: Satisfactory Discharge Communication Instructions for Nursing Only: Remove IV prior to discharge from hospital. Do not remove any midline, if present, without an order from the provider. Discharge Instructions - PHR After your discharge from the hospital, two Summary of Care Documents will be available online in your Personal Health Record (PHR). 1.Consolidated-Clinica l Document Architecture (C-CDA) Patient Discharge Summary This document is a summary of your hospital stay to be kept for your reference.2.C-CDA Visit Summary This document is a summary of your hospital stay to be shared with your follow-up providers (doctor, orderlies teacher, physical therapist, etc.). Follow Up with Dr العلي in 3 Months hydrocodone-acetaminop hen 5 mg-325 mg oral tablet 1 tab(s) orally every 8 hours Post Procedure Discharge Criteria Criteria: Easily arousable / responding appropriately; Significant complications are absent; SpO2 = or > 92%, or if SpO2 < 92%, maintains within 2% of baseline; Vital signs +/- 20% of preprocedure status; Ambulates without dizziness / age appropriate activity and ambulatory status returns to pre-procedure baseline. All Active Home Medications at time of Discharge Reconciliation: 24-Nov-2022 10:27 Call Physician For: inability to urinate every 8-12 hours and your bladder becomes too full or painful. Call Physician For: signs and sypmtoms of infection Increased redness or swelling at incision site, increased pain/tenderness at surgical site, increased temperature greater than 100 degress, increasing and/or progressive drainage from surgical site, and/or unusual odor from surgical site. Diet Regular D (more content not included)... Normal [facility] Patient Profile - Preop v3on 11-20-2022 Patient Profile - Preop v3 Patient Profile - Preop: Initial Info: Patient DemographicsName: NEENA ROMAN Date: 1955 Address: [address] [place] [address] Primary Phone [phone] Call Attemptedattempt 1 Instructions Givenappropriate clothing, bring responsible adult as the driver starting gate (procedure may be cancelled if no driver starting gate), center location, insurance information Prep Instructions Reviewedyes Instructed to Have No Fluids Aftermidnight How to be AddressedJOHN Spoken Language PreferredEnglish Source of Informationpatient Stated Reason for AdmissionBLASTING A KIDNEY STONE Primary Contact Name and NumberRAQUELALTACarlosTERESA IN [facility] Medications Brought to [facility] General Health: Weight in kg96.9 kilogram(s) Weight in kye945.6 pound(s) Weight Methodactual (measured) Scale Typestanding Height in feet6 feet Height in inches1.98 inch(es) Height in cm187.9 centimeter(s) Height Methodstated BMI (kg/m2)27.445 square meter Patient or Family Member Reaction to Anesthesiano previous reaction; no previous family member reaction Blood Avoidance/Restrictions none Previous Transfusion Reactionnot applicable Health Mgmt: Symptoms/Conditions Managed at [facility] Barriers to Managing Healthnone Relationship/Environ: Lives Withspouse Living Arrangementshouse Resource/Environmental Concernsnone Anticipated Transition [place] [facility] Anticipated at Transitionnone Tobacco Use: Tobacco Useno Pre-op Checklist: Arrival [id number] Arrival Time10:05 NPOyes Last Food [id number] 18:00 Last Clear Fluid [id number] 18:00 ID Band On Patientpatient ID (name), allergy Consent Signedyes H&P Completeyes Anesthesia Assessment Completedyes EKG Performednot ordered Chest X-Ray Performednot ordered Preop Antibioticsnot ordered Type and Screen Resultedn/a Chlorhexadine Bath Givennot applicable Nasal Antiseptic Appliednot applicable Soap and Water Bath the Night Before Surgerynot applicable Hair Washed with Shampoonot applicable Bowel Prepno Surgical Site Infection Preventionyes Pain Scales and Managementyes Additional Information: Information Review: Allergies, Home Meds and Significant Events have been Reviewed and Verified with Patient/Familyyes Allergy, Intolerance, Adverse Event: Allergies: penicillin: Drug, Rash, Active Problem List: Medical History: BPH (benign prostatic hyperplasia): Catalog Name: Benign prostatic hyperplasia without lower urinary tract symptoms Hypertension: Catalog Name: Essential (primary) hypertension Hypercholesteremia: Catalog Name: Pure hypercholesterolemia, unspecified Surg History: History of tonsillectomy: Catalog Name: Acquired absence of other organs History of laparoscopic cholecystectomy: Catalog Name: Acquired absence of other specified parts of digestive tract History of hernia repair: Catalog Name: Other specified postprocedural states Electronic Signatures: Anali Carreon (KAMLESH) (Signed 24-Nov-2022 10:14) Authored: Initial Info, General Health, Health Mgmt, Relationship/Environ, Pre-op Checklist, Additional Information Neha Frey) (Signed 20-Nov-2022 11:45) Authored: Initial Info, General Health, Tobacco Use, Additional Information Last Updated: 24-Nov-2022 10:14 by Anali Carreon (KAMLESH) [facility] Office Visit (Urology)on Follow-up visit Diagnoses/Problems Assessed Benign prostatic hyperplasia with urinary obstruction and other lower urinary tract symptoms (600.21) (N40.1,N13.8) Elevated PSA measurement (790.93) (R97.20) History of kidney stones (V13.01) (Z87.442) Former smoker (V15.82) (Z87.891) Patient Discussion/Summary KUB and renal U/S Pros/cons of R ESWL reviewed-Will scheduled Stone prevention discussed. Diet reviewed. Discussed fluid intake All available PSA values reviewed, Options discussed. Questions answered. Pros and cons of prostate biopsy reviewed. Other options discussed. Questions answered Discussed MRI Diet changes for prostate health discussed and educational information given. Pros/Cons of prostate health supplements discussed. Treatment options for LUTS reviewed Discussed timed voiding. Discussed fluid and caffeine intake Treatment options for ED reviewed. Lifestyle change to help prevent UTIs discussed. Encouraged fluid intake. F/U R ESWL Chief Complaint renal u/s results History of Present IllnessPatient is here for renal u/s results. Hx of kidney stones. Recent U/S showed nonobstructing bilateral intrarenal stone and cortical cysts. Chronic hx of elevated PSA. Most recent PSA was 4.98 on 10/20. Prior PSA was 4.92 on 07/22. Prior PSA was 4.70 on 12/2020. Prior PSA was 4.51 on 12/2019. . Prior PSA was 4.42 on 07/2019. Prior PSA was 5.02 on 12/2018. Prior PSA was 9.12 on 05/2018. No fhx of prostate ca. 1 negative bx on 07/2018. Denies bone pain. Denies weight loss. Chronic BPH sx are mild and stable. some urgency and frequency. Denies dysuria. Denies hematuria. Nocturia 1-2x... Pt. does not take any medication for the prostate... . ED is mild. No medication for this Review of Systems Constitutional: No fever, No chills. Eye: Negative. Ear/Nose/Mouth/Throat: Negative. Respiratory: No shortness of breath, No cough. Cardiovascular: No chest pain, No peripheral edema. Gastrointestinal: No nausea, Genitourinary: Negative except as documented in history of present illness. Hematology/Lymphatics: Patient denies being on blood thinners.. Endocrine: Negative. Immunologic: Not immunocompromised. Musculoskeletal: Negative Integumentary: Negative. Neurologic: Alert and oriented X4. Psychiatric: Negative. 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) Arthralgia (719.40) (M25.50) Benign prostatic hyperplasia with urinary obstruction and other lower urinary tract symptoms (600.21) (N40.1,N13.8) Chronic neck pain (723.1,338.29) (M54.2,G89.29) Cough (786.2) (R05.9) History of Elevated hemoglobin (282.7) (D58.2) Elevated PSA measurement (790.93) (R97.20) Encounter for Medicare annual wellness exam (V70.0) (Z00.00) History of kidney stones (V13.01) (Z87.442) Hypertension, unspecified type (401.9) (I10) Prediabetes (790.29) (R73.03) Past Medical History Problems Benign prostatic hyperplasia with urinary obstruction and other lower urinary tract symptoms (600.21) (N40.1,N13.8) Chronic neck pain (723.1,338.29) (M54.2,G89.29) History of Elevated hemoglobin (282.7) (D58.2) Resolved Date: 06 Aug 2020 History of kidney stones (V13.01) (Z87.442) Hypertension, unspecified type (401.9) (I10) Surgical History Problems History of Cholecystectomy History of Colonoscopy 2 years ago History of Hernia repair History of Tonsillectomy Family History Mother Family history of dementia (V17.2) (Z81.8) Father Family history of cerebrovascular accident (CVA) (V17.1) (Z82.3) Brother Family history of dementia (V17.2) (Z81.8) Social History Problems Daily caffeinated coffee consumption Former smoker (V15.82) (Z87.891) No illicit drug use Occasional alcohol use Allergies Medication Penicillins Recorded By: Latasha Duckworth; 09/14/2018 1:46:24 PM Current Meds Medication NameInstruction amLODIPine Besylate 10 MG Oral TabletTake 1 tablet daily Atorvastatin Calcium 20 MG Oral TabletTake 1 tablet daily Betamethasone Dipropionate 0.05 % External CreamAPPLY SPARINGLY TO AFFECTED AREA(S) ONCE DAILY Glucosamine 750 MG Oral TabletTake 1 tablet daily Multiple Vitamin TABS Saw Dresher CAPS Vitals Vital Signs Recorded: 18Nov2022 07:47AM Yqgukijrdhm65 Bhlfpj846 lb BMI Ipwxxetmzx53.25 kg/m2 BSA Calculated2.26 Tobacco Useb) No PHQ-2 Patient Declined/Screening not indicatedYes Falls Screening (Age 18+)a) No falls within the last year Physical Exam A/O x 3 in No apparent distress Constitutional: General appearance normal Respiratory: Respiratory effort is normal Gastrointestinal:Abdom en is not tender Genitourinary: Kidneys: Not palpable Bilaterally Bladder: Not palpable or tender Scrotum: No mass. No Hydrocele Epididymis: No spermatocele. Not tender Testicles: no mass Urethra: No Discharge Penis: WNL...No lesions Prostate: deferred Signatures Electronically signed by (more content not included)... Normal [facility] Tobacco Screening.on 023 Fall risk assessment a) No falls within the last year [facility] Work Phone: Tobacco use status CPHS b) No XC[facility]la[facility] Work Phone: Tobacco Screening. Yes MP-Uro logy[facility] Work Phone: ABDOMEN AP VIEWon 10-15-2022 ABDOMEN AP VIEW Patient Name: NEENA ROMAN STUDY: ABDOMEN AP VIEW; ; 10/15/2022 10:32 am INDICATION: NONE Z87.442: History of kidney stones. COMPARISON: Abdomen radiograph dated 01/22/2021. ACCESSION NUMBER(S): [id number] ORDERING CLINICIAN: NEENA العلي FINDINGS: Two views of abdomen and pelvis were performed. There is a 1.1 cm radiopaque density projecting over the right upper quadrant in the expected region of the right renal fossa and can represent right renal calculus. There are also punctate radiopaque densities projecting over the expected region of the left renal fossa with the largest measuring approximally 3 mm and could represent nonobstructing left renal calculi. Bowel gas pattern is nonobstructive. Visualized lung bases are clear. Acute osseous findings. Multilevel degenerative changes of the lumbar spine are noted. IMPRESSION: Redemonstration of bilateral renal calculi largest measuring approximally 1.1 cm in the right kidney. Electronically signed by: DICKSON FRAGA MD [facility] RENAL BILATon 10-15-2022 US RENAL BILAT Patient Name: NEENA ROMAN STUDY: US RENAL BILAT; 10/15/2022 10:34 am INDICATION: NONE Z87.442: History of kidney stones. COMPARISON: 08/01/2021 ACCESSION NUMBER(S): [id number] ORDERING CLINICIAN: NEENA العلي TECHNIQUE: Multiple images of the kidneys were obtained , with color Doppler for blood flow. FINDINGS: RIGHT KIDNEY: The right kidney measures 12.8 cm in length. The renal cortex is within normal limits. A 1 cm echogenicity with shadowing at the upper pole renal sinus and additional 9 mm similar echogenicity would indicate nonobstructing calculi, slightly enlarged from the previous exam. As implied no hydronephrosis. Color Doppler demonstrates renal blood flow. LEFT KIDNEY: The left kidney measures 14.9 cm in length. The renal contour is lobulated, particularly at the mid/upper pole.. An exophytic cyst with thin septation indicating Bosniak 2 cyst is designated at the midpole measuring 4.4 x 2.8 x 3.9 cm. This is felt to correspond to the cyst designated at the superolateral pole on the prior exam. An additional 6.2 x 6.1 cm cyst is present and designated at the mid/superior pole, probably corresponds to that designated at the lower pole on the prior exam. An 8 x 7 x 2 mm echogenicity with slight shadowing and twinkle artifact at the midpole would indicate a nonobstructing calculus fairly similar to the prior exam. Color Doppler demonstrates renal blood flow. BLADDER: The underdistended bladder contour is indented at the floor by prostatomegaly . There is mural thickening probably from muscularis hypertrophy and mild trabeculation. The measured volume was 234 mL. Bilateral ureteral jets were evident. OTHER FINDINGS: The prostate measures 4.4 x 4.6 x 4.8 cm, with a volume of 50 mL. IMPRESSION: Nonobstructing bilateral intrarenal calculi described. Cortical cysts as described. Prostatomegaly. Electronically signed by: FORD GUAN MD [facility] Office Visit (Urology)on Follow-up visit Diagnoses/Problems Assessed Elevated PSA measurement (790.93) (R97.20) History of kidney stones (V13.01) (Z87.442) Benign prostatic hyperplasia with urinary obstruction and other lower urinary tract symptoms (600.21) (N40.1,N13.8) Patient Discussion/Summary Past U/S reviewed New U/S ordered KUB ordered Stone prevention discussed. Diet reviewed. Discussed fluid intake All available PSA values reviewed, Options discussed. Questions answered. Pros and cons of prostate biopsy reviewed. Other options discussed. Questions answered MRI discussed WIll follow PSA Treatment options for LUTS reviewed Discussed timed voiding. Discussed fluid and caffeine intake Treatment options for ED reviewed. F/U with KUB and renal U/S Chief Complaint Yearly w/ PSA History of Present IllnessPatient has chronic hx of elevated PSA. Most recent PSA was 4.98 on 10/20. Prior PSA was 4.92 on 07/22. Prior PSA was 4.70 on 12/2020. Prior PSA was 4.51 on 12/2019. . Prior PSA was 4.42 on 07/2019. Prior PSA was 5.02 on 12/2018. Prior PSA was 9.12 on 05/2018. No fhx of prostate ca. 1 negative bx on 07/2018. Denies bone pain. Denies weight loss. Chronic BPH sx are mild and stable. some urgency and frequency. Denies dysuria. Denies hematuria. Nocturia 1-2x... Pt. does not take any medication for the prostate... Pt. has hx of kidney stones.No recent sx...No flank pain...No N/V... ED is mild. No medication for this Review of Systems Constitutional: No fever, No chills. Eye: Negative. Ear/Nose/Mouth/Throat: Negative. Respiratory: No shortness of breath, No cough. Cardiovascular: No chest pain, No peripheral edema. Gastrointestinal: No nausea, Genitourinary: Negative except as documented in history of present illness. Hematology/Lymphatics: Patient denies being on blood thinners.. Endocrine: Negative. Immunologic: Not immunocompromised. Musculoskeletal: Negative Integumentary: Negative. Neurologic: Alert and oriented X4. Psychiatric: Negative. 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) Arthralgia (719.40) (M25.50) Benign prostatic hyperplasia with urinary obstruction and other lower urinary tract symptoms (600.21) (N40.1,N13.8) Chronic neck pain (723.1,338.29) (M54.2,G89.29) Cough (786.2) (R05.9) History of Elevated hemoglobin (282.7) (D58.2) Elevated PSA measurement (790.93) (R97.20) Encounter for Medicare annual wellness exam (V70.0) (Z00.00) History of kidney stones (V13.01) (Z87.442) Hypertension, unspecified type (401.9) (I10) Prediabetes (790.29) (R73.03) Past Medical History Problems Benign prostatic hyperplasia with urinary obstruction and other lower urinary tract symptoms (600.21) (N40.1,N13.8) Chronic neck pain (723.1,338.29) (M54.2,G89.29) History of Elevated hemoglobin (282.7) (D58.2) Resolved Date: 06 Aug 2020 History of kidney stones (V13.01) (Z87.442) Hypertension, unspecified type (401.9) (I10) Surgical History Problems History of Cholecystectomy History of Colonoscopy 2 years ago History of Hernia repair History of Tonsillectomy Family History Mother Family history of dementia (V17.2) (Z81.8) Father Family history of cerebrovascular accident (CVA) (V17.1) (Z82.3) Brother Family history of dementia (V17.2) (Z81.8) Social History Problems Daily caffeinated coffee consumption Former smoker (V15.82) (Z87.891) No illicit drug use Occasional alcohol use Allergies Medication Penicillins Recorded By: Latasha Duckworth; 09/14/2018 1:46:24 PM Current Meds Medication NameInstruction amLODIPine Besylate 10 MG Oral TabletTake 1 tablet daily Atorvastatin Calcium 20 MG Oral TabletTake 1 tablet daily Betamethasone Dipropionate 0.05 % External CreamAPPLY SPARINGLY TO AFFECTED AREA(S) ONCE DAILY Glucosamine 750 MG Oral TabletTake 1 tablet daily Multiple Vitamin TABS Saw Dresher CAPS Vitals Vital Signs Recorded: [id number] 08:20AM Heart Rate65 Oolgpjur710 Xvbfagiye51 Height6 ft 2 in Zrpkcb442 lb BMI Llfqqaxuen48.63 kg/m2 BSA Calculated2.28 Tobacco Useb) No PHQ-2 Patient Declined/Screening not indicatedYes Falls Screening (Age 18+)a) No falls within the last year Physical Exam A/O x 3 in No apparent distress Constitutional: General appearance normal Respiratory: Respiratory effort is normal Gastrointestinal:Abdom en is not tender Genitourinary: Kidneys: Not palpable Bilaterally Bladder: Not palpable or tender Scrotum: No mass. No Hydrocele Epididymis: No spermatocele. Not tender Testicles: no mass. Absent Right Urethra: No Discharge Penis: WNL...No lesions. circfumcised Prostate: Symmetric. No Nodules. SMooth Seminal Vesicles: No mass Sphincter Tone: normal Signatures Electronically signed by : Nenea العلي II, MD; Oct 02 2022 8:27AM EST (Author) Normal [employer] PROSTATE SPECIFIC AGon 09-23 Prostate specific Ag [Mass/Vol] 4.98 ng/mL High 0.00 - 4.00 [facility] Comment on above: Result Comment: The FDA requires that the method used for PSA assay be reported to the physician. Values obtained with different assay methods must not be used interchangeably. This test was performed at [facility] using the [employer] PSA assay is a two-site immunoenzymatic sandwich assay. The assay is approved for measurement of prostate-specific antigen (PSA)in serum and may be used in conjunction with a digital rectal examination in men 50 years and older as an aid in detection of prostate cancer. 8-Pghrl-bofzcojhm inhibitors (e.g. Proscar, Finasteride, Avodart, Dutasteride and Kimberly) for the treatment of BPH have been shown to lower PSA levels by an average of 50% after 6 months of treatment. Performed By: #### P SA #### [facility] [address] [place] [address] ALBUMIN, URINE SPOTon 2022 ALBUMIN,URINE 33.5 mg/L Normal Not Established [facility] Comment on above: Performed By: #### A LBSP #### [facility] [address] [place] [address] ALBUMIN/CREAT RATIO 34.8 ug/mg organic preparation analyst High 0.0 - 30.0 [facility] Comment on above: Performed By: #### A LBSP #### [facility] [address] [place] [address] CREATININE,URINE 96.2 mg/dL Normal 20.0 - 370.0 [facility] Comment on above: Performed By: #### A LBSP #### [facility] [address] [place] [address] CBC AND DIFFERENTIALon 07-20 % AUTOMATED IMMATURE GRAN 0.3 % Normal 0.0 - 0.9 [facility] Comment on above: Result Comment: Rosalba ture Granulocyte Count (IG) includes promyelocytes, myelocytes and metamyelocytes but does not include bands. Percent differential counts (%) should be interpreted in the context of the absolute cell counts (cells/L). Performed By: #### C BCDF #### [address] [address] Basophils (Bld) [#/Vol] 0.05 10*3/uL Normal 0.00 - 0.10 [facility] Comment on above: Performed By: #### C BCDF #### [address] [address] Basophils/100 WBC (Bld) 0.8 % Normal 0.0 - 2.0 [facility] Comment on above: Performed By: #### C BCDF #### [address] [address] Eosinophils (Bld) [#/Vol] 0.16 10*3/uL Normal 0.00 - 0.70 [facility] Comment on above: Performed By: #### C BCDF #### [address] [address] Eosinophils/100 WBC (Bld) 2.5 % Normal 0.0 - 6.0 [facility] Comment on above: Performed By: #### C BCDF #### [address] [address] Erythrocyte distribution width (RBC) [Ratio] 13.2 % Normal 11.5 - 14.5 [facility] Comment on above: Performed By: #### C BCDF #### [address] [address] Hematocrit (Bld) [Volume fraction] 46.3 % Normal 41.0 - 52.0 [facility] Comment on above: Performed By: #### C BCDF #### [address] [address] Hemoglobin (Bld) [Mass/Vol] 15.4 g/dL Normal 13.5 - 17.5 [facility] Comment on above: Performed By: #### C BCDF #### [address] [address] Lymphocytes (Bld) [#/Vol] 1.39 10*3/uL Normal 1.20 - 4.80 [facility] Comment on above: Performed By: #### C BCDF #### [address] [address] Lymphocytes/100 WBC (Bld) 21.7 % Normal 13.0 - 44.0 [facility] Comment on above: Performed By: #### C BCDF #### [address] [address] MCHC (RBC) [Mass/Vol] 33.3 g/dL Normal 32.0 - 36.0 [facility] Comment on above: Performed By: #### C BCDF #### [address] [address] MCV (RBC) [Entitic vol] 90 fL Normal 80 - 100 [facility] Comment on above: Performed By: #### C BCDF #### [address] [address] Monocytes (Bld) [#/Vol] 0.51 10*3/uL Normal 0.10 - 1.00 [facility] Comment on above: Performed By: #### C BCDF #### [address] [address] Monocytes/100 WBC (Bld) 8.0 % Normal 2.0 - 10.0 [facility] Comment on above: Performed By: #### C BCDF #### [address] [address] Neutrophils (Bld) [#/Vol] 4.28 10*3/uL Normal 1.20 - 7.70 [facility] Comment on above: Result Comment: Perc ent differential counts (%) should be interpreted in the context of the absolute cell counts (cells/L). Performed By: #### C BCDF #### [address] [address] Neutrophils/100 WBC (Bld) 66.7 % Normal 40.0 - 80.0 [facility] Comment on above: Performed By: #### C BCDF #### [address] [address] Platelets (Bld) [#/Vol] 218 10*3/uL Normal 150 - 450 [facility] Comment on above: Performed By: #### C BCDF #### [address] [address] RBC 5.14 x10E12/L Normal 4.50 - 5.90 [facility] Comment on above: Performed By: #### C BCDF #### [address] [address] WBC (Bld) [#/Vol] 6.4 10*3/uL Normal 4.4 - 11.3 [facility] Comment on above: Performed By: #### C BCDF #### [address] [address] COMPREHENSIVE PANELon 2022 Albumin [Mass/Vol] 4.1 g/dL Normal 3.4 - 5.0 [facility] Comment on above: Performed By: #### C MP #### [address] [address] ALP [Catalytic activity/Vol] 48 U/L Normal 33 - 136 [facility] Comment on above: Performed By: #### C MP #### [address] [address] ALT [Catalytic activity/Vol] 21 U/L Normal 10 - 52 [facility] Comment on above: Result Comment: Rosa ents treated with Sulfasalazine may generate falsely decreased results for ALT. Performed By: #### C MP #### [address] [address] Anion gap [Moles/Vol] 11 mmol/L Normal 10 - 20 [facility] Comment on above: Performed By: #### C MP #### [address] [address] AST [Catalytic activity/Vol] 25 U/L Normal 9 - 39 [facility] Comment on above: Performed By: #### C MP #### [address] [address] Bilirubin [Mass/Vol] 1.5 mg/dL High 0.0 - 1.2 [facility] Comment on above: Performed By: #### C MP #### [address] [address] Calcium [Mass/Vol] 9.3 mg/dL Normal 8.6 - 10.3 [facility] Comment on above: Performed By: #### C MP #### [address] [address] Chloride [Moles/Vol] 107 mmol/L Normal 98 - 107 [facility] Comment on above: Performed By: #### C MP #### [address] [address] Creatinine [Mass/Vol] 0.87 mg/dL Normal 0.50 - 1.30 [facility] Comment on above: Performed By: #### C MP #### [address] [address] eGFR MALE >90 Normal >90 [facility] Comment on above: Result Comment: CALC ULATIONS OF ESTIMATED GFR ARE PERFORMED USING THE 2020 CKD-EPI STUDY REFIT EQUATION WITHOUT THE RACE VARIABLE FOR THE IDMS-TRACEABLE CREATININE METHODS. https://jasn.asnjournals.org/content/early//ASN.85364 [address] Performed By: #### C MP #### [address] [address] Glucose [Mass/Vol] 99 mg/dL Normal 74 - 99 [facility] Comment on above: Performed By: #### C MP #### [address] [address] HCO3 (Bld) [Moles/Vol] 26 mmol/L Normal 21 - 32 [facility] Comment on above: Performed By: #### C MP #### [address] [address] Potassium [Moles/Vol] 3.7 mmol/L Normal 3.5 - 5.3 [facility] Comment on above: Performed By: #### C MP #### [address] [address] Protein [Mass/Vol] 6.7 g/dL Normal 6.4 - 8.2 [facility] Comment on above: Performed By: #### C MP #### [address] [address] Sodium [Moles/Vol] 140 mmol/L Normal 136 - 145 [facility] Comment on above: Performed By: #### C MP #### [address] [address] Urea nitrogen [Mass/Vol] 21 mg/dL Normal 6 - 23 [facility] Comment on above: Performed By: #### C MP #### [address] [address] Complete Blood Count + Diffe rentialon 07-20-2022 Basophils/100 WBC (Bld) 0.8 % 0.0 - 2.0 [facility] Work Phone: Erythrocyte distribution width (RBC) [Ratio] 13.2 % See Below [facility] Phone: Comment on above: Reference Range: 11. 5 - 14.5 Hematocrit (Bld) [Volume fraction] 46.3 % See Below [facility] Phone: Comment on above: Reference Range: 41. 0 - 52.0 Hemoglobin (Bld) [Mass/Vol] 15.4 g/dL See Below [facility] Phone: Comment on above: Reference Range: 13. 5 - 17.5 Lymphocytes/100 WBC (Bld) 21.7 % See Below [facility] Phone: Comment on above: Reference Range: 13. 0 - 44.0 MCHC (RBC) [Mass/Vol] 33.3 g/dL See Below [facility] Work Phone: Comment on above: Reference Range: 32. 0 - 36.0 MCV (RBC) [Entitic vol] 90 fL 80 - 100 [facility] [employer] Phone: Monocytes/100 WBC (Bld) 8.0 % 2.0 - 10.0 [facility] Phone: Neutrophils/100 WBC (Bld) 66.7 % See Below [facility] [employer] Phone: Comment on above: Reference Range: 40. 0 - 80.0 Platelets (Bld) [#/Vol] 218 10*3/uL 150 - 450 [facility] Phone: RBC (Bld) [#/Vol] 5.14 {x10E12/L} See Below [facility] Phone: Comment on above: Reference Range: 4.5 0 - 5.90 WBC (Bld) [#/Vol] 6.4 10*3/uL 4.4 - 11.3 [facility]: Complete Blood Count + Differential 0.05 {x10E9/L} See Below [facility] [employer] Phone: Comment on above: Reference Range: 0.0 0 - 0.10 Complete Blood Count + Differential 0.16 {x10E9/L} See Below [facility] Phone: Comment on above: Reference Range: 0.0 0 - 0.70 Complete Blood Count + Differential 0.51 {x10E9/L} See Below [facility] Phone: Comment on above: Reference Range: 0.1 0 - 1.00 Complete Blood Count + Differential 1.39 {x10E9/L} See Below [facility] Phone: Comment on above: Reference Range: 1.2 0 - 4.80 Complete Blood Count + Differential 4.28 {x10E9/L} See Below [facility] Phone: Comment on above: Reference Range: 1.2 0 - 7.70 Percent differential counts (%) should be interpreted in the context of the absolute cell counts (cells/L). Complete Blood Count + Differential 2.5 % 0.0 - 6.0 [facility] [employer] Phone: Complete Blood Count + Differential 0.3 % 0.0 - 0.9 [facility] [employer] Phone: Comment on above: Immature Granulocyte Count (IG) includes promyelocytes, myelocytes and metamyelocytes but does not include bands. Percent differential counts (%) should be interpreted in the context of the absolute cell counts (cells/L). HEMOGLOBIN A1Con 07-20-2022 Glucose [Mass/Vol] 123 mg/dL Normal [facility] Comment on above: Performed By: #### H BA1E #### [facility] [address] [place] [address] HbA1c (Bld) [Mass fraction] 5.9 % Abnormal [facility] Comment on above: Result Comment: Diag nosis of Diabetes-Adults Non-Diabetic: < or = 5.6% Increased risk for developing diabetes: 5.7-6.4% Diagnostic of diabetes: > or = 6.5% . Monitoring of Diabetes Age (y) Therapeutic Goal (%) Adults: >18 <7.0 Pediatrics: 13-18 <7.5 7-12 <8.0 0- 6 7.5-8.5 [employer]. Diabetes Care 33(S1), May 2009. Performed By: #### H BA1E #### [id number] [place] [address] Hemoglobin A1Con 07-20-2022 Glucose [Mass/Vol] 123 mg/dL [facility] Work Phone: HbA1c (Bld) [Mass fraction] 5.9 % Abnormal [facility] Work Phone: Comment on above: Diagnosis of Diabete s-Adults Non-Diabetic: < or = 5.6% Increased risk for developing diabetes: 5.7-6.4% Diagnostic of diabetes: > or = 6.5%. Monitoring of Diabetes Age (y) Therapeutic Goal (%) Adults: >18 <7.0 Pediatrics: 13-18 <7.5 7-12 <8.0 0- 6 7.5-8.5 [employer]. Diabetes Care 33(S1), May 2009. LIPID PANEL (CORONARY RISK 2 )on 07-20-2022 Cholesterol [Mass/Vol] 81 mg/dL Normal 0 - 199 [facility] Comment on above: Result Comment: . AGE DESIRABLE BORDERLINE HIGH HIGH 0-19 Y 0 - 169 170 - 199 >/= 200 20-24 Y 0 - 189 190 - 224 >/= 225 >24 Y 0 - 199 200 - 239 >/= 240 All ranges are based on fasting samples. Specific therapeutic targets will vary based on patient-specific cardiac risk. . Pediatric guidelines reference:Pediatrics 2011, 128(S5). Adult guidelines reference: NCEP ATPIII Guidelines, ALICIA 2001, 258:2486-97 . Venipuncture immediately after or during the administration of Metamizole may lead to falsely low results. Testing should be performed immediately prior to Metamizole dosing. Performed By: #### L IPID #### [address] [place] [address] Cholesterol in HDL [Mass/Vol] 42.0 mg/dL Normal [facility] Comment on above: Result Comment: . AGE VERY LOW LOW NORMAL HIGH 0-19 Y < 35 < 40 40-45 ---- 20-24 Y ---- < 40 >45 ---- >24 Y ---- < 40 40-60 >60 . Performed By: #### L IPID #### [address] [address] Cholesterol in LDL [Mass/Vol] 32 mg/dL Normal 0 - 99 [facility] Comment on above: Result Comment: . NEAR BORD AGE DESIRABLE OPTIMAL HIGH HIGH VERY HIGH 0-19 Y 0 - 109 --- 110-129 >/= 130 ---- 20-24 Y 0 - 119 --- 120-159 >/= 160 ---- >24 Y 0 - 99 100-129 130-159 160-189 >/=190 . Performed By: #### L IPID #### [address] [address] Cholesterol in VLDL [Mass/Vol] 7 mg/dL Normal 0 - 40 [facility] Comment on above: Performed By: #### L IPID #### [address] [address] Cholesterol.total/Chol esterol in HDL [Mass ratio] 1.9 {ratio} Normal [facility] Comment on above: Result Comment: REF VALUES DESIRABLE < 3.4 HIGH RISK > 5.0 Performed By: #### L IPID #### [address] [address] Triglyceride [Mass/Vol] 35 mg/dL Normal 0 - 149 [facility] Comment on above: Result Comment: . AGE DESIRABLE BORDERLINE HIGH HIGH VERY HIGH 0 D-90 D 19 - 174 ---- ---- ---- 91 D- 9 Y 0 - 74 75 - 99 >/= 100 ---- 10-19 Y 0 - 89 90 - 129 >/= 130 ---- 20-24 Y 0 - 114 115 - 149 >/= 150 ---- >24 Y 0 - 149 150 - 199 200- 499 >/= 500 . Venipuncture immediately after or during the administration of Metamizole may lead to falsely low results. Testing should be performed immediately prior to Metamizole dosing. Performed By: #### L IPID #### [address] [address] Laboratory - Chemistry and C hemistry - challengeon 07-20-2022 Albumin BCP dye [Mass/Vol] 4.1 g/dL 3.4 - 5.0 [facility] [employer] Work Phone: Albumin Ql (U) 33.5 mg/L See Below [facility] [employer] Work Phone: Comment on above: Reference Range: Not Established Albumin/Creatinine DL <= 20 mg/L (U) [Mass ratio] 34.8 {ug/mg_crt} above high threshold 0.0 - 30.0 [facility] [employer] Work Phone: ALP [Catalytic activity/Vol] 48 U/L 33 - 136 [facility] Work Phone: ALT With P-5'-P [Catalytic activity/Vol] 21 U/L 10 - 52 [facility] [employer] Work Phone: Comment on above: Patients treated wit h Sulfasalazine may generate falsely decreased results for ALT. Anion gap [Moles/Vol] 11 mmol/L 10 - 20 [facility] [employer] Work Phone: AST With P-5'-P [Catalytic activity/Vol] 25 U/L 9 - 39 [facility] [employer] Work Phone: Bilirubin [Mass/Vol] 1.5 mg/dL above high threshold 0.0 - 1.2 [facility] Work Phone: Calcium [Mass/Vol] 9.3 mg/dL 8.6 - 10.3 [facility] [employer] Work Phone: Chloride [Moles/Vol] 107 mmol/L 98 - 107 [facility] [employer] Work Phone: CO2 [Moles/Vol] 26 mmol/L 21 - 32 [facility] [employer] Work Phone: Creatinine (U) [Mass/Vol] 96.2 mg/dL See Below [facility] Phone: Comment on above: Reference Range: 20. 0 - 370.0 Creatinine [Mass/Vol] 0.87 mg/dL See Below [facility] Phone: Comment on above: Reference Range: 0.5 0 - 1.30 Glucose [Mass/Vol] 99 mg/dL 74 - 99 [facility] Phone: Potassium [Moles/Vol] 3.7 mmol/L 3.5 - 5.3 [facility] Phone: Protein [Mass/Vol] 6.7 g/dL 6.4 - 8.2 [facility] Phone: Sodium [Moles/Vol] 140 mmol/L 136 - 145 [facility] Phone: Urea nitrogen [Mass/Vol] 21 mg/dL 6 - 23 [facility] Phone: Lipid Panelon 07-20-2022 Cholesterol [Mass/Vol] 81 mg/dL 0 - 199 [facility] Phone: Comment on above: . AGE DESIRABLE BORD ROBBY HIGH HIGH 0-19 Y 0 - 169 170 - 199 >/= 200 20-24 Y 0 - 189 190 - 224 >/= 225 >24 Y 0 - 199 200 - 239 >/= 240 All ranges are based on fasting samples. Specific therapeutic targets will vary based on patient-specific cardiac risk.. Pediatric guidelines reference:Pediatrics 2011, 128(S5). Adult guidelines reference: NCEP ATPIII Guidelines, ALICIA 2001, 258:2486-97. Venipuncture immediately after or during the administration of Metamizole may lead to falsely low results. Testing should be performed immediately prior to Metamizole dosing. Cholesterol in HDL [Mass/Vol] 42.0 mg/dL [facility] Phone: Comment on above: . AGE VERY LOW LOW N ORMAL HIGH 0-19 Y < 35 < 40 40-45 ---- 20-24 Y ---- < 40 >45 ---- >24 Y ---- < 40 40-60 >60. Cholesterol in LDL [Mass/Vol] 32 mg/dL 0 - 99 [employer] Phone: Comment on above: . NEAR BORD AGE DARNELL RABLE OPTIMAL HIGH HIGH VERY HIGH 0-19 Y 0 - 109 --- 110-129 >/= 130 ---- 20-24 Y 0 - 119 --- 120-159 >/= 160 ---- >24 Y 0 - 99 100-129 130-159 160-189 >/=190. Cholesterol.total/Chol esterol in HDL [Mass ratio] 1.9 {ratio} [employer] Phone: Comment on above: REF VALUESDESIRABLE < 3.4HIGH RISK > 5.0 Triglyceride [Mass/Vol] 35 mg/dL 0 - 149 [employer] Phone: Comment on above: . AGE DESIRABLE BORD ROBBY HIGH HIGH VERY HIGH 0 D-90 D 19 - 174 ---- ---- ----91 D- 9 Y 0 - 74 75 - 99 >/= 100 ---- 10-19 Y 0 - 89 90 - 129 >/= 130 ---- 20-24 Y 0 - 114 115 - 149 >/= 150 ---- >24 Y 0 - 149 150 - 199 200- 499 >/= 500. Venipuncture immediately after or during the administration of Metamizole may lead to falsely low results. Testing should be performed immediately prior to Metamizole dosing. Lipid Panel 7 mg/dL 0 - 40 [employer] Phone: No Panel Informationon 07-20 >90 >90 [employer] Phone: Comment on above: CALCULATIONS OF MARIO MATED GFR ARE PERFORMED USING THE 2020 CKD-EPI STUDY REFIT EQUATION WITHOUT THE RACE VARIABLE FOR THE IDMS-TRACEABLE CREATININE METHODS.https://jasn.asnjournals.org/content/early//A SN.4027643384 VITAMIN B12on 07-20-2022 Cobalamin (Vitamin B12) [Mass/Vol] 390 pg/mL Normal 211 - 911 [facility] Comment on above: Performed By: #### V TB12 #### [facility] [address] [place] [address] Vitamin B12, Serumon 023 Cobalamin (Vitamin B12) [Mass/Vol] 390 pg/mL 211 - 911 -[facility] Work Phone: Tobacco Screening.on Fall risk assessment a) No falls within the last year -[facility] [facility] Work Phone: Tobacco use status CPHS b) No -[facility] Work Phone: Tobacco Screening.on Fall risk assessment a) No falls within the last year -[facility] 205 DO Work Phone: Tobacco use status CPHS b) No -[facility] 205 DO Work Phone: Ultrasound Abdomen Aortaon 0 08-05-2021 Ultrasound Abdomen Aorta Normal -[facility] 205 DO Work Phone: Radiologyon 08-01-2021 US Kidney - bilateral Normal - [facility] 205 DO Work Phone: Complete Blood Count + Diffe rentialon 07-24-2021 Basophils/100 WBC (Bld) 0.7 % 0.0 - 2.0 VZ-Uvfuvnb-B [facility] Work Phone: [phone] Erythrocyte distribution width (RBC) [Ratio] 13.6 % See Below NB-Ofunjvl-S [facility] Work Phone: Comment on above: Reference Range: 11. 5 - 14.5 Hematocrit (Bld) [Volume fraction] 49.9 % See Below NH-Zaazbxu-P [facility] Work Phone: Comment on above: Reference Range: 41. 0 - 52.0 Hemoglobin (Bld) [Mass/Vol] 17.6 g/dL above high threshold See Below GD-Fshsflo-W [employer] Phone: Comment on above: Reference Range: 13. 5 - 17.5 Lymphocytes/100 WBC (Bld) 21.7 % See Below YA-Neugdzq-T [employer] Work Phone: Comment on above: Reference Range: 13. 0 - 44.0 MCHC (RBC) [Mass/Vol] 35.3 g/dL See Below [employer] Work Phone: Comment on above: Reference Range: 32. 0 - 36.0 MCV (RBC) [Entitic vol] 89 fL 80 - 100 IB-Dfgkxpl-X Cent[facility] Work Phone: Monocytes/100 WBC (Bld) 7.5 % 2.0 - 10.0 RJ-Qigvmiy-M [facility] Work Phone: Neutrophils/100 WBC (Bld) 68.6 % See Below OT-Zykrgni-Q [facility] Work Phone: Comment on above: Reference Range: 40. 0 - 80.0 Platelets (Bld) [#/Vol] 200 10*3/uL 150 - 450 LT-Fevwvgo-S [facility] Work Phone: RBC (Bld) [#/Vol] 5.60 {x10E12/L} See Below [employer] [facility] Work Phone: Comment on above: Reference Range: 4.5 0 - 5.90 WBC (Bld) [#/Vol] 7.6 10*3/uL 4.4 - 11.3 [facility] Work Phone: Complete Blood Count + Differential 0.10 {x10E9/L} See Below QQ-Glsxlkt-V [employer] Phone: Comment on above: Reference Range: 0.0 0 - 0.10 Reference Range: 0.0 0 - 0.70 Complete Blood Count + Differential 0.60 {x10E9/L} See Below [facility] Work Phone: Comment on above: Reference Range: 0.1 0 - 1.00 Complete Blood Count + Differential 1.60 {x10E9/L} See Below [facility] Work Phone: Comment on above: Reference Range: 1.2 0 - 4.80 Complete Blood Count + Differential 5.20 {x10E9/L} See Below [facility] Work Phone: Comment on above: Reference Range: 1.2 0 - 7.70 Percent differential counts (%) should be interpreted in the context of the absolute cell counts (cells/L). Complete Blood Count + Differential 1.5 % 0.0 - 6.0 [facility] Phone: Complete Blood Count + Differential 0.1 {/100_WBC} [facility] Work Phone: Hemoglobin A1Con 07-24-2021 Glucose [Mass/Vol] 134 mg/dL [facility] Work Phone: HbA1c (Bld) [Mass fraction] 6.3 % Abnormal [facility] [employer] Phone: Comment on above: Diagnosis of Diabete s-Adults Non-Diabetic: < or = 5.6% Increased risk for developing diabetes: 5.7-6.4% Diagnostic of diabetes: > or = 6.5%. Monitoring of Diabetes Age (y) Therapeutic Goal (%) Adults: >18 <7.0 Pediatrics: 13-18 <7.5 7-12 <8.0 0- 6 7.5-8.5 [place] [employer]. Diabetes Care 33(S1), May 2009. Laboratory - Chemistry and C hemistry - challengeon 07-24-2021 Albumin BCP dye [Mass/Vol] 4.3 g/dL 3.4 - 5.0 [facility] Work Phone: ALP [Catalytic activity/Vol] 60 U/L 33 - 136 CO-Loewwyi-L [facility] Work Phone: ALT With P-5'-P [Catalytic activity/Vol] 23 U/L 10 - 52 IJ-Rxkksmx-G [facility] Work Phone: Comment on above: Patients treated wit h Sulfasalazine may generate falsely decreased results for ALT. Anion gap [Moles/Vol] 11 mmol/L 10 - 20 MP- Urology-A [facility] Work Phone: AST With P-5'-P [Catalytic activity/Vol] 27 U/L 9 - 39 QA-Bgcztmp-T [facility] Work Phone: Bilirubin [Mass/Vol] 2.1 mg/dL above high threshold 0.0 - 1.2 GX-Bjtzgyo-U [facility] Work Phone: Calcium [Mass/Vol] 9.3 mg/dL 8.6 - 10.3 MP-Uro logy-A [facility] Work Phone: Chloride [Moles/Vol] 106 mmol/L 98 - 107 MP-U rology-A [facility] Work Phone: CO2 [Moles/Vol] 28 mmol/L 21 - 32 MP-Urolog y-A [facility] Work Phone: Creatinine [Mass/Vol] 0.84 mg/dL See Below MP- Urology-A [facility] Work Phone: Comment on above: Reference Range: 0.5 0 - 1.30 Glucose [Mass/Vol] 92 mg/dL 74 - 99 MP-Uro logy-A [facility] Work Phone: Potassium [Moles/Vol] 4.0 mmol/L 3.5 - 5.3 MP- Urology-A [facility] Work Phone: Protein [Mass/Vol] 7.0 g/dL 6.4 - 8.2 MP-Uro logy-A [facility] Work Phone: Sodium [Moles/Vol] 141 mmol/L 136 - 145 MP-Uro logy-A [facility] Work Phone: TSH Qn 1.62 m[IU]/L See Below QN-Phspgwd-M Cent[facility] Work Phone: Comment on above: Reference Range: 0.4 4 - 3.98 TSH testing is performed using different testing methodology at [facility] than at other [facility]. Direct result comparisons should only be made within the same method. Urea nitrogen [Mass/Vol] 18 mg/dL 6 - 23 [facility] Work Phone: Lipid Panelon 07-24-2021 Cholesterol [Mass/Vol] 88 mg/dL 0 - 199 [facility] Work Phone: Comment on above: . AGE DESIRABLE BORD ORBBY HIGH HIGH 0-19 Y 0 - 169 170 - 199 >/= 200 20-24 Y 0 - 189 190 - 224 >/= 225 >24 Y 0 - 199 200 - 239 >/= 240 All ranges are based on fasting samples. Specific therapeutic targets will vary based on patient-specific cardiac risk.. Pediatric guidelines reference:Pediatrics 2011, 128(S5). Adult guidelines reference: NCEP ATPIII Guidelines, ALICIA 2001, 258:2486-97. Venipuncture immediately after or during the administration of Metamizole may lead to falsely low results. Testing should be performed immediately prior to Metamizole dosing. Cholesterol in HDL [Mass/Vol] 38.0 mg/dL Abnormal [facility] Work Phone: Comment on above: . AGE VERY LOW LOW N ORMAL HIGH 0-19 Y < 35 < 40 40-45 ---- 20-24 Y ---- < 40 >45 ---- >24 Y ---- < 40 40-60 >60. Cholesterol in LDL [Mass/Vol] 35 mg/dL 0 - 99 [facility] Work Phone: Comment on above: . NEAR BORD AGE DARNELL RABLE OPTIMAL HIGH HIGH VERY HIGH 0-19 Y 0 - 109 --- 110-129 >/= 130 ---- 20-24 Y 0 - 119 --- 120-159 >/= 160 ---- >24 Y 0 - 99 100-129 130-159 160-189 >/=190. Cholesterol.total/Chol esterol in HDL [Mass ratio] 2.3 {ratio} [employer] Work Phone: Comment on above: REF VALUESDESIRABLE < 3.4HIGH RISK > 5.0 Triglyceride [Mass/Vol] 77 mg/dL 0 - 149 [employer] Work Phone: Comment on above: . AGE DESIRABLE BORD ROBBY HIGH HIGH VERY HIGH 0 D-90 D 19 - 174 ---- ---- ----91 D- 9 Y 0 - 74 75 - 99 >/= 100 ---- 10-19 Y 0 - 89 90 - 129 >/= 130 ---- 20-24 Y 0 - 114 115 - 149 >/= 150 ---- >24 Y 0 - 149 150 - 199 200- 499 >/= 500. Venipuncture immediately after or during the administration of Metamizole may lead to falsely low results. Testing should be performed immediately prior to Metamizole dosing. Lipid Panel 15 mg/dL 0 - 40 [employer] Work Phone: No Panel Informationon 07-24 >90 >90 [employer] Work Phone: Comment on above: CALCULATIONS OF MARIO MATED GFR ARE PERFORMED USING THE 2020 CKD-EPI STUDY REFIT EQUATION WITHOUT THE RACE VARIABLE FOR THE IDMS-TRACEABLE CREATININE METHODS.https://jasn.asnjournals.org/content//A .3278454229 Prostate Specific Antigenon 07-24-2021 Prostate specific Ag [Mass/Vol] 4.92 ng/mL above high threshold See Below [employer] Work Phone: Comment on above: Reference Range: 0.0 0 - 4.00The FDA requires that the method used for PSA assay be reported to the physician. Values obtained with different assay methods must not be used interchangeably. [facility] the Access [employer] PSA assay is a two-site immunoenzymatic sandwich assay. The assay is approved for measurement of prostate-specific antigen (PSA)in serum and may be used in conjunction with a digital rectal examination in men 50 years and older as an aid in detection of prostate cancer.3-Jngyd-gatyemdcr inhibitors (e.g. Proscar, Finasteride, Avodart, Dutasteride and Kimberly) for the treatment of BPH have been shown to lower PSA levels by an average of 50% after 6 months of treatment. Urinalysison 07-24-2021 Color (U) Yellow See Below [employer] Phone: [phone] Comment on above: Reference Range: STR AW,YELLOW Glucose Ql (U) Negative NEGATIVE [employer] Phone: [phone] Ketones Ql (U) Negative NEGATIVE [employer] Phone: [phone] Leukocyte esterase Test strip Ql (U) Negative NEGATIVE [employer] Phone: [phone] pH (U) 7.0 [pH] 5.0 - 8.0 [employer] Phone: [phone] Protein (U) [Mass/Vol] Negative NEGATIVE [employer] Phone: RBC (U) [#/Vol] SMALL(1+) Abnormal NEGATIVE [employer] Phone: [phone] Specific gravity (U) [Rel density] 1.015 1 See Below [employer] Phone: [phone] Comment on above: Reference Range: 1.0 05 - 1.035 Urinalysis Negative NEGATIVE [employer] Phone: [phone] Urinalysis <2.0 0.0 - 1.9 [employer] Phone: Urinalysis HAZY CLEAR [employer] Phone: [phone] Urinalysis, Microscopicon Urinalysis, Microscopic 1+ [employer] Work Phone: [phone] Urinalysis, Microscopic None 0-5 [employer] Work Phone: IO UA (automated w/o microsc opy)on 01-22-2021 Protein (U) [Mass/Vol] 30 mg/dL MP -Urology-R [facility] 232 DO Work Phone: IO UA (automated w/o microscopy) Trace NA-Abvigyu-W [facility] 232 DO Work Phone: IO UA (automated w/o microscopy) Negative HS-Vdbcxrq-V [facility] 232 DO Work Phone: IO UA (automated w/o microscopy) Normal (0.2-1.0 mg/dl) MP-Urolog y-R [facility] 232 DO Work Phone: IO UA (automated w/o microscopy) 7.0 1 AT-Frywdvd-B [facility] 232 DO Work Phone: IO UA (automated w/o microscopy) 1.020 1 PP-Bwrjplm-K [place] [address] DO Work Phone: IO UA (automated w/o microscopy) Clear XZ-Omheoar-I [place] [address] DO Work Phone: IO UA (automated w/o microscopy) Yellow FO-Arhlgtv-P [facility] 232 DO Work Phone: Radiologyon 01-22-2021 XR Abdomen AP Normal MP-Urology- R [place] [address] DO Work Phone: Tobacco Screening.on 021 Fall risk assessment a) No falls within the last year JJ-Xqqtaeu-A [facility] 232 DO Work Phone: Tobacco use status CPHS b) No KA-Qnqlqic-R [place] [address] DO Work Phone: Prostate Specific Antigenon 01-08-2021 Prostate specific Ag [Mass/Vol] 4.70 ng/mL above high threshold See Below ZD-Pvdswxg-R land Work Phone: Comment on above: Reference Range: 0.0 0 - 4.00The FDA requires that the method used for PSA assay be reported to the physician. Values obtained with different assay methods must not be used interchangeably. This testwas performed at [facility] using the [employer] PSA assay is a two-site immunoenzymatic sandwich assay. The assay is approved for measurement of prostate-specific antigen (PSA)in serum and may be used in conjunction with a digital rectal examination in men 50 years and older as an aid in detection of prostate cancer.8-Ydibo-qqrxjedtr inhibitors (e.g. Proscar, Finasteride, Avodart, Dutasteride and Kimberly) for the treatment of BPH have been shown to lower PSA levels by an average of 50% after 6 months of treatment. Complete Blood Count + Diffe thea 07-24-2020 Basophils (Bld) [#/Vol] 0.10 {x10E9/L} See Below [facility] Phone: Comment on above: Reference Range: 0.0 0 - 0.10 Basophils/100 WBC (Bld) 0.7 % 0.0 - 2.0 [facility] [employer] Phone: Eosinophils (Bld) [#/Vol] 0.20 {x10E9/L} See Below [facility] [employer] Phone: Comment on above: Reference Range: 0.0 0 - 0.70 Eosinophils/100 WBC (Bld) 2.7 % 0.0 - 6.0 [facility] Phone: Erythrocyte distribution width (RBC) [Ratio] 13.3 % See Below [facility] [employer] Phone: Comment on above: Reference Range: 11. 5 - 14.5 Hematocrit (Bld) [Volume fraction] 51.2 % See Below [facility] [employer] Phone: Comment on above: Reference Range: 41. 0 - 52.0 Hemoglobin (Bld) [Mass/Vol] 17.5 g/dL See Below [facility] [employer] Phone: Comment on above: Reference Range: 13. 5 - 17.5 Lymphocytes (Bld) [#/Vol] 1.50 {x10E9/L} See Below [facility] Phone: Comment on above: Reference Range: 1.2 0 - 4.80 Lymphocytes/100 WBC (Bld) 21.7 % See Below [facility] [employer] Phone: Comment on above: Reference Range: 13. 0 - 44.0 MCHC (RBC) [Mass/Vol] 34.1 g/dL See Below [facility] Work Phone: Comment on above: Reference Range: 32. 0 - 36.0 MCV (RBC) [Entitic vol] 91 fL 80 - 100 [facility] [employer] Phone: Monocytes (Bld) [#/Vol] 0.70 {x10E9/L} See Below [facility] [employer] Phone: Comment on above: Reference Range: 0.1 0 - 1.00 Monocytes/100 WBC (Bld) 9.7 % 2.0 - 10.0 [facility] Phone: Neutrophils (Bld) [#/Vol] 4.50 {x10E9/L} See Below [facility] Phone: Comment on above: Reference Range: 1.2 0 - 7.70 Percent differential counts (%) should be interpreted in the context of the absolute cell counts (cells/L). Neutrophils/100 WBC (Bld) 65.2 % See Below [facility] Phone: Comment on above: Reference Range: 40. 0 - 80.0 Platelets (Bld) [#/Vol] 194 {x10E9/L} 150 - 450 [facility] [employer] Phone: RBC (Bld) [#/Vol] 5.62 {x10E12/L} See Below [facility] Work Phone: Comment on above: Reference Range: 4.5 0 - 5.90 WBC (Bld) [#/Vol] 0.1 {/100_WBC} [facility] Phone: WBC (Bld) [#/Vol] 6.8 {x10E9/L} 4.4 - 11.3 [facility] Phone: Ferritin, Serumon 07-24-2020 Ferritin [Mass/Vol] 91 ug/L 20 - 300 [facility] Phone: Hemoglobin A1Con 07-24-2020 HbA1c (Bld) [Mass fraction] 126 {MG/DL} [facility] Phone: HbA1c (Bld) [Mass fraction] 6.0 % [facility] Phone: Comment on above: Diagnosis of Diabete s-Adults Non-Diabetic: < or = 5.6% Increased risk for developing diabetes: 5.7-6.4% Diagnostic of diabetes: > or = 6.5%. Monitoring of Diabetes Age (y) Therapeutic Goal (%) Adults: >18 <7.0 Pediatrics: 13-18 <7.5 7-12 <8.0 0- 6 7.5-8.5 [place] [employer]. Diabetes Care 33(S1), May 2009. Lipid Panelon 07-24-2020 Cholesterol [Mass/Vol] 83 mg/dL 0 - 199 [facility] Phone: Comment on above: . AGE DESIRABLE BORD ROBBY HIGH HIGH 0-19 Y 0 - 169 170 - 199 >/= 200 20-24 Y 0 - 189 190 - 224 >/= 225 >24 Y 0 - 199 200 - 239 >/= 240 All ranges are based on fasting samples. Specific therapeutic targets will vary based on patient-specific cardiac risk.. Pediatric guidelines reference:Pediatrics 2011, 128(S5). Adult guidelines reference: NCEP ATPIII Guidelines, ALICIA 2001, 258:2486-97. Venipuncture immediately after or during the administration of Metamizole may lead to falsely low results. Testing should be performed immediately prior to Metamizole dosing. Cholesterol in HDL [Mass/Vol] 36.0 mg/dL Abnormal [employer] Phone: Comment on above: . AGE VERY LOW LOW N ORMAL HIGH 0-19 Y < 35 < 40 40-45 ---- 20-24 Y ---- < 40 >45 ---- >24 Y ---- < 40 40-60 >60. Cholesterol in LDL [Mass/Vol] 30 mg/dL 0 - 99 [employer] Phone: Comment on above: . NEAR BORD AGE DARNELL RABLE OPTIMAL HIGH HIGH VERY HIGH 0-19 Y 0 - 109 --- 110-129 >/= 130 ---- 20-24 Y 0 - 119 --- 120-159 >/= 160 ---- >24 Y 0 - 99 100-129 130-159 160-189 >/=190. Cholesterol.total/Chol esterol in HDL [Mass ratio] 2.3 {ratio} [employer] Phone: Comment on above: REF VALUESDESIRABLE < 3.4HIGH RISK > 5.0 Triglyceride [Mass/Vol] 85 mg/dL 0 - 149 [employer] Phone: Comment on above: . AGE DESIRABLE BORD ROBBY HIGH HIGH VERY HIGH 0 D-90 D 19 - 174 ---- ---- ----91 D- 9 Y 0 - 74 75 - 99 >/= 100 ---- 10-19 Y 0 - 89 90 - 129 >/= 130 ---- 20-24 Y 0 - 114 115 - 149 >/= 150 ---- >24 Y 0 - 149 150 - 199 200- 499 >/= 500. Venipuncture immediately after or during the administration of Metamizole may lead to falsely low results. Testing should be performed immediately prior to Metamizole dosing. Lipid Panel 17 mg/dL 0 - 40 [employer] Phone: Metabolic Panelon 07-24-2020 ALP [Catalytic activity/Vol] 51 U/L 33 - 136 [facility] land Work Phone: Anion gap [Moles/Vol] 11 mmol/L 10 - 20 [facility] land Work Phone: Bilirubin [Mass/Vol] 1.9 mg/dL above high threshold 0.0 - 1.2 [facility] land Work Phone: Calcium [Mass/Vol] 9.3 mg/dL 8.6 - 10.3 [facility] land Work Phone: Chloride [Moles/Vol] 106 mmol/L 98 - 107 [facility] land Work Phone: CO2 [Moles/Vol] 26 mmol/L 21 - 32 [facility] Work Phone: Creatinine [Mass/Vol] 0.83 mg/dL See Below [facility] land Work Phone: Comment on above: Reference Range: 0.5 0 - 1.30 Glucose [Mass/Vol] 108 mg/dL above high threshold 74 - 99 [facility] land Work Phone: Potassium [Moles/Vol] 3.8 mmol/L 3.5 - 5.3 [facility] land Work Phone: Protein [Mass/Vol] 7.0 g/dL 6.4 - 8.2 [facility] land Work Phone: Sodium [Moles/Vol] 139 mmol/L 136 - 145 [facility] land Work Phone: Urea nitrogen [Mass/Vol] 21 mg/dL 6 - 23 [facility] land Work Phone: Otheron 07-24-2020 Albumin BCP dye [Mass/Vol] 4.5 g/dL 3.4 - 5.0 [facility] [employer] Work Phone: ALT With P-5'-P [Catalytic activity/Vol] 34 U/L 10 - 52 [facility] [employer] Work Phone: Comment on above: Patients treated wit h Sulfasalazine may generate falsely decreased results for ALT. AST With P-5'-P [Catalytic activity/Vol] 35 U/L 9 - [facility] [facility] [employer] Work Phone: >60 >60 [facility] [employer] Work Phone: Comment on above: CALCULATIONS OF MARIO MATED GFR ARE PERFORMED USING THE MDRD STUDY EQUATION FOR THE IDMS-TRACEABLE CREATININE METHODS. CLIN CHEM 2007;53:766-72 Thyroidon 07-24-2020 TSH Qn 1.90 {mIU/L} See Below [facility] [employer] Phone: Comment on above: Reference Range: 0.4 4 - 3.98 TSH testing is performed using different testing methodology at [facility] than at other [facility]. Direct result comparisons should only be made within the same method. Urinalysison 07-24-2020 Appearance (U) HAZY CLEAR [facility] [employer] Phone: Color (U) Yellow See Below [facility] [employer] Phone: Comment on above: Reference Range: STR AW,YELLOW Glucose Ql (U) Negative NEGATIVE [facility] [employer] Work Phone: Ketones Ql (U) Negative NEGATIVE [facility] [employer] Phone: Leukocyte esterase Test strip Ql (U) Negative NEGATIVE [facility] [employer] Phone: pH (U) 6.0 [pH] 5.0 - 8.0 [facility] [employer] [facility] Work Phone: Protein (U) [Mass/Vol] Negative NEGATIVE [facility] Phone: RBC (U) [#/Vol] Negative NEGATIVE [facility] Phone: Specific gravity (U) [Rel density] 1.016 See Below [facility] Phone: Comment on above: Reference Range: 1.0 05 - 1.035 Urinalysis Negative NEGATIVE [facility] [place] Phone: Urinalysis <2.0 0.0 - 1.9 [facility] [place] Phone: Vitamin B12, Serumon 021 Cobalamin (Vitamin B12) [Mass/Vol] 280 pg/mL 211 - 911 [facility] [place] Phone: Vitamin D 25-Hydroxyon 07-24 Calcidiol [Mass/Vol] 32 ng/mL [facility] Work Phone: Comment on above: .DEFICIENCY: < 20 NG /MLINSUFFICIENCY: 20-29 NG/MLSUFFICIENCY: 30-100 NG/MLTHIS ASSAY ACCURATELY QUANTIFIES THE SUM OFVITAMIN D3, 25-HYDROXY AND VIT D2,25-HYDROXY. Hematologyon 01-10-2020 Hematocrit (Bld) [Volume fraction] 51.4 % See Below [facility] Work Phone: Comment on above: Reference Range: 41. 0 - 52.0 Hemoglobin (Bld) [Mass/Vol] 17.6 g/dL above high threshold See Below [facility] Work Phone: Comment on above: Reference Range: 13. 5 - 17.5 Prostate Specific Antigenon 01-10-2020 Prostate specific Ag [Mass/Vol] 4.51 ng/mL above high threshold See Below [facility] Work Phone: Comment on above: Reference Range: 0.0 0 - 4.00The FDA requires that the method used for PSA assay be reported to the physician. Values obtained with different assay methods must not be used interchangeably. [facility] using the Access [employer] PSA assay is a two-site immunoenzymatic sandwich assay. The assay is approved for measurement of prostate-specific antigen (PSA)in serum and may be used in conjunction with a digital rectal examination in men 50 years and older as an aid in detection of prostate cancer.4-Ohglz-qrjtgibvx inhibitors (e.g. Proscar, Finasteride, Avodart, Dutasteride and Kimberly) for the treatment of BPH have been shown to lower PSA levels by an average of 50% after 6 months of treatment. PSA Totalon 01-18-2019 PSA Total 5.02 ng/mL [facility] Comment on above: Result Comment: AGE- SPECIFIC REFERENCE RANGES FOR SERUM PSA REFERENCE RANGE NG/ML AGE ASIANS BLACKS WHITE 40-49 0-2 0-2 0-2.5 50-59 0-3 0-4 0-3.5 60-69 0-4 0-4.5 0-4.5 70-79 0-5 0-5.5 0-6.5 PSA INCREASES WITH AGE, RACE, AND EJACULATION WITHIN 48 HRS. [facility] VOL24,NO.2, , PG.339 Performed By: #### 1 [id number] #### [facility] [address] [place] [address] Surgical Pathologyon 10-18-2018 [facility] Name NEENA ROMAN Pathologist: Esme Alvarado MD Date of Procedure: 10/18/2018 Date Received: 10/18/2018 Date Reported 10/20/2018 Submitting Physician: ABHIJEET LOPEZ MD Location: [facility] Other External # FINAL DIAGNOSIS A. BX GASTRIC ESOPHAGEAL JUNCTION: --SQUAMOUS AND GLANDULAR MUCOSA SHOWING RARE GOBLET CELLS CONSISTENT WITH INTESTINAL METAPLASIA/WOMACK'S ESOPHAGUS. --FOCAL ACUTE AND CHRONIC INFLAMMATION. --SQUAMOUS MUCOSA SHOWING CHANGES SUGGESTIVE OF ACUTE REFLUX ESOPHAGITIS. --NEGATIVE FOR DYSPLASIA. --SEE COMMENT. Note COMMENT: Dr. Tiffany Trimble has reviewed the material and concurs. Deeper sections are done and interpreted. Alcian blue/PAS stain done and interpreted with appropriate control material shows a rare goblet cells suggestive of Womack's esophagus with intestinal metaplasia. Electronically Signed Out By Esme Alvarado MD/[facility] By the signature on this report, the individual or group listed as making the Final Interpretation/Diagnos is certifies that they have reviewed this case. Clinical History: ANEMIA Specimens Submitted As: A: BX GASTRIC ESOPHAGEAL JUNCTION Gross Description: A. BX GASTRIC ESOPHAGEAL JUNCTION: Designated EG junction biopsy are 3 arango tissue fragments one of which is a carmen which may not survive processing aggregating to at most 2 mm embedded in one cassette. [facility]/10/18/2018 The assays/tests were performed with appropriate positive and negative controls which stained appropriately. Normal [facility] History and Physical - Surge ry > 30 dayson 10-18-2018 History and Physical - Surgery > 30 days History of Present Illness: History Present Illness: Reason for surgery: anemia egd colon HPI: agree with h and p Allergies: Allergies: penicillin: Rash Home Medication Review: Home Medications Reviewed: yes Impression/Procedure: Impression and Planned Procedure: same,egd colon Vital Signs: Temperature C: 36.1 degrees C Temperature F: 96.9 degrees F Heart Rate: 59 beats per minute Respiratory Rate: 20 breath per minute Blood Pressure Systolic: 137 mm/Hg Blood Pressure Diastolic: 86 mm/Hg Physical Exam: Respiratory/Thorax: Patent airways, CTAB, normal breath sounds with good chest expansion, thorax symmetric Cardiovascular: Regular, rate and rhythm, no murmurs, 2+ equal pulses of the extremities, normal S 1and S 2 Signatures/Attestation /Certification: Attending Provider Inpatient Certification StatementN/A - observation patient/other outpatient visits Electronic Signatures: Abhijeet Lopez) (Signed 18-Oct-2018 10:33) Authored: History of Present Illness, Allergies, Home Medication Review, Impression/Procedure, Physical Exam, Signatures/Attestation /Certification Last Updated: 18-Oct-2018 10:33 by Abhijeet Lopez) Normal [facility] Preop Checkliston 10-18-2018 Preop Checklist Preop Checklist: Preop Checklist: Arrival [id number] Arrival Time08:45 Procedure TypeEGD AND COLONOSOCPY NPO [id number] 09:06 ID Band Onyes Allergy Bandyes Consent Signedyes H&P Completeyes Anesthesia Assessment Completedpending EKG Performedyes Chest X-Ray Performednot ordered HCG Urine TestN/A Chlorhexadine Bath Givennot applicable Hair Washedno Soap and water bath with hair shampoo the night before surgeryno SCD's Appliednot applicable HILARIA Hose Appliednot ordered Denturesnot applicable Prostheticsnot applicable Hearing Aidsnot applicable Valuables Securedleft in patient room Glasses / Contactsnot applicable Bowel Prepyes TypeMiralax Bowel Prep Completed as Instructedyes Stools Clearyes Cardiovascular Assessment: Extremitieswarm Respiratory Assessment: Respirationsunlabored Neurological Assessment: Level of Consciousnessalert, oriented Mobilitymoves all extremities Able to Express Selfyes Age Appropriateyes Emotional Statuscalm Language / Communication: Language / CommunicationEnglish Electronic Signatures: Sobeida Chacon (KAMLESH PRN) (Signed 18-Oct-2018 09:07) Authored: Preop Checklist Last Updated: 18-Oct-2018 09:07 by Sobeida Chacon (KAMLESH PRN) Normal [facility] Patient Profile - Preop v2on 10-17-2018 Patient Profile - Preop v2 Profile: Initial Info: How to be AddressedJohn Spoken Language PreferredEnglish Source of Informationpatient Are you currently using the Personal Electronic Health Record or PeerflixUHCAREno Are you interested in learning more about [facility] for the management of your healthdeclined Stated Reason for AdmissionEGD and colonoscopy Primary Contact Name and NumberPAtient: [phone] Other Contact Names and NumbersJulie() [phone] Limitations on Visitors/Phone Callsnone Patient Belongingsremains with patient Patient Belongings Remaining with Patientclothing Medications Brought to Hospitalno General Health: Weight in kg97.5 kilogram(s) Weight in jgg921 pound(s) Weight Methodstated Height in cm187.9 centimeter(s) Height in feet6 feet Height in inches2 inch(es) Height Methodstated BMI (kg/m2)27.615 square meter Patient or Family Member Reaction to Anesthesiano previous reaction; no previous family member reaction; No metal Surgeries: colonoscopy, tonsils, hernia inguinal, gallbladder, prostate biopsy Blood Avoidance/Restrictions none Previous Transfusion Reactionno Health Mgmt: Symptoms/Conditions Managed at Homecardiovascular; peripheral/neurovascul ar; genitourinary Cardiovascular Symptoms/Conditionshyp ertension Cardiovascular Symptoms/Conditions Commenthigh cholesterol Genitourinary Symptoms/Conditions CommentBPH Peripheral Neurovascular Symptoms/Conditionsvar icosities Barriers to Managing Healthnone Relationship/Environ: Resource/Environmental Concernsnone Services Anticipated at Transitionnone Lives Withspouse; adult child(miguel angel) Living Arrangementshouse Anticipated Transition [place] Substance: Current or Former Substance Use never: e-Cigarette/Vaping, Street Drugs YES: Cigarette/Tobacco, Alcohol Tobacco Cessation Education (provide if tobacco use within the last 12 mos)not applicable Other Tobacco Use Commentsformer smoker of 20 years, pipe about 6-8 times a day, quit 2 years ago Alcohol Use Statuscurrent alcohol Alcohol Amount1-2 drinks Alcohol Frequencymonthly or less Alcohol Typebeer Alcohol Last Useone week ago Problems Related to Alcohol Useno Risk Screens: Advance Directive Medicalyes Advance Directive typeLiving Will, Durable Power of Audit Director for Healthcare Advance Directive Mental Healthnot applicable During the past month, have you often been bothered by feeling down, depressed or hopelessno During the past month, have you often had little interest or pleasure in doing thingsno Have you had any thoughts of harming yourselfno Have you had any thoughts of harming anyone elseno Are you or have you been threatened or abused physically,emotionally or sexually abused by anyoneno Do you feel UNSAFE going back to the place you are livingno Patient is Able to be Assessed for Learningyes Factors Influencing Readiness to Learninterest in learning Factors that Impact Ability to Learnnone Devices/Methods Used to Communicateglasses Learning Preferencesverbal instruction Cultural Considerationsnone Developmental Considerationsnone Holiness Considerationsnone Other learner availableno Falls RiskPatient location auto qualifies him/her for HIGH RISK. Are there any cultural, spiritual, sabianist practices/values/needs that are important for us to knowno Do you want a visit/item from Pastoral [facility] Would you like your Electronics Engineering Professor/Welding Machine Operator Friction notifiedno Pain Scalenumerical 0-10 Pain Scale Educationteaching provided Current Pain Level0 = None Acceptable Pain Level8 = Severe Expression of Pain (nonverbal)verbalizati on Lifestyle Changes/Adaptations in Response to Painno change Barriers to Reporting Painnone Chronic Painno Information Review: Allergies, Home Meds and Significant Events have been Reviewed and Verified with Patient/Familyyes Allergy, Intolerance, Adverse Event: Allergies: penicillin: Drug, Rash, Active Electronic Signatures: Sobeida Chacon (KAMLESH PRN) (Signed 18-Oct-2018 09:01) Authored: Profile, Additional Information Cookie Guerrero (KAMLESH PRN) (Signed 17-Oct-2018 13:45) Authored: Profile, Additional Information Last Updated: 18-Oct-2018 09:01 by Sobeida Chacon (KAMLESH PRN) Normal [facility] Auto Diffon 08-03-2018 Basophils (Bld) [#/Vol] 0.1 E3/mcL Normal 0.0-0.2 [facility] Comment on above: Order Comment: Order Added by Discern Expert. Performed By: #### 2 [id number] #### [facility] [address] [place] [address]668 Basophils/100 WBC (Bld) 1.1 % Normal 0.0-2.0 [facility] Comment on above: Order Comment: Order Added by Discern Expert. Performed By: #### 2 [id number] #### [facility] [address] [place] [address] 13333 Eos Absolute 0.2 E3/mcL Normal 0.0-0.7 [facility] Comment on above: Order Comment: Order Added by Discern Expert. Performed By: #### 2 [id number] #### [facility] [address] [place] [address] 64027 Eosinophils/100 WBC (Bld) 2.7 % Normal 0.0-11.0 [facility] Comment on above: Order Comment: Order Added by Discern Expert. Performed By: #### 2 [id number] #### [facility] [address] [place] [address] 11789 Lymphocytes (Bld) [#/Vol] 1.6 E3/mcL Normal 1.2-3.4 [facility] Comment on above: Order Comment: Order Added by Discern Expert. Performed By: #### 2 [id number] #### [facility] [place] [address] Lymphocytes/100 WBC (Bld) 25.1 % Normal 20.0-55.0 [facility] Comment on above: Order Comment: Order Added by Discern Expert. Performed By: #### 2 [id number] #### [facility] [address] [place] [address] [place] Absolute 0.6 E3/mcL Normal 0.0-0.7 [facility] Comment on above: Order Comment: Order Added by Discern Expert. Performed By: #### 2 [id number] #### [facility] [address] [place] [address] Monocytes/100 WBC (Bld) 9.9 % Normal 0.0-10.0 [facility] Comment on above: Order Comment: Order Added by Discern Expert. Performed By: #### 2 [id number] #### [facility] [address] [place] [address] Neutro Absolute 3.9 E3/mcL Normal 1.4-6.5 [facility] Comment on above: Order Comment: Order Added by Discern Expert. Performed By: #### 2 [id number] #### [facility] [address] [place] [id number] Neutro Auto 61.2 % Normal 37.0-75.0 [facility] Comment on above: Order Comment: Order Added by Discern Expert. Performed By: #### 2 [id number] #### [facility] [address] [place] [address] CBC w/ Auto Diffon 9 Erythrocyte distribution width (RBC) [Ratio] 17.2 % High 11.5-14.5 [facility] Comment on above: Performed By: #### 2 [id number] #### [facility] [address] [place] [address] Hematocrit (Bld) [Volume fraction] 36.8 % Low 42.0-52.0 [facility] Comment on above: Performed By: #### 2 [id number] #### [facility] [address] [place] [address] Hemoglobin (Bld) [Mass/Vol] 11.9 g/dL Low 13.5-18.0 [facility] Comment on above: Performed By: #### 2 [id number] #### [facility] [address] [place] [address] MCH (RBC) [Entitic mass] 25.0 pg Low 27.0-31.0 [facility] Comment on above: Performed By: #### 2 [id number] #### [facility] [address] [place] [address] MCHC (RBC) [Mass/Vol] 32.3 g/dL Low 33.0-37.0 [facility] Comment on above: Performed By: #### 2 [id number] #### [facility] [address] [place] [address] MCV (RBC) [Entitic vol] 77.3 fL Low 78.0-100.0 [facility] Comment on above: Performed By: #### 2 [id number] #### [facility] [address] [place] [address] Platelet mean volume (Bld) [Entitic vol] 7.7 fL Normal 7.4-11.0 [facility] Comment on above: Performed By: #### 2 [id number] #### [facility] [address] [place] [address] Platelets (Bld) [#/Vol] 288 E3/mcL Normal 130-400 [facility] Comment on above: Performed By: #### 2 [id number] #### [facility] [place] [address] RBC (Bld) [#/Vol] 4.76 E6/mcL Normal 3.90-6.[address] [facility] Comment on above: Performed By: #### 2 [id number] #### [facility] [address] [place] [address] WBC (Bld) [#/Vol] 6.4 E3/mcL Normal 3.6-11.0 [facility] Comment on above: Performed By: #### 2 [id number] #### [facility] [address] [place] [address] CMPon 08-03-2018 Albumin [Mass/Vol] 4.4 g/dL Normal 3.4-5.[address] [facility] Comment on above: Performed By: #### 2 [id number] #### [facility] [employer] [address] [place] [address] Albumin/Globulin [Mass ratio] 1.9 {ratio} Normal 1.1-1.9 [facility] Comment on above: Performed By: #### 2 [id number] #### [facility] [employer] [address] [place] [address] 29049 Alk Phos 53 Int._Unit/L Normal 33-136 [facility] Comment on above: Performed By: #### 2 [id number] #### [facility] [employer] [address] [place] [address] 85485 ALT [Catalytic activity/Vol] 19 Int._Unit/L Normal 10-52 [facility] Comment on above: Performed By: #### 2 [id number] #### [facility] [employer] [address] [place] [address] 53781 Anion gap [Moles/Vol] 9 mmol/L Low 10-20 [facility] Comment on above: Performed By: #### 2 [id number] #### [facility] [employer] [address] [place] [address] 91267 AST [Catalytic activity/Vol] 25 Int._Unit/L Normal 9-39 [facility] Comment on above: Performed By: #### 2 [id number] #### [facility] [employer] [address] [place] [address] 75611 Bili Total 1.38 mg/dL High 0.00-1.20 [facility] Comment on above: Performed By: #### 2 [id number] #### [facility] [employer] [address] [place] [address]4724 Calcium [Mass/Vol] 9.0 mg/dL Normal 8.6-10.[address] [facility] Comment on above: Performed By: #### 2 [id number] #### [facility] [employer] [address] [place] [address] 48524 Chloride [Moles/Vol] 107 mmol/L Normal 98-[address] [facility] Comment on above: Performed By: #### 2 712282 #### [facility] [employer] [address] [place] [address] 58689 CO2 [Moles/Vol] 27.0 mmol/L Normal 21.0-32.0 [facility] Comment on above: Performed By: #### 2 [id number] #### [facility] [employer] [address] [place] [address] 07580 Creatinine [Mass/Vol] 0.8 mg/dL Normal 0.5-1.3 [facility] Comment on above: Performed By: #### 2 [id number] #### [facility] [employer] [address] [place] [address] 22775 Globulin (S) [Mass/Vol] 2.0 g/dL Normal 2.0-4.0 [facility] Comment on above: Performed By: #### 2 901097 #### [facility] [employer] [address] [place] [address] 19192 Glucose [Mass/Vol] 102 mg/dL High 70-[address] [facility] Comment on above: Performed By: #### 2 [id number] #### [facility] [employer] [address] [place] [address] 86490 Potassium [Moles/Vol] 4.1 mmol/L Normal 3.5-5.3 [facility] Comment on above: Performed By: #### 2 [id number] #### [facility] [employer] [address] [place] [address] 95360 Protein [Mass/Vol] 6.7 g/dL Normal 6.4-8.[address] [facility] Comment on above: Performed By: #### 2 [id number] #### [facility] [employer] [address] [place] [address] 09938 Sodium [Moles/Vol] 139 mmol/L Normal 136-[address] [facility] Comment on above: Performed By: #### 2 [id number] #### [facility] [employer] [address] [place] [address] 89436 Urea nitrogen [Mass/Vol] 20 mg/dL Normal 6-23 [facility] Comment on above: Performed By: #### 2 [id number] #### [facility] [employer] [address] [place] [address] 53655 Urea nitrogen/Creatinine [Mass ratio] 25.0 ratio Normal 5.4-30.0 [facility] Comment on above: Performed By: #### 2 [id number] #### [facility] [employer] [address] [place] [address] 00092 [id number] 08-03-2018 HbA1c (Bld) [Mass fraction] 6.3 % Normal 4.0-6.3 [facility] Comment on above: Performed By: #### 3 [id number] #### [facility] Chemistry Manual Subsection [address] [place] [address] Lipid Profileon 08-03-2018 Cholesterol [Mass/Vol] 88 mg/dL Normal 0-[address] [facility] Comment on above: Result Comment: TOTTano Callejas CHOLEESTEROL: <200 NORMAL 200 - 239 BORDERLINE HIGH >240 HIGH Performed By: #### 3 [id number] #### [facility] [employer] [address] [place] [address] Cholesterol in HDL [Mass/Vol] 43 mg/dL Normal 40-60 [facility] Comment on above: Performed By: #### 3 [id number] #### [facility] [employer] [address] [place] [address] 20387 Cholesterol in LDL [Mass/Vol] 33 mg/dL Normal 0-130 [facility] Comment on above: Result Comment: <100 OPTIMAL 100-129 NEAR / ABOVE OPTIMAL 130-159 BORDERLINE HIGH 160-189 HIGH >190 VERY HIGH CALC LDL NOT VALID WHEN TRIGLYCERIDE IS >400 MG/DL Performed By: #### 3 [id number] #### [facility] [employer] [address] [place] [address] 49917 Cholesterol in VLDL [Mass/Vol] 12 mg/dL Normal 0-40 [facility] Comment on above: Performed By: #### 3 [id number] #### [facility] [employer] [address] [place] [address] 84152 Triglyceride [Mass/Vol] 58 mg/dL Normal 0-149 [facility] Comment on above: Result Comment: AGE DESIRABLE BORDERLINE HIGH 91 D - 9 Y 0 - 74 75 - 99 > 100 10 - 19 Y 0 - 89 90 - 129 > 130 20 -24 Y 0 - 114 115 - 149 > 150 > 25 0 - 149 150 - 199 200 - 499 Performed By: #### 3 [id number] #### [facility] [employer] [address] [place] [address] 83683 Morphon 08-03-2018 Anisocytosis Ql (Bld) 1+ Normal [facility] Comment on above: Order Comment: Order Added by Discern Expert. Performed By: #### 1 [id number] #### [facility] [address] [place] [address] 06887 Hypochromasia 2+ Normal [facility] Comment on above: Order Comment: Order Added by Discern Expert. Performed By: #### 1 [id number] #### [facility] [place] [id number] RBC morphology finding Nom (Bld) SEE MORPHOLOGY Normal [facility] Comment on above: Order Comment: Order Added by Discern Expert. Performed By: #### 1 [id number] #### [facility] [place] [address] eGFRon 08-03-2018 GFR/1.73 sq M predicted among non-blacks MDRD (S/P/Bld) [Vol rate/Area] mL/min/{1.73_m2} Normal [facility] Comment on above: Order Comment: Order added by Discern Expert. Performed By: #### 1 [id number] #### [facility] [employer] [address] [place], [place] [id number] zzplt morphon 08-03-2018 Platelet morphology finding Nom (Bld) NORMAL Normal [facility] Comment on above: Performed By: #### 9 [id number] #### [facility] [address] [place], [place] [address] Platelets (Bld) [#/Vol] NORMAL Normal [facility] Comment on above: Performed By: #### 9 [id number] #### [facility] [address] [place], [place] [id number] PSA Totalon 06-13-2018 PSA Total 9.12 ng/mL [facility] Comment on above: Result Comment: AGE- SPECIFIC REFERENCE RANGES FOR SERUM PSA REFERENCE RANGE NG/ML AGE ASIANS BLACKS WHITE 40-49 0-2 0-2 0-2.5 50-59 0-3 0-4 0-3.5 60-69 0-4 0-4.5 0-4.5 70-79 0-5 0-5.5 0-6.5 PSA INCREASES WITH AGE, RACE, AND EJACULATION WITHIN 48 HRS. [facility] VOL24,NO.2, , PG.339 Performed By: #### 1 [id number] #### [facility] [employer] [address] [place] [address]20 Vital Signs Date Time Vital Sign Value Performing Clinician Facility 11-01-2024 12:59-0400 Body height 187.[address] Teresa Duffy MD Work Phone: [facility] 11-01-2024 12:59-0400 Body mass index (BMI) [Ratio] 26.7 kg/m2 Dr. Teresa Duffy MD Work Phone: [facility] 11-01-2024 12:59-0400 Body temperature 97.2 [degF] Dr. Teresa Duffy MD Work Phone: [facility] 11-01-2024 12:59-0400 Body weight 94.[address] Teresa Duffy MD Work Phone: [phone] [place] [address] 11-01-2024 12:59-0400 Diastolic blood pressure 78 mm[Hg] Dr. Teresa Duffy MD Work Phone: [phone] [place] [address] 11-01-2024 12:59-0400 Heart rate 63 /min Dr. Teresa Duffy MD Work Phone: [phone] [place] [address] 11-01-2024 12:59-0400 Respiratory rate 18 /min Dr. Teresa Duffy MD Work Phone: [phone])[phone] [place] [address] 11-01-2024 12:59-0400 SaO2% (BldA) [Mass fraction] 97 % Dr. Teresa Duffy MD Work Phone: [facility] 11-01-2024 12:59-0400 Systolic blood pressure 132 mm[Hg] Dr. Teresa Duffy MD Work Phone: [facility] 09-18-2024 12:55-0400 Body height 188 cm Teresa Duffy MD Work Phone: [facility] 09-18-2024 12:55-0400 Body mass index (BMI) [Ratio] 26.83 kg/m2 Teresa Duffy MD Work Phone: [facility] 09-18-2024 12:55-0400 Body weight 94.8 kg Teresa Duffy MD Work Phone: [facility] 09-18-2024 12:55-0400 Diastolic blood pressure 80 mm[Hg] Teresa Duffy MD Work Phone: [facility] 09-18-2024 12:55-0400 Heart rate 76 /min Teresa Duffy MD Work Phone: [facility] 09-18-2024 12:55-0400 Systolic blood pressure 142 mm[Hg] Teresa Duffy MD Work Phone: [facility] 08-18-2024 12:56-0400 Body height 185.[address] Teresa Duffy MD Work Phone: [facility] 08-18-2024 12:56-0400 Body mass index (BMI) [Ratio] 27.6 kg/m2 Dr. Teresa Duffy MD Work Phone: [facility] 08-18-2024 12:56-0400 Body weight 94.[address] Teresa Duffy MD Work Phone: [facility] 08-18-2024 12:56-0400 Diastolic blood pressure 90 mm[Hg] Dr. Teresa Duffy MD Work Phone: [facility] 08-18-2024 12:56-0400 Heart rate 66 /min Dr. Teresa Duffy MD Work Phone: [facility] 08-18-2024 12:56-0400 Respiratory rate 16 /min Dr. Teresa Duffy MD Work Phone: [facility] 08-18-2024 12:56-0400 Systolic blood pressure 136 mm[Hg] Dr. Teresa Duffy MD Work Phone: [facility] 08-11-2024 08:04-0400 Body height 188 cm Teresa Duffy MD Work Phone: [facility] 08-11-2024 08:04-0400 Body mass index (BMI) [Ratio] 26.96 kg/m2 Teresa Duffy MD Work Phone: [facility] 08-11-2024 08:04-0400 Body weight 95.25 kg Teresa Duffy MD Work Phone: [facility] 08-11-2024 08:04-0400 Diastolic blood pressure 82 mm[Hg] Teresa Duffy MD Work Phone: [facility] 08-11-2024 08:04-0400 Heart rate 64 /min Teresa Duffy MD Work Phone: [facility] 08-11-2024 08:04-0400 Systolic blood pressure 138 mm[Hg] Teresa Duffy MD Work Phone: [facility] 07-11-2024 10:06-0500 Body temperature 98 [degF] Dr. Teresa Duffy MD Work Phone: [facility] 07-11-2024 10:06-0500 Body weight 95.[address] Teresa Duffy MD Work Phone: [facility] 07-11-2024 10:06-0500 Diastolic blood pressure 86 mm[Hg] Dr. Teresa Duffy MD Work Phone: [facility] 07-11-2024 10:06-0500 Heart rate 62 /min Dr. Teresa Duffy MD Work Phone: [facility] 07-11-2024 10:06-0500 Respiratory rate 16 /min Dr. Teresa Duffy MD Work Phone: [facility] 07-11-2024 10:06-0500 SaO2% (BldA) [Mass fraction] 93 % Dr. Teresa Duffy MD Work Phone: [facility] 07-11-2024 10:06-0500 Systolic blood pressure 139 mm[Hg] Dr. Teresa Duffy MD Work Phone: [facility] 06-01-2024 09:10-0500 Body temperature 98.2 [degF] Dr. Teresa Duffy MD Work Phone: [facility] 06-01-2024 09:10-0500 Body weight 96.[address] Teresa Duffy MD Work Phone: [facility] 06-01-2024 09:10-0500 Diastolic blood pressure 86 mm[Hg] Dr. Teresa Duffy MD Work Phone: [facility] 06-01-2024 09:10-0500 Heart rate 64 /min Dr. Teresa Duffy MD Work Phone: [facility] 06-01-2024 09:10-0500 Respiratory rate 16 /min Dr. Teresa Duffy MD Work Phone: [facility] 06-01-2024 09:10-0500 SaO2% (BldA) [Mass fraction] 95 % Dr. Teresa Duffy MD Work Phone: [facility] 06-01-2024 09:10-0500 Systolic blood pressure 143 mm[Hg] Dr. Teresa Duffy MD Work Phone: [facility] 02-11-2024 08:00-0400 Body height 188 cm Teresa Duffy MD Work Phone: [facility] 02-11-2024 08:00-0400 Body mass index (BMI) [Ratio] 27.35 kg/m2 Teresa Duffy MD Work Phone: [facility] 02-11-2024 08:00-0400 Body weight 96.62 kg Teresa Duffy MD Work Phone: [facility] 02-11-2024 08:00-0400 Diastolic blood pressure 80 mm[Hg] Teresa Duffy MD Work Phone: [facility] 02-11-2024 08:00-0400 Heart rate 64 /min Teresa Duffy MD Work Phone: [facility] 02-11-2024 08:00-0400 Systolic blood pressure 138 mm[Hg] Teresa Duffy MD Work Phone: [facility] 11-02-2023 09:46-0400 Diastolic blood pressure 92 mm[Hg] Mary Kay Fox CNP Work Phone: [facility] Comment on above: advised to monitor and notify pcp 11-02-2023 09:46-0400 Heart rate 61 /min Mary Kay Fox CNP Work Phone: [facility] 11-02-2023 09:46-0400 Respiratory rate 16 /min Mary Kay Fox CNP Work Phone: [facility] 11-02-2023 09:46-0400 SaO2% (BldA) [Mass fraction] 97 % Mary Kay Fox CNP Work Phone: [facility] 11-02-2023 09:46-0400 Systolic blood pressure 156 mm[Hg] Mary Kay Fox CNP Work Phone: [facility] Comment on above: advised to monitor and notify pcp 11-02-2023 09:21-0400 Body height 188 cm Mary Kay Fox CNP Work Phone: [facility] 11-02-2023 09:21-0400 Body mass index (BMI) [Ratio] 27.6 kg/m2 Mary Kay Fox CNP Work Phone: [facility] 11-02-2023 09:21-0400 Body weight 97.52 kg Mary Kay Fox CNP Work Phone: [facility] 08-05-2023 07:59-0500 Body height 188 cm Teresa Duffy MD Work Phone: [facility] 08-05-2023 07:59-0500 Body mass index (BMI) [Ratio] 27.35 kg/m2 Teresa Duffy MD Work Phone: [facility] 08-05-2023 07:59-0500 Body weight 96.62 kg Teresa Duffy MD Work Phone: [facility] 08-05-2023 07:59-0500 Diastolic blood pressure 80 mm[Hg] Teresa Duffy MD Work Phone: [facility] 08-05-2023 07:59-0500 Heart rate 64 /min Teresa Duffy MD Work Phone: [facility] 08-05-2023 07:59-0500 Systolic blood pressure 124 mm[Hg] Teresa Duffy MD Work Phone: [facility] 05-11-2023 10:43-0500 Diastolic blood pressure 82 mm[Hg] Mary Kay Yasmany DRUM BARKER OPERATOR Work Phone: [facility] 05-11-2023 10:43-0500 Heart rate 65 /min Mary Kay Fox DRUM BARKER OPERATOR Work Phone: [facility] 05-11-2023 10:43-0500 Respiratory rate 16 /min Mary Kay Yasmany DRUM BARKER OPERATOR Work Phone: [facility] 05-11-2023 10:43-0500 SaO2% (BldA) [Mass fraction] 98 % Mary Kay Fox DRUM BARKER OPERATOR Work Phone: [facility] 05-11-2023 10:43-0500 Systolic blood pressure 138 mm[Hg] Mary Kay Yasmany DRUM BARKER OPERATOR Work Phone: [facility] 04-30-2023 08:20-0500 Body height [address] 04-30-2023 08:20-0500 Body mass index (BMI) [Ratio] 26.83 kg/m2 [address] 04-30-2023 08:20-0500 Body weight 94.[address] 04-30-2023 08:20-0500 Diastolic blood pressure 84 mm[Hg] [address] 04-30-2023 08:20-0500 Heart rate 59 /min [address] 04-30-2023 08:20-0500 Respiratory rate 18 /min [address] 04-30-2023 08:20-0500 SaO2% (BldA) [Mass fraction] 96 % [address] 04-30-2023 08:20-0500 Systolic blood pressure 148 mm[Hg] [facility] 04-19-2023 13:20-0500 Body height 188 cm Teresa Duffy MD Work Phone: [facility] 04-19-2023 13:20-0500 Body mass index (BMI) [Ratio] 26.83 kg/m2 Teresa Duffy MD Work Phone: [facility] 04-19-2023 13:20-0500 Body weight 94.8 kg Teresa Duffy MD Work Phone: [facility] 04-19-2023 13:20-0500 Diastolic blood pressure 82 mm[Hg] Teresa Duffy MD Work Phone: [facility] 04-19-2023 13:20-0500 Heart rate 76 /min Teresa Duffy MD Work Phone: [facility] 04-19-2023 13:20-0500 Systolic blood pressure 120 mm[Hg] Teresa Duffy MD Work Phone: [facility] 04-14-2023 09:32-0500 Respiratory rate 17 /min Carmenza Garcia MD Work Phone: [facility] 04-14-2023 08:02-0500 Body temperature 98.29 [degF] Carmenza Garcia MD Work Phone: [facility] 04-14-2023 08:02-0500 Diastolic blood pressure 89 mm[Hg] Carmenza Garcia MD Work Phone: [facility] 04-14-2023 08:02-0500 Heart rate 76 /min Carmenza Garcia MD Work Phone: [facility] 04-14-2023 08:02-0500 SaO2% (BldA) [Mass fraction] 93 % Carmenza Garcia MD Work Phone: [facility] 04-14-2023 08:02-0500 Systolic blood pressure 133 mm[Hg] Carmenza Garcia MD Work Phone: [facility] 04-13-2023 05:55-0500 Body mass index (BMI) [Ratio] 26.38 kg/m2 Carmenza Garcia MD Work Phone: [facility] 04-13-2023 05:55-0500 Body weight 93.2 kg Carmenza Garcia MD Work Phone: [facility] 11-18-2022 07:47-0400 Body mass index (BMI) [Ratio] 28.25 kg/m2 Teresa Duffy Work Phone: QW-Gakdsch-Olfzqcd Work Phone: 11-18-2022 07:47-0400 Body surface area Derived from formula 2.26 m2 Teresa Duffy Work Phone: CV-Wjhvecj-Dolqsjk Work Phone: 11-18-2022 07:47-0400 Body weight 99.79 kg Teresa Duffy Work Phone: DV-Disifvn-Vggidae Work Phone: 11-18-2022 07:47-0400 Respiratory rate 16 /min Teresa Duffy Work Phone: ZP-Wvukulp-Mslmyds Work Phone: 08-04-2022 08:14-0500 Body height 188 cm Teresa Duffy MD Work Phone: [facility] 08-04-2022 08:14-0500 Body mass index (BMI) [Ratio] 27.6 kg/m2 Teresa Duffy MD Work Phone: [facility] 08-04-2022 08:14-0500 Body weight 97.52 kg Teresa Duffy MD Work Phone: [facility] 08-04-2022 08:14-0500 Diastolic blood pressure 72 mm[Hg] Teresa Duffy MD Work Phone: [facility] 08-04-2022 08:14-0500 Heart rate 66 /min Teresa Duffy MD Work Phone: [facility] 08-04-2022 08:14-0500 SaO2% (BldA) [Mass fraction] 96 % Teresa Duffy MD Work Phone: [facility] 08-04-2022 08:14-0500 Systolic blood pressure 132 mm[Hg] Teresa Duffy MD Work Phone: [facility] 08-05-2021 08:01-0500 Body height 187.96 cm Teresa Duffy Work Phone: [facility] 205 DO Work Phone: 08-05-2021 08:01-0500 Body mass index (BMI) [Ratio] 28.7 kg/m2 Teresa Duffy Work Phone: [facility] 205 DO Work Phone: 08-05-2021 08:01-0500 Body surface area Derived from formula 2.28 m2 Teresa Duffy Work Phone: [facility] 205 DO Work Phone: 08-05-2021 08:01-0500 Body weight 101.38 kg Teresa Duffy Work Phone: [facility] 205 DO Work Phone: 08-05-2021 08:01-0500 Diastolic blood pressure 80 mm[Hg] Teresa Duffy Work Phone: [place] [address] DO Work Phone: 08-05-2021 08:01-0500 Heart rate 72 /min Teresa Duffy Work Phone: [place] [address] DO Work Phone: 08-05-2021 08:01-0500 Systolic blood pressure 120 mm[Hg] Teresa Duffy Work Phone: [facility] 205 DO Work Phone: 01-22-2021 07:49-0400 Body height 187.96 cm Teresa Duffy Work Phone: UJ-Ufivcvo-Fawfjbn d 232 DO Work Phone: 01-22-2021 07:49-0400 Body mass index (BMI) [Ratio] 28.34 kg/m2 Teresa Duffy Work Phone: VP-Dxrrliy-Gkkkcgh d HC 232 DO Work Phone: 01-22-2021 07:49-0400 Body surface area Derived from formula 2.27 m2 Teresa Duffy Work Phone: MV-Kdkfyol-Neajlvp d [facility] 232 DO Work Phone: 01-22-2021 07:49-0400 Body weight 100.13 kg Teresa Duffy Work Phone: SU-Llzzrgg-Tkvijzs d [facility] 232 DO Work Phone: 01-22-2021 07:49-0400 Diastolic blood pressure 84 mm[Hg] Teresa Duffy Work Phone: JD-Rwrtzax-Fcetwop d [facility] 232 DO Work Phone: 01-22-2021 07:49-0400 Heart rate 61 /min Teresa Duffy Work Phone: VH-Bqrlhvp-Gkwhtoc d [facility] 232 DO Work Phone: 01-22-2021 07:49-0400 Systolic blood pressure 146 mm[Hg] Teresa Duffy Work Phone: OZ-Drqusba-Qfnxzdh d [facility] 232 DO Work Phone: 08-06-2020 09:54-0500 BMI (Body Mass Index) 28.26 kg/m2 Teresa Duffy [facility] Work Phone: 08-06-2020 09:54-0500 Body Temperature 96.6 [degF] Teresa Duffy [facility] Work Phone: 08-06-2020 09:54-0500 Body weight 99.85 kg Teresa Duffy [facility] Work Phone: 08-06-2020 09:54-0500 BP Diastolic 80 mm[Hg] Teresa Duffy [facility] Work Phone: Comment on above: Location: E; Position: Sitting 08-06-2020 09:54-0500 BP Systolic 138 mm[Hg] Teresa Duffy [facility] Work Phone: Comment on above: Location: E; Position: Sitting 08-06-2020 09:54-0500 BSA (Body Surface Area) 2.26 m2 Teresa Clive [facility] Work Phone: 08-06-2020 09:54-0500 Height 187.96 cm Teresa Duffy [facility] Work Phone: 08-06-2020 09:54-0500 Pulse (Heart Rate) 72 /min Teresamiquel Duffy [facility] Work Phone: 01-24-2020 09:32-0400 BMI (Body Mass Index) 28.5 kg/m2 Neena Garciamonty RAMESH VX-Ecsozxk-Zrouwbr Work Phone: 01-24-2020 09:32-0400 Body weight 100.7 kg Neena العلي GADIEL NP-Iqnrbni-Ucbmn nd Work Phone: 01-24-2020 09:32-0400 BP Diastolic 83 mm[Hg] Neena Garciak II RF-Jpdisju-Wgzph nd Work Phone: 01-24-2020 09:32-0400 BP Systolic 125 mm[Hg] Neena Garciak II ML-Xzgkuuj-Vaccz nd Work Phone: 01-24-2020 09:32-0400 BSA (Body Surface Area) 2.27 m2 Neena العلي GADIEL QH-Okoppcg-Ogabbou Work Phone: 01-24-2020 09:32-0400 Height 187.96 cm Neena العلي II JI-Lcvskwt-Tjndj nd Work Phone: 01-24-2020 09:32-0400 Pulse (Heart Rate) 76 /min Neena العلي II KG-Tyowjps-Bv hland Work Phone: Encounters Encounter Date Encounter Type Care Provider Facility Start: 12-07-2024 ambulatory Gary Nixon Facility :[facility] Start: 11-01-2024 End: 11-01-[address] Gary Nixon MD -[facility] Work Phone: Start: 11-01-2024 End: 11-01-[address] Teresa Duffy MD Work Phone: [facility] Work Phone: Start: 10-14-2024 End: 10-14-[address] Teresa Duffy MD Work Phone: [facility] Work Phone: Start: 10-14-2024 End: 10-14-[address] Teresa Duffy MD -[facility] Work Phone: Start: 10-14-2024 End: 10-14-2024 ambulatory Teresa Duffy Facility:[facility] Start: 09-26-2024 ambulatory Lance Carbone Facility:[facility] Start: 09-26-2024 Non-patient / Non-visit Dr. Ifeanyi [facility] Start: 09-25-2024 End: 09-25-[address] Lance Carbone MD -[facility] Work Phone: Start: 09-25-2024 End: 09-25-2024 ambulatory Lance Carbone Facility:[facility] Start: 09-18-2024 End: 09-18-2024 Office outpatient visit 15 minutes Teresa Duffy MD Work Phone: [facility] Comment on above: Left groin mass (Lu dylon Dx) Start: 09-18-2024 End: 09-18-2024 ambulatory TERESA [facility] Amb[facility] Start: 09-12-2024 Non-patient / Non-visit Dr. Ifeanyi REESE [facility] Start: 09-12-2024 End: 09-12-[address] Teresa Duffy MD Work Phone: [facility] Work Phone: Start: 09-12-2024 End: 09-12-[address] Lance Carbone MD -Card[facility] Services Work Phone: Start: 09-12-2024 End: 09-12-2024 ambulatory Teresa Duffy Facility:[facility] Start: 08-18-2024 End: 08-18-[address] Lance Carbone MD -[facility] Work Phone: Start: 08-18-2024 End: 08-18-2024 ambulatory Teresa Duffy Facility:[facility] Start: 08-11-2024 End: 08-11-2024 ambulatory TERESA [facility] Start: 08-11-2024 End: 08-11-2024 Assay of hemosiderin, quant Teresa Duffy MD Work Phone: [facility] Work Phone: Start: 08-11-2024 End: 08-11-2024 Office outpatient visit 25 minutes Teresa Duffy MD Work Phone: [facility] Comment on above: Routine general medi kadie examination at health care facility (Primary Dx); Primary hypertension; Prediabetes; Arthralgia of both hands; Elevated hemoglobin ([facility]) Start: 07-11-2024 End: 07-11-2024 Patient encounter procedure Rut GREER -[facility] Work Phone: Start: 07-11-2024 End: 07-11-2024 ambulatory Teresa Duffy Facility:[facility] Start: 06-28-2024 ambulatory Rut Pate Facility:[facility] Start: 06-28-2024 Non-patient / Non-visit Dr. Tim long MD -[facility] Start: 06-28-2024 End: 06-28-2024 Patient encounter procedure Rut GREER -Cardiovascular Services Work Phone: Start: 06-28-2024 End: 06-28-2024 ambulatory Rut Pate Facility:[facility] Start: 06-01-2024 End: 06-01-2024 Patient encounter procedure Rut GREER -[facility] Work Phone: Start: 06-01-2024 End: 06-01-2024 ambulatory Rut Pate Facility:[facility] Start: 04-25-2024 End: 04-25-2024 ambulatory TERESA DUFFY Facility:[facility] Start: 04-25-2024 End: 04-25-2024 Patient encounter procedure Junior Shipley OD Work Phone: Ophthalmology Comment on above: Combined forms of ag e-related cataract of both eyes (Primary Dx); Floaters, bilateral; Pinguecula, bilateral Start: 03-24-2024 End: 03-24-2024 ambulatory Rut Pate Facility:[facility] Start: 02-11-2024 End: 02-11-2024 Subsequent hospital visit by physician Alton Joey100 [facility] Comment on above: Bilateral thumb pain Start: 02-11-2024 End: 02-11-2024 Office outpatient visit 25 minutes Teresa Duffy MD Work Phone: [facility] Comment on above: Influenza vaccinatio n declined (Primary Dx); Bilateral thumb pain; Varicose veins of both lower extremities with pain; Primary hypertension; Prediabetes Start: 02-11-2024 End: 02-11-2024 ambulatory TERESA DUFFY [facility] Start: 02-03-2024 End: 02-03-2024 ambulatory TERESA DUFFY [facility] Start: 11-02-2023 End: 11-02-2023 Office outpatient visit 40 minutes Mary Kay Fox CNP Work Phone: [facility] Comment on above: Cerebrovascular acci dent (CVA), unspecified mechanism (HCC) (Primary Dx) Start: 11-02-2023 End: 11-02-2023 ambulatory TERESA DUFFY [facility] Start: 08-05-2023 End: 08-05-2023 Assay of hemosiderin, quant Teresa Duffy MD Work Phone: [facility] Work Phone: Start: 08-05-2023 End: 08-05-2023 Office outpatient visit 25 minutes Teresa Duffy MD Work Phone: [facility] Comment on above: Routine general medi kadie examination at health care facility (Primary Dx); Need for hepatitis C screening test; Prediabetes; Primary hypertension; Stroke of unknown cause (CMS/HCC) Start: 07-26-2023 End: 07-26-2023 ambulatory TERESA DUFFY [facility] Start: 05-12-2023 End: 05-13-2023 ambulatory TERESA DUFFY [facility] Start: 05-11-2023 End: 05-11-2023 Office outpatient visit 40 minutes Mary Kay Fox CNP Work Phone: [facility] Comment on above: Cerebrovascular acci dent (CVA), unspecified mechanism (HCC) (Primary Dx) Start: 05-11-2023 End: 05-11-2023 ambulatory MARY KAY FOX [facility] Start: 04-30-2023 End: 04-30-2023 Subsequent hospital visit by physician Alton Bautista [facility] Comment on above: Stroke of unknown ca use (CMS/HCC); Other cerebral infarction (CMS/HCC) Stroke of unknown ca use (CMS/HCC); Screening for cardiovascular condition; Cerebrovascular disease, unspecified Start: 04-30-2023 End: 04-30-2023 ambulatory TERESA DUFFY [facility] Start: 04-29-2023 End: 04-29-2023 ambulatory CARMENZA GARCIA [facility] Start: 04-19-2023 End: 04-19-2023 Transitional care manage srvc 14 day discharge Teresa Duffy MD Work Phone: [facility] [place] [facility] Comment on above: Primary hypertension (Primary Dx); Stroke of unknown cause (CMS/HCC) Start: 04-12-2023 End: 04-14-2023 Evaluation and management of inpatient JOB RADFORD SHANNAN [facility] Start: 04-12-2023 End: 04-14-2023 Evaluation and management of inpatient Generic [facility] Work Phone: [facility] Start: 04-11-2023 End: 04-12-2023 Emergency department patient visit TERESA DUFFY [facility] Start: 04-11-2023 ambulatory LEYDI RENAE [facility] Start: 04-06-2023 End: 04-06-2023 Patient encounter procedure Siria Mack OD Work Phone: Ophthalmology Comment on above: Combined forms of ag e-related cataract of both eyes (Primary Dx); Corneal scarring; Floaters, bilateral Start: 11-24-2022 End: 11-24-[address] Neena العلي II Facility:[id number] Start: 11-24-2022 End: 11-24-2022 Subsequent hospital visit by physician Neena العلي MD Work Phone: [facility] Comment on above: Calculus of kidney; Allergy status to penicillin; Essential (primary) hypertension; Personal history of nicotine dependence; Benign prostatic hyperplasia without lower urinary tract symptoms Start: 11-18-2022 ambulatory MD NEENA العلي Fa cility:[id number] Start: 11-18-2022 Office outpatient vi sit 25 minutes Teresa Duffy Work Phone: HJ-Dpbuacw-Sjnvsra Work Phone: Start: 10-15-2022 ambulatory MD TERESA DUFFY Facility:[id number] Start: 10-02-2022 ambulatory MD NEENA العلي Fa cility:[id number] Start: 08-04-2022 End: 08-04-2022 Assay of hemosiderin, quant Teresa Duffy MD Work Phone: [facility] Work Phone: Start: 08-04-2022 End: 08-04-2022 Patient encounter procedure Teresa Duffy MD Work Phone: [facility] Comment on above: Primary hypertension (Primary Dx); Arthralgia of both hands; Prediabetes; Benign prostatic hyperplasia with urinary obstruction and other lower urinary tract symptoms; Routine general medical examination at health care facility Start: 07-21-2022 Chart Update Teresa Duffy Work Phone: [facility] Work Phone: Start: 05-26-2022 Rx Renewal Teresa Duffy Work Phone: [facility] Work Phone: Start: 05-25-2022 AUDIT Teresa Duffy Work Phone: [facility] Work Phone: Start: 04-17-2022 AUDIT Teresa Duffy Work Phone: [facility] Work Phone: Start: 03-04-2022 End: 03-04-2022 Patient encounter procedure Jimmy Smith MD Work Phone: Ophthalmology Comment on above: Combined forms of ag e-related cataract of both eyes (Primary Dx); Corneal scarring; Pupillary miosis; Hypercholesteremia; Essential hypertension Start: 01-30-2022 Rx Renewal Teresa Duffy Work Phone: [facility] Work Phone: Start: 01-06-2022 Office outpatient vi sit 10 minutes Teresa Duffy Work Phone: [facility] Work Phone: Start: 01-06-[address] Teresa Duffy Facility:[id number] Start: 11-26-2021 Rx Renewal Teresa Duffy Work Phone: [facility] 205 DO Work Phone: Start: 08-06-2021 Chart Update Teresa Duffy Work Phone: [facility] 205 DO Work Phone: Start: 07-26-2021 Chart Update Teresa Duffy Work Phone: GV-Mtzebbq-Xvjvmil Work Phone: Start: 02-04-2021 Rx Renewal Teresa Duffy Work Phone: [facility] 205 DO Work Phone: Start: 01-23-2021 Chart Update Teresa Duffy Work Phone: SF-Ulafbgk-Ccdwiwwb HC 232 DO Work Phone: Start: 01-22-2021 Office outpatient vi sit 25 minutes Teresa Duffy Work Phone: WF-Dooxecd-Rekwvxe Work Phone: Start: 01-08-2021 Chart Update Teresa Duffy Work Phone: GT-Wvspwtv-Oojonzz Work Phone: Start: 08-06-2020 Patient encounter procedure Teresa Duffy -[facility] Work Phone: Start: 01-24-2020 Patient encounter procedure Neena العلي II BY-Tqgbvge-Xjkslfs Work Phone: Start: 08-09-2019 Patient encounter procedure Neena العلي II KD-Nyfjczq-Blilmdi Work Phone: Start: 07-26-2019 Patient encounter procedure Neena العلي II HZ-Qasrtgz-Hssowcr Work Phone: Start: 09-14-2018 Patient encounter procedure Neena العلي II NZ-Kvpmcmb-Yepqdxm Work Phone: Patient encounter procedure Teresa Duffy Work Phone: GF-Kfoadfd-Rvxqdtp Work Phone: Procedures Date Procedure Procedure Detail Performing Clinician Start: 10-14-2024 CT of abdomen and pe lvis without contrast Dr. Teresa Duffy MD Work Phone: Start: 09-25-2024 Cardiovascular stres s test using pharmacologic stress agent Dr. Teresa Duffy MD Work Phone: Start: 08-18-2024 Evaluation of diagno stic study results Dr. Teresa Duffy MD Work Phone: Start: 08-02-2024 Lipid 1996 panel - S sunil or Plasma Teresa Duffy MD Work Phone: Start: 04-25-2024 Computerized ophthal olayinka imaging melany Shipley OD Work Phone: Start: 07-26-2023 CBC W Auto Different ial panel - Blood TERESA DUFFY Start: 07-26-2023 Comprehensive metabo lic 2000 panel - Serum or Plasma TERESA CLIVE Start: 07-26-2023 Hemoglobin A1c/Hemoglobin.total in Blood TERESA CLIVE Start: 07-26-2023 Lipid panel TERESA Hughes Start: 07-26-2023 Lipid 1996 panel - S sunil or Plasma Teresa Duffy MD Work Phone: Start: 04-30-2023 TRANSTHORACIC ECHO ( TTE) COMPLETE TERESA DUFFY Start: 04-30-2023 VASC US CAROTID GASTON RY DUPLEX BILATERAL TERESA DUFFY Start: 04-30-2023 Echo tthrc r-t 2d w/ wom-mode compl spec&colr d Teresa Duffy MD Work Phone: Start: 04-29-2023 AMB REFERRAL TO [facility] TH[facility]Y TERESA DUFFY Start: 04-14-2023 Basic metabolic pane l calcium total Laila Torres DRUM BARKER OPERATOR Work Phone: Start: 04-13-2023 Potassium serum plas ma/whole blood Balbina Rodrigez DRUM BARKER OPERATOR Work Phone: Start: 04-13-2023 Radex hand 2 views Azalia carlotta Javier MD Work Phone: Start: 04-13-2023 Basic metabolic pane l calcium total Laila Torres DRUM BARKER OPERATOR Work Phone: Start: 04-12-2023 Mri brain brain stem w/o w/contrast material Laila Torres DRUM BARKER OPERATOR Work Phone: Start: 04-12-2023 Echo tthrc r-t 2d w/ wom-mode compl spec&colr d Laila Torres DRUM BARKER OPERATOR Work Phone: Start: 04-12-2023 Basic metabolic pane l calcium total Laila Torres DRUM BARKER OPERATOR Work Phone: Start: 04-12-2023 Lipid panel Laila Torres DRUM BARKER OPERATOR Work Phone: Start: 07-24-2021 Lipid 1996 panel - S sunil or Plasma Teresa Duffy MD Work Phone: Start: 08-06-2020 Blood count complete auto&auto difrntl wbc Teresa Duffy Start: 08-06-2020 Comprehensive metabo lic 2000 panel Teresa Duffy Start: 08-06-2020 Hemoglobin glycosylated a1c Teresa Duffy Start: 08-06-2020 Lipid panel Teresa hughes Start: 08-06-2020 TSH WITH REFLEX TO F REE T4 IF ABNORMAL Teresa Duffy Start: 08-06-2020 Ultrasound AAA Screening Teresa Duffy Start: 08-06-2020 Urnls dip stick/tabl et rgnt auto w/o microscopy Teresa Duffy Start: 01-19-2020 Xray Abdomen AP View Anastasiia bunny العلي II Start: 01-17-2020 25 hydroxy includes fractions if performed Neena العلي II Start: 01-17-2020 Assay of ferritin Neena العلي II Start: 01-17-2020 Blood count complete auto&auto difrntl wbc Neena العلي II Start: 01-17-2020 Comprehensive metabo lic 2000 panel Neena العلي II Start: 01-17-2020 Cyanocobalamin vitamin b-12 Neena Garciak II Start: 01-17-2020 Hemoglobin glycosylated a1c Neena العلي II Start: 01-17-2020 Lipid panel Neena العلي II Start: 01-17-2020 TSH WITH REFLEX TO F REE T4 IF ABNORMAL Neena العلي II Start: 01-17-2020 Urnls dip stick/tabl et rgnt auto w/o microscopy Neena العلي II Start: 10-18-2018 Colonoscopy Teresa hughes MD Work Phone: Cholecystectomy Neena العلي II Colonoscopy Neena العلي II Comment on above: 2 years ago; Hernia repair Neena العلي II Tonsillectomy Neena العلي II Plan of Treatment Date Care Activity Detail Author Start: 08-02-2029 Lipid panel Lipid Panel [facility] Start: 03-30-2029 DTaP/Tdap/Td Vaccine s (3 - Td or Tdap) DTaP/Tdap/Td Vaccines (3 - Td or Tdap) [facility] Start: 03-30-2029 Tetanus vaccination Tetanus: Every 1 0yrs [facility] Start: 03-30-2029 Urine microalbumin profile DTaP,Tdap,Td Vaccine (3 - Td or Tdap) [facility] Start: 10-18-2028 Screening for malignant neoplasm of colon [facility] Start: 07-26-2028 Lipid panel [facility] Start: 05-31-2028 Screening for malignant neoplasm of colon Colorectal Cancer Screening [facility] Comment on above: Postponed from 03/27 (Other Patient Reasons) Start: 2028 RSV High Risk: (Elderly (60+) or Population) (1 - 1-dose 75+ series) RSV High Risk: (Elderly (60+) or Population) (1 - 1-dose 75+ series) [facility] Start: 2028 RSV Vaccine (1 - 1-dose 75+ series) RSV Vaccine (1 - 1-dose 75+ series) [facility] Start: 02-02-2027 Diabetes mellitus screening Diabetes Screening [facility] Start: 02-02-2027 Diabetes Screening Diabetes Screenin g [facility] Start: 07-26-2026 Diabetes mellitus screening Diabetes Screening [facility] Start: 07-24-2026 Lipid panel Lipid Panel [facility] Start: 04-12-2026 Diabetes mellitus screening Diabetes Screening [facility] Start: 08-12-2025 Medicare Annual Wellness Visit Medicare Annual Wellness Visit (AWV) [facility] Start: 08-02-2025 Hemoglobin A1c measurement Diabetes: Hemoglobin A1C [facility] Start: 04-25-2025 End: 04-25-2025 Patient encounter procedure 04/25/2025 8:30 AM EST Office Visit [facility] [address] [place] [address] Junior Shipley, OD [address] [place] [address] [facility] Comment on above: [facility] Start: 02-12-2025 End: 02-12-2025 Patient encounter procedure 02/12/2025 8:00 AM EDT Office Visit [place] [address] [phone] Teresa Duffy MD [address] [address] [facility] Start: 02-02-2025 Hemoglobin A1c measurement Diabetes: Hemoglobin A1C [facility] Start: 01-29-2025 Influenza vaccination Influenz a Vaccine (Season Ended) [facility] Start: 01-11-2025 End: 08-11-2025 Basic metabolic 2000 panel - Serum or Plasma Basic metabolic panel Lab Routine Prediabetes Expected: 01/11/2025 (Approximate), Expires: 08/11/2025 [facility] Work Phone: Comment on above: Expected: 01/11/2025 (Approximate), Expires: 08/11/2025 Start: 01-11-2025 End: 08-11-2025 CBC W Auto Differential panel - Blood CBC and Auto Differential Lab Routine Prediabetes Expected: 01/11/2025 (Approximate), Expires: 08/11/2025 [facility] Service Area Work Phone: Comment on above: Expected: 01/11/2025 (Approximate), Expires: 08/11/2025 Start: 01-11-2025 End: 08-11-2025 Hemoglobin A1c/Hemoglobin.total in Blood Hemoglobin A1C Lab Routine Prediabetes Expected: 01/11/2025 (Approximate), Expires: 08/11/2025 [facility] Work Phone: Comment on above: Expected: 01/11/2025 (Approximate), Expires: 08/11/2025 Start: 09-18-2024 End: 09-18-2025 CT Abdomen WO contrast CT abdomen pelvis wo IV contrast Imaging Routine Left groin mass Expected: 09/18/2024, Expires: 09/18/2025 [facility] Area Work Phone: Comment on above: Expected: 09/18/2024 , Expires: 09/18/2025 Start: 08-11-2024 End: 08-11-2024 Patient encounter procedure 08/11/2024 8:00 AM EDT Office Visit [place] [id number] [phone] Teresa Duffy MD [address] [address] [facility] Start: 08-10-2024 End: 02-10-2025 CBC W Auto Differential panel - Blood CBC and Auto Differential Lab Routine Primary hypertension Prediabetes Expected: 08/10/2024, Expires: 02/10/2025 [facility] Work Phone: Comment on above: Expected: 08/10/2024 , Expires: 02/10/2025 Start: 08-10-2024 End: 02-10-2025 Cobalamin (Vitamin B12) [Mass/volume] in Serum or Plasma Vitamin B12 Lab Routine Primary hypertension Prediabetes Expected: 08/10/2024, Expires: 02/10/2025 [facility] Work Phone: Comment on above: Expected: 08/10/2024 , Expires: 02/10/2025 Start: 08-10-2024 End: 02-10-2025 Comprehensive metabolic 2000 panel - Serum or Plasma Comprehensive Metabolic Panel Lab Routine Primary hypertension Prediabetes Expected: 08/10/2024, Expires: 02/10/2025 [facility] Work Phone: Comment on above: Expected: 08/10/2024 , Expires: 02/10/2025 Start: 08-10-2024 End: 02-10-2025 Hemoglobin A1c/Hemoglobin.total in Blood Hemoglobin A1C Lab Routine Primary hypertension Prediabetes Expected: 08/10/2024, Expires: 02/10/2025 [facility] Work Phone: Comment on above: Expected: 08/10/2024 , Expires: 02/10/2025 Start: 08-10-2024 End: 02-10-2025 Lipid 1996 panel - Serum or Plasma Lipid Panel Lab Routine Primary hypertension Prediabetes Expected: 08/10/2024, Expires: 02/10/2025 [facility] Work Phone: Comment on above: Expected: 08/10/2024 , Expires: 02/10/2025 Start: 08-10-2024 End: 02-10-2025 Microalbumin/Creatini ne [Mass Ratio] in Urine Albumin-Creatinine Ratio, Urine Random Lab Routine Primary hypertension Prediabetes Expected: 08/10/2024, Expires: 02/10/2025 [facility] Work Phone: Comment on above: Expected: 08/10/2024 , Expires: 02/10/2025 Start: 08-10-2024 End: 02-10-2025 TSH with reflex to Free T4 if abnormal TSH with reflex to Free T4 if abnormal Lab Routine Primary hypertension Prediabetes Expected: 08/10/2024, Expires: 02/10/2025 [facility] Work Phone: Comment on above: Expected: 08/10/2024 , Expires: 02/10/2025 Start: 08-10-2024 End: 02-10-2025 Urinalysis microscopic panel - Urine Qualitative by Automated Microscopic Only, Urine Lab Routine Primary hypertension Prediabetes Expected: 08/10/2024 (Approximate), Expires: 02/10/2025 [facility] Work Phone: Comment on above: Expected: 08/10/2024 (Approximate), Expires: 02/10/2025 Start: 08-05-2024 Medicare Annual Wellness Visit Medicare Annual Wellness Visit (AWV) [facility] Start: 07-26-2024 Hemoglobin A1c measurement Diabetes: Hemoglobin A1C [facility] Start: 07-24-2024 Diabetes mellitus screening Diabetes Screening [facility] Start: 06-01-2024 Patient referral [facility] Work Phone: Start: 04-12-2024 Hemoglobin A1c measurement Diabetes: Hemoglobin A1C [facility] Start: 02-11-2024 End: 02-10-2025 XR Hand - left 3 Views [facility] Service Area Work Phone: Comment on above: Expected: 02/11/2024 , Expires: 02/10/2025 Once for 1 Occurrenc es starting 02/11/2024 until 02/11/2024 Start: 02-11-2024 End: 02-10-2025 XR Hand - right 3 Views [facility] Work Phone: Comment on above: Expected: 02/11/2024 , Expires: 02/10/2025 Once for 1 Occurrenc es starting 02/11/2024 until 02/11/2024 Start: 02-11-2024 End: 02-11-2024 Patient encounter procedure 02/11/2024 8:00 AM EDT Office Visit [facility] [address] [place] [phone] Teresa Duffy MD [address] [facility] Medical [place] [facility] [place] [address] [facility] Start: 02-05-2024 End: 08-04-2024 Basic metabolic 2000 panel - Serum or Plasma Basic Metabolic Panel Lab Routine Prediabetes Expected: 02/05/2024 (Approximate), Expires: 08/04/2024 [facility] Service Area Work Phone: Comment on above: Expected: 02/05/2024 (Approximate), Expires: 08/04/2024 Start: 02-05-2024 End: 08-04-2024 Hemoglobin A1c/Hemoglobin.total in Blood Hemoglobin A1C Lab Routine Prediabetes Expected: 02/05/2024 (Approximate), Expires: 08/04/2024 [facility] Work Phone: Comment on above: Expected: 02/05/2024 (Approximate), Expires: 08/04/2024 Start: 02-05-2024 End: 08-04-2024 Hepatitis C virus Ab [Presence] in Serum Hepatitis C antibody Lab Routine Need for hepatitis C screening test Expected: 02/05/2024 (Approximate), Expires: 08/04/2024 [facility] Work Phone: Comment on above: Expected: 02/05/2024 (Approximate), Expires: 08/04/2024 Start: 01-30-2024 COVID-19 Vaccine ( season) COVID-19 Vaccine ( season) [facility] Start: 01-30-2024 Covid-19 Vaccine ( season) Covid-19 Vaccine ( season) [facility] Start: 01-30-2024 Influenza vaccination [facility] Start: 08-07-2023 DIABETES SCREEN [facility] Start: 08-07-2023 Diabetes Screening Diabetes Screenin g [facility] Start: 08-06-2023 Medicare Annual Wellness Visit Medicare Annual Wellness Visit (AWV) [facility] Start: 08-05-2023 History and physical examination, annual for health maintenance Wellness Visit [facility] Start: 08-05-2023 End: 08-05-2023 Patient encounter procedure 08/05/2023 8:00 AM EST Office Visit [facility] [address] [place] [address] Teresa Duffy MD [address] [facility] Medical Office [place] [phone] [facility] Start: 05-31-2023 Advance Directive Discussion Advance Directive Discussion [facility] Start: 05-11-2023 End: 05-11-2023 Patient encounter procedure 05/11/2023 11:00 AM EST Office Visit [facility] [address] [facility] Medical Office Building, 2nd [place] [address] Mary Kay Fox, THERESA [address] [facility] [address] [place] [address] [facility] Start: 04-29-2023 End: 04-29-2023 ambulatory 04/29/2023 9:30 AM EST Evaluation [facility] [address] [place] [address] Mary Mcqueen, HOUSE NURSE [address] [facility] [place] [address] [facility] Start: 01-29-2023 COVID-19 Vaccine ( season) COVID-19 Vaccine ( season) [facility] Start: 01-29-2023 Influenza vaccination [facility] Start: 11-24-2022 [facility], Provider: العلي II,Neena, Status: Pen, Time: 8:30 AM [facility], Provider: Neena العلي II, Status: Pen, Time: 8:30 AM NL-Njjcgvs-Jmjxtny Work Phone: Start: 08-04-2022 End: 08-05-2023 CBC W Auto Differential panel - Blood CBC and Auto Differential Lab Routine Primary hypertension Expected: 08/04/2022 (Approximate), Expires: 08/05/2023 [facility] Service Area Work Phone: Comment on above: Expected: 08/04/2022 (Approximate), Expires: 08/05/2023 Start: 08-04-2022 End: 08-05-2023 Comprehensive metabolic 2000 panel - Serum or Plasma Comprehensive Metabolic Panel Lab Routine Primary hypertension Expected: 08/04/2022 (Approximate), Expires: 08/05/2023 [facility] Work Phone: Comment on above: Expected: 08/04/2022 (Approximate), Expires: 08/05/2023 Start: 08-04-2022 End: 08-05-2023 Hemoglobin A1c/Hemoglobin.total in Blood Hemoglobin A1C Lab Routine Primary hypertension Expected: 08/04/2022 (Approximate), Expires: 08/05/2023 [facility] Work Phone: Comment on above: Expected: 08/04/2022 (Approximate), Expires: 08/05/2023 Start: 08-04-2022 End: 08-05-2023 Lipid 1996 panel - Serum or Plasma Lipid Panel Lab Routine Primary hypertension Expected: 08/04/2022 (Approximate), Expires: 08/05/2023 [facility] Work Phone: Comment on above: Expected: 08/04/2022 (Approximate), Expires: 08/05/2023 Start: 08-04-2022 [facility], Provider: Teresa Duffy, Status: Cristobal, Time: 8:00 AM [facility], Provider: Teresa Duffy, Status: Pen, Time: 8:00 AM -[facility] 205 DO Work Phone: Start: 07-24-2022 Hemoglobin A1c measurement Diabetes: Hemoglobin A1C [facility] Start: 05-31-2022 Advance Directive Discussion Advance Directive Discussion [facility] Start: 05-31-2022 Depression Assessment Depression Ass [facility] Start: 01-29-2022 Influenza vaccination [facility] Start: 08-06-2021 Blood count complete auto&auto difrntl wbc Complete Blood Count + Differential [facility] Work Phone: Start: 08-06-2021 Comprehensive metabolic 2000 panel [facility] [place] Phone: Start: 08-06-2021 HbA1c (Bld) [Mass fraction] Hemoglobin A1C [facility] [place] Phone: Start: 08-06-2021 Lipid panel Lipid Panel [facility] [place] Phone: Start: 08-06-2021 Urnls dip stick/tablet rgnt auto w/o microscopy Urinalysis [facility] [place] Phone: Start: 08-05-2021 EPV, Provider: Teresa Duffy, Status: Pen, Time: 8:00 AM [facility], Provider: Teresa Duffy, Status: Pen, Time: 8:00 AM [facility] [place] Phone: Start: 05-31-2021 ADVANCE DIRECTIVE DISCUSSION ADVANCE DIRECTIVE DISCUSSION [facility] Start: 05-31-2021 DEPRESSION ASSESSMENT DEPRESSION ASS [facility] Start: 01-22-2021 [facility], Provider: Neena العلي II, Status: Pen, Time: 7:30 AM [facility], Provider: Neena العلي II, Status: Pen, Time: 7:30 AM [facility]-Jcymzmm-Ietqbcm Work Phone: Start: 08-09-2020 Ultrasound AAA Screening Ultrasound AAA Screening [facility] [place] Phone: Start: 10-19-2019 Screening for malignant neoplasm of colon [facility] Start: 09-28-2019 DTaP/Tdap/Td Vaccine s (3 - Td or Tdap) DTaP/Tdap/Td Vaccines (3 - Td or Tdap) [facility] Start: 2018 Fall risk assessment Falls Risk Asse ssment [facility] Start: 2018 PNEUMOCOCCAL: 65+ (1 - PCV) PNEUMOCOCCAL: 65+ (1 - PCV) [facility] Start: 2013 RSV patient s and/or patients aged 60+ years (1 - 1-dose 60+ series) RSV patients and/or patients aged 60+ years (1 - 1-dose 60+ series) [facility] Start: 2013 RSV Vaccine (1 - 1-dose 60+ series) RSV Vaccine (1 - 1-dose 60+ series) [facility] Start: 2008 PROSTATE CANCER SCREENING DISCUSSION PROSTATE CANCER SCREENING DISCUSSION [facility] Start: 2003 Screening for malignant neoplasm of colon Flexible sigmoidoscopy [facility] Start: 2003 SHINGRIX VACCINE (1 of 2) SHINGRIX VACCINE (1 of 2) [facility] Start: 2003 Zoster Vaccines (1 o f 2) Zoster Vaccines (1 of 2) [facility] Start: 1998 COLOGUARD (FIT-DNA) COLOGUARD (FIT-D NA) [facility] Start: 1998 Colonoscopy COLONOSCOPY [facility] Start: 1998 COLORECTAL CANCER SCREENING COLORECTAL CANCER SCREENING [facility] Start: [address] COLONOGRAPHY [facility] Start: 1998 FECAL OCCULT BLOOD FECAL OCCULT BLOO D [facility] Start: 1998 Screening for malignant neoplasm of colon [facility] Start: 1998 SIGMOIDOSCOPY SIGMOIDOSCOPY [facility] Start: 1988 Lipid 1996 panel - Serum or Plasma Lipid Screening [facility] Start: 1988 LIPID SCREEN LIPID SCREEN [facility] Start: 1972 Urine microalbumin profile DTAP,TDAP,TD (1 - Tdap) [facility] Start: 1971 ANNUAL PCP TEAM CHRONIC DISEASE VISIT ANNUAL PCP TEAM CHRONIC DISEASE VISIT [facility] Start: 1971 Anxiety Screening Anxiety Screening [facility] Start: 1971 BP CONTROLLED (<130/80) BP CONTROLLED (<130/80) [facility] Start: 1971 COVID-19 Vaccine (#1) COVID-19 Vacci ne (#1) [facility] Start: 1971 Depression Screening Depression Scre ening [facility] Start: 1971 HEPATITIS C SCREENING HEPATITIS C [facility] Start: 1971 Hepatitis C screening Hepatitis C [facility] Start: 1965 Depression screening using PHQ-9 (Patient Health Questionnaire 9) score Depression Screening (PHQ-2/9) [facility] Start: 1953 COVID-19 VACCINE (#1) COVID-19 VACCI NE (#1) [facility] Start: 1953 ABDOMINAL AORTIC ANEURYSM SCREENING ABDOMINAL AORTIC ANEURYSM SCREENING [facility] Start: 1953 Annual Wellness Visi t (AWV) Annual Wellness Visit (AWV) [facility] Start: 1953 Medicare Annual Wellness Visit Medicare Annual Wellness Visit (AWV) [facility] Start: 1953 Prostate specific antigen measurement PSA Level [facility] Start: 1953 Screening for malignant neoplasm of colon [facility] End: 06-13-2024 Cardiac event recording Cardiac event monitor Cardiac Services Routine Stroke of unknown cause (HCC) Other cerebrovascular vasospasm and vasoconstriction 1 Occurrences starting 04/13/2023 until 06/13/2024 [facility] Work Phone: Comment on above: 1 Occurrences starti ng 04/13/2023 until 06/13/2024 NM Heart Views W stress and W radionuclide IV [facility] Patient referral [facility] Work Phone: End: 04-30-2023 US.doppler Carotid arteries - bilateral [facility] Service Area Work Phone: Comment on above: Once for 1 Occurrenc es starting 04/30/2023 until 04/30/2023 [facility] Work Phone: [facility] NEGATED: Highlighted row has been ruled out! Planned Goals not documented [facility] Work Phone: Immunizations Immunization Date Immunization Notes Care Provider Chris fraga 05-03-2020 zoster vaccine recombinant Teresa Duffy Work Phone: [facility] 205 DO Work Phone: 05-03-2020 zoster vaccine, unspecified formulation Teresa Duffy MD Work Phone: [facility] Work Phone: 03-18-2020 influenza virus vacc ine, unspecified formulation Teresa Duffy Work Phone: [facility] Work Phone: Comment on above: Series: 03-18-2020 influenza, seasonal, injectable Teresa Duffy [facility] Work Phone: 02-20-2020 zoster vaccine recombinant Teresa Duffy Work Phone: [facility] 205 DO Work Phone: 02-20-2020 zoster vaccine, unspecified formulation Teresa Duffy MD Work Phone: [facility] Work Phone: 02-01-2020 Influenza, injectabl e, Madin Carmel Canine Kidney, preservative free, quadrivalent Teresa Duffy Work Phone: [facility] 205 DO Work Phone: 07-29-2019 pneumococcal conjuga te vaccine, 13 valent Tereas Duffy Work Phone: [facility] 03-30-2019 Influenza, injectabl e, Madin Carmel Canine Kidney, preservative free, quadrivalent Teresa Duffy Work Phone: [facility] 205 DO Work Phone: 03-30-2019 tetanus toxoid, redu daya diphtheria toxoid, and acellular pertussis vaccine, adsorbed Teresa Duffy Work Phone: [facility] 08-10-2018 pneumococcal polysaccharide vaccine, 23 valent Teresa Duffy [facility] Comment on above: Series: 08-10-2018 pneumococcal polysaccharide vaccine, 23 valfabio Duffy [facility] 205 DO Work Phone: 02-11-2018 influenza, injectabl e, quadrivalent, preservative free Teresa Duffy Work Phone: [facility] 205 DO Work Phone: 02-28-2016 influenza, seasonal, injectable, preservative free Teresa Duffy Work Phone: [facility] 205 DO Work Phone: 08-30-2015 pneumococcal conjuga te vaccine, 13 valfabio Duffy [facility] 205 DO Work Phone: Comment on above: Series: 05-02-2015 influenza, seasonal, injectable, preservative free Teresa Duffy Work Phone: [facility] 205 DO Work Phone: 08-30-2013 diphtheria, tetanus toxoids and acellular pertussis vaccine Teresa Duffy [facility] 205 DO Work Phone: Comment on above: Series: Payers Date Payer Category Payer Self-pay 2022 Medicare (Managed Care) [facility] MEDICARE [id number] 2022 Private Health Insurance [id number] 2022 Private Health Insurance [id number] 2021 Medicare [id number] 1953 Unknown [id number] 1953 Unknown [id number] 1953 Unknown [id number] 2.16.840.1.416699.3.579.2. 356 1955 Unknown [id number] 2.16.840.1.299726.3.579.2. 1069 1955 Unknown [id number] 2.16.840.1.743807.3.579.2. 1069 1955 Unknown [id number] 2.16.840.1.667071.3.579.2. 902 1955 Unknown [id number] 2.16.840.1.972572.3.579.2. 900 1955 Unknown [id number] 2.16.840.1.688433.3.579.2. 903 1955 Unknown [id number] 2.16.840.1.507822.3.579.2. 903 1955 Unknown [id number] 2.16.840.1.661403.3.579.2. 903 1955 Unknown [id number] 2.16.840.1.544752.3.579.2. 903 1955 Unknown [id number] 2.16.840.1.042801.3.579.2. 1245 1955 Unknown [id number] 2.16.840.1.233107.3.579.2. 1245 1955 Unknown [id number] 2.16.840.1.673824.3.579.2. 1243 1955 Unknown [id number] 2.16.840.1.418918.3.579.2. 1243 1955 Unknown [id number] 2.16.840.1.935098.3.579.2. 1243 1955 Unknown [id number] 2.16.840.1.702488.3.579.2. 1243 1955 Unknown [id number] 2.16.840.1.907261.3.579.2. 1243 1955 Unknown [id number] 2.16.840.1.662701.3.579.2. 1244 1955 Unknown [id number] 2.16.840.1.884415.3.579.2. 1244 1955 Unknown [id number] 2.16.840.1.355705.3.579.2. 1244 Private Health Insurance [id number] Unknown Unknown [id number] 2.16.840.1.632092.3.579.2. 462 Unknown [id number] 2.16.840.1.024667.3.579.2. 462 Unknown [id number] 2.16.840.1.164027.3.579.2. 462 Unknown [id number] 2.16.840.1.021281.3.579.2. 462 Unknown [id number] 2.16.840.1.166389.3.579.2. 462 Unknown [id number] 2.16.840.1.125330.3.579.2. 462 Unknown [id number] 2.16.840.1.653544.3.579.2. 462 Unknown [id number] 2.16.840.1.649490.3.579.2. 462 Unknown [id number] 2.16.840.1.202542.3.579.2. 462 Unknown [id number] 2.16.840.1.913276.3.579.2. 462 Unknown [id number] 2.16.840.1.103927.3.579.2. 462 Unknown [id number] 2.16.840.1.849523.3.579.2. 462 Unknown [id number] 2.16.840.1.409068.3.579.2. 462 Social History Date Type Detail Facility Start: 04-06-2023 End: 08-11-2024 Daily caffeinated coffee consumption Daily caffeinated coffee consumption [facility] Work Phone: Start: 02-20-2021 End: 11-01-2024 Tobacco smoking status NHIS Ex-smoker [facility] End: 02-21-2016 History of tobacco use Current smoker [facility] End: 02-21-2016 History of tobacco use Pipe Smoker [facility] Start: 02-20-2021 End: 08-04-2022 Tobacco use and exposure Smokeless tobacco non-user [facility] Start: 1955 Sex Assigned At Not on file [facility] Start: 02-22-2022 End: 09-18-2024 Exposure to SARS-CoV-2 (event) Not sure [facility] Start: 04-06-2023 End: 08-11-2024 Tobacco use panel [facility] National Score (1-100), lower number is lower risk 78 [facility] History of tobacco use Cigarette Smoker [facility] Work Phone: Start: 04-12-2023 End: 11-03-2023 Alcohol intake Current drinker of alcohol (finding) [facility] Start: 04-11-2023 Alcohol Comment BEER NOW AND AGAIN [facility] Start: 09-19-2024 Sex Male (finding) [facility] Start: 1955 Sex Assigned At Male [facility] NEGATED: Highlighted row - - [facility] Work Phone: Functional Status Date Assessment Result Facility NEGATED: Highlighted row Functional performance Functional status health issues are not documented Disease [facility] Work Phone: Mental Status Date Assessment Result Facility NEGATED: Highlighted row Cognitive function [Interpretation] Cognitive status health issues are not documented Disease [facility] Work Phone: Clinical Notes 02-04-2018 to 10-14-2024 Christin Duque LPN - 09/18/2024 1:00 PM EDTTeresa Duffy MD - 09/18/2024 1:00 PM EDTPatient InstructionsAssessment & Plan Note - Teresa Duffy MD - 08/11/2024 8:00 AM EDTPatient Instructions Note Date & Type Note Facility 10-14-2024 Radiology Diagnostic study note [facility] Imaging Services [address], [place] [id number] Abdomen/Pelvis without Cont MR#: [id number] Acct: [id number] Name: NEENA ROMAN Rep #: [id number] : 1955 M 69 From: Josey Bey MD PCP: Dr. Teresa Duffy MD Status: REG CLI Study:Abdomen/Pelvis without Cont Date of Exa m: 10/14/24 Exam# [id number] Ordering Dr: Anne Marie Duffy MD EXAM: CT Abdomen and Pelvis Without Intravenous Contrast CLINICAL INDICATION: LT GROIN MASS TECHNIQUE: Axial computed tomography images of the abdomen and pelvis without intravenous contrast. This CT exam was performed using one or more of the following dose reduction techniques: automated exposure control, adjustment of the mA and/or kV according to patient size, and/or use of iterative reconstruction technique. COMPARISON: No relevant prior studies available. FINDINGS: LUNG BASES: Unremarkable. No mass. No consolidation. MEDIASTINUM: Small esophageal hiatal hernia. ABDOMEN: LIVER: Hepatomegaly with fatty infiltration. GALLBLADDER AND BILE DUCTS: Unremarkable. No calcified stones. No ductal dilation. PANCREAS: Unremarkable. No ductal dilation. SPLEEN: Unremarkable. No splenomegaly. ADRENALS: Unremarkable. No mass. KIDNEYS AND URETERS: Left renal cysts, largest measuring up to 3.1 cm. No obstructing stones. STOMACH AND BOWEL: Scattered diverticula in the colon. There is mucosal thickening in the sigmoid colon with surrounding inflammation consistent with acute diverticulitis. No abscess. No obstruction. PELVIS: APPENDIX: No findings to suggest acute appendicitis. BLADDER: Urinary bladder calculi. REPRODUCTIVE: The prostate gland is enlarged measuring 6.0 cm in maximum dimension. ABDOMEN and PELVIS: INTRAPERITONEAL SPACE: Unremarkable. No free air. No significant fluid collection. BONES/JOINTS: Grade 1 anterior spondylolisthesis of L4 over L5. Severe endplate degenerative change and disc disease of L4-5. No acute fracture. No dislocation. SOFT TISSUES: Umbilical hernia containing fat. Large left inguinal hernia containing fat. VASCULATURE: Scattered calcified atherosclerotic disease of aorta. No abdominal aortic aneurysm. LYMPH NODES: Unremarkable. No enlarged lymph nodes. CT/Abdomen/Pelvis without Cont IMPRESSION: 1. Scattered diverticula in the colon. There is mucosal thickening in the sigmoid colon with surrounding inflammation consistent with acute diverticulitis. No abscess. 2. The prostate gland is enlarged. Correlation with PSA values may be helpful if not previously performed. 3. Small esophageal hiatal hernia. 4. Hepatomegaly with fatty infiltration. 5. Umbilical hernia containing fat. 6. Large left inguinal hernia containing fat. 7. Simple left renal cyst. Reading Location: [facility] CC: Dr. Teresa Duffy MD ~ Grouter Helper: Signed [facility] 09-18-2024 History of Present illness Narrative Bulge in groin, first noticed a month ago; states had a hernia in the past. Subjective Neena Roman is a 69 y.o. male who presents for Mass. HPI Working outside several weeks ago. Had bulge in left groin while twisting. Notices a discomfort in the area with physical work. No n/v. Has had mild pain in back. 50 years ago had right hernia repair. Review of Systems All other systems reviewed and are negative. . 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 HENT: Head: Normocephalic. Pulmonary: Effort: Pulmonary effort is normal. Abdominal: Comments: Visible bulge in left inguinal area Neurological: General: No focal deficit present. Mental Status: He is alert. Assessment/Plan Problem List Items Addressed This Visit None Visit Diagnoses Left groin mass - Primary Relevant Orders CT abdomen pelvis wo IV contrast Start with ct, further recommendations pending results. Teresa Duffy MD Patient was identified as a fall risk. Risk prevention instructions provided. [1] Allergies Allergen Reactions Penicillins Unknown [2] Current Outpatient Medications on File Prior to Visit Medication Sig Dispense Refill amLODIPine (Norvasc) 10 mg tablet take 1 tablet by mouth once daily 90 tablet 3 atorvastatin (Lipitor) 20 mg tablet TAKE 1 TABLET BY MOUTH ONCE DAILY 90 tablet 3 betamethasone dipropionate 0.05 % cream Apply 1 Application topically once daily. 15 g 3 clopidogrel (Plavix) 75 mg tablet take 1 tablet by mouth once daily 30 tablet 0 glucosamine sulfate (GLUCOSAMINE ORAL) Take 750 mg by mouth in the morning. Lactobacillus acidophilus (PROBIOTIC ACIDOPHILUS ORAL) Take 1 tablet by mouth once daily. multivitamin tablet Take by mouth. SAW PALMETTO ORAL Take by mouth. No current facility-administered medications on file prior to visit. [3] Patient Active Problem List Diagnosis Arthralgia Benign prostatic hyperplasia with urinary obstruction and other lower urinary tract symptoms Chronic neck pain Elevated PSA measurement Hypertension Prediabetes Stroke of unknown cause (Multi) documented in this encounter [facility] Work Phone: 09-18-2024 Instructions Teresa Duffy MD - 09/18/2024 1:00 PM EDT Ways to Help Prevent Falls at Home Quick Tips ? Ask for help if you need it. Most people want to help! ? Get up slowly after sitting or laying down ? Wear a medical alert device or keep cell phone in your pocket ? Use night lights, especially areas near a bathroom ? Keep the items you use often within reach on a small stool or end table ? Use an assistive device such as walker or cane, as directed by provider/physical therapy ? Use a non-slip mat and grab bars in your bathroom. Look for home health sections for best options Other Areas to Focus On ? Exercise and nutrition: Regular exercise or taking a falls prevention class are great ways improve strength and balance. Don t forget to stay hydrated and bring a snack! ? Medicine side effects: Some medicines can make you sleepy or dizzy, which could cause a fall. Ask your healthcare provider about the side effects your medicines could cause. Be sure to let them know if you take any vitamins or supplements as well. ? Tripping hazards: Remove items you could trip on, such as loose mats, rugs, cords, and clutter. Wear closed toe shoes with rubber soles. ? Health and wellness: Get regular checkups with your healthcare provider, plus routine vision and hearing screenings. Talk with your healthcare provider about: o Your medicines and the possible side effects - bring them in a bag if that is easier! o Problems with balance or feeling dizzy o Ways to promote bone health, such as Vitamin D and calcium supplements o Questions or concerns about falling *Ask your healthcare team if you have questions [facility]2021 documented in this encounter [facility] Work Phone: 08-11-2024 Evaluation + Plan note Associated Problem(s): Hypertension [facility] Work Phone: 08-11-2024 Evaluation + Plan note Associated Problem(s): Prediabetes Orders: CBC and Auto Differential; Future Hemoglobin A1C; Future Basic metabolic panel; Future [facility] Work Phone: 08-11-2024 Evaluation + Plan note Associated Problem(s): Arthralgia [facility] Work Phone: 08-11-2024 History of Present illness Narrative Med check Subjective Reason for Visit: Neena Roman is an 69 y.o. male here for a Medicare Wellness visit. Past Medical, Surgical, and Family History reviewed and updated in chart. Reviewed all medications by prescribing practitioner or clinical pharmacist (such as prescriptions, OTCs, herbal therapies and supplements) and documented in the medical record. HPI Htn, hyperlipidemia, stable Prediabetes, improved, A1c 6.0 Mild elevation h/h, will monitor States no problems or concerns. States his only issues now are his thumb pain and knee pain. Low normal b12, Recommend had add b12 1000 mcg a few times a week to his regimen, states already takes multivitamin most days. Patient Care Team: Teresa Duffy MD as PCP - General (Family Medicine) Review of Systems All other systems reviewed and are negative. Objective Vitals: BP 138/82 (BP Location: Left arm, Patient Position: Sitting) Pulse 64 Ht 1.88 m (6' 2) Wt 95.3 kg (210 lb) BMI 26.96 kg/m Physical Exam Vitals and nursing note reviewed. Constitutional: General: He is not in acute distress. Appearance: Normal appearance. He is not toxic-appearing. HENT: Head: Normocephalic and atraumatic. Cardiovascular: Rate and Rhythm: Normal rate and regular rhythm. Heart sounds: No murmur heard. Pulmonary: Effort: Pulmonary effort is normal. Breath sounds: Normal breath sounds. Musculoskeletal: Cervical back: Neck supple. No rigidity. Comments: Skin: General: Skin is warm and dry. Neurological: General: No focal deficit present. Mental Status: He is alert and oriented to person, place, and time. Psychiatric: Mood and Affect: Mood normal. Behavior: Behavior normal. Orders Only on 08/02/2024 Component Date Value Ref Range Status CHOLESTEROL, TOTAL 08/02/2024 90 <200 mg/dL Final HDL CHOLESTEROL 08/02/2024 41 > OR = 40 mg/dL Final TRIGLYCERIDES 08/02/2024 66 <150 mg/dL Final LDL-CHOLESTEROL 08/02/2024 34 mg/dL (calc) Final Comment: Reference range: <100 Desirable range <100 mg/dL for primary prevention; <70 mg/dL for patients with CHD or diabetic patients with > or = 2 CHD risk factors. LDL-C is now calculated using the Wilner calculation, which is a validated novel method providing better accuracy than the Friedewald equation in the estimation of LDL-C. Vaibhav SAUNDERS et al. ALICIA. 2013;310(19): 4221-1141 (http://education.[employer].com/faq/LEA662) CHOL/HDLC RATIO 08/02/2024 2.2 <5.0 (calc) Final NON HDL CHOLESTEROL 08/02/2024 49 <130 mg/dL (calc) Final Comment: For patients with diabetes plus 1 major ASCVD risk factor, treating to a non-HDL-C goal of <100 mg/dL (LDL-C of <70 mg/dL) is considered a therapeutic option. GLUCOSE 08/02/2024 102 (H) 65 - 99 mg/dL Final Comment: Fasting reference interval For someone without known diabetes, a glucose value between 100 and 125 mg/dL is consistent with prediabetes and should be confirmed with a follow-up test. UREA NITROGEN (BUN) 08/02/2024 22 7 - 25 mg/dL Final CREATININE 08/02/2024 0.83 0.70 - 1.28 mg/dL Final EGFR 08/02/2024 94 > OR = 60 mL/min/1.73m2 Final SODIUM 08/02/2024 140 135 - 146 mmol/L Final POTASSIUM 08/02/2024 4.2 3.5 - 5.3 mmol/L Final CHLORIDE 08/02/2024 106 98 - 110 mmol/L Final CARBON DIOXIDE 08/02/2024 26 20 - 32 mmol/L Final ELECTROLYTE BALANCE 08/02/2024 8 7 - 17 mmol/L (calc) Final CALCIUM 08/02/2024 9.3 8.6 - 10.3 mg/dL Final PROTEIN, TOTAL 08/02/2024 6.7 6.1 - 8.1 g/dL Final ALBUMIN 08/02/2024 4.6 3.6 - 5.1 g/dL Final BILIRUBIN, TOTAL 08/02/2024 2.2 (H) 0.2 - 1.2 mg/dL Final ALKALINE PHOSPHATASE 08/02/2024 59 35 - 144 U/L Final AST 08/02/2024 23 10 - 35 U/L Final ALT 08/02/2024 18 9 - 46 U/L Final WHITE BLOOD CELL COUNT 08/02/2024 6.9 3.8 - 10.8 Thousand/uL Final RED BLOOD CELL COUNT 08/02/2024 5.48 4.20 - 5.80 Million/uL Final HEMOGLOBIN 08/02/2024 17.6 (H) 13.2 - 17.1 g/dL Final HEMATOCRIT 08/02/2024 51.1 (H) 38.5 - 50.0 % Final MCV 08/02/2024 93.2 80.0 - 100.0 fL Final MCH 08/02/2024 32.1 27.0 - 33.0 pg Final MCHC 08/02/2024 34.4 32.0 - 36.0 g/dL Final Comment: For adults, a slight decrease in the calculated MCHC value (in the range of 30 to 32 g/dL) is most likely not clinically significant; however, it should be interpreted with caution in correlation with other red cell parameters and the patient's clinical condition. RDW 08/02/2024 12.9 11.0 - 15.0 % Final PLATELET COUNT 08/02/2024 195 140 - 400 Thousand/uL Final MPV 08/02/2024 10.3 7.5 - 12.5 fL Final ABSOLUTE NEUTROPHILS 08/02/2024 4,775 1,500 - 7,800 cells/uL Final ABSOLUTE LYMPHOCYTES 08/02/2024 1,325 850 - 3,900 cells/uL Final ABSOLUTE MONOCYTES 08/02/2024 552 200 - 950 cells/uL Final ABSOLUTE EOSINOPHILS 08/02/2024 200 15 - 500 cells/uL Final ABSOLUTE BASOPHILS 08/02/2024 48 0 - 200 cells/uL Final NEUTROPHILS 08/02/2024 69.2 % Final LYMPHOCYTES 08/02/2024 19.2 % Final MONOCYTES 08/02/2024 8.0 % Final EOSINOPHILS 08/02/2024 2.9 % Final BASOPHILS 08/02/2024 0.7 % Final WBC 08/02/2024 NONE SEEN < OR = 5 /HPF Final RBC 08/02/2024 0-2 < OR = 2 /HPF Final SQUAMOUS EPITHELIAL CELLS 08/02/2024 NONE SEEN < OR = 5 /HPF Final BACTERIA 08/02/2024 NONE SEEN NONE SEEN /HPF Final HYALINE CAST 08/02/2024 NONE SEEN NONE SEEN /LPF Final NOTE 08/02/2024 Final Comment: This urine was analyzed for the presence of WBC, RBC, bacteria, casts, and other formed elements. Only those elements seen were reported. VITAMIN B12 08/02/2024 238 200 - 1,100 pg/mL Final Comment: Please Note: Although the reference range for vitamin B12 is 200-1100 pg/mL, it has been reported that between 5 and 10% of patients with values between 200 and 400 pg/mL may experience neuropsychiatric and hematologic abnormalities due to occult B12 deficiency; less than 1% of patients with values above 400 pg/mL will have symptoms. TSH W/REFLEX TO FT4 08/02/2024 1.70 0.40 - 4.50 mIU/L Final HEMOGLOBIN A1c 08/02/2024 6.0 (H) <5.7 % of total Hgb Final Comment: For someone without known diabetes, a hemoglobin A1c value between 5.7% and 6.4% is consistent with prediabetes and should be confirmed with a follow-up test. For someone with known diabetes, a value <7% indicates that their diabetes is well controlled. A1c targets should be individualized based on duration of diabetes, age, comorbid conditions, and other considerations. This assay result is consistent with an increased risk of diabetes. Currently, no consensus exists regarding use of hemoglobin A1c for diagnosis of diabetes for children. eAG (mg/dL) 08/02/2024 126 mg/dL Final eAG (mmol/L) 08/02/2024 7.0 mmol/L Final Assessment & Plan Primary hypertension Prediabetes Orders: CBC and Auto Differential; Future Hemoglobin A1C; Future Basic metabolic panel; Future Arthralgia of both hands Elevated hemoglobin ([facility]) Routine general medical examination at health care facility Follow up six months, labs prior. documented in this encounter [facility] Work Phone: 08-11-2024 Instructions Teresa Duffy MD - 08/11/2024 8:00 AM EDT B12 1000 mcg a few times a week documented in this encounter [facility] Work Phone: 08-11-2024 Miscellaneous Notes Associated Problem(s): Hypertension Associated Problem(s): Prediabetes Orders: CBC and Auto Differential; Future Hemoglobin A1C; Future Basic metabolic panel; Future Associated Problem(s): Arthralgia documented in this encounter [facility] Work Phone: 07-11-2024 Evaluation note Diagnosis Onset Date Resolution Carotid stenosis acute July 11, 2024 9:54am History of CVA (cerebrovascular accident) acute July 11 025 9:54am Varicose veins of legs acute Fe bruary 2024 9:54am Hx of arterial ischemic stroke acute August 18, 2024 12:56pm Nonrheumatic aortic (valve) insufficiency acute July 12:56pm Patent foramen ovale acute Ishmael h 2024 12:56pm [facility] Work Phone: 1(449) 333-109801-02-2025 Evaluation note* Diagnosis Onset Date Resolution Status Admit Date History of CVA (cerebrovascu lar accident) acute June 01 8:46am Varicose veins of legs acute Ja nuary 2024 8:46am Carotid stenosis acute July 11, 2024 9:54am History of CVA (cerebrovascu lar accident) acute July 11 2 025 9:54am Varicose veins of legs acute Fe bruary 2024 9:54am Hx of arterial ischemic stroke acute August 18, 2024 12:56pm Nonrheumatic aortic (valve) insufficiency acute August 18, 2024 12:56pm Patent foramen ovale acute [facility] h 2024 12:56pm [facility] Work Phone: 1(123) 983-773111-26-2024 NoteDate of Procedure 04/25/2024. Commissions Specialist Information Recorder Helper Seismograph: re. Interpretation Right Eye Normal without fluid. Left Eye Normal without fluid. Interval Change Right Eye Initial. Left Eye Initial.[id number] Instructions* Patient Instructions* Junior Shipley, OD - 04/25/2024 8:27 AM EST Recommend over the counter artificial tears twice a day, or more as needed for dry/ tired eyes. Good brands of tears are Systane, Refresh, Soothe, Blink, or Thereatears. Avoid drops for red eyes. Preservative free tears are best when using more than four times per day. Recommend taking breaks from computer/phone every 20-30 minutes, and to remember to blink when using electronics. Recommend over the counter allergy drops Alaway or Zaditor twice a day, or Pataday once a day throughout allergy season for itchy eyes. Cool compresses as needed for comfort, and avoid itching or rubbing eyes. Return to clinic with increase in symptoms, otherwise monitor yearly. [facility] NoteHNO ID: [id number] Author: JUNIOR SHIPLEY, GO Service: ? Author Type: POLYGRAPH EXAMINER Type: Progress Notes Filed: 04/25/2024 08:40 Note Text: ASSESSMENT/PLAN: 1. Combined forms of age-related cataract of both eyes - ICD9: 366.19, ICD10: H25.813 (primary diagnosis) - OCT MACULA CIRRUS OU (BOTH EYES) Good reliability in both eyes. Normal foveal contour in both eyes. Educate patient on ultraviolet protection and yearly eye exams. Return to clinic sooner with changes in vision, or increase in glare with night time driving. 2. Floaters, bilateral - ICD9: 379.24, ICD10: H43.393 Educate patient on signs and symptoms of retinal detachment and to return to clinic with increase in flashes/floaters, or decrease in peripheral vision. Monitor. 3. Pinguecula, bilateral Educate patient on ultraviolet protection and yearly eye exams. Recommend over the counter artificial tears twice a day, or more as needed for dry/ tired eyes. Good brands of tears are Systane, Refresh, Soothe, Blink, or Thereatears. Avoid drops for red eyes. Preservative free tears are best when using more than four times per day. Recommend taking breaks from computer/phone every 20-30 minutes, and to remember to blink when using electronics. Recommend over the counter allergy drops Alaway or Zaditor twice a day, or Pataday once a day throughout allergy season for itchy eyes. Cool compresses as needed for comfort, and avoid itching or rubbing eyes. Return to clinic with increase in symptoms, otherwise monitor yearly. Junior Shipley, OD April 25, 2024 8:38 [facility]11-26-2024 History of Present illness Narrative* Junior Shipley, OD - 04/25/2024 8:22 AM EST ASSESSMENT/PLAN: 1. Combined forms of age-related cataract of both eyes - ICD9: 366.19, ICD10: H25.813 (primary diagnosis) - OCT MACULA CIRRUS OU (BOTH EYES) Good reliability in both eyes. Normal foveal contour in both eyes. Educate patient on ultraviolet protection and yearly eye exams. Return to clinic sooner with changes in vision, or increase in glarewith night time driving. 2. Floaters, bilateral - ICD9: 379.24, ICD10: H43.393 Educate patient on signs and symptoms of retinal detachment and to return to clinic with increase in flashes/floaters, or decrease in peripheral vision. Monitor. 3. Pinguecula, bilateral Educate patient on ultraviolet protection and yearly eye exams. Recommend over the counter artificial tears twice a day, or more as needed for dry/ tired eyes. Good brands of tears are Systane, Refresh, Soothe, Blink, or Thereatears. Avoid drops for red eyes. Preservative free tears are best whenusing more than four times per day. Recommend taking breaks from computer/phone every 20-30 minutes, and to remember to blink when using electronics. Recommend over the counter allergy drops Alaway or Zaditor twice a day, or Pataday once a day throughout allergy season for itchy eyes. Cool compresses as needed for comfort, and avoid itching or rubbing eyes. Return to clinic with increase in symptoms, otherwise monitor yearly. Junior Shipley, GO April 25, 2024 8:38 AM [facility] History of Present illness Narrative* Christin Duque LPN - 02/11/2024 8:00 AM EDT Follow up labs * Teresa Duffy MD - 02/11/2024 8:00 AM EDT Patient presents for periodic surveillance of chronic medical problems. Subjective Neena Roman is a 68 y.o. male who presents for Follow-up. HPI HTN stable History of stroke Prediabetes, A1c 6.1, stable History of elevated psa/bph, sees urology Dr العلي Has pain in bilateral thumb cmp for several years, getting worse Painful varicosities in legs, wearing compression stockings Review of Systems All other systems reviewed and are negative. . Allergies Allergen Reactions Penicillins Unknown Current Outpatient Medications on File Prior to Visit Medication Sig Dispense Refill amLODIPine (Norvasc) 10 mg tablet Take 1 tablet (10 mg) by mouth once daily. 90 tablet 3 atorvastatin (Lipitor) 20 mg tablet TAKE 1 TABLET BY MOUTH ONCE DAILY 90 tablet 3 betamethasone dipropionate 0.05 % cream Apply 1 Application topically once daily. 15 g 3 clopidogrel (Plavix) 75 mg tablet take 1 tablet by mouth once daily 30 tablet 0 glucosamine sulfate (GLUCOSAMINE ORAL) Take 750 mg by mouth in the morning. Lactobacillus acidophilus (PROBIOTIC ACIDOPHILUS ORAL) Take 1 tablet by mouth once daily. multivitamin tablet Take by mouth. SAW PALMBHAKTI ORAL Take by mouth. No current facility-administered medications on file prior to visit. Patient Active Problem List Diagnosis Arthralgia Benign prostatic hyperplasia with urinary obstruction and other lower urinary tract symptoms Chronic neck pain Elevated PSA measurement Hypertension Prediabetes Stroke of unknown cause (Multi) Objective Visit Vitals BP 138/80 (BP Location: Left arm, Patient Position: Sitting) Pulse 64 Physical Exam Vitals and nursing note reviewed. Constitutional: General: He is not in acute distress. Appearance: Normal appearance. He is not toxic-appearing. HENT: Head: Normocephalic and atraumatic. Cardiovascular: Rate and Rhythm: Normal rate and regular rhythm. Heart sounds: No murmur heard. Pulmonary: Effort: Pulmonary effort is normal. Breath sounds: Normal breath sounds. Musculoskeletal: Cervical back: Neck supple. No rigidity. Comments: Bilateral negative finkelsteins test Left lower extremity with signifcant superficial varicosities Skin: General: Skin is warm and dry. Neurological: General: No focal deficit present. Mental Status: He is alert and oriented to person, place, and time. Psychiatric: Mood and Affect: Mood normal. Behavior: Behavior normal. Lab on 02/03/2024 Component Date Value Ref Range Status Glucose 02/03/2024 100 (H) 74 - 99 mg/dL Final Sodium 02/03/2024 138 136 - 145 mmol/L Final Potassium 02/03/2024 4.2 3.5 - 5.3 mmol/L Final Chloride 02/03/2024 104 98 - 107 mmol/L Final Bicarbonate 02/03/2024 29 21 - 32 mmol/L Final Anion Gap 02/03/2024 9 (L) 10 - 20 mmol/L Final Urea Nitrogen 02/03/2024 21 6 - 23 mg/dL Final Creatinine 02/03/2024 0.95 0.50 - 1.30 mg/dL Final eGFR 02/03/2024 86 >60 mL/min/1.73m*2 Final Calculations of estimated GFR are performed using the 2020 CKD-EPI Study Refit equation without therace variable for the IDMS-Traceable creatinine methods. https://jasn.asnjournals.org/content/early//ASN.6010353261 Calcium 02/03/2024 9.9 8.6 - 10.3 mg/dL Final Hemoglobin A1C 02/03/2024 6.1 (H) see below % Final Estimated Average Glucose 02/03/2024 128 Not Established mg/dL Final Hepatitis C AB 02/03/2024 Nonreactive Nonreactive Final Results from patients taking biotin supplements or receiving high-dose biotin therapy should be interpreted with caution due to possible interference with this test. Providers may contact their locallaboratory for further information. Assessment/Plan Problem List Items Addressed This Visit Hypertension Relevant Orders CBC and Auto Differential Comprehensive Metabolic Panel Lipid Panel TSH with reflex to Free T4 if abnormal Microscopic Only, Urine Albumin-Creatinine Ratio, Urine Random Vitamin B12 Hemoglobin A1C Prediabetes Relevant Orders CBC and Auto Differential Comprehensive Metabolic Panel Lipid Panel TSH with reflex to Free T4 if abnormal Microscopic Only, Urine Albumin-Creatinine Ratio, Urine Random Vitamin B12 Hemoglobin A1C Other Visit Diagnoses Influenza vaccination declined - Primary Bilateral thumb pain Relevant Orders XR hand left 3+ views XR hand right 3+ views Varicose veins of both lower extremities with pain Relevant Orders Referral to Vascular Surgery Call concerns, routine followup six months, labs prior. Teresa Duffy MD Patient was identified as a fall risk. Risk prevention instructions provided.Patient was identified as a fall risk. Risk prevention instructions provided. [facility] Work Phone: [phone] Instructions* Patient Instructions* Teresa Duffy MD - 02/11/2024 8:00 AM EDT Ways to Help Prevent Falls at Home Quick Tips ? Ask for help if you need it. Most people want to help! ? Get up slowly after sitting or laying down ? Wear a medical alert device or keep cell phone in your pocket ? Use night lights, especially areas near a bathroom ? Keep the items you use often within reach on a small stool or end table ? Use an assistive device such as walker or cane, as directed by provider/physical therapy ? Use a non-slip mat and grab bars in your bathroom. Look for home health sections for best options Other Areas to Focus On ? Exercise and nutrition: Regular exercise or taking a falls prevention class are great ways improve strength and balance. Don t forget to stay hydrated and bring a snack! ? Medicine side effects: Some medicines can make you sleepy or dizzy, which could cause a fall. Askyour healthcare provider about the side effects your medicines could cause. Be sure to let them know if you take any vitamins or supplements as well. ? Tripping hazards: Remove items you could trip on, such as loose mats, rugs, cords, and clutter. Wear closed toe shoes with rubber soles. ? Health and wellness: Get regular checkups with your healthcare provider, plus routine vision and hearing screenings. Talk with your healthcare provider about: o Your medicines and the possible side effects - bring them in a bag if that is easier! o Problems with balance or feeling dizzy o Ways to promote bone health, such as Vitamin D and calcium supplements o Questions or concerns about falling *Ask your healthcare team if you have questions [facility]2021 Ways to Help Prevent Falls at Home Quick Tips ? Ask for help if you need it. Most people want to help! ? Get up slowly after sitting or laying down ? Wear a medical alert device or keep cell phone in your pocket ? Use night lights, especially areas near a bathroom ? Keep the items you use often within reach on a small stool or end table ? Use an assistive device such as walker or cane, as directed by provider/physical therapy ? Use a non-slip mat and grab bars in your bathroom. Look for home health sections for best options Other Areas to Focus On ? Exercise and nutrition: Regular exercise or taking a falls prevention class are great ways improve strength and balance. Don t forget to stay hydrated and bring a snack! ? Medicine side effects: Some medicines can make you sleepy or dizzy, which could cause a fall. Askyour healthcare provider about the side effects your medicines could cause. Be sure to let them know if you take any vitamins or supplements as well. ? Tripping hazards: Remove items you could trip on, such as loose mats, rugs, cords, and clutter. Wear closed toe shoes with rubber soles. ? Health and wellness: Get regular checkups with your healthcare provider, plus routine vision and hearing screenings. Talk with your healthcare provider about: o Your medicines and the possible side effects - bring them in a bag if that is easier! o Problems with balance or feeling dizzy o Ways to promote bone health, such as Vitamin D and calcium supplements o Questions or concerns about falling *Ask your healthcare team if you have questions [facility] 2021 [facility] Work Phone: [phone]) 399-430306-05-2024 Evaluation + Plan note* Assessment & Plan Note - Mary Kay Fox CNP - 11/03/2023 2:34 PM EDTAssociated Problem(s): Stroke (cerebrum) (HCC) Finish Plavix therapy. Continue aspirin 81 mg daily and atorvastatin 20 mg daily for stroke prevention. 30 day cardiac event monitor was negative for atrial fibrillation. Blood pressure elevated today. Encouraged to continue to monitor closely and follow-up with primarycare for continued monitoring and management. Goal less than 130/80. Lipid panel 07/26/2023: Cholesterol 88, Triglycerides 68, HDL 38, and LDL 36 Hemoglobin A1c 07/26/2023: 6.2% No fall or injuries reported. Fall precautions discussed. Stroke signs/symptoms along with lifestyle changed discussed with stroke education placed in AVS. Follow-up as needed. [id number] Miscellaneous Notes* Assessment & Plan Note - Mary Kay Fox CNP - 11/03/2023 2:34 PM EDTAssociated Problem(s): Stroke (cerebrum) (HCC) Finish Plavix therapy. Continue aspirin 81 mg daily and atorvastatin 20 mg daily for stroke prevention. 30 day cardiac event monitor was negative for atrial fibrillation. Blood pressure elevated today. Encouraged to continue to monitor closely and follow-up with primarycare for continued monitoring and management. Goal less than 130/80. Lipid panel 07/26/2023: Cholesterol 88, Triglycerides 68, HDL 38, and LDL 36 Hemoglobin A1c 07/26/2023: 6.2% No fall or injuries reported. Fall precautions discussed. Stroke signs/symptoms along with lifestyle changed discussed with stroke education placed in AVS. Follow-up as needed. documented in this [id number] NotePatient ID: Neena Roman is a 68 y.o. male. Assessment/Plan: Problem List Stroke (cerebrum) (HCC) - Primary Finish Plavix therapy. Continue aspirin 81 mg daily and atorvastatin 20 mg daily for stroke prevention. 30 day cardiac event monitor was negative for atrial fibrillation. Blood pressure elevated today. Encouraged to continue to monitor closely and follow-up with primary care for continued monitoring and management. Goal less than 130/80. Lipid panel 07/26/2023: Cholesterol 88, Triglycerides 68, HDL 38, and LDL 36 Hemoglobin A1c 07/26/2023: 6.2% No fall or injuries reported. Fall precautions discussed. Stroke signs/symptoms along with lifestyle changed discussed with stroke education placed in AVS. Follow-up as needed. Follow-up as needed. Time statement: A total of 40 minutes were spent on this encounter, which includes the time reviewing the patient's diagnostic tests, seeing the patient, speaking with nursing staff, and documenting in the record. Mary Kay Fox, MSN, [employer] OPERATOR [facility] Neurology Subjective HPI Update 11/02/2023: Patient returns today for stroke follow-up accompanied by his spouse. He ambulated to the exam room today without assistive device. He completed the 30 day cardiac event monitor July 2023 that was negative for atrial fibrillation. He is all finished with Plavix and continues on aspirin 81 mg daily and atorvastatin 20 mg daily for stroke prevention. He states his only complaint is pain in both of his thumbs at the joint. He states this was going on prior to his hospitalization but feels this worsened after he completed his MRI. His right hand was x-rayed due to the pain and swelling which showed severe osteoarthritis. He has been keeping busy working outside. He denies any falls since previous follow-up. No concerns with anxiety or depression reported. No further issues or concerns reported at this time. Update 05/11/2023: Patient is here today with his and daughter for hospital follow-up. He reports no issues or concerns with balance or weakness. He states he still has some issues with memory. Since discharge he reports some issues with forgetting words with conversation but states this is nothing significant and nothing that has worsened. He states when the episode initially occurred he could not communication. He was having trouble forming words and was confused. He denies any headaches since discharge. He is compliant with Plavix, aspirin, and atorvastatin. He has not completed the 30 day heart monitor yet - states this has not been sent to him yet. No further issues or concerns reported at this time. Inpatient neurology update from Dr. Vergara 04/03/2023: ASSESSMENT: Neena Roman is a 68 y.o. male who presented to [facility] on 04/12/2023 with stroke Patient with acute onset of aphasia and acalculia at 1930 on 04/11/23. NIHSS 4 for aphasia. Given tPA 2133 on 04/11/23. CT/CTA negative for acute findings. No significant stenosis on CTA. Mild improvement, still has mild aphasia but no other deficits. MRI brain shows a small infarct in the left parietal lobe. It appears embolic. Stroke risk factors include HTN, HLD, former smoking, family h/o stroke. TTE does show a PFO but otherwise normal cardiac function. Will need cardiac monitoring after discharge. RoPE score of 3 (hypertension, age 68, cortical infarct plus 1 point for remote infarcts seen on MRI) indicative of 0% chance stroke being related to PFO. Otherwise, not much further inpatient work to be done. He is likely OK to be discharged on 04/14 assuming blood pressures remain stable. Diagnoses: Acute ischemic stroke SUBJECTIVE: Chief Complaint/Reason for Consult: stroke History of Present Illness: Neena Roman is a 68 y.o. male who presented on 04/12/2023 for stroke. Neurology is consulted for stroke. Fell asleep 1900 on 04/11 and woke up at 1930 with aphasia. NIHSS [address]/CTA unremarkable. tPA given at OSH ED at 2133. Today feels OK, has a mild headache (actually mostly neck but spreads a bit into the back of the head). Doesn't get the head pain much but neck is a problem sometimes. Takes some kind of medication but can't say what it is due to the aphasia. No prior h/o stroke. Usually pretty independent. Interval history 04/13/23: Thinks things are a bit better. Headache/neck pain gone today, feels pretty good overall. Speech is a little easier. No new deficits. MRI confirms a small left parietal cortical stroke. Review of patients current medication list along with allergies, past medical history, surgical history, family history, and social history was reviewed and updated as appropriate. Review of Systems Constitutional: Negative for activity change, appetite change, chills, fatigue, fever and unexpected weight change. HENT: Negative for trouble swallowing. Eyes: Negative for visual dis (more content not included)...[facility]06-04-2024 History of Present illness Narrative* Mary Kay Fox, [facility] - 11/02/2023 9:30 AM EDT Patient ID: Neena Roman is a 68 y.o. male. Assessment/Plan: Problem List Stroke (cerebrum) (HCC) - Primary Finish Plavix therapy. Continue aspirin 81 mg daily and atorvastatin 20 mg daily for stroke prevention. 30 day cardiac event monitor was negative for atrial fibrillation. Blood pressure elevated today. Encouraged to continue to monitor closely and follow-up with primarycare for continued monitoring and management. Goal less than 130/80. Lipid panel 07/26/2023: Cholesterol 88, Triglycerides 68, HDL 38, and LDL 36 Hemoglobin A1c 07/26/2023: 6.2% No fall or injuries reported. Fall precautions discussed. Stroke signs/symptoms along with lifestyle changed discussed with stroke education placed in AVS. Follow-up as needed. Follow-up as needed. Time statement: A total of 40 minutes were spent on this encounter, which includes the time reviewing the patient's diagnostic tests, seeing the patient, speaking with nursing staff, and documenting in the record. Mary Kay Fox, MSN, [employer] OPERATOR [facility] Neurology Subjective HPI Update 11/02/2023: Patient returns today for stroke follow-up accompanied by his spouse. He ambulatedto the exam room today without assistive device. He completed the 30 day cardiac event monitor July 2023 that was negative for atrial fibrillation. He is all finished with Plavix and continues onaspirin 81 mg daily and atorvastatin 20 mg daily for stroke prevention. He states his only complaint is pain in both of his thumbs at the joint. He states this was going on prior to his hospitalization but feels this worsened after he completed his MRI. His right hand was x-rayed due to the pain and swelling which showed severe osteoarthritis. He has been keeping busy working outside. He denies any falls since previous follow-up. No concerns with anxiety or depression reported. No further issues or concerns reported at this time. Update 05/11/2023: Patient is here today with his and daughter for hospital follow-up. He reports no issues or concerns with balance or weakness. He states he still has some issues with memory. Since discharge he reports some issues with forgetting words with conversation but states this is nothing significant and nothing that has worsened. He states when the episode initially occurred he could not communication. He was having trouble forming words and was confused. He denies any headachessince discharge. He is compliant with Plavix, aspirin, and atorvastatin. He has not completed the 30 day heart monitor yet - states this has not been sent to him yet. No further issues or concerns reported at this time. Inpatient neurology update from Dr. Vergara 04/03/2023: ASSESSMENT: Neena Roman is a 68 y.o. male who presented to [facility] on 04/12/2023 with stroke Patient with acute onset of aphasia and acalculia at 1930 on 04/11/23. NIHSS 4 for aphasia. Given tPA 2133 on 04/11/23. CT/CTA negative for acute findings. No significant stenosis on CTA. Mild improvement, still has mild aphasia but no other deficits. MRI brain shows a small infarct in the left parietal lobe. It appears embolic. Stroke risk factors include HTN, HLD, former smoking, family h/o stroke. TTE does show a PFO but otherwise normal cardiac function. Will need cardiac monitoring after discharge. RoPE score of 3 (hypertension, age 68, cortical infarct plus 1 point for remote infarcts seen on MRI) indicative of 0% chance stroke being related to PFO. Otherwise, not much further inpatient work to be done. He is likely OK to be discharged on 04/14 assuming blood pressures remain stable. Diagnoses: Acute ischemic stroke SUBJECTIVE: Chief Complaint/Reason for Consult: stroke History of Present Illness: Neena Roman is a 68 y.o. male who presented on 04/12/2023 for stroke. Neurology is consultedfor stroke. Fell asleep 1900 on 04/11 and woke up at 1930 with aphasia. NIHSS [address]/CTA unremarkable. tPA given at OSH ED at 2133. Today feels OK, has a mild headache (actually mostly neck but spreadsa bit into the back of the head). Doesn't get the head pain much but neck is a problem sometimes. Takes some kind of medication but can't say what it is due to the aphasia. No prior h/o stroke. Usually pretty independent. Interval history 04/13/23: Thinks things are a bit better. Headache/neck pain gone today, feels pretty good overall. Speech yung little easier. No new deficits. MRI confirms a small left parietal cortical stroke. Review of patients current medication list along with allergies, past medical history, surgical history, family history, and social history was reviewed and updated as appropriate. Review of Systems Constitutional: Negative for activity change, appetite change, chills, fatigue, fever and unexpected weight change. HENT: Negative for trouble swallowing. Eyes: Negative for visual disturbance. Respiratory: Negative for cough, shortness of breath and wheezing. Cardiovascular: Negative for chest pain and palpitations. Gastrointestinal: Negative for abdominal pain, nausea and vomiting. Endocrine: Negative for polydipsia, polyphagia and polyuria. Genitourinary: Negative for difficulty urinating. Musculoskeletal: Negative for arthralgias, back pain and neck pain. Skin: Negative for rash. Neurological: Negative for dizziness, tremors, seizures, syncope, weakness, light-headedness and headaches. Psychiatric/Behavioral: Positive for confusion. Negative for decreased concentration, dysphoric mood and sleep disturbance. The patient is not nervous/anxious. Objective BP (!) 156/92 (BP Location: Left arm, Patient Position: Sitting, BP Cuff Size: Adult) Comment: advised to monitor and notify pcp Pulse 61 Resp 16 Ht 6' 2 Wt 97.5 kg (215 lb) SpO2 97% BMI27.60 kg/m Neurologic Exam Mental Status Oriented to person, place, and time. Attention: normal. Concentration: normal. Speech: speech is normal (Clear, spontaneous, and fluent.) Level of consciousness: alert Knowledge: good. Cranial Nerves Cranial nerves II through XII intact. CN III, IV, Pupils are equal, round, and reactive to light. Extraocular motions are normal. Right pupil: Size: 2 mm. Consensual response: intact. Accommodation: intact. Left pupil: Size: 2 mm. Consensual response: intact. Accommodation: intact. CN III: no CN III palsy CN : no CN palsy Nystagmus: none Diplopia: none Ophthalmoparesis: none Upgaze: normal Downgaze: normal Conjugate gaze: present Motor Exam Muscle bulk: normal Overall muscle tone: normal Right arm pronator drift: absent Left arm pronator drift: absent Strength Strength 5/5 throughout. Sensory Exam Light touch normal. Gait, Coordination, and Reflexes Gait Gait: normal Coordination Romberg: negative Finger to nose coordination: normal Tandem walking coordination: normal Tremor Resting tremor: absent Intention tremor: absent Action tremor: absent Reflexes Reflexes 2+ except as noted. Physical Exam Vitals and nursing note reviewed. Constitutional: Appearance: He is well-developed. HENT: Head: Normocephalic and atraumatic. Eyes: Extraocular Movements: EOM normal. Pupils: Pupils are equal, round, and reactive to light. Cardiovascular: Rate and Rhythm: Normal rate and regular rhythm. Heart sounds: No murmur heard. Pulmonary: Effort: Pulmonary effort is normal. No respiratory distress. Breath sounds: Normal breath sounds. No wheezing. Abdominal: General: Bowel sounds are normal. There is no distension. Palpations: Abdomen is soft. Musculoskeletal: General: Normal range of motion. Cervical back: Normal range of motion and neck supple. Skin: General: Skin is warm and dry. Findings: No rash. Neurological: Mental Status: He is alert and oriented to person, place, and time. Cranial Nerves: Cranial nerves 2-12 are intact. No cranial nerve deficit. Motor: Motor strength is normal. Coordination: Fqaqux-Ztva-Tofdzc Test and Romberg Test normal. Gait: Gait is intact. Tandem walk normal. Deep Tendon Reflexes: Reflexes are normal and symmetric. Psychiatric: Speech: Speech normal. Behavior: Behavior normal. Thought Content: Thought content normal. Judgment: Judgment normal. documented in this [id number] Instructions* Patient Instructions* Mary Kay Fox CNP - 11/02/2023 9:30 AM EDT Continue aspirin 81 mg daily and atorvastatin 20 mg daily for stroke prevention. 30 day hear monitor came back ok. Blood pressure looks pretty good today. Continue to monitor closely at home, especially since you take blood pressure medication. Goal blood pressure is less than 130/80. Continue to keep mentally and physically active. Monitor for any changes or worsening in memory andmood. Follow-up as needed. Stroke Signs and Symptoms - FAST: Facial drooping, arm weakness, speech difficulty, and time to call 911. - Weakness or numbness in the face, arms, or legs; especially when it is on one side of the body. - Confusion, trouble speaking or understanding. - Changes in vision such as blurry vision or partial or complete loss of vision in one or both eyes. - Trouble walking, dizziness, loss of balance, or coordination. - Severe headache with no reason or explanation. Stroke Lifestyle Changes - Stop smoking, if you smoke. - Get regular exercise. At least 30 minutes a day on most days of the week is recommended. - Lose weight, if you are overweight. - Mediterranean diet is recommended. This diet is rich in fruits, vegetables, and low-fat dairy products. Low amounts of meat, sweets, and refined grains (such as white bread or white rice) should beconsumed. - Monitor sodium intake. Do no add salt to foods. Read food labels, canned foods and processed foods are high in sodium and should be avoided. - Limit alcohol consumption documented in this [id number] History of Present illness Narrative* Christin Duque LPN - 08/05/2023 8:00 AM EST Wellness exam * Teresa Duffy MD - 08/05/2023 8:00 AM EST Subjective Reason for Visit: Neena Roman is an 68 y.o. male here for a Medicare Wellness visit. Past Medical, Surgical, and Family History reviewed and updated in chart. Reviewed all medications by prescribing practitioner or clinical pharmacist (such as prescriptions,OTCs, herbal therapies and supplements) and documented in the medical record. HPI HTN, hyperlipidemia, prediabetes, all stable Stroke with speech changes and aphasia this fall, back to normal, if tired in the evenings sometimes notices slurred but otherwise has returned to baseline Has had pain in both thumbs on knee, worse since MRI. Discussed tylenol as best choice for otc meds, and at this point he doesn't want to pursue further evaluation or treatment. Patient Care Team: Teresa Duffy MD as PCP - General (Family Medicine) Teresa Dufyf MD as PCP - [employer] PCP Review of Systems All other systems reviewed and are negative. Objective Vitals: BP 124/80 (BP Location: Left arm, Patient Position: Sitting) Pulse 64 Ht 1.88 m (6' 2) Wt 96.6 kg (213 lb) BMI 27.35 kg/m Physical Exam Vitals and nursing note reviewed. Constitutional: General: He is not in acute distress. Appearance: Normal appearance. He is not toxic-appearing. HENT: Head: Normocephalic and atraumatic. Cardiovascular: Rate and Rhythm: Normal rate and regular rhythm. Heart sounds: No murmur heard. Pulmonary: Effort: Pulmonary effort is normal. Breath sounds: Normal breath sounds. Musculoskeletal: Cervical back: Neck supple. No rigidity. Comments: Skin: General: Skin is warm and dry. Neurological: General: No focal deficit present. Mental Status: He is alert and oriented to person, place, and time. Psychiatric: Mood and Affect: Mood normal. Behavior: Behavior normal. Assessment/Plan Problem List Items Addressed This Visit Hypertension Prediabetes Relevant Orders Basic Metabolic Panel Hemoglobin A1C Stroke of unknown cause (CMS/HCC) Other Visit Diagnoses Routine general medical examination at health care facility - Primary Need for hepatitis C screening test Relevant Orders Hepatitis C antibody Patient was identified as a fall risk. Risk prevention instructions provided. documented in this [facility] Work Phone: [phone] Instructions* Patient Instructions* Teresa Duffy MD - 08/05/2023 8:00 AM EST Follow up six months, labs prior, call concerns. Ways to Help Prevent Falls at Home Quick Tips ? Ask for help if you need it. Most people want to help! ? Get up slowly after sitting or laying down ? Wear a medical alert device or keep cell phone in your pocket ? Use night lights, especially areas near a bathroom ? Keep the items you use often within reach on a small stool or end table ? Use an assistive device such as walker or cane, as directed by provider/physical therapy ? Use a non-slip mat and grab bars in your bathroom. Look for home health sections for best options Other Areas to Focus On ? Exercise and nutrition: Regular exercise or taking a falls prevention class are great ways improve strength and balance. Don t forget to stay hydrated and bring a snack! ? Medicine side effects: Some medicines can make you sleepy or dizzy, which could cause a fall. Askyour healthcare provider about the side effects your medicines could cause. Be sure to let them know if you take any vitamins or supplements as well. ? Tripping hazards: Remove items you could trip on, such as loose mats, rugs, cords, and clutter. Wear closed toe shoes with rubber soles. ? Health and wellness: Get regular checkups with your healthcare provider, plus routine vision and hearing screenings. Talk with your healthcare provider about: o Your medicines and the possible side effects - bring them in a bag if that is easier! o Problems with balance or feeling dizzy o Ways to promote bone health, such as Vitamin D and calcium supplements o Questions or concerns about falling *Ask your healthcare team if you have questions [facility] 2021 documented in this [facility] Work Phone: [phone] 700-257201-01-2024 Evaluation + Plan note* Assessment & Plan Note - Mary Kay Fox CNP - 05/31/2023 9:56 PM ESTAssociated Problem(s): Stroke (cerebrum) (HCC) Finish Plavix at home, then discontinued - no further refills needed. Continue aspirin 81 mg daily and atorvastatin 20 mg daily for stroke prevention. Our office will check on status of 30 day heart monitor - which should be mailed out to him soon. Blood pressure appears controlled at this time. Encouraged continued monitoring with goal less wljf685/80. No fall or injuries reported. Stroke signs/symptoms along with lifestyle changed discussed with stroke education placed in AVS. Follow-up in 6 months, or sooner as needed. [id number] Miscellaneous Notes* Assessment & Plan Note - Mary Kay Fox CNP - 05/31/2023 9:56 PM ESTAssociated Problem(s): Stroke (cerebrum) (HCC) Finish Plavix at home, then discontinued - no further refills needed. Continue aspirin 81 mg daily and atorvastatin 20 mg daily for stroke prevention. Our office will check on status of 30 day heart monitor - which should be mailed out to him soon. Blood pressure appears controlled at this time. Encouraged continued monitoring with goal less tapp104/80. No fall or injuries reported. Stroke signs/symptoms along with lifestyle changed discussed with stroke education placed in AVS. Follow-up in 6 months, or sooner as needed. documented in this [id number] Instructions* Patient Instructions* Mary Kay Fox CNP - 05/11/2023 11:00 AM EST Once you finish the Plavix you will be done with this. Continue aspirin 81 mg daily and atorvastatin 20 mg daily for stroke prevention. 30 day hear monitor should be sent out to you - sometimes they will call before they send it out. Blood pressure looks pretty good today. Continue to monitor closely at home, especially since you take blood pressure medication. Goal blood pressure is less than 130/80. Continue to keep mentally and physically active. Monitor for any changes or worsening in memory andmood. Follow-up in 6 months, or sooner as needed. Stroke Signs and Symptoms - FAST: Facial drooping, arm weakness, speech difficulty, and time to call 911. - Weakness or numbness in the face, arms, or legs; especially when it is on one side of the body. - Confusion, trouble speaking or understanding. - Changes in vision such as blurry vision or partial or complete loss of vision in one or both eyes. - Trouble walking, dizziness, loss of balance, or coordination. - Severe headache with no reason or explanation. Stroke Lifestyle Changes - Stop smoking, if you smoke. - Get regular exercise. At least 30 minutes a day on most days of the week is recommended. - Lose weight, if you are overweight. - Mediterranean diet is recommended. This diet is rich in fruits, vegetables, and low-fat dairy products. Low amounts of meat, sweets, and refined grains (such as white bread or white rice) should beconsumed. - Monitor sodium intake. Do no add salt to foods. Read food labels, canned foods and processed foods are high in sodium and should be avoided. - Limit alcohol consumption documented in this [id number] History of Present illness Narrative* Mary Kay Fox CNP - 05/11/2023 10:49 AM EST Patient ID: Neena Roman is a 68 y.o. male. Assessment/Plan: Problem List Stroke (cerebrum) (HCC) - Primary Finish Plavix at home, then discontinued - no further refills needed. Continue aspirin 81 mg daily and atorvastatin 20 mg daily for stroke prevention. Our office will check on status of 30 day heart monitor - which should be mailed out to him soon. Blood pressure appears controlled at this time. Encouraged continued monitoring with goal less qtdy162/80. No fall or injuries reported. Stroke signs/symptoms along with lifestyle changed discussed with stroke education placed in AVS. Follow-up in 6 months, or sooner as needed. Follow-up in 6 months, or sooner as needed. Time statement: A total of 40 minutes were spent on this encounter, which includes the time reviewing the patient's diagnostic tests, seeing the patient, speaking with nursing staff, and documenting in the record. Mary Kay Fox, MSN, [employer] O[employer] [facility] Neurology Subjective HPI Update 05/11/2023: Patient is here today with his and daughter for hospital follow-up. He reports no issues or concerns with balance or weakness. He states he still has some issues with memory. Since discharge he reports some issues with forgetting words with conversation but states this is nothing significant and nothing that has worsened. He states when the episode initially occurred he could not communication. He was having trouble forming words and was confused. He denies any headachessince discharge. He is compliant with Plavix, aspirin, and atorvastatin. He has not completed the 30 day heart monitor yet - states this has not been sent to him yet. No further issues or concerns reported at this time. Inpatient neurology update from Dr. Vergara 04/03/2023: ASSESSMENT: Neena Roman is a 68 y.o. male who presented to [facility] on 04/12/2023 with stroke Patient with acute onset of aphasia and acalculia at 1930 on 04/11/23. NIHSS 4 for aphasia. Given tPA 2133 on 04/11/23. CT/CTA negative for acute findings. No significant stenosis on CTA. Mild improvement, still has mild aphasia but no other deficits. MRI brain shows a small infarct in the left parietal lobe. It appears embolic. Stroke risk factors include HTN, HLD, former smoking, family h/o stroke. TTE does show a PFO but otherwise normal cardiac function. Will need cardiac monitoring after discharge. RoPE score of 3 (hypertension, age 68, cortical infarct plus 1 point for remote infarcts seen on MRI) indicative of 0% chance stroke being related to PFO. Otherwise, not much further inpatient work to be done. He is likely OK to be discharged on 04/14 assuming blood pressures remain stable. Diagnoses: Acute ischemic stroke SUBJECTIVE: Chief Complaint/Reason for Consult: stroke History of Present Illness: Neena Roman is a 68 y.o. male who presented on 04/12/2023 for stroke. Neurology is consultedfor stroke. Fell asleep 1900 on 04/11 and woke up at 1930 with aphasia. NIHSS [address]/CTA unremarkable. tPA given at OSH ED at 2133. Today feels OK, has a mild headache (actually mostly neck but spreadsa bit into the back of the head). Doesn't get the head pain much but neck is a problem sometimes. Takes some kind of medication but can't say what it is due to the aphasia. No prior h/o stroke. Usually pretty independent. Interval history 04/13/23: Thinks things are a bit better. Headache/neck pain gone today, feels pretty good overall. Speech yung little easier. No new deficits. MRI confirms a small left parietal cortical stroke. Review of patients current medication list along with allergies, past medical history, surgical history, family history, and social history was reviewed and updated as appropriate. Review of Systems Constitutional: Negative for activity change, appetite change, chills, fatigue, fever and unexpected weight change. HENT: Negative for trouble swallowing. Eyes: Negative for visual disturbance. Respiratory: Negative for cough, shortness of breath and wheezing. Cardiovascular: Negative for chest pain and palpitations. Gastrointestinal: Negative for abdominal pain, nausea and vomiting. Endocrine: Negative for polydipsia, polyphagia and polyuria. Genitourinary: Negative for difficulty urinating. Musculoskeletal: Negative for arthralgias, back pain and neck pain. Skin: Negative for rash. Neurological: Negative for dizziness, tremors, seizures, syncope, weakness, light-headedness and headaches. Psychiatric/Behavioral: Positive for confusion. Negative for decreased concentration, dysphoric mood and sleep disturbance. The patient is not nervous/anxious. Objective BP 138/82 (BP Location: Left arm, Patient Position: Sitting, BP Cuff Size: Adult) Pulse 65 Resp16 SpO2 98% Neurologic Exam Mental Status Oriented to person, place, and time. Attention: normal. Concentration: normal. Speech: speech is normal (Clear, spontaneous, and fluent.) Level of consciousness: alert Knowledge: good. Cranial Nerves Cranial nerves II through XII intact. CN III, IV, Pupils are equal, round, and reactive to light. Extraocular motions are normal. Right pupil: Size: 2 mm. Consensual response: intact. Accommodation: intact. Left pupil: Size: 2 mm. Consensual response: intact. Accommodation: intact. CN III: no CN III palsy CN : no CN palsy Nystagmus: none Diplopia: none Ophthalmoparesis: none Upgaze: normal Downgaze: normal Conjugate gaze: present Motor Exam Muscle bulk: normal Overall muscle tone: normal Right arm pronator drift: absent Left arm pronator drift: absent Strength Strength 5/5 throughout. Sensory Exam Light touch normal. Gait, Coordination, and Reflexes Gait Gait: normal Coordination Romberg: negative Finger to nose coordination: normal Tandem walking coordination: normal Tremor Resting tremor: absent Intention tremor: absent Action tremor: absent Reflexes Reflexes 2+ except as noted. Physical Exam Vitals and nursing note reviewed. Constitutional: Appearance: He is well-developed. HENT: Head: Normocephalic and atraumatic. Eyes: Extraocular Movements: EOM normal. Pupils: Pupils are equal, round, and reactive to light. Cardiovascular: Rate and Rhythm: Normal rate and regular rhythm. Heart sounds: No murmur heard. Pulmonary: Effort: Pulmonary effort is normal. No respiratory distress. Breath sounds: Normal breath sounds. No wheezing. Abdominal: General: Bowel sounds are normal. There is no distension. Palpations: Abdomen is soft. Musculoskeletal: General: Normal range of motion. Cervical back: Normal range of motion and neck supple. Skin: General: Skin is warm and dry. Findings: No rash. Neurological: Mental Status: He is alert and oriented to person, place, and time. Cranial Nerves: Cranial nerves 2-12 are intact. No cranial nerve deficit. Motor: Motor strength is normal. Coordination: Eejdeh-Ehyu-Ppdoim Test and Romberg Test normal. Gait: Gait is intact. Tandem walk normal. Deep Tendon Reflexes: Reflexes are normal and symmetric. Psychiatric: Speech: Speech normal. Behavior: Behavior normal. Thought Content: Thought content normal. Judgment: Judgment normal. documented in this [id number] History of Present illness Narrative* Christin Duque LPN - 04/19/2023 1:20 PM EST Follow up hospital; wonders how long he needs to be on plavix * Teresa Duffy MD - 04/19/2023 1:20 PM EST Patient was identified as a fall risk. Risk prevention instructions provided. * Teresa Duffy MD - 04/19/2023 1:20 PM EST Subjective Neena Roman is a 68 y.o. male who presents for Follow-up. [facility] Hospital follow up. [facility] 04/11 to 04/14 Had stroke, here with Teresa and daughter Dylon. States the evening of presentation he woke up after a nap after dinner and couldn't speak. Daughterwas with him, felt he had had a stroke and convinced him to to to [facility], had TPA. Admitted through . Mri with left parietal infarct. Heart monitor pending, no known a fib history. If he had an echo or carotid results aren't available yet. On aspirin and plavix. Non smoker, on statin. Has appt with neurology 05/11 Review of Systems All other systems reviewed and are negative. . Objective Visit Vitals BP 120/82 (BP Location: Left arm, Patient Position: Sitting) Pulse 76 Physical Exam Vitals and nursing note reviewed. Constitutional: General: He is not in acute distress. Appearance: Normal appearance. He is not toxic-appearing. HENT: Head: Normocephalic and atraumatic. Cardiovascular: Rate and Rhythm: Normal rate and regular rhythm. Heart sounds: No murmur heard. Pulmonary: Effort: Pulmonary effort is normal. Breath sounds: Normal breath sounds. Musculoskeletal: Cervical back: Neck supple. No rigidity. Comments: Normal gait Skin: General: Skin is warm and dry. Neurological: General: No focal deficit present. Mental Status: He is alert and oriented to person, place, and time. Psychiatric: Mood and Affect: Mood normal. Behavior: Behavior normal. Assessment/Plan Problem List Items Addressed This Visit Hypertension - Primary Relevant Medications clopidogrel (Plavix) 75 mg tablet Stroke of unknown cause (CMS/HCC) Teresa Duffy MD documented in this [facility] Work Phone: [phone] Instructions* Patient Instructions* Teresa Duffy MD - 04/19/2023 1:20 PM EST Ways to Help Prevent Falls at Home Quick Tips ? Ask for help if you need it. Most people want to help! ? Get up slowly after sitting or laying down ? Wear a medical alert device or keep cell phone in your pocket ? Use night lights, especially areas near a bathroom ? Keep the items you use often within reach on a small stool or end table ? Use an assistive device such as walker or cane, as directed by provider/physical therapy ? Use a non-slip mat and grab bars in your bathroom. Look for home health sections for best options Other Areas to Focus On ? Exercise and nutrition: Regular exercise or taking a falls prevention class are great ways improve strength and balance. Don t forget to stay hydrated and bring a snack! ? Medicine side effects: Some medicines can make you sleepy or dizzy, which could cause a fall. Askyour healthcare provider about the side effects your medicines could cause. Be sure to let them know if you take any vitamins or supplements as well. ? Tripping hazards: Remove items you could trip on, such as loose mats, rugs, cords, and clutter. Wear closed toe shoes with rubber soles. ? Health and wellness: Get regular checkups with your healthcare provider, plus routine vision and hearing screenings. Talk with your healthcare provider about: o Your medicines and the possible side effects - bring them in a bag if that is easier! o Problems with balance or feeling dizzy o Ways to promote bone health, such as Vitamin D and calcium supplements o Questions or concerns about falling *Ask your healthcare team if you have questions [facility] 2021 documented in this [facility] Work Phone: [phone] Miscellaneous Notes* Quick Note - Marta Camacho RN - 04/14/2023 2:50 PM EST Seen by [place] to home. Family present. Reviewed follow up appointments. Patient received community resources and discharge prescriptions from pharmacy. Transported to vehicle via wheelchair for discharge to home. * Plan of Care - Marce Molina RN - 04/14/2023 11:34 AM EST Problem: Actual or potential alteration in health Goal: Absence of healthcare acquired conditions Outcome: Partially Met Goal: Knowledge of Interdisciplinary Plan of Care Outcome: Partially Met Goal: Knowledge of Enviroment Outcome: Partially Met Problem: Pain Goal: Manage acute pain Outcome: Partially Met Goal: Manage chronic pain Outcome: Partially Met Goal: Reduced pain sensation Outcome: Partially Met Goal: Achievement of comfort function goal Outcome: Partially Met Problem: Stroke - Ischemic - Required Education Goal: Knowledge of care transition plan Outcome: Partially Met Problem: Aspiration, Risk of Goal: Absence of aspiration Outcome: Partially Met Goal: Safe intake of nutrition, fluids, and medications Outcome: Partially Met Problem: Activity Intolerance Goal: Improved activity tolerance Outcome: Partially Met Goal: Able to participate in acute rehabilitation Outcome: Partially Met Goal: Knowledge of prescribed activities Outcome: Partially Met Problem: Bleeding, Risk of Goal: Absence of impaired coagulation signs and symptoms Outcome: Partially Met Problem: Cognitive-Perceptual Pattern - Impaired Goal: Able to achieve maximum level of cognitive ability Outcome: Partially Met Problem: Falls, Risk of Goal: Absence of falls Outcome: Partially Met Problem: Mobility - Impaired Goal: Able to achieve maximum mobility level Outcome: Partially Met Problem: Mood - Altered Goal: Mood stable Outcome: Partially Met Problem: Self-care Deficit Goal: Able to perform ADL Outcome: Partially Met Goal: Able to communicate ADL needs Outcome: Partially Met Goal: Able to use self-care assistive device appropriately Outcome: Partially Met Problem: Tissue Perfusion, Cerebral - Altered Goal: Absence of continued neurologic deterioration signs and symptoms Outcome: Partially Met Problem: Urinary Elimination - Impaired Goal: Urinary elimination within specified parameters Outcome: Partially Met Goal: Absence of postvoid residual Outcome: Partially Met Goal: Absence of urinary incontinence Outcome: Partially Met Goal: Decrease in number of episodes of urinary incontinence Outcome: Partially Met Problem: Venous Thromboembolism, Risk of Goal: Absence of venous thromboembolism Outcome: Partially Met Problem: Verbal Communication - Impaired Goal: Effective communication Outcome: Partially Met Problem: Plan for Discharge Goal: Knowledge of discharge plan and instructions Outcome: Partially Met Goal: Knowledge of personal stroke risk factors Outcome: Partially Met Goal: Knowledge of stroke warning signs Outcome: Partially Met * Plan of Care - Loretta Frederick RN - 04/14/2023 2:05 AM EST Problem: Actual or potential alteration in health Goal: Absence of healthcare acquired conditions Outcome: Met Goal: Knowledge of Interdisciplinary Plan of Care Outcome: Met Goal: Knowledge of Enviroment Outcome: Met Problem: Pain Goal: Manage acute pain Outcome: Met Goal: Manage chronic pain Outcome: Met Goal: Reduced pain sensation Outcome: Met Goal: Achievement of comfort function goal Outcome: Met Problem: Stroke - Ischemic - Required Education Goal: Knowledge of care transition plan Outcome: Met Problem: Aspiration, Risk of Goal: Absence of aspiration Outcome: Met Goal: Safe intake of nutrition, fluids, and medications Outcome: Met Problem: Activity Intolerance Goal: Improved activity tolerance Outcome: Met Goal: Able to participate in acute rehabilitation Outcome: Met Goal: Knowledge of prescribed activities Outcome: Met Problem: Cognitive-Perceptual Pattern - Impaired Goal: Able to achieve maximum level of cognitive ability Outcome: Met Problem: Falls, Risk of Goal: Absence of falls Outcome: Met Problem: Mobility - Impaired Goal: Able to achieve maximum mobility level Outcome: Met Problem: Mood - Altered Goal: Mood stable Outcome: Met Problem: Self-care Deficit Goal: Able to perform ADL Outcome: Met Goal: Able to communicate ADL needs Outcome: Met Goal: Able to use self-care assistive device appropriately Outcome: Met Problem: Urinary Elimination - Impaired Goal: Urinary elimination within specified parameters Outcome: Met Goal: Absence of postvoid residual Outcome: Met Goal: Absence of urinary incontinence Outcome: Met Goal: Decrease in number of episodes of urinary incontinence Outcome: Met Problem: Venous Thromboembolism, Risk of Goal: Absence of venous thromboembolism Outcome: Met Problem: Plan for Discharge Goal: Knowledge of discharge plan and instructions Outcome: Met Goal: Knowledge of personal stroke risk factors Outcome: Met Goal: Knowledge of stroke warning signs Outcome: Met Problem: Bleeding, Risk of Goal: Absence of impaired coagulation signs and symptoms Outcome: Partially Met Problem: Tissue Perfusion, Cerebral - Altered Goal: Absence of continued neurologic deterioration signs and symptoms Outcome: Partially Met Problem: Verbal Communication - Impaired Goal: Effective communication Outcome: Partially Met * [facility] - Ca Villegas OT - 04/12/2023 10:31 AM EST OCCUPATIONAL THERAPY VISIT VARIANCE NOTE Attempted to see patient at this time, but unable secondary to: Awaiting Medical Clearance (comment) (Pt on bedrest following TPA administration late last evening.). Will follow up as appropriate. * Quick Note - Cece Gallagher RN - 04/12/2023 4:30 AM EST Patient arrived from [facility] via [facility], A+Ox4, GARAY without weakness. Demonstrates expressiveaphasia, but when given options is fully oriented. Dr. Lee notified of patient's arrival to [facility]. documented in this [id number] Note* Quick Note - Marta Camacho RN - 04/14/2023 2:50 PM EST Seen by [place] to home. Family present. Reviewed follow up appointments. Patient received community resources and discharge prescriptions from pharmacy. Transported to vehicle via wheelchair for discharge to home. [id number] Note* Plan of Care - Marce Molina RN - 04/14/2023 11:34 AM EST Problem: Actual or potential alteration in health Goal: Absence of healthcare acquired conditions Outcome: Partially Met Goal: Knowledge of Interdisciplinary Plan of Care Outcome: Partially Met Goal: Knowledge of Enviroment Outcome: Partially Met Problem: Pain Goal: Manage acute pain Outcome: Partially Met Goal: Manage chronic pain Outcome: Partially Met Goal: Reduced pain sensation Outcome: Partially Met Goal: Achievement of comfort function goal Outcome: Partially Met Problem: Stroke - Ischemic - Required Education Goal: Knowledge of care transition plan Outcome: Partially Met Problem: Aspiration, Risk of Goal: Absence of aspiration Outcome: Partially Met Goal: Safe intake of nutrition, fluids, and medications Outcome: Partially Met Problem: Activity Intolerance Goal: Improved activity tolerance Outcome: Partially Met Goal: Able to participate in acute rehabilitation Outcome: Partially Met Goal: Knowledge of prescribed activities Outcome: Partially Met Problem: Bleeding, Risk of Goal: Absence of impaired coagulation signs and symptoms Outcome: Partially Met Problem: Cognitive-Perceptual Pattern - Impaired Goal: Able to achieve maximum level of cognitive ability Outcome: Partially Met Problem: Falls, Risk of Goal: Absence of falls Outcome: Partially Met Problem: Mobility - Impaired Goal: Able to achieve maximum mobility level Outcome: Partially Met Problem: Mood - Altered Goal: Mood stable Outcome: Partially Met Problem: Self-care Deficit Goal: Able to perform ADL Outcome: Partially Met Goal: Able to communicate ADL needs Outcome: Partially Met Goal: Able to use self-care assistive device appropriately Outcome: Partially Met Problem: Tissue Perfusion, Cerebral - Altered Goal: Absence of continued neurologic deterioration signs and symptoms Outcome: Partially Met Problem: Urinary Elimination - Impaired Goal: Urinary elimination within specified parameters Outcome: Partially Met Goal: Absence of postvoid residual Outcome: Partially Met Goal: Absence of urinary incontinence Outcome: Partially Met Goal: Decrease in number of episodes of urinary incontinence Outcome: Partially Met Problem: Venous Thromboembolism, Risk of Goal: Absence of venous thromboembolism Outcome: Partially Met Problem: Verbal Communication - Impaired Goal: Effective communication Outcome: Partially Met Problem: Plan for Discharge Goal: Knowledge of discharge plan and instructions Outcome: Partially Met Goal: Knowledge of personal stroke risk factors Outcome: Partially Met Goal: Knowledge of stroke warning signs Outcome: Partially Met [id number] Hospital course Narrative* Carmenza Garcia MD - 04/14/2023 11:04 AM EST [facility] [place] -- [facility] Neena Roman Admitted: 04/12/2023 Discharge Date: 04/14/23 PCP Handoff Recommended Outpatient Testing Outpatient ST Results Pending At Discharge none Clinical Summary Neena Roman is a 68 y.o. male patient of Teresa Duffy MD with history of HTN, HLD, Kidney Stones, Elevated PSA, Chornic Neck Pain, BPH who presented as a transfer to [facility] from [facility] with complaints of Aphasia. Acute Stroke s/p TPA Aphasia Initial NIHSS at OSH: 4 Current NIHSS: 3 for LOC, Aphasia, mild dysarthria w some words CTH: no acute findings. Likely chronic microvascular ischemic changes CTA: no LVO CXR: no acute findings Echo w. Bubble: LVEF 63 %.. RV is enlarged with normal RV function. There is grade 1 diastolic dysfunction, consistent with impaired relaxation and low or normal left atrial pressures. Trivial AI. There is evidence of a right to left shunt identified with saline contrast with both free breathing and Valsalva. . MRI Approximate 5 cm area of acute/subacute mostly cortical infarction in the left parietal lobe/region. Mild atrophy.. Other extensive chronic small vessel ischemic changes. Antithrombotic - aspirin 81 mg and Plavix 81 mg for 21 days and aspirin 81 mg along 30-day event monitor ordered on discharge Outpatient speech therapy. HTN We will resume home amlodipine HLD Lipitor. Left thumb joint pain and edema X-ray reviewed-no fracture or dislocation. Severe osteoarthritis in the first carpometacarpal joint. Discharge Medications Discharge Medications New Medications Details aspirin 81 mg chewable tablet Start taking on: April 15, 2023 Chew and Swallow 1 (one) tablet (81 mg total) daily Start: 04/15/23. Quantity: 30 tablet clopidogreL 75 mg tablet Commonly known as: PLAVIX Start taking on: April 15, 2023 Take 1 (one) tablet (75 mg total) by mouth daily for 19 days Start: 04/15/23. Quantity: 19 tablet Medications To Continue Details amLODIPine 10 MG tablet Commonly known as: NORVASC Take 1 (one) tablet (10 mg total) by mouth daily . atorvastatin 20 MG tablet Commonly known as: LIPITOR Take 1 (one) tablet (20 mg total) by mouth daily . glucosamine HCl 750 mg Tab Take by mouth . multivitamin per tablet Commonly known as: THERAGRAN Take 1 (one) tablet by mouth daily . Physician(s) Follow Up: No follow-up provider specified. Condition at Discharge: Stable Disposition: Home I reviewed discharge recommendations with the patient in person. Patient instructions, including activity, were given to the patient/family at discharge. On day of discharge I saw Neena Roman and spent: > 30 minutes on discharge. Completed by: Carmenza Garcia on 04/14/23, 11:04 AM documented in this [id number] History of Present illness Narrative* Kasandra Dalal LISW - 04/14/2023 10:43 AM EST Care Management Progress Note Date: 04/14/2023 Time: 10:43 AM Patient Name: Neena Roman Date of : 1955 Discharge Plan: D/C Disposition: Home Discharging Transportation Plan: Discharge Plan Status: In to see patient, his spouse and family were at bedside. Discussed outpatient speech therapy. Patient in agreement for outpatient speech at discharge. No other needs identified. Ambulatory order placed. * Tawanna Webber SLP - 04/14/2023 9:40 AM EST Speech Pathology Daily Note Patient demonstrating improved word finding and auditory processing this date. No further dysphagiainterventions warranted as patient is tolerating regular solids and thin liquid diet. Continue to recommend outpatient ST at discharge for aphasia. Communication/Cognition Only Treatment Skilled therapy needs: Skilled Therapy Needs: Are Skilled Therapy Services Needed After Discharge: Yes Functional Limitations: communication deficits Intensity of Skilled Therapy: 2-3 days per week Anticipated Duration of Skilled Therapy: Duration 10 - 30 days Speech Plan: Further acute Speech Therapy services indicated: Yes Factors for returning to Prior Level of Function: Factors for Returning to Prior Level of Function Body Structure and Function: Neurologic impairment Explain Impairments: Per MRI Approximate 5 cm area of acute/subacute mostly cortical infarction inthe left parietal lobe/region. Activities and Participation: Communication limitation Explain Limitations: mild aphasia Environmental Factors: Home situation, Family/caregiver support Explain Environmental Factors: planning to discharge home Subjective Impression: Subjective Impression: Alert, Cooperative, Pleasant Mood Expressive Language: Expressive Language Expressive Language Impression-Severity: 90-100% (Supervision, Occasional Cues) Primary Mode of Expression: Verbal Picture description: 90-100% (Supervision, Occasional Assist) Skilled Intervention/treatment: Min verbal cues Patient Response to Intervention: Return demonstration only in presence of cues, Verbalized comprehension of presented information, Requires further education Recommended Expressive language strategies: Circumlocution (semantic feature analysis) Skilled Intervention/treatment: Min verbal cues Patient Response to Intervention: Return demonstration only in presence of cues Past Medical History: Diagnosis Date BPH (benign prostatic hyperplasia) Cataracts, bilateral Chronic neck pain Corneal scarring Elevated PSA History of rib fracture Hyperlipidemia Hypertension Kidney stones 10/2022 Poor historian Past Surgical History: Procedure Laterality Date CHOLECYSTECTOMY ESWL UNILATERAL EXTRA-CORPOREAL SHOCK WAVE LITHOTRIPSY 10/2022 HERNIA REPAIR TONSILLECTOMY For complete objective data, detailed plan of care, and education refer to: Speech Comm/Cog Eval, Speech Bedside Swallow Evaluation, and HOUSE NURSE Daily flowsheet, as well as patient Plan of Care and Education documentation. This note stands as the current Discharge Summary upon patient discharge from the hospital or completion of Speech Pathology Plan of Care * Jemima Chacon LISW - 04/14/2023 8:25 AM EST Care Management Progress Note Date: 04/14/2023 Time: 8:25 AM Patient Name: Neena Roman Date of : 1955 Discharge Plan: Discharging Transportation Plan: Discharge Plan Status: Patient transferred to [facility]. Handoff given to Kasandra DUMONT. * Corry Valdes MD - 04/13/2023 10:10 AM EST [facility] [place] Assessment and Plan Neena Roman is a 68 y.o. male patient of Teresa Duffy MD with history of HTN, HLD, Kidney Stones, Elevated PSA, Chornic Neck Pain, BPH who presented as a transfer to [facility] from [facility] with complaints of Aphasia. Acute Stroke s/p TPA Aphasia Initial NIHSS at OSH: 4 Current NIHSS: 3 for LOC, Aphasia, mild dysarthria w some words CTH: no acute findings. Likely chronic microvascular ischemic changes CTA: no LVO CXR: no acute findings WBC: 8.6 Troponin: <0.05 LDL, HGA1C: P MRI w/ and w/out: P Echo w. Bubble: LVEF 63 %.. RV is enlarged with normal RV function. There is grade 1 diastolic dysfunction, consistent with impaired relaxation and low or normal left atrial pressures. Trivial AI. There is evidence of a right to left shunt identified with saline contrast with both free breathing and Valsalva. . Neuro Checks Holding antithrombotic agents initially due to tPA Cont home Atorvastatin Consult Neurology: MRI Approximate 5 cm area of acute/subacute mostly cortical infarction in the left parietal lobe/region. Mild atrophy.. Other extensive chronic small vessel ischemic changes. Blood pressure goal less than 180/105 for the first 24 hours Antithrombotic started today aspirin 81 mg and Plavix 81 mg for 21 days and aspirin 81 mg along 30-day event monitor ordered on discharge PT OT Transfer to [facility] We will resume home amlodipine HLD Statin as above Left thumb joint pain and edema Hand x-ray Discharge Planning Medically Stable for Discharge Date: TBD Patient requires continued hospitalization due to: TBD Discharge Location: TBD Quality Measures DVT Prophylaxis: SCDs Chow Catheter: absent Code Status FULL Primary Contact Information Subjective Patient laying in bed, much more alert as compared to yesterday able to answer questions and carry on a conversation. He complains about left thumb pain and edema. Oriented x2 difficulty with year Objective BP (!) 152/93 Pulse 73 Temp 98.7 F (37.1 C) (Oral) Resp 18 Wt 93.2 kg (205 lb 7.5 oz) SpO2 93% BMI 26.38 kg/m Physical Examination General Appearance: alert; well appearing; in no acute distress HEENT: Head- normocephalic; Eyes- EOMI, sclera anicteric; Throat- mucous membranes moist Cardiovascular: regular rate and rhythm; normal S1, S2; no murmurs, rubs, clicks or gallops; peripheral edema absent Respiratory: lungs clear to auscultation; without wheezes, rales or rhonchi; on room air Abdomen: soft, non-tender, non-distended Neurological: oriented x 2; normal speech; no focal findings or movement disorder noted Musculoskeletal: no significant deformity or tenderness to palpation Skin: normal coloration Psych: normal mood and affect * Ken Vergara MD - 04/13/2023 8:03 AM EST Neurology Follow Up Note [facility] Date of Service: 04/13/23 Service Type: Follow up, neurology Patient: Neena Roman Date of : 1955 (68 y.o.) PCP: Teresa Duffy MD Assessment ASSESSMENT: Neena Roman is a 68 y.o. male who presented to [facility] on 04/12/2023 with stroke Patient with acute onset of aphasia and acalculia at 1930 on 04/11/23. NIHSS 4 for aphasia. Given tPA 2133 on 04/11/23. CT/CTA negative for acute findings. No significant stenosis on CTA. Mild improvement, still has mild aphasia but no other deficits. MRI brain shows a small infarct in the left parietal lobe. It appears embolic. Stroke risk factors include HTN, HLD, former smoking, family h/o stroke. TTE does show a PFO but otherwise normal cardiac function. Will need cardiac monitoring after discharge. RoPE score of 3 (hypertension, age 68, cortical infarct plus 1 point for remote infarcts seen on MRI) indicative of 0% chance stroke being related to PFO. Otherwise, not much further inpatient work to be done. He is likely OK to be discharged on 04/14 assuming blood pressures remain stable. Diagnoses: Acute ischemic stroke Admitted with these risk variables:Cerebral Infarction NIHSS = 4. Please see assessment and plan for further details. PLAN: Stroke (Ischemic Infarct) Etiology: Uncertain; embolic stroke of unknown source Testing: complete Labs: complete Cardiac Rhythm: NO Afib noted to date, 30 day event monitor already ordered in DC orders Anti-thrombotic: ASA 81 + Plavix 75mg daily x 21 days, then ASA 81 alone indefinitely Anti-lipid Agent: Lipitor (atorvastatin) 40 mg BP Goal: Less than 180/105 for initial 24 hrs of admit/onset of stroke-like symptoms, then gradual steady reduction to normotension; AVOID hypotension; Attending Service to manage Glucose Goal: Normoglycemia/ A1c less than 6.5. Attending Service to manage. Tobacco: Counseled to not smoke/use tobacco. Attending Service to manage. Therapy (Assessed for Rehab): yes, PT/OT/ST on board DVT Prophylaxis: Lovenox 40mg daily Eventual Outpatient Follow-up: In [facility] Dispo: likely home once BP stable, anticipate discharge 04/13. - neurology will sign off at this time. However, please do not hesitate to contact us with any questions, concerns, or changes in exam. Ken Vergara MD Staff Neurologist [facility] [address] [id number], [facility] [id number] Clinic 04/13/23 Parts of this note may have been dictated using [employer], a speech- recognition software. Syntax errors and sound-alike substitutions which may escape proofreading could be present. In such instances, the actual meaning can be extrapolated from the context. Subjective SUBJECTIVE: Chief Complaint/Reason for Consult: stroke History of Present Illness: Neena Roman is a 68 y.o. male who presented on 04/12/2023 for stroke. Neurology is consultedfor stroke. Fell asleep 1900 on 04/11 and woke up at 1930 with aphasia. NIHSS [address]/CTA unremarkable. tPA given at OSH ED at 2133. Today feels OK, has a mild headache (actually mostly neck but spreadsa bit into the back of the head). Doesn't get the head pain much but neck is a problem sometimes. Takes some kind of medication but can't say what it is due to the aphasia. No prior h/o stroke. Usually pretty independent. Interval history 04/13/23: Thinks things are a bit better. Headache/neck pain gone today, feels pretty good overall. Speech yung little easier. No new deficits. MRI confirms a small left parietal cortical stroke. Review of systems: All systems were reviewed and found to be negative except for those mentioned inthe HPI. Review of data including medical histories, allergies and medications Medical surgical social and family histories: He has a past medical history of BPH (benign prostatic hyperplasia), Cataracts, bilateral, Chronic neck pain, Corneal scarring, Elevated PSA, History of rib fracture, Hyperlipidemia, Hypertension, Kidney stones (10/2022), and Poor historian. He has a past surgical history that includes Cholecystectomy; Hernia repair; tonsillectomy; and Eswl Unilateral Extra-Corporeal Shock Wave Lithotripsy (10/2022). He family history includes Dementia in his mother; Stroke in his father. He reports that he has quit smoking. His smoking use included cigarettes. He has never used smokeless tobacco. He reports current alcohol use. He reports that he does not currently use drugs. Allergies: Allergies: Penicillins MEDICATIONS: WERE REVIEWED AND CHECKED FOR ALLERGIES AND INTERACTIONS (IN EMR). Objective OBJECTIVE: Physical Examination: BP (!) 152/103 Pulse 67 Temp 98.7 F (37.1 C) (Oral) Resp (!) 19 Wt 93.2 kg (205 lb 7.5 oz) SpO2 94% BMI 26.38 kg/m GENERAL: General Appearance: Resting comfortably in bed in NAD HEENT: Normocephalic. No conjunctival injection. Ears appear normal. No substantial sinus drainage.See below for vision/hearing Neck: Supple, no focal bony tenderness, no mass lesions Respiratory Effort: Normal Extremities: No edema Skin: No rashes visualized on limited skin exam MSK: No joint deformities Neurological examination: MENTAL STATUS: Alertness, Attention Span & Concentration: Normal Language: minimal word-finding difficulty. Naming, repetition, reading were intact. Receptive language appears normal. Speech: no dysarthria. Orientation: Oriented to person, place, time/date, and situation CRANIAL NERVES: II - Visual Curran: Normal II, III: Pupils: PERRL, no RAPD III, IV, : Eye Movements: Normal (EOMI, No ptosis, No nystagmus) V - Facial Sensation: Normal VII: Face Symmetry & Strength: Normal VIII - Hearing: Normal to finger rub bilaterally IX, X - Palate: Normal, elevates symmetrically XI - Shoulder Shrug: Normal XII - Tongue Protrusion: Normal, symmetric MOTOR: Muscle Strength Right Left 5 Shoulder Abduction (Deltoid) 5 5 Elbow Flexion (Biceps) 5 5 Elbow Extension (Triceps) 5 5 Wrist Flexion 5 5 Wrist Extension 5 5 Finger Abduction (Interossei) 5 Right Left 5 Hip Extension 5 5 Hip Flexion (Iliopsoas) 5 5 Knee Extension (Quads) 5 5 Knee Flexion (Hamstrings) 5 5 Dorsiflexion (Anterior Tibialis) 5 5 Plantar Flexion (Gastrocnemius) 5 MOTOR AGUIRRE: 5 Normal (Normal Power) 4 Mild Weakness (Movement against moderate resistance over a full range of motion) 3 Moderate Weakness (Movement against gravity only over almost full range of motion) 2 Severe Weakness (Movement with gravity eliminated over almost full range of motion) 1 Trace Movement (Contraction visible or palpable without effective movement of the joint) 0 No Movement (No contraction visible or palpable) PAM Unable to Assess Normal Bulk and Tone, no atrophy. SENSATION: Fine Touch: Normal Pinprick: Normal Proprioception: Normal Vibration: Normal Temperature: Normal REFLEXES: Right Reflexes Left 2+ Biceps 2+ 2+ Triceps 2+ 2+ Brachioradialis 2+ 2+ Patellar 2+ 2+ Achilles 2+ Down Plantar Response (Babinski) Down REFLEXES AGUIRRE: 4+ Sustained Clonus 3+ Brisk 2+ Normal 1+ Diminished 0 Absent PAM Unable to Assess COORDINATION: Coordination [id number]: normal Juarez Finger taps: normal Coordination Ghxh-Wamp-Ehkl: normal Diadochokinesis: normal STANCE AND GAIT: Deferred MOVEMENT DISORDERS EXAMINATION: Tremor - no tremors noted Bradykinesia - None Rigidity - None Dyskinesia/Choreoathetosis - None Dystonia/Myoclonus/Tics - None DIAGNOSTIC TESTING SUMMARY: Resulted Testing: (MRI/CT/XR, EEG, EMG, CSF, Cardiac, Labs) CT head with mild to moderate atrophy and white matter disease, but no acute findings. CTA head/neck with no LVO, no significant stenosis seen MRI brain with acute infarct in cortical area of left parietal lobe without hemorrhage. There is a background of fairly severe chronic microvascular ischemic disease and probable small lacunar infarcts in the periventricular and deep subcortical white matter. INR 1.2. BMP, CBC unremarkable. Troponin negative. LDL 27. A1c 6.0. Attestation: Discussed risks, benefits and alternatives regarding plan with patient/family/caregivers and answered the questions. I independently reviewed radiology images and summarized in this notewith annotations and screenshots wherever appropriate. Time statement: A total of 52 minutes were spent on this encounter either in the patient's room or on the patient's hospital unit and over 50% of that time was spent on iyzd-be-tole counseling and/orcoordination of care. This includes discussions with patient/family as well as with consulting careproviders, regarding clinical course, prognosis, treatment alternatives, expected outcomes of medications and their side effects. * Corry Valdes MD - 04/12/2023 1:22 PM EST [facility] [place]GRESS [place] Assessment and Plan Neena Roman is a 68 y.o. male patient of Teresa Duffy MD with history of HTN, HLD, Kidney Stones, Elevated PSA, Chornic Neck Pain, BPH who presented as a transfer to [facility] from [facility] with complaints of Aphasia. Acute Stroke s/p TPA Aphasia Initial NIHSS at OSH: 4 Current NIHSS: 3 for LOC, Aphasia, mild dysarthria w some words CTH: no acute findings. Likely chronic microvascular ischemic changes CTA: no LVO CXR: no acute findings WBC: 8.6 Troponin: <0.05 LDL, HGA1C: P MRI w/ and w/out: P Echo w. Bubble: LVEF 63 %.. RV is enlarged with normal RV function. There is grade 1 diastolic dysfunction, consistent with impaired relaxation and low or normal left atrial pressures. Trivial AI. There is evidence of a right to left shunt identified with saline contrast with both free breathing and Valsalva. . SBP <180 Neuro Checks Cont home Atorvastatin Holding ASA until 24 hrs after TPA Consult Neurology: MRI pending HTN Holding home Amlodipine HLD Statin as above Discharge Planning Medically Stable for Discharge Date: TBD Patient requires continued hospitalization due to: TBD Discharge Location: TBD Quality Measures DVT Prophylaxis: SCDs Chow Catheter: absent Code Status FULL Primary Contact Information Subjective Patient laying in bed, slow mentation appears to be responding to name, place and time, does not know the year, per report likely slightly improving Objective BP (!) 144/89 Pulse 64 Temp 97.9 F (36.6 C) (Oral) Resp (!) 11 SpO2 93% Physical Examination General Appearance: alert; well appearing; in no acute distress HEENT: Head- normocephalic; Eyes- EOMI, sclera anicteric; Throat- mucous membranes moist Cardiovascular: regular rate and rhythm; normal S1, S2; no murmurs, rubs, clicks or gallops; peripheral edema absent Respiratory: lungs clear to auscultation; without wheezes, rales or rhonchi; on room air Abdomen: soft, non-tender, non-distended Neurological: oriented x 2; normal speech; no focal findings or movement disorder noted Musculoskeletal: no significant deformity or tenderness to palpation Skin: normal coloration Psych: normal mood and affect * Cass Duckworth - 04/12/2023 9:45 AM EST Spiritual Care Progress Note Completed by: Cass Duckworth Person(s) Present During this Visit: Patient Not Available Time Spent in Direct Patient Care: 5 Narrative: Taxation Economist attempted to visit patient while rounding on the unit in order to offer spiritual/emotional support. Patient was not available. No family present. The Pastoral Care team will remain available to support patient PRN. Patients Response to Pastoral Care: Timing of Visit Not Optimal. Visit Rescheduled Planning for Future Visits: YA Duckworth MDiv Staff Taxation Economist Pastoral Care Department [facility] [phone] on-call [phone] office 04/12/23 0908 Visit Background Visit With Patient Not Available Visit By Staff Taxation Economist Visit Progression Attempt Visit Requested By Taxation Economist Initiated Visit Source Taxation Economist Initiated Visit Type Inpatient;Rounding Visit Circumstances and Events Routine Visit Visit Length (minutes) 5 Patient's Response to Pastoral Care Timing of Visit Not Optimal. Visit Rescheduled Visit Planning PRN Spiritual Assessment Unable to Assess during this visit Holiness Assessment Unable to Assess during this visit Family assessment provided? Unable to asess during this visit documented in this [id number] Note* Plan of Care - Loretta Frederick RN - 04/14/2023 2:05 AM EST Problem: Actual or potential alteration in health Goal: Absence of healthcare acquired conditions Outcome: Met Goal: Knowledge of Interdisciplinary Plan of Care Outcome: Met Goal: Knowledge of Enviroment Outcome: Met Problem: Pain Goal: Manage acute pain Outcome: Met Goal: Manage chronic pain Outcome: Met Goal: Reduced pain sensation Outcome: Met Goal: Achievement of comfort function goal Outcome: Met Problem: Stroke - Ischemic - Required Education Goal: Knowledge of care transition plan Outcome: Met Problem: Aspiration, Risk of Goal: Absence of aspiration Outcome: Met Goal: Safe intake of nutrition, fluids, and medications Outcome: Met Problem: Activity Intolerance Goal: Improved activity tolerance Outcome: Met Goal: Able to participate in acute rehabilitation Outcome: Met Goal: Knowledge of prescribed activities Outcome: Met Problem: Cognitive-Perceptual Pattern - Impaired Goal: Able to achieve maximum level of cognitive ability Outcome: Met Problem: Falls, Risk of Goal: Absence of falls Outcome: Met Problem: Mobility - Impaired Goal: Able to achieve maximum mobility level Outcome: Met Problem: Mood - Altered Goal: Mood stable Outcome: Met Problem: Self-care Deficit Goal: Able to perform ADL Outcome: Met Goal: Able to communicate ADL needs Outcome: Met Goal: Able to use self-care assistive device appropriately Outcome: Met Problem: Urinary Elimination - Impaired Goal: Urinary elimination within specified parameters Outcome: Met Goal: Absence of postvoid residual Outcome: Met Goal: Absence of urinary incontinence Outcome: Met Goal: Decrease in number of episodes of urinary incontinence Outcome: Met Problem: Venous Thromboembolism, Risk of Goal: Absence of venous thromboembolism Outcome: Met Problem: Plan for Discharge Goal: Knowledge of discharge plan and instructions Outcome: Met Goal: Knowledge of personal stroke risk factors Outcome: Met Goal: Knowledge of stroke warning signs Outcome: Met Problem: Bleeding, Risk of Goal: Absence of impaired coagulation signs and symptoms Outcome: Partially Met Problem: Tissue Perfusion, Cerebral - Altered Goal: Absence of continued neurologic deterioration signs and symptoms Outcome: Partially Met Problem: Verbal Communication - Impaired Goal: Effective communication Outcome: Partially Met [id number] Consult note* Ca Villegas, OT - 04/13/2023 11:10 AM EST Occupational Therapy OCCUPATIONAL THERAPY EVALUATION Dx: Acute Ischemic Stroke Skilled Therapy Needs After Discharge Anticipate Resolution of Current Assessment Limitations Including: Social Support, Mechanical Barriers Are Skilled Therapy Services Needed After Discharge: No DME Recommendation: None Rehab Potential: Excellent Outcomes Measures Prior Function Daily Activity Raw Score: 24 Prior Function Daily Activity % Impaired: 0% AM-PAC Daily Activity Raw Score: 20 AM-PAC Daily Activity % Impaired: 38.32% Occupational Therapy Assessment Patient is functioning near his baseline. No further acute care OT needs at this time. Pt seen for OT evaluation only. Will complete OT order. Activity Tolerance Activity Tolerance: Endurance does not limit participation in activity Therapy Precautions Orthotic Devices: No Weight Bearing Status: WFL General Rehab Precautions: Fall risk Cognition Overall Cognitive Status: Within Functional Limits Arousal/Alertness: Appropriate responses to stimuli Orientation Level: Oriented X4 Executive functioning: Insight Safety Judgment: Decreased awareness of need for assistance, Decreased awareness of need for safety Problem Solving: Assistance required to generate solutions Attention: Attends to quiet environment Hearing Status: WFL Social Interaction: WFL UE Function BUE AROM and strength is WFL. Finger to thumb opposition normal with R hand, unable to oppose digits to thumb on L hand pt reports due to pre-existing arthritis. ADL Grooming: Modified independent (Seated) Lower Body Dressing: Stand by assist (Pt doffed/donned bilateral socks seated in chair via figure 4technique. SBA-CGA for clothing management in standing.) Toileting: Stand by assist, Contact guard assist (Simulated clothing management in standing) Functional Mobility: Contact guard assist (In room without AD) Bed Mobility Not assessed d/t pt seated in chair upon OT arrival. Functional Transfers Sit to Stand: Contact guard assist Stand Pivot Transfers: Contact guard assist Additional Assessment Details Pt left seated in chair, call light within reach, and alarm turned on. Home Living Obtained Home Living and PLOF info from: Patient Lives With: Spouse Type of Home: House Home Layout: Two level, Able to live on main level with bedroom/bathroom Steps to enter home: Yes Rails to enter home: 2 rails Number of stairs to enter home: 5 Bathroom Shower/Tub: Walk-in shower Bathroom Toilet: Standard Bathroom Equipment: Grab bars in shower, Bulit-in shower seat, Hand-held showerhead Prior Level of Function Receives Help From: Spouse Level of Darby - Transfers/Ambulation/Mobility: Independent with functional transfers, Independent with household ambulation, Independent with community ambulation Level of Darby - ADLs: Independent Level of Darby - Homemaking: Independent Driving: Patient drives Subjective Impression - Prior Function: Pt reports he is independent with I/ADLs and mobility without use of AD at baseline. Past Medical History: Diagnosis Date BPH (benign prostatic hyperplasia) Cataracts, bilateral Chronic neck pain Corneal scarring Elevated PSA History of rib fracture Hyperlipidemia Hypertension Kidney stones 10/2022 Poor historian Past Surgical History: Procedure Laterality Date CHOLECYSTECTOMY ESWL UNILATERAL EXTRA-CORPOREAL SHOCK WAVE LITHOTRIPSY 10/2022 HERNIA REPAIR TONSILLECTOMY For complete objective data, detailed plan of care and patient education refer to: OT Evaluation flowsheet, OT Evaluation and Treatment flowsheet, OT Treatment flowsheet, patient Plan of Care, Plan of Care progress note, and Patient Education. This note stands as the current Discharge Summary upon patient discharge from the hospital or completion of Occupational Therapy Plan of Care. [id number] Consult note* Ca Villegas OT - 04/13/2023 11:10 AM EST Occupational Therapy OCCUPATIONAL THERAPY EVALUATION Dx: Acute Ischemic Stroke Skilled Therapy Needs After Discharge Anticipate Resolution of Current Assessment Limitations Including: Social Support, Mechanical Barriers Are Skilled Therapy Services Needed After Discharge: No DME Recommendation: None Rehab Potential: Excellent Outcomes Measures Prior Function Daily Activity Raw Score: 24 Prior Function Daily Activity % Impaired: 0% AM-PAC Daily Activity Raw Score: 20 AM-PAC Daily Activity % Impaired: 38.32% Occupational Therapy Assessment Patient is functioning near his baseline. No further acute care OT needs at this time. Pt seen for OT evaluation only. Will complete OT order. Activity Tolerance Activity Tolerance: Endurance does not limit participation in activity Therapy Precautions Orthotic Devices: No Weight Bearing Status: WFL General Rehab Precautions: Fall risk Cognition Overall Cognitive Status: Within Functional Limits Arousal/Alertness: Appropriate responses to stimuli Orientation Level: Oriented X4 Executive functioning: Insight Safety Judgment: Decreased awareness of need for assistance, Decreased awareness of need for safety Problem Solving: Assistance required to generate solutions Attention: Attends to quiet environment Hearing Status: WFL Social Interaction: WF UE Function BUE AROM and strength is WFL. Finger to thumb opposition normal with R hand, unable to oppose digits to thumb on L hand pt reports due to pre-existing arthritis. ADL Grooming: Modified independent (Seated) Lower Body Dressing: Stand by assist (Pt doffed/donned bilateral socks seated in chair via figure 4technique. SBA-CGA for clothing management in standing.) Toileting: Stand by assist, Contact guard assist (Simulated clothing management in standing) Functional Mobility: Contact guard assist (In room without AD) Bed Mobility Not assessed d/t pt seated in chair upon OT arrival. Functional Transfers Sit to Stand: Contact guard assist Stand Pivot Transfers: Contact guard assist Additional Assessment Details Pt left seated in chair, call light within reach, and alarm turned on. Home Living Obtained Home Living and PLOF info from: Patient Lives With: Spouse Type of Home: House Home Layout: Two level, Able to live on main level with bedroom/bathroom Steps to enter home: Yes Rails to enter home: 2 rails Number of stairs to enter home: 5 Bathroom Shower/Tub: Walk-in shower Bathroom Toilet: Standard Bathroom Equipment: Grab bars in shower, Bulit-in shower seat, Hand-held showerhead Prior Level of Function Receives Help From: Spouse Level of Darby - Transfers/Ambulation/Mobility: Independent with functional transfers, Independent with household ambulation, Independent with community ambulation Level of Darby - ADLs: Independent Level of Darby - Homemaking: Independent Driving: Patient drives Subjective Impression - Prior Function: Pt reports he is independent with I/ADLs and mobility without use of AD at baseline. Past Medical History: Diagnosis Date BPH (benign prostatic hyperplasia) Cataracts, bilateral Chronic neck pain Corneal scarring Elevated PSA History of rib fracture Hyperlipidemia Hypertension Kidney stones 10/2022 Poor historian Past Surgical History: Procedure Laterality Date CHOLECYSTECTOMY ESWL UNILATERAL EXTRA-CORPOREAL SHOCK WAVE LITHOTRIPSY 10/2022 HERNIA REPAIR TONSILLECTOMY For complete objective data, detailed plan of care and patient education refer to: OT Evaluation flowsheet, OT Evaluation and Treatment flowsheet, OT Treatment flowsheet, patient Plan of Care, Plan of Care progress note, and Patient Education. This note stands as the current Discharge Summary upon patient discharge from the hospital or completion of Occupational Therapy Plan of Care. * Tawanna Webber SLP - 04/13/2023 11:00 AM EST Speech Pathology General Cognition / Communication Eval Note Patient presents with mild anomic aphasia. Patient demonstrated anomia 5x in 5 minutes of conversational speech. Patient also presents with min delay in processing time during command following tasks. Recommend continued skilled speech therapy at discharge. 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) Education Level: Some college Living Situation: With others, Independent with ADL's, Drives Prior Speech Deficit: No known previous deficits Prior Language Deficit: No known previous deficits Prior Cognitive Deficit: No known previous deficits Other pertinent diagnoses affecting cog/comm/voice: CVA, Per chart review Baseline Assessment Subjective Impression: Alert, Cooperative, Pleasant Mood Respiratory Status: Room air Oral motor: Oral/Motor Oral Motor Impression-Severity Scale: WFL Auditory Comprehension: Auditory Comp Impression-Severity Scale: 90-100% (Supervision, Occasional Cues) Commands: Exceptions to WFL One Step Basic Commands: No Impairment Two Step Basic Commands: 90-100% (Supervision, Occasional Assist) Complex Commands: 90-100% (Supervision, Occasional Assist) Yes/No Questions: Exceptions to WFL Basic Question: No Impairment Complex Questions: 90-100% (Supervision, Occasional Assist) Conversational Speech: Exceptions to WFL Simple Conversation: No Impairment Complex Conversation: 90-100% (Supervision, Occasional Assist) Paragraph Comprehension: 75-90% (Mild) Hearing: WFL Interfering Components: Auditory Processing Difficulty Visual Perception: Visual Perception: No acute visual changes Reading Comprehension: Reading Comp Impression-Severity: 75-90% (Mild) Reading Status: Exceptions to WFL Scanning/Tracking: No Impairment Word comprehension: No Impairment Sentence comprehension: No Impairment Paragraph comprehension: 75-90% (Mild) Interfering Components: Attention, Working memory Expressive Language: Expressive Language Impression-Severity: 75-90% (Mild) Primary Mode of Expression: Verbal, Complex conversation level Aphasia: Other (comment) (anomia) Repetition: Exceptions to WFL Words: No Impairment Phrases: 90-100% (Supervision, Occasional Assist) Automatic Speech: WFL Sentence Completion: WFL Naming: WFL Narrative: Exceptions to WFL Conversation: 75-90% (Mild) Recommended Expressive language strategies: Circumlocution Motor Speech: Motor Speech Impression Severity: WFL Written Expression: Written Expression Impression-Severity: WFL Dominant Hand: Right Cognitive-Communication: Speech Cognition Impression-Severity: 90-100% (Supervision, Occasional Cues) Memory: Exceptions to WFL Immediate recall: No Impairment Working memory: 75-90% (Mild) Long-term memory: No Impairment Organization: Exceptions to WFL Verbal thought organization: 90-100% (Supervision, Occasional Assist) Speech Plan: Further acute Speech Therapy services indicated: Yes Role of ST Discussed: With patient Risk/Benefits of ST Discussed: With patient Rehab Potential: Good Past Medical History: Diagnosis Date BPH (benign prostatic hyperplasia) Cataracts, bilateral Chronic neck pain Corneal scarring Elevated PSA History of rib fracture Hyperlipidemia Hypertension Kidney stones 10/2022 Poor historian Past Surgical History: Procedure Laterality Date CHOLECYSTECTOMY ESWL UNILATERAL EXTRA-CORPOREAL SHOCK WAVE LITHOTRIPSY 10/2022 HERNIA REPAIR TONSILLECTOMY For complete objective data, detailed plan of care, and education refer to: Speech Comm/Cog Eval flow sheet, as well as patient Plan of Care and Education documentation. This note stands as the current Discharge Summary upon patient discharge from the hospital or completion of Speech Pathology Plan of Care * Fred Esposito, PT - 04/13/2023 10:51 AM EST Physical Therapy PHYSICAL THERAPY EVALUATION, TREATMENT, AND DISCHARGE NOTE Dx: CVA PHYSICAL THERAPY EVALUATION Skilled Therapy Needs After Discharge Are Skilled Therapy Services Needed After Discharge: No DME Recommendation: None Rehab Potential: Good PT Caregiver Readiness PT Caregiver Training: Completed Who was trained?: (pt) Provided training for: Gait / locomotion- completed, Balance - completed Caregiver response to training: Verbalizes understanding Outcomes Measures Prior Function - Basic Mobility Raw Score: 24 Points Prior Function - Basic Mobility % Impaired: 0% AM-PAC Basic Mobility Raw Score: 18 Points AM-PAC Basic Mobility % Impaired: 40.47% Physical Therapy Assessment History: The following factors influence the patient's participation in the PT plan of care: Personal Factors: None Environmental Factors: Steps to enter home, Multi-level home The following co-morbidities (from this admission or prior) influence the patient's participation in this plan of care: in note Number of History elements affecting this patient's PT plan of care: 3 or more Examination of Body Systems: The patient presents with: Neurologic Impairments: Balance (aphasia). These impairments result in limitations of Gait, Stair-Climbing. These impairments result in restrictions of Household mobility, Community mobility. Number of Body Systems elements affecting this patient's PT plan of care: 1 to 2. Clinical Presentation: The patient's clinical presentation for this PT evaluation is evolving with changing characteristics as evidenced by current PT documentation. Activity Tolerance Activity Tolerance: Endurance does not limit participation in activity Therapy Precautions General Rehab Precautions: Fall risk Strength Assessment Strength RLE RLE Overall Strength: 5/5 Strength LLE LLE Overall Strength: 5/5 Balance Assessment Sitting Balance - Static: Supervision Standing Balance - Static: Supervision Bed Mobility Supine to Sit: Supervision Transfers Sit to Stand: Contact guard assist Gait/Locomotion Gait Assistance: Contact guard assist, Stand by assist (CGA progressing to SBA) Assistive Device: (none) Distance: 125 Feet Pattern: decreased rosalio (steps per minute) Gait Loss(es) of Balance: (none) Home Living Obtained Home Living and PLOF info from: Patient Lives With: Spouse Type of Home: House Home Layout: Two level, Bed on main level Rails to enter home: 2 rails Number of stairs to enter home: 2 Prior Level of Function Level of Darby - Transfers/Ambulation/Mobility: Independent with community ambulation (no ADneeded) PHYSICAL THERAPY TREATMENT NOTE Neuromuscular Reeducation Standing Balance Treatment: picking up object, obstacle avoidance, distracted environment (turning) Skilled Intervention Provided: neuromuscular re-education For: fall prevention Gait Training Skilled Intervention Provided: monitoring patient response with activity, patient education For: fall prevention, self-monitoring during activity Therapeutic Activities Bed Mobility Skilled Intervention Provided: monitoring patient response with activity, monitoring patient response with positional changes, patient education For: sequencing of movement, safety during functional tasks Transfers Skilled Intervention Provided: monitoring patient response with activity, monitoring patient response with positional changes, monitoring patient vital signs at rest/during/after activity, provided step by step instructions, patient education For: sequencing of movement, safety during functional tasks, self-monitoring during activity Therapeutic Exercises Supine Exercises: manuel LE AROM ex's Skilled Intervention Provided: facilitation For: muscle activation Additional Treatment Details Chair alarm applied post PT Past Medical History: Diagnosis Date BPH (benign prostatic hyperplasia) Cataracts, bilateral Chronic neck pain Corneal scarring Elevated PSA History of rib fracture Hyperlipidemia Hypertension Kidney stones 10/2022 Poor historian Past Surgical History: Procedure Laterality Date CHOLECYSTECTOMY ESWL UNILATERAL EXTRA-CORPOREAL SHOCK WAVE LITHOTRIPSY 10/2022 HERNIA REPAIR TONSILLECTOMY For complete objective data, detailed plan of care and patient education refer to: PT Evaluation flowsheet, PT Evaluation and Treatment flowsheet, PT Treatment flowsheet, patient Plan of Care, Plan of Care progress note, and Patient Education. This note stands as the current Discharge Summary upon patient discharge from the hospital or completion of Physical Therapy Plan. * Ken Vergara MD - 04/12/2023 3:24 PM ESTAssociated Order(s): IP CONSULT TO NEUROLOGY Neurology Inpatient Consult [facility] Date of Service: 04/12/23 Admit Date: 04/12/2023 Service Type: New Patient Consultation Patient: Neena Roman Date of : 1955 (68 y.o.) Referring Provider: Refer to consult order in electronic medical record PCP: Teresa Duffy MD Assessment ASSESSMENT: Neena Roman is a 68 y.o. male who presented to [facility] on 04/12/2023 with stroke Patient with acute onset of aphasia and acalculia at 1930 on 04/11/23. NIHSS 4 for aphasia. Given tPA 2133 on 04/11/23. CT/CTA negative for acute findings. No significant stenosis on CTA. Mild improvement, still has mild aphasia but no other deficits. Has mild neck discomfort but otherwise doing OK. Stroke risk factors include HTN, HLD, former smoking, family h/o stroke. Will get MRI after tPA and continue stroke workup. Will need to work with speech therapy. Diagnoses: Acute ischemic stroke Admitted with these risk variables:Cerebral Infarction NIHSS = 4. Please see assessment and plan for further details. PLAN: Stroke (Ischemic Infarct) Etiology: Uncertain Testing: MRI brain 18-30 hours post-tPA Labs: complete Cardiac Rhythm: NO Afib noted to date Anti-thrombotic: Anti-thrombotic on hold at least 24 hours after tPA/intervention, probably start ASA/Plavix Anti-lipid Agent: Lipitor (atorvastatin) 40 mg BP Goal: Less than 180/105 for initial 24 hrs of admit/onset of stroke-like symptoms, then gradual steady reduction to normotension; AVOID hypotension; Attending Service to manage Glucose Goal: Normoglycemia/ A1c less than 6.5. Attending Service to manage. Tobacco: Counseled to not smoke/use tobacco. Attending Service to manage. Therapy (Assessed for Rehab): Pending evaluation DVT Prophylaxis: None for now. On hold at for least 24 hours after tPA/intervention Eventual Outpatient Follow-up: In [facility] Ken Vergara MD Staff Neurologist [facility] [address] [id number], [facility] [id number] [facility] 04/12/23 Parts of this note may have been dictated using [employer], a speech- recognition software. Syntax errors and sound-alike substitutions which may escape proofreading could be present. In such instances, the actual meaning can be extrapolated from the context. Subjective SUBJECTIVE: Chief Complaint/Reason for Consult: stroke History of Present Illness: Neena Roman is a 68 y.o. male who presented on 04/12/2023 for stroke. Neurology is consulted for stroke. Fell asleep 1900 on 04/11 and woke up at 1930 with aphasia. NIHSS [address]/CTA unremarkable. tPA given at OSH ED at 2134. Today feels OK, has a mild headache (actually mostly neck but spreadsa bit into the back of the head). Doesn't get the head pain much but neck is a problem sometimes. Takes some kind of medication but can't say what it is due to the aphasia. No prior h/o stroke. Usually pretty independent. Review of systems: All systems were reviewed and found to be negative except for those mentioned inthe HPI. Review of data including medical histories, allergies and medications Medical surgical social and family histories: He has a past medical history of BPH (benign prostatic hyperplasia), Cataracts, bilateral, Chronic neck pain, Corneal scarring, Elevated PSA, History of rib fracture, Hyperlipidemia, Hypertension, Kidney stones (10/2022), and Poor historian. He has a past surgical history that includes Cholecystectomy; Hernia repair; tonsillectomy; and Eswl Unilateral Extra-Corporeal Shock Wave Lithotripsy (10/2022). He family history includes Dementia in his mother; Stroke in his father. He reports that he has quit smoking. His smoking use included cigarettes. He has never used smokeless tobacco. He reports current alcohol use. He reports that he does not currently use drugs. Allergies: Allergies: Penicillins MEDICATIONS: WERE REVIEWED AND CHECKED FOR ALLERGIES AND INTERACTIONS (IN EMR). Objective OBJECTIVE: Physical Examination: BP (!) 156/97 Pulse 62 Temp 98.3 F (36.8 C) (Oral) Resp 13 SpO2 94% GENERAL: General Appearance: Resting comfortably in bed in NAD HEENT: Normocephalic. No conjunctival injection. Ears appear normal. No substantial sinus drainage.See below for vision/hearing Neck: Supple, no focal bony tenderness, no mass lesions Respiratory Effort: Normal Extremities: No edema Skin: No rashes visualized on limited skin exam MSK: No joint deformities Neurological examination: MENTAL STATUS: Alertness, Attention Span & Concentration: Normal Language: mild word-finding difficulty. Naming, repetition, reading were intact. Receptive languageappears normal. Speech: no dysarthria. Orientation: Oriented to person, place, time/date, and situation CRANIAL NERVES: II - Visual Curran: Normal II, III: Pupils: PERRL, no RAPD III, IV, : Eye Movements: Normal (EOMI, No ptosis, No nystagmus) V - Facial Sensation: Normal VII: Face Symmetry & Strength: Normal VIII - Hearing: Normal to finger rub bilaterally IX, X - Palate: Normal, elevates symmetrically XI - Shoulder Shrug: Normal XII - Tongue Protrusion: Normal, symmetric MOTOR: Muscle Strength Right Left 5 Shoulder Abduction (Deltoid) 5 5 Elbow Flexion (Biceps) 5 5 Elbow Extension (Triceps) 5 5 Wrist Flexion 5 5 Wrist Extension 5 5 Finger Abduction (Interossei) 5 Right Left 5 Hip Extension 5 5 Hip Flexion (Iliopsoas) 5 5 Knee Extension (Quads) 5 5 Knee Flexion (Hamstrings) 5 5 Dorsiflexion (Anterior Tibialis) 5 5 Plantar Flexion (Gastrocnemius) 5 MOTOR AGUIRRE: 5 Normal (Normal Power) 4 Mild Weakness (Movement against moderate resistance over a full range of motion) 3 Moderate Weakness (Movement against gravity only over almost full range of motion) 2 Severe Weakness (Movement with gravity eliminated over almost full range of motion) 1 Trace Movement (Contraction visible or palpable without effective movement of the joint) 0 No Movement (No contraction visible or palpable) PAM Unable to Assess Normal Bulk and Tone, no atrophy. SENSATION: Fine Touch: Normal Pinprick: Normal Proprioception: Normal Vibration: Normal Temperature: Normal REFLEXES: Right Reflexes Left 2+ Biceps 2+ 2+ Triceps 2+ 2+ Brachioradialis 2+ 2+ Patellar 2+ 2+ Achilles 2+ Down Plantar Response (Babinski) Down REFLEXES AGUIRRE: 4+ Sustained Clonus 3+ Brisk 2+ Normal 1+ Diminished 0 Absent PAM Unable to Assess COORDINATION: Coordination Czavls-ja-[id number]: normal Juarez Finger taps: normal Coordination Cicb-Gvgk-Akvo: normal Diadochokinesis: normal STANCE AND GAIT: Deferred MOVEMENT DISORDERS EXAMINATION: Tremor - no tremors noted Bradykinesia - None Rigidity - None Dyskinesia/Choreoathetosis - None Dystonia/Myoclonus/Tics - None DIAGNOSTIC TESTING SUMMARY: Resulted Testing: (MRI/CT/XR, EEG, EMG, CSF, Cardiac, Labs) CT head with mild to moderate atrophy and white matter disease, but no acute findings. CTA head/neck with no LVO, no significant stenosis seen INR 1.2. BMP, CBC unremarkable. Troponin negative. LDL 27. A1c 6.0. Attestation: Discussed risks, benefits and alternatives regarding plan with patient/family/caregivers and answered the questions. I independently reviewed radiology images and summarized in this notewith annotations and screenshots wherever appropriate. Time statement: A total of 82 minutes were spent on this encounter either in the patient's room or on the patient's hospital unit and over 50% of that time was spent on [id number] counseling and/orcoordination of care. This includes discussions with patient/family as well as with consulting careproviders, regarding clinical course, prognosis, treatment alternatives, expected outcomes of medications and their side effects. * Ayanna Morales SLP - 04/12/2023 3:17 PM EST Speech Pathology Bedside Swallow Evaluation Recommendations: PO Recommendations: NDD diet NDD diet recommendation: Regular solids, Thin liquids Compensatory Strategies: Eat/feed slowly Postures: Sit as upright as possible for all oral intake, Up 30 min after meal Food Presentation: Average bites Liquid Presentation: Average sips Medication Presentation: Whole with thins, Whole in puree, Crushed in puree, Per Patient Preference Amount of Supervision: Nursing staff supervision, Intermittent Treatment Techniques: Train swallowing strategies Further Recommendations: Assess for diet tolerance Recommended Referrals: Occupational Therapy, Physical Therapy Discharge Recommendations: Skilled Therapy Needs: Are Skilled Therapy Services Needed After Discharge: Yes Functional Limitations: communication deficits Intensity of Skilled Therapy: 2-3 days per week Anticipated Duration of Skilled Therapy: Duration 10 - 30 days Prior Function: Reason for Referral: Stroke / neuro Prior Swallow Deficit: No known previous deficits, Per chart review, Per patient report Swallow Complaint: (denies) Diet Prior to BSE: NPO Primary Language: Kosovan Baseline Assessment: Subjective Impression: Alert, Cooperative, Pleasant Mood, Aphasic Respiratory Status: Room air Dentition: Permanent Self-Feeding Barriers: Functional for self-feeding Patient Positioning: Upright in bed Volitional Cough: Strong Baseline Cough: Dry Secretion Management: Adequate Volitional Swallow: Present Oral Motor: Oral Motor Impression-Severity Scale: WFL Apraxia: None present Voice: Breath Support: WFL Vocal Quality: WFL Vocal Intensity: WFL Consistencies Assessed: CONSISTENCY PRESENTATION ORAL (SIGNS / SYMPTOMS) PHARYNGEAL (SIGNS / SYMPTOMS) THIN Cup, Self Fed, Continuous drinks Within functional limits (no overt s/s of aspiration/penetration) PUREE Self fed, Spoon Within functional limits (no overt s/s of aspiration/penetration) SOLID Self Fed Within functional limits (no overt s/s of aspiration/penetration) Per H&P: Patient is a 68 y.o. male patient of Teresa Duffy MD with history of HTN, HLD, Kidney Stones, Elevated PSA, Chornic Neck Pain, BPH who presented as a transfer to [facility] from [facility] with complaints of Aphasia. CT Head was negative for acute findings and he was deemed a candidate for TPA. TPA was administered @ 2133. CTA was negative for LVO. Pt participated in skilled dysphagia assessment. Pt seen sitting upright in bed. Pt able to follow commands independently. Pt consumed trials as noted above. No overt s/s of aspiration/penetration noted via cough, throat clear or change in vocal quality. Pt w/functional mastication, bolus manipulation and AP transit. No oral residue noted. At this time, rx initiate diet of regular solids, thin liquids,meds whole as tolerated. Rx 1x additional follow up to ensure safety w/diet. Pt presenting w/expressive aphasia a this time, however reports speech has improved from previous day. Rx completion of [facility] eval on 04/13/23. MRI not yet completed. Impressions-Severity Level: Oral Severity Scale: WFL Pharyngeal Severity Scale: (pharyngeal deficits not suspected at this time) Factors for Returning to PLOF: Body Structure and Function: Musculoskeletal impairment, Neurologic impairment Explain Impairments: s/p suspected CVA Activities and Participation: Communication limitation Explain Limitations: aphasic Environmental Factors: Home situation Explain Environmental Factors: lives w/spouse HOUSE NURSE Caregiver Readiness: HOUSE NURSE Caregiver Readiness Working toward discharge home: Yes HOUSE NURSE Caregiver Training: Ongoing - Follow up required Who was trained?: Spouse, Daughter Provided training for: Diet modifications / thickened liquids- follow up required, Safe swallowing strategies - follow up required Caregiver response to training: Verbalizes understanding Speech Plan: Further acute Speech Therapy services indicated: Yes Role of ST Discussed: With patient, With family/caregiver Risk/Benefits of ST Discussed: With patient, With family/caregiver Patient Goal for Treatment: None stated Rehab Potential: Good Further Recommendations: Speech/language/cognitive evaluation Recommended Referrals: Occupational Therapy, Physical Therapy For complete objective data, detailed plan of care, and education refer to: Speech Bedside Swallow Evaluation flow sheet, as well as patient Plan of Care and Education documentation. This note stands as the current Discharge Summary upon patient discharge from the hospital or completion of Speech Pathology Plan of Care. * Jemima Chacon LISW - 04/12/2023 10:47 AM ESTAssociated Order(s): IP CONSULT TO CARE MANAGEMENT Care Management Consult Note Date: 04/12/2023 Time: 10:47 AM Patient Name: Neena Roman Date of : 1955 Reason for Consult: Transition of Care Discharge Plan: Discharging Transportation Plan: Discharge Plan Status: Patient transferred from [facility] for CVA. Patient given TPA. Patient to have MRI later today. No advanced directives on file. Spouse and daughter listed as emergency contacts. No visitors present. PCP Teresa Duffy MD. [employer] medicare. Following for discharge plans. Assessment and Background Information: Living Arrangements: Spouse/significant other Support Systems: Family members Type of Residence: Private residence Prior to Admission Home Care Services: No documented in this [id number] Consult note* Tawanna Webber, HOUSE NURSE - 04/13/2023 11:00 AM EST Speech Pathology General Cognition / Communication Eval Note Patient presents with mild anomic aphasia. Patient demonstrated anomia 5x in 5 minutes of conversational speech. Patient also presents with min delay in processing time during command following tasks. Recommend continued skilled speech therapy at discharge. 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) Education Level: Some college Living Situation: With others, Independent with ADL's, Drives Prior Speech Deficit: No known previous deficits Prior Language Deficit: No known previous deficits Prior Cognitive Deficit: No known previous deficits Other pertinent diagnoses affecting cog/comm/voice: CVA, Per chart review Baseline Assessment Subjective Impression: Alert, Cooperative, Pleasant Mood Respiratory Status: Room air Oral motor: Oral/Motor Oral Motor Impression-Severity Scale: WFL Auditory Comprehension: Auditory Comp Impression-Severity Scale: 90-100% (Supervision, Occasional Cues) Commands: Exceptions to WFL One Step Basic Commands: No Impairment Two Step Basic Commands: 90-100% (Supervision, Occasional Assist) Complex Commands: 90-100% (Supervision, Occasional Assist) Yes/No Questions: Exceptions to WFL Basic Question: No Impairment Complex Questions: 90-100% (Supervision, Occasional Assist) Conversational Speech: Exceptions to WFL Simple Conversation: No Impairment Complex Conversation: 90-100% (Supervision, Occasional Assist) Paragraph Comprehension: 75-90% (Mild) Hearing: WFL Interfering Components: Auditory Processing Difficulty Visual Perception: Visual Perception: No acute visual changes Reading Comprehension: Reading Comp Impression-Severity: 75-90% (Mild) Reading Status: Exceptions to WFL Scanning/Tracking: No Impairment Word comprehension: No Impairment Sentence comprehension: No Impairment Paragraph comprehension: 75-90% (Mild) Interfering Components: Attention, Working memory Expressive Language: Expressive Language Impression-Severity: 75-90% (Mild) Primary Mode of Expression: Verbal, Complex conversation level Aphasia: Other (comment) (anomia) Repetition: Exceptions to WFL Words: No Impairment Phrases: 90-100% (Supervision, Occasional Assist) Automatic Speech: WFL Sentence Completion: WFL Naming: WFL Narrative: Exceptions to WFL Conversation: 75-90% (Mild) Recommended Expressive language strategies: Circumlocution Motor Speech: Motor Speech Impression Severity: WFL Written Expression: Written Expression Impression-Severity: WFL Dominant Hand: Right Cognitive-Communication: Speech Cognition Impression-Severity: 90-100% (Supervision, Occasional Cues) Memory: Exceptions to WFL Immediate recall: No Impairment Working memory: 75-90% (Mild) Long-term memory: No Impairment Organization: Exceptions to WFL Verbal thought organization: 90-100% (Supervision, Occasional Assist) Speech Plan: Further acute Speech Therapy services indicated: Yes Role of ST Discussed: With patient Risk/Benefits of ST Discussed: With patient Rehab Potential: Good Past Medical History: Diagnosis Date BPH (benign prostatic hyperplasia) Cataracts, bilateral Chronic neck pain Corneal scarring Elevated PSA History of rib fracture Hyperlipidemia Hypertension Kidney stones 10/2022 Poor historian Past Surgical History: Procedure Laterality Date CHOLECYSTECTOMY ESWL UNILATERAL EXTRA-CORPOREAL SHOCK WAVE LITHOTRIPSY 10/2022 HERNIA REPAIR TONSILLECTOMY For complete objective data, detailed plan of care, and education refer to: Speech Comm/Cog Eval flow sheet, as well as patient Plan of Care and Education documentation. This note stands as the current Discharge Summary upon patient discharge from the hospital or completion of Speech Pathology Plan of Care [id number] Consult note* Fred Esposito, PT - 04/13/2023 10:51 AM EST Physical Therapy PHYSICAL THERAPY EVALUATION, TREATMENT, AND DISCHARGE NOTE Dx: CVA PHYSICAL THERAPY EVALUATION Skilled Therapy Needs After Discharge Are Skilled Therapy Services Needed After Discharge: No DME Recommendation: None Rehab Potential: Good PT Caregiver Readiness PT Caregiver Training: Completed Who was trained?: (pt) Provided training for: Gait / locomotion- completed, Balance - completed Caregiver response to training: Verbalizes understanding Outcomes Measures Prior Function - Basic Mobility Raw Score: 24 Points Prior Function - Basic Mobility % Impaired: 0% AM-PAC Basic Mobility Raw Score: 18 Points AM-PAC Basic Mobility % Impaired: 40.47% Physical Therapy Assessment History: The following factors influence the patient's participation in the PT plan of care: Personal Factors: None Environmental Factors: Steps to enter home, Multi-level home The following co-morbidities (from this admission or prior) influence the patient's participation in this plan of care: in note Number of History elements affecting this patient's PT plan of care: 3 or more Examination of Body Systems: The patient presents with: Neurologic Impairments: Balance (aphasia). These impairments result in limitations of Gait, Stair-Climbing. These impairments result in restrictions of Household mobility, Community mobility. Number of Body Systems elements affecting this patient's PT plan of care: 1 to 2. Clinical Presentation: The patient's clinical presentation for this PT evaluation is evolving with changing characteristics as evidenced by current PT documentation. Activity Tolerance Activity Tolerance: Endurance does not limit participation in activity Therapy Precautions General Rehab Precautions: Fall risk Strength Assessment Strength RLE RLE Overall Strength: 5/5 Strength LLE LLE Overall Strength: 5/5 Balance Assessment Sitting Balance - Static: Supervision Standing Balance - Static: Supervision Bed Mobility Supine to Sit: Supervision Transfers Sit to Stand: Contact guard assist Gait/Locomotion Gait Assistance: Contact guard assist, Stand by assist (CGA progressing to SBA) Assistive Device: (none) Distance: 125 Feet Pattern: decreased rosalio (steps per minute) Gait Loss(es) of Balance: (none) Home Living Obtained Home Living and PLOF info from: Patient Lives With: Spouse Type of Home: House Home Layout: Two level, Bed on main level Rails to enter home: 2 rails Number of stairs to enter home: 2 Prior Level of Function Level of Darby - Transfers/Ambulation/Mobility: Independent with community ambulation (no ADneeded) PHYSICAL THERAPY TREATMENT NOTE Neuromuscular Reeducation Standing Balance Treatment: picking up object, obstacle avoidance, distracted environment (turning) Skilled Intervention Provided: neuromuscular re-education For: fall prevention Gait Training Skilled Intervention Provided: monitoring patient response with activity, patient education For: fall prevention, self-monitoring during activity Therapeutic Activities Bed Mobility Skilled Intervention Provided: monitoring patient response with activity, monitoring patient response with positional changes, patient education For: sequencing of movement, safety during functional tasks Transfers Skilled Intervention Provided: monitoring patient response with activity, monitoring patient response with positional changes, monitoring patient vital signs at rest/during/after activity, provided step by step instructions, patient education For: sequencing of movement, safety during functional tasks, self-monitoring during activity Therapeutic Exercises Supine Exercises: manuel LE AROM ex's Skilled Intervention Provided: facilitation For: muscle activation Additional Treatment Details Chair alarm applied post PT Past Medical History: Diagnosis Date BPH (benign prostatic hyperplasia) Cataracts, bilateral Chronic neck pain Corneal scarring Elevated PSA History of rib fracture Hyperlipidemia Hypertension Kidney stones 10/2022 Poor historian Past Surgical History: Procedure Laterality Date CHOLECYSTECTOMY ESWL UNILATERAL EXTRA-CORPOREAL SHOCK WAVE LITHOTRIPSY 10/2022 HERNIA REPAIR TONSILLECTOMY For complete objective data, detailed plan of care and patient education refer to: PT Evaluation flowsheet, PT Evaluation and Treatment flowsheet, PT Treatment flowsheet, patient Plan of Care, Plan of Care progress note, and Patient Education. This note stands as the current Discharge Summary upon patient discharge from the hospital or completion of Physical Therapy Plan. [id number] Consult note* Ken Vergara MD - 04/12/2023 3:24 PM ESTAssociated Order(s): IP CONSULT TO NEUROLOGY Neurology Inpatient Consult [facility] Date of Service: 04/12/23 Admit Date: 04/12/2023 Service Type: New Patient Consultation Patient: Neena Roman Date of : 1955 (68 y.o.) Referring Provider: Refer to consult order in electronic medical record PCP: Teresa Duffy MD Assessment ASSESSMENT: Neena Roman is a 68 y.o. male who presented to [facility] on 04/12/2023 with stroke Patient with acute onset of aphasia and acalculia at 1930 on 04/11/23. NIHSS 4 for aphasia. Given tPA 2133 on 04/11/23. CT/CTA negative for acute findings. No significant stenosis on CTA. Mild improvement, still has mild aphasia but no other deficits. Has mild neck discomfort but otherwise doing OK. Stroke risk factors include HTN, HLD, former smoking, family h/o stroke. Will get MRI after tPA and continue stroke workup. Will need to work with speech therapy. Diagnoses: Acute ischemic stroke Admitted with these risk variables:Cerebral Infarction NIHSS = 4. Please see assessment and plan for further details. PLAN: Stroke (Ischemic Infarct) Etiology: Uncertain Testing: MRI brain 18-30 hours post-tPA Labs: complete Cardiac Rhythm: NO Afib noted to date Anti-thrombotic: Anti-thrombotic on hold at least 24 hours after tPA/intervention, probably start ASA/Plavix Anti-lipid Agent: Lipitor (atorvastatin) 40 mg BP Goal: Less than 180/105 for initial 24 hrs of admit/onset of stroke-like symptoms, then gradual steady reduction to normotension; AVOID hypotension; Attending Service to manage Glucose Goal: Normoglycemia/ A1c less than 6.5. Attending Service to manage. Tobacco: Counseled to not smoke/use tobacco. Attending Service to manage. Therapy (Assessed for Rehab): Pending evaluation DVT Prophylaxis: None for now. On hold at for least 24 hours after tPA/intervention Eventual Outpatient Follow-up: In [facility] Ken Vergara MD Staff Neurologist [facility] ERIC [id number], [facility] [id number] Clinic 04/12/23 Parts of this note may have been dictated using [employer], a speech- recognition software. Syntax errors and sound-alike substitutions which may escape proofreading could be present. In such instances, the actual meaning can be extrapolated from the context. Subjective SUBJECTIVE: Chief Complaint/Reason for Consult: stroke History of Present Illness: Neena Roman is a 68 y.o. male who presented on 04/12/2023 for stroke. Neurology is consulted for stroke. Fell asleep 1900 on 04/11 and woke up at 1930 with aphasia. NIHSS [address]/CTA unremarkable. tPA given at OSH ED at 4. Today feels OK, has a mild headache (actually mostly neck but spreadsa bit into the back of the head). Doesn't get the head pain much but neck is a problem sometimes. Takes some kind of medication but can't say what it is due to the aphasia. No prior h/o stroke. Usually pretty independent. Review of systems: All systems were reviewed and found to be negative except for those mentioned inthe HPI. Review of data including medical histories, allergies and medications Medical surgical social and family histories: He has a past medical history of BPH (benign prostatic hyperplasia), Cataracts, bilateral, Chronic neck pain, Corneal scarring, Elevated PSA, History of rib fracture, Hyperlipidemia, Hypertension, Kidney stones (10/2022), and Poor historian. He has a past surgical history that includes Cholecystectomy; Hernia repair; tonsillectomy; and Eswl Unilateral Extra-Corporeal Shock Wave Lithotripsy (10/2022). He family history includes Dementia in his mother; Stroke in his father. He reports that he has quit smoking. His smoking use included cigarettes. He has never used smokeless tobacco. He reports current alcohol use. He reports that he does not currently use drugs. Allergies: Allergies: Penicillins MEDICATIONS: WERE REVIEWED AND CHECKED FOR ALLERGIES AND INTERACTIONS (IN EMR). Objective OBJECTIVE: Physical Examination: BP (!) 156/97 Pulse 62 Temp 98.3 F (36.8 C) (Oral) Resp 13 SpO2 94% GENERAL: General Appearance: Resting comfortably in bed in NAD HEENT: Normocephalic. No conjunctival injection. Ears appear normal. No substantial sinus drainage.See below for vision/hearing Neck: Supple, no focal bony tenderness, no mass lesions Respiratory Effort: Normal Extremities: No edema Skin: No rashes visualized on limited skin exam MSK: No joint deformities Neurological examination: MENTAL STATUS: Alertness, Attention Span & Concentration: Normal Language: mild word-finding difficulty. Naming, repetition, reading were intact. Receptive languageappears normal. Speech: no dysarthria. Orientation: Oriented to person, place, time/date, and situation CRANIAL NERVES: II - Visual Curran: Normal II, III: Pupils: PERRL, no RAPD III, IV, : Eye Movements: Normal (EOMI, No ptosis, No nystagmus) V - Facial Sensation: Normal VII: Face Symmetry & Strength: Normal VIII - Hearing: Normal to finger rub bilaterally IX, X - Palate: Normal, elevates symmetrically XI - Shoulder Shrug: Normal XII - Tongue Protrusion: Normal, symmetric MOTOR: Muscle Strength Right Left 5 Shoulder Abduction (Deltoid) 5 5 Elbow Flexion (Biceps) 5 5 Elbow Extension (Triceps) 5 5 Wrist Flexion 5 5 Wrist Extension 5 5 Finger Abduction (Interossei) 5 Right Left 5 Hip Extension 5 5 Hip Flexion (Iliopsoas) 5 5 Knee Extension (Quads) 5 5 Knee Flexion (Hamstrings) 5 5 Dorsiflexion (Anterior Tibialis) 5 5 Plantar Flexion (Gastrocnemius) 5 MOTOR AGUIRRE: 5 Normal (Normal Power) 4 Mild Weakness (Movement against moderate resistance over a full range of motion) 3 Moderate Weakness (Movement against gravity only over almost full range of motion) 2 Severe Weakness (Movement with gravity eliminated over almost full range of motion) 1 Trace Movement (Contraction visible or palpable without effective movement of the joint) 0 No Movement (No contraction visible or palpable) PAM Unable to Assess Normal Bulk and Tone, no atrophy. SENSATION: Fine Touch: Normal Pinprick: Normal Proprioception: Normal Vibration: Normal Temperature: Normal REFLEXES: Right Reflexes Left 2+ Biceps 2+ 2+ Triceps 2+ 2+ Brachioradialis 2+ 2+ Patellar 2+ 2+ Achilles 2+ Down Plantar Response (Babinski) Down REFLEXES AGUIRRE: 4+ Sustained Clonus 3+ Brisk 2+ Normal 1+ Diminished 0 Absent PAM Unable to Assess COORDINATION: Coordination Hingze-mt-Smdt: normal Juarez Finger taps: normal Coordination Zjbl-Xwwz-Phep: normal Diadochokinesis: normal STANCE AND GAIT: Deferred MOVEMENT DISORDERS EXAMINATION: Tremor - no tremors noted Bradykinesia - None Rigidity - None Dyskinesia/Choreoathetosis - None Dystonia/Myoclonus/Tics - None DIAGNOSTIC TESTING SUMMARY: Resulted Testing: (MRI/CT/XR, EEG, EMG, CSF, Cardiac, Labs) CT head with mild to moderate atrophy and white matter disease, but no acute findings. CTA head/neck with no LVO, no significant stenosis seen INR 1.2. BMP, CBC unremarkable. Troponin negative. LDL 27. A1c 6.0. Attestation: Discussed risks, benefits and alternatives regarding plan with patient/family/caregivers and answered the questions. I independently reviewed radiology images and summarized in this notewith annotations and screenshots wherever appropriate. Time statement: A total of 82 minutes were spent on this encounter either in the patient's room or on the patient's hospital unit and over 50% of that time was spent on [id number] counseling and/orcoordination of care. This includes discussions with patient/family as well as with consulting careproviders, regarding clinical course, prognosis, treatment alternatives, expected outcomes of medications and their side effects. [id number] Consult note* Ayanna Morales SLP - 04/12/2023 3:17 PM EST Speech Pathology Bedside Swallow Evaluation Recommendations: PO Recommendations: NDD diet NDD diet recommendation: Regular solids, Thin liquids Compensatory Strategies: Eat/feed slowly Postures: Sit as upright as possible for all oral intake, Up 30 min after meal Food Presentation: Average bites Liquid Presentation: Average sips Medication Presentation: Whole with thins, Whole in puree, Crushed in puree, Per Patient Preference Amount of Supervision: Nursing staff supervision, Intermittent Treatment Techniques: Train swallowing strategies Further Recommendations: Assess for diet tolerance Recommended Referrals: Occupational Therapy, Physical Therapy Discharge Recommendations: Skilled Therapy Needs: Are Skilled Therapy Services Needed After Discharge: Yes Functional Limitations: communication deficits Intensity of Skilled Therapy: 2-3 days per week Anticipated Duration of Skilled Therapy: Duration 10 - 30 days Prior Function: Reason for Referral: Stroke / neuro Prior Swallow Deficit: No known previous deficits, Per chart review, Per patient report Swallow Complaint: (denies) Diet Prior to BSE: NPO Primary Language: Kosovan Baseline Assessment: Subjective Impression: Alert, Cooperative, Pleasant Mood, Aphasic Respiratory Status: Room air Dentition: Permanent Self-Feeding Barriers: Functional for self-feeding Patient Positioning: Upright in bed Volitional Cough: Strong Baseline Cough: Dry Secretion Management: Adequate Volitional Swallow: Present Oral Motor: Oral Motor Impression-Severity Scale: WFL Apraxia: None present Voice: Breath Support: WFL Vocal Quality: WFL Vocal Intensity: WFL Consistencies Assessed: CONSISTENCY PRESENTATION ORAL (SIGNS / SYMPTOMS) PHARYNGEAL (SIGNS / SYMPTOMS) THIN Cup, Self Fed, Continuous drinks Within functional limits (no overt s/s of aspiration/penetration) PUREE Self fed, Spoon Within functional limits (no overt s/s of aspiration/penetration) SOLID Self Fed Within functional limits (no overt s/s of aspiration/penetration) Per H&P: Patient is a 68 y.o. male patient of Teresa Duffy MD with history of HTN, HLD, Kidney Stones, Elevated PSA, Chornic Neck Pain, BPH who presented as a transfer to [facility] from [facility] with complaints of Aphasia. CT Head was negative for acute findings and he was deemed a candidate for TPA. TPA was administered @ 2133. CTA was negative for LVO. Pt participated in skilled dysphagia assessment. Pt seen sitting upright in bed. Pt able to follow commands independently. Pt consumed trials as noted above. No overt s/s of aspiration/penetration noted via cough, throat clear or change in vocal quality. Pt w/functional mastication, bolus manipulation and AP transit. No oral residue noted. At this time, rx initiate diet of regular solids, thin liquids,meds whole as tolerated. Rx 1x additional follow up to ensure safety w/diet. Pt presenting w/expressive aphasia a this time, however reports speech has improved from previous day. Rx completion of [facility] eval on 04/13/23. MRI not yet completed. Impressions-Severity Level: Oral Severity Scale: WFL Pharyngeal Severity Scale: (pharyngeal deficits not suspected at this time) Factors for Returning to PLOF: Body Structure and Function: Musculoskeletal impairment, Neurologic impairment Explain Impairments: s/p suspected CVA Activities and Participation: Communication limitation Explain Limitations: aphasic Environmental Factors: Home situation Explain Environmental Factors: lives w/spouse HOUSE NURSE Caregiver Readiness: HOUSE NURSE Caregiver Readiness Working toward discharge home: Yes HOUSE NURSE Caregiver Training: Ongoing - Follow up required Who was trained?: Spouse, Daughter Provided training for: Diet modifications / thickened liquids- follow up required, Safe swallowing strategies - follow up required Caregiver response to training: Verbalizes understanding Speech Plan: Further acute Speech Therapy services indicated: Yes Role of ST Discussed: With patient, With family/caregiver Risk/Benefits of ST Discussed: With patient, With family/caregiver Patient Goal for Treatment: None stated Rehab Potential: Good Further Recommendations: Speech/language/cognitive evaluation Recommended Referrals: Occupational Therapy, Physical Therapy For complete objective data, detailed plan of care, and education refer to: Speech Bedside Swallow Evaluation flow sheet, as well as patient Plan of Care and Education documentation. This note stands as the current Discharge Summary upon patient discharge from the hospital or completion of Speech Pathology Plan of Care. [place] [id number] Consult note* Jemima Chacon LISW - 04/12/2023 10:47 AM ESTAssociated Order(s): IP CONSULT TO CARE MANAGEMENT Care Management Consult Note Date: 04/12/2023 Time: 10:47 AM Patient Name: Neena Roman Date of : 1955 Reason for Consult: Transition of Care Discharge Plan: Discharging Transportation Plan: Discharge Plan Status: Patient transferred from [facility] for CVA. Patient given TPA. Patient to have MRI later today. No advanced directives on file. Spouse and daughter listed as emergency contacts. No visitors present. PCP Teresa Duffy MD. [facility] medicare. Following for discharge plans. Assessment and Background Information: Living Arrangements: Spouse/significant other Support Systems: Family members Type of Residence: Private residence Prior to Admission Home Care Services: No [place] [id number] Note* [facility] - Ca Villegas OT - 04/12/2023 10:31 AM EST OCCUPATIONAL THERAPY VISIT VARIANCE NOTE Attempted to see patient at this time, but unable secondary to: Awaiting Medical Clearance (comment) (Pt on bedrest following TPA administration late last evening.). Will follow up as appropriate. [id number] History and physical note* Laila Torres CNP - 04/12/2023 5:08 AM EST [facility] [place] [facility] [place] [facility] Patient Name: Neena Roman : 1955 MR #: [id number] Admit Date: 04/12/2023 Physicians: Teresa Duffy MD (Family); Job Banks (Referring) Neena Roman is a 68 y.o. male patient of Teresa Duffy MD with history of HTN, HLD, Kidney Stones, Elevated PSA, Chornic Neck Pain, BPH who presented as a transfer to [facility] from [facility] with complaints of Aphasia. Acute Stroke s/p TPA Aphasia Initial NIHSS at OSH: 4 Current NIHSS: 3 for LOC, Aphasia, mild dysarthria w some words CTH: no acute findings. Likely chronic microvascular ischemic changes CTA: no LVO CXR: no acute findings WBC: 8.6 Troponin: <0.05 LDL, HGA1C: P MRI w/ and w/out: P Echo w. Bubble: P SBP <180 Neuro Checks Cont home Atorvastatin Holding ASA until 24 hrs after TPA Consult Neurology: P HTN Holding home Amlodipine HLD Statin as above Residence prior to admission: house [facility] Quality Measures DVT Prophylaxis: SCDs Chow Catheter: absent Medication Reconciliation: Verified Risk variables present on admission: None. Please see assessment and plan for further details. Estimated Date of Discharge greater than 2 midnights Code Status Full Code; code status verified on 04/12/2023 with patient (capacity intact) Chief Complaint Aphasia History of Present Illness Mr. Roman was transferred to [facility] after presenting to [facility] with complaints of acute onset aphasia. Per the chart, Mr. Roman wokeup around 1930 after a 30 min nap and was noted to be aphasic. LKW @1900. He was having difficulty with word finding and completing sentences. Mr. Spann denied any motor deficits, ataxia, weakness, visual changes, SOB, nausea, vomiting, fever, chills, syncope. He currently denies any pain inclchest pain. While in the ED, Mr. Roman CTH was negative for acute findings and he was deemed a candidate for TPA. TPA was administered @ 2134. CTA was negative for LVO. Other labs were unremarkable. Mr. Roman was admitted for further imaging and monitoring post TPA. Past Medical History Past Medical History: Diagnosis Date BPH (benign prostatic hyperplasia) Cataracts, bilateral Chronic neck pain Corneal scarring Elevated PSA History of rib fracture Hyperlipidemia Hypertension Kidney stones 10/2022 Poor historian Past Surgical History Past Surgical History: Procedure Laterality Date CHOLECYSTECTOMY ESWL UNILATERAL EXTRA-CORPOREAL SHOCK WAVE LITHOTRIPSY 10/2022 HERNIA REPAIR TONSILLECTOMY Family History Family History Problem Relation Age of Onset Dementia Mother Stroke Father Social History Social History Tobacco Use Smoking Status Former Types: Cigarettes Smokeless Tobacco Never Social History Substance and Sexual Activity Alcohol Use Yes Comment: BEER NOW AND AGAIN Social History Substance and Sexual Activity Drug Use Not Currently Allergy Information I have reviewed the patient's allergies. Penicillins Home Medications Home medications were reviewed. Review Of Systems All relevant systems have been reviewed and are negative except as noted in HPI or below Physical Examination BP (!) 151/95 Pulse 63 Resp 14 SpO2 95% General Appearance: alert; well appearing; in no acute distress HEENT: Head- normocephalic; Eyes- EOMI, sclera anicteric; Throat- mucous membranes moist Cardiovascular: regular rate and rhythm; normal S1, S2; no murmurs, rubs, clicks or gallops; peripheral edema absent Respiratory: lungs clear to auscultation throughout, diminished manuel LL; without wheezes, rales or rhonchi; on nasal cannula Abdomen: soft, rounded, non-tender, non-distended Neurological: oriented x 2; Oriented to person, place, not year, or month, alert president when given options. normal speech; no focal findings or movement disorder noted. No drift. Sensation intact throughout. Strength 5/5 x4. FC x4. Mild aphasia & dysarthria Musculoskeletal: no significant deformity or tenderness to palpation. Pulses x4 2 Skin: normal coloration Psych: normal mood and affect Associated attestation - Patricia Lee MD - 04/12/2023 7:16 AM EST HMS NOTE ADDENDUM I saw and examined the patient independently of the NADRZEJ . Labs, medications, imaging and other studies were reviewed. I agree with history, physical examination findings, medical decision making and the assessment/plan with additions as noted in my documentation below. HPI Neena Roman is a 68 y.o. male patient of Teresa Duffy MD with history of HTN, HLD, Kidney Stones, Elevated PSA, Chornic Neck Pain, BPH who presented as a transfer to [facility] from [facility] with complaints of Aphasia. CT Head was negative for acute findings and he was deemed a candidate for TPA. TPA was administered @ 2134. CTA was negative for LVO. Other labs were unremarkable. Mr. Roman was admitted for further imaging and monitoring post TPA. Physical Examination General Appearance: alert; acutely ill appearing; in mild acute distress HEENT: Head- normocephalic; Eyes- EOMI, sclera anicteric; Ears- hearing intact; Nose- no nasal discharge; Throat- mucous membranes moist Cardiovascular: regular rate and rhythm; normal S1, S2; no murmurs, rubs, clicks or gallops; no peripheral edema Respiratory: lungs clear to auscultation; without wheezes, rales or rhonchi; on room air Abdomen: soft, non-tender, non-distended; positive bowel sounds Neurological: oriented x 2; normal speech; Strength 5/5 x4. FC x4. Mild aphasia & dysarthria Musculoskeletal: no significant deformity or tenderness to palpation Skin: normal coloration; no obvious rashes, lesions or skin breakdown Psych: normal mood and affect Assessment/Plan Acute Stroke s/p TPA Aphasia HTN HLD Admit to ICU for s/p tpa CTH: no acute findings. Likely chronic microvascular ischemic changes CTA: no LVO Cont home Atorvastatin Holding ASA until 24 hrs after TPA Holding amlodipine for permissive HTN Consult Neurology: and MRI brain Detailed plan as below [id number] History and physical note* Laila Torres, DRUM BARKER OPERATOR - 04/12/2023 5:08 AM EST [facility] [place] -- [facility] Patient Name: Neena Roman : 1955 [id number] Admit Date: 04/12/2023 Physicians: Teresa Duffy MD (Family); Job Banks (Referring) Neena Roman is a 68 y.o. male patient of Teresa Duffy MD with history of HTN, HLD, Kidney Stones, Elevated PSA, Chornic Neck Pain, BPH who presented as a transfer to [facility] from [facility] with complaints of Aphasia. Acute Stroke s/p TPA Aphasia Initial NIHSS at OSH: 4 Current NIHSS: 3 for LOC, Aphasia, mild dysarthria w some words CTH: no acute findings. Likely chronic microvascular ischemic changes CTA: no LVO CXR: no acute findings WBC: 8.6 Troponin: <0.05 LDL, HGA1C: P MRI w/ and w/out: P Echo w. Bubble: P SBP <180 Neuro Checks Cont home Atorvastatin Holding ASA until 24 hrs after TPA Consult Neurology: P HTN Holding home Amlodipine HLD Statin as above Residence prior to admission: house or apartment Was patient transferred from outlying hospital or ED yes -- care site [facility] Quality Measures DVT Prophylaxis: SCDs Chow Catheter: absent Medication Reconciliation: Verified Risk variables present on admission: None. Please see assessment and plan for further details. Estimated Date of Discharge greater than 2 midnights Code Status Full Code; code status verified on 04/12/2023 with patient (capacity intact) Chief Complaint Aphasia History of Present Illness Mr. Roman was transferred to [facility] after presenting to [facility] with complaints of acute onset aphasia. Per the chart, Mr. Roman wokeup around 1930 after a 30 min nap and was noted to be aphasic. LKW @1900. He was having difficulty with word finding and completing sentences. Mr. Spann denied any motor deficits, ataxia, weakness, visual changes, SOB, nausea, vomiting, fever, chills, syncope. He currently denies any pain inclchest pain. While in the ED, Mr. Roman CTH was negative for acute findings and he was deemed a candidate for TPA. TPA was administered @ 2133. CTA was negative for LVO. Other labs were unremarkable. Mr. Roman was admitted for further imaging and monitoring post TPA. Past Medical History Past Medical History: Diagnosis Date BPH (benign prostatic hyperplasia) Cataracts, bilateral Chronic neck pain Corneal scarring Elevated PSA History of rib fracture Hyperlipidemia Hypertension Kidney stones 10/2022 Poor historian Past Surgical History Past Surgical History: Procedure Laterality Date CHOLECYSTECTOMY ESWL UNILATERAL EXTRA-CORPOREAL SHOCK WAVE LITHOTRIPSY 10/2022 HERNIA REPAIR TONSILLECTOMY Family History Family History Problem Relation Age of Onset Dementia Mother Stroke Father Social History Social History Tobacco Use Smoking Status Former Types: Cigarettes Smokeless Tobacco Never Social History Substance and Sexual Activity Alcohol Use Yes Comment: BEER NOW AND AGAIN Social History Substance and Sexual Activity Drug Use Not Currently Allergy Information I have reviewed the patient's allergies. Penicillins Home Medications Home medications were reviewed. Review Of Systems All relevant systems have been reviewed and are negative except as noted in HPI or below Physical Examination BP (!) 151/95 Pulse 63 Resp 14 SpO2 95% General Appearance: alert; well appearing; in no acute distress HEENT: Head- normocephalic; Eyes- EOMI, sclera anicteric; Throat- mucous membranes moist Cardiovascular: regular rate and rhythm; normal S1, S2; no murmurs, rubs, clicks or gallops; peripheral edema absent Respiratory: lungs clear to auscultation throughout, diminished manuel LL; without wheezes, rales or rhonchi; on nasal cannula Abdomen: soft, rounded, non-tender, non-distended Neurological: oriented x 2; Oriented to person, place, not year, or month, alert president when given options. normal speech; no focal findings or movement disorder noted. No drift. Sensation intact throughout. Strength 5/5 x4. FC x4. Mild aphasia & dysarthria Musculoskeletal: no significant deformity or tenderness to palpation. Pulses x4 2 Skin: normal coloration Psych: normal mood and affect Associated attestation - Patricia Lee MD - 04/12/2023 7:16 AM EST HMS NOTE ADDENDUM I saw and examined the patient independently of the ANDRZEJ . Labs, medications, imaging and other studies were reviewed. I agree with history, physical examination findings, medical decision making and the assessment/plan with additions as noted in my documentation below. HPI Neena Roman is a 68 y.o. male patient of Teresa Duffy MD with history of HTN, HLD, Kidney Stones, Elevated PSA, Chornic Neck Pain, BPH who presented as a transfer to [facility] from [facility] with complaints of Aphasia. CT Head was negative for acute findings and he was deemed a candidate for TPA. TPA was administered @ 2133. CTA was negative for LVO. Other labs were unremarkable. Mr. Roman was admitted for further imaging and monitoring post TPA. Physical Examination General Appearance: alert; acutely ill appearing; in mild acute distress HEENT: Head- normocephalic; Eyes- EOMI, sclera anicteric; Ears- hearing intact; Nose- no nasal discharge; Throat- mucous membranes moist Cardiovascular: regular rate and rhythm; normal S1, S2; no murmurs, rubs, clicks or gallops; no peripheral edema Respiratory: lungs clear to auscultation; without wheezes, rales or rhonchi; on room air Abdomen: soft, non-tender, non-distended; positive bowel sounds Neurological: oriented x 2; normal speech; Strength 5/5 x4. FC x4. Mild aphasia & dysarthria Musculoskeletal: no significant deformity or tenderness to palpation Skin: normal coloration; no obvious rashes, lesions or skin breakdown Psych: normal mood and affect Assessment/Plan Acute Stroke s/p TPA Aphasia HTN HLD Admit to ICU for s/p tpa CTH: no acute findings. Likely chronic microvascular ischemic changes CTA: no LVO Cont home Atorvastatin Holding ASA until 24 hrs after TPA Holding amlodipine for permissive HTN Consult Neurology: and MRI brain Detailed plan as below documented in this [id number] Note* Quick Note - Cece Gallagher RN - 04/12/2023 4:30 AM EST Patient arrived from [facility] via [employer], A+Ox4, GARAY without weakness. Demonstrates expressiveaphasia, but when given options is fully oriented. Dr. Lee notified of patient's arrival to [facility]. [id number] Instructions* Patient Instructions* Siria Mack, OD - 04/06/2023 1:54 PM EST ASSESSMENT/PLAN: 1. Combined forms of age-related cataract of both eyes - ICD9: 366.19, ICD10: H25.813 (primary diagnosis) Mild cataract in both eyes. Well tolerated at this time. Discussed possible future affect on daily activities to watch for. Monitor as instructed. 2. Corneal scarring - ICD9: 371.00, ICD10: H17.9 Continue to monitor. Stable at this time. 3. Floaters, bilateral - ICD9: 379.24, ICD10: H43.393 Vitreal floaters stable both eyes. Retinas flat and intact with no apparent retinal tear or traction. Discussed symptoms of retinal tear/detachment and if seen patient will return to clinic without delay. Recommended yearly exams, sooner if he notices any changes in his vision [facility] History of Present illness Narrative* Siria Mack, OD - 04/06/2023 1:53 PM EST ASSESSMENT/PLAN: 1. Combined forms of age-related cataract of both eyes - ICD9: 366.19, ICD10: H25.813 (primary diagnosis) Mild cataract in both eyes. Well tolerated at this time. Discussed possible future affect on daily activities to watch for. Monitor as instructed. 2. Corneal scarring - ICD9: 371.00, ICD10: H17.9 Continue to monitor. Stable at this time. 3. Floaters, bilateral - ICD9: 379.24, ICD10: H43.393 Vitreal floaters stable both eyes. Retinas flat and intact with no apparent retinal tear or traction. Discussed symptoms of retinal tear/detachment and if seen patient will return to clinic without delay. Recommended yearly exams, sooner if he notices any changes in his vision Siria Mack, OD I have confirmed and edited as necessary the relevant ophthalmic history, ROS, and the neuro exam findings as obtained by others. I have seen and examined this patient. documented in this encounterRiverview [facility] Institute06-27-2023 NotePROCEDURE DETAILS Preoperative Diagnosis: Calculus of right kidney, N20.0 Postoperative Diagnosis: Calculus of right kidney, N20.0 Surgeon: Neena العلي Resident/Fellow/Other Motor Assembler: None of these were associated with this case Procedure: 1. R ESWL Anesthesia: Ford Salazar Estimated Blood Loss: 0 Findings: see op note Specimens(s) Collected: no, Operative Report: Surgeon: Neena العلي MD Anesthetic: General. Pre-Op Diagnosis: Right Renal stone. Post-Op Diagnosis: Same. Operation: RIGHTextracorporeal shock wave lithotripsy. ESTIMATED BLOOD LOSS: Minimal. COMPLICATIONS: None. INDICATIONS AND CONSENT: Patient presents for Tx of known stone... After the risks, benefits, alternatives, and indications for the procedure were explained to the patient, consented. PROCEDURE: The patient was brought to the operating room and placed on the table in supine position. After adequate anesthesia was obtained, fluoroscopy was used to visualize the stone. A total of 2500 shocks were delivered. The patient tolerated the procedure well. There were no complications. follow up 3 months with KUB Attestation: Note Completion: Attending AttestationI performed the procedure without a resident Electronic Signatures: Neena العلي) (Signed 24-Nov-2022 13:28) Authored: Post-Operative Note, Chart Review, Note Completion Last Updated: 24-Nov-2022 13:28 by Neena العلي)[facility] 11-24-2022 Miscellaneous Notes* Op Note - Neena العلي MD - 11/24/2022 1:24 PM EDT PROCEDURE DETAILS Preoperative Diagnosis: Calculus of right kidney, N20.0 Postoperative Diagnosis: Calculus of right kidney, N20.0 Surgeon: Neena العلي Resident/Fellow/Other Motor Assembler: None of these were associated with this case Procedure: 1. R ESWL Anesthesia: Ford Salazar Estimated Blood Loss: 0 Findings: see op note Specimens(s) Collected: no, Operative Report: Surgeon: Neena العلي MD Anesthetic: General. Pre-Op Diagnosis: Right Renal stone. Post-Op Diagnosis: Same. Operation: RIGHTextracorporeal shock wave lithotripsy. ESTIMATED BLOOD LOSS: Minimal. COMPLICATIONS: None. INDICATIONS AND CONSENT: Patient presents for Tx of known stone... After the risks, benefits, alternatives, and indications for the procedure were explained to the patient, consented. PROCEDURE: The patient was brought to the operating room and placed on the table in supine position. After adequate anesthesia was obtained, fluoroscopy was used to visualize the stone. A total of 2500 shocks were delivered. The patient tolerated the procedure well. There were no complications. follow up 3 months with KUB Attestation: Note Completion: Attending Attestation I performed the procedure without a resident Electronic Signatures: Neena العلي) (Signed 24-Nov-2022 13:28) Authored: Post-Operative Note, Chart Review, Note Completion Last Updated: 24-Nov-2022 13:28 by Neena العلي) documented in this [facility] Work Phone: [phone]) 604-851706-27-2023 Note* Op Note - Neena العلي MD - 11/24/2022 1:24 PM EDT PROCEDURE DETAILS Preoperative Diagnosis: Calculus of right kidney, N20.0 Postoperative Diagnosis: Calculus of right kidney, N20.0 Surgeon: Neena العلي Resident/Fellow/Other Motor Assembler: None of these were associated with this case Procedure: 1. R ESWL Anesthesia: Ford Salazar Estimated Blood Loss: 0 Findings: see op note Specimens(s) Collected: no, Operative Report: Surgeon: Neena العلي MD Anesthetic: General. Pre-Op Diagnosis: Right Renal stone. Post-Op Diagnosis: Same. Operation: RIGHTextracorporeal shock wave lithotripsy. ESTIMATED BLOOD LOSS: Minimal. COMPLICATIONS: None. INDICATIONS AND CONSENT: Patient presents for Tx of known stone... After the risks, benefits, alternatives, and indications for the procedure were explained to the patient, consented. PROCEDURE: The patient was brought to the operating room and placed on the table in supine position. After adequate anesthesia was obtained, fluoroscopy was used to visualize the stone. A total of 2500 shocks were delivered. The patient tolerated the procedure well. There were no complications. follow up 3 months with KUB Attestation: Note Completion: Attending Attestation I performed the procedure without a resident Electronic Signatures: Neena العلي) (Signed 24-Nov-2022 13:28) Authored: Post-Operative Note, Chart Review, Note Completion Last Updated: 24-Nov-2022 13:28 by Neena العلي) [facility] Work Phone: [phone]) 113-400306-27-2023 NoteHistory & Physical Reviewed: I have reviewed the History and Physical dated: 18-Nov-2022 History and Physical reviewed and relevant findings noted. Patient examined to review pertinent physical findings.: No significant changes Home Medications Reviewed: no changes noted Allergies Reviewed: no changes noted ERAS (Enhanced Recovery After Surgery): ERAS Patient: no Consent: COVID-19 Consent: COVID-19 Risk ConsentSurgeon has reviewed aguirre risks related to the risk of roma COVID-19 and if they contract COVID-19 what the risks are. Electronic Signatures: Neena العلي) (Signed 24-Nov-2022 07:51) Authored: History & Physical Reviewed, ERAS, Consent, Note Completion Last Updated: 24-Nov-2022 07:51 by Neena العلي)[facility] 11-24-2022 History and physical note* Neena العلي MD - 11/24/2022 7:50 AM EDT History & Physical Reviewed: I have reviewed the History and Physical dated: 18-Nov-2022 History and Physical reviewed and relevant findings noted. Patient examined to review pertinent physical findings.: No significant changes Home Medications Reviewed: no changes noted Allergies Reviewed: no changes noted ERAS (Enhanced Recovery After Surgery): ERAS Patient: no Consent: COVID-19 Consent: COVID-19 Risk Consent Surgeon has reviewed aguirre risks related to the risk of roma COVID-19 and if they contract COVID-19 what the risks are. Electronic Signatures: Neena العلي) (Signed 24-Nov-2022 07:51) Authored: History & Physical Reviewed, ERAS, Consent, Note Completion Last Updated: 24-Nov-2022 07:51 by Neena العلي) [facility] Work Phone: [phone] 710-302506-27-2023 History and physical note* Neena العلي MD - 11/24/2022 7:50 AM EDT History & Physical Reviewed: I have reviewed the History and Physical dated: 18-Nov-2022 History and Physical reviewed and relevant findings noted. Patient examined to review pertinent physical findings.: No significant changes Home Medications Reviewed: no changes noted Allergies Reviewed: no changes noted ERAS (Enhanced Recovery After Surgery): ERAS Patient: no Consent: COVID-19 Consent: COVID-19 Risk Consent Surgeon has reviewed aguirre risks related to the risk of roma COVID-19 and if they contract COVID-19 what the risks are. Electronic Signatures: Neena العلي) (Signed 24-Nov-2022 07:51) Authored: History & Physical Reviewed, ERAS, Consent, Note Completion Last Updated: 24-Nov-2022 07:51 by Neena العلي) [facility] Work Phone: [phone]) 103-746105-23-2023 History of Present illness NarrativePatient is here for renal u/s results. Hx of kidney stones. Recent U/S showed nonobstructing bilateral intrarenal stone and cortical cysts. Chronic hx of elevated PSA. Most recent PSA was 4.98 on 10/20. Prior PSA was 4.92 on 07/22. Prior PSA was 4.70 on 12/2020. Prior PSA was 4.51 on 12/2019. . Prior PSA was 4.42 on 07/2019. Prior PSA was 5.02 on 12/2018. Prior PSA was 9.12 on 05/2018. No fhx of prostate ca. 1 negative bx on 07/2018. Denies bone pain. Denies weight loss. Chronic BPH sx are mild and stable. some urgency and frequency. Denies dysuria. Denies hematuria. Nocturia 1-2x... Pt. does not take any medication for the prostate... . ED is mild. No medication for xizcPD[facility] Work Phone: 1([phone]) 981-467403-07-2023 Evaluation + Plan note* Assessment & Plan Note - Teresa Duffy MD - 08/04/2022 8:37 AM ESTAssociated Problem(s): Prediabetes improved [facility] Work Phone: [phone]) [phone] Evaluation + Plan note* Assessment & Plan Note - Teresa Duffy MD - 08/04/2022 8:37 AM ESTAssociated Problem(s): Benign prostatic hyperplasia with urinary obstruction and other lower urinary tract symptoms Per urology [facility] Work Phone: [phone]) [phone] Miscellaneous Notes* Assessment & Plan Note - Teresa Duffy MD - 08/04/2022 8:37 AM ESTAssociated Problem(s): Prediabetes improved * Assessment & Plan Note - Teresa Duffy MD - 08/04/2022 8:37 AM ESTAssociated Problem(s): Benign prostatic hyperplasia with urinary obstruction and other lower urinary tract symptoms Per urology documented in this [facility] Work Phone: 1(195) 602-554003-07-2023 History of Present illness Narrative* Eliza Gross CMA - 08/04/2022 8:00 AM EST Pt presents for routine check up; lab and med review * Teresa Duffy MD - 08/04/2022 8:00 AM EST Subjective Reason for Visit: Neena Roman is an 67 y.o. male here for a Medicare Wellness visit. Past Medical, Surgical, and Family History reviewed and updated in chart. Reviewed all medications by prescribing practitioner or clinical pharmacist (such as prescriptions,OTCs, herbal therapies and supplements) and documented in the medical record. Neena presents for periodic surveillance of chronic medical problems.He is also due for medicare wellness visit. States his thumbs hurt, mcp joints. Very active outdoors , not ready to do anything yet, such as referral to hand surgeon at [facility] Knees bother his some, states not enough to pursue further evalation . Hypertension, stable Hyperlipidemia, stable Prediabetes, stable Chart history of aortic ectasia, had normal ultrasound a year ago, no aneurysm. Patient Self Assessment of Health Status Patient Self Assessment: Excellent Nutrition and Exercise Current Diet: Well Balanced Diet Exercise Frequency: Regularly Functional Ability/Level of Safety Cognitive Impairment Observed: No cognitive impairment observed Cognitive Impairment Reported: No cognitive impairment reported by patient or family Home Safety Risk Factors: None Patient Care Team: Teresa Duffy MD as PCP - General (Family Medicine) Teresa Duffy MD as PCP - tna Medicare Advantage PCP Review of Systems All other systems reviewed and are negative. Objective Vitals: BP 132/72 (BP Location: Left arm) Pulse 66 Ht 1.88 m (6' 2) Wt 97.5 kg (215 lb) SpO2 96% BMI 27.60 kg/m Physical Exam Vitals and nursing note reviewed. Constitutional: General: He is not in acute distress. Appearance: Normal appearance. He is not toxic-appearing. HENT: Head: Normocephalic and atraumatic. Cardiovascular: Rate and Rhythm: Normal rate and regular rhythm. Heart sounds: No murmur heard. Pulmonary: Effort: Pulmonary effort is normal. Breath sounds: Normal breath sounds. Abdominal: Palpations: Abdomen is soft. Musculoskeletal: Cervical back: Neck supple. No rigidity. Comments: Normal gait Skin: General: Skin is warm and dry. Neurological: General: No focal deficit present. Mental Status: He is alert and oriented to person, place, and time. Psychiatric: Mood and Affect: Mood normal. Behavior: Behavior normal. Assessment/Plan Problem List Items Addressed This Visit Circulatory Hypertension - Primary Relevant Orders CBC and Auto Differential Comprehensive Metabolic Panel Lipid Panel Hemoglobin A1C Genitourinary Benign prostatic hyperplasia with urinary obstruction and other lower urinary tract symptoms Current Assessment & Plan Per urology Musculoskeletal Arthralgia Endocrine/Metabolic Prediabetes Current Assessment & Plan improved Other Visit Diagnoses Routine general medical examination at health care facility Relevant Orders 1 Year Follow Up In Primary Care - Wellness Exam [facility] Work Phone: [phone]) 169-436303-07-2023 Instructions* Patient Instructions* Teresa Duffy MD - 08/04/2022 8:00 AM EST Followup one year, labs prior, call concerns. [facility] Work Phone: 1([phone]) 895-925710-05-2022 History of Present illness Narrative* Jimmy Smith MD - 03/04/2022 8:42 AM EDT Gonioscopy Grade 4 angle with 2-3 pigmentation both eyes ASSESSMENT/PLAN: 1. Combined forms of age-related cataract of both eyes - ICD9: 366.19, ICD10: H25.813 (primary diagnosis) Not visually significant at this time Recommended updated refraction and glasses with Dr. Myra Chacon 2. 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 Hypercholesteremia - ICD9: 272.0, ICD10: E78.00 5. Essential hypertension - ICD9: 401.9, ICD10: I10 Continue care with primary care physician Jimmy Smith MD I have confirmed and edited as necessary the relevant ophthalmic history, review of systems, surgical history, and ophthalmological examination findings as obtained by the ophthalmic technical staff.I have seen and examined Neena Roman. I have discussed the examination findings, diagnosis, and treatment options with Neena Roman and/or his family. I have also reviewed and agree withthe assessment and plan as stated above and agree with all its relevant components. I gave the patient the opportunity to ask questions about the findings, diagnosis, and treatment options. [facility] History of Present illness NarrativeJohn presents via telephone with acute illness. Started a week or so ago, did home covid test last Wednesday and was negative. He is not interested at this time in repeat testing. Has sore throat, cough, decreased appetite and body aches, denies shortness of breath.-[facility] Phone: [phone]) [phone] History of Present illness NarrativePatient has chronic hx of elevated PSA. Most recent PSA was 4.70 on 12/2020. Prior PSA was 4.51 on 12/2019. . Prior PSA was 4.42 on 07/2019. Prior PSA was 5.02 on 12/2018. Prior PSA was 9.12 on 05/2018. No fhx of prostate ca. 1 negative bx on 07/2018. Denies bone pain. Denies weight loss. Chronic BPH sx are mild and stable. some urgency and frequency. Denies dysuria. Denies hematuria. Nocturia 1-2x... Pt. does not take any medication for the prostate... Pt. has hx of kidney stones.No recent sx...No flank pain...No N/V... ED is chronic. No medication for kpvgZW[facility] Work Phone: [phone]) [phone] History of Past illness Narrative* Problem Noted Date Resolved Date Chalazion of left lower eyelid 02/04/2018 1 documented as of this encounter (statuses as of 03/04/2022) [facility]09-07[facility] History of Past illness Narrative* Problem Noted Date Diagnosed Date Resolved Date Chalazion of left lower eyelid 02/04/2018 03/09/2018 documented as of this encounter (statuses as of 04/07/2023) [facility] note* Diagnosis Combined forms of age-related cataract of both eyes- Primary Other and combined forms of senile cataract Corneal scarring Corneal opacity, unspecified Pupillary miosis Miosis (persistent), not due to miotics Hypercholesteremia Pure hypercholesterolemia Essential hypertension Unspecified essential hypertension documented in this encounter [facility] note* Diagnosis Combined forms of age-related cataract of both eyes- Primary Other and combined forms of senile cataract Corneal scarring Corneal opacity, unspecified Floaters, bilateral [facility]* Diagnosis Stroke of unknown cause (HCC)- Primary Stroke of unknown cause (HCC) Other cerebrovascular vasospasm and vasoconstriction [facility] Primary hypertension- Primary Unspecified essential hypertension Stroke of unknown cause (CMS/HCC) documented in this encounter [facility] Work Phone: Evaluation note* Diagnosis Calculus of kidney Allergy status to penicillin Essential (primary) hypertension Unspecified essential hypertension Personal history of nicotine dependence Benign prostatic hyperplasia without lower urinary tract symptoms documented in this encounter [facility] Work Phone: Evaluation note* Diagnosis Stroke of unknown cause (CMS/HCC) Other cerebral infarction (CMS/HCC) documented in this encounter [facility] Work Phone: Evaluation note* Diagnosis Stroke of unknown cause (CMS/HCC) Screening for cardiovascular condition Screening for other and unspecified cardiovascular conditions Cerebrovascular disease, unspecified documented in this encounter [facility] Work Phone: Evaluation note* Diagnosis Stroke of unknown cause (CMS/HCC) Screening for cardiovascular condition Screening for other and unspecified cardiovascular conditions Cerebrovascular disease, unspecified documented in this encounter [facility] Work Phone: Evaluation note* Diagnosis Cerebrovascular accident (CVA), unspecified mechanism (HCC)- Primary [facility]* Diagnosis Routine general medical examination at health care facility- Primary Routine general medical examination at a health care facility Need for hepatitis C screening test Special screening examination for other specified viral diseases Prediabetes Other abnormal glucose Primary hypertension Unspecified essential hypertension Stroke of unknown cause (CMS/HCC) documented in this encounter [facility] Work Phone: Evaluation note* Diagnosis Cerebrovascular accident (CVA), unspecified mechanism (HCC)- Primary [facility]* Diagnosis Combined forms of age-related cataract of both eyes- Primary Other and combined forms of senile cataract Floaters, bilateral Pinguecula, bilateral [facility]* Diagnosis Primary hypertension- Primary Unspecified essential hypertension Arthralgia of both hands Prediabetes Other abnormal glucose Benign prostatic hyperplasia with urinary obstruction and other lower urinary tract symptoms Routine general medical examination at health care facility Routine general medical examination at a health care facility documented in this encounter [facility] Work Phone: Evaluation note* Diagnosis Primary hypertension- Primary Unspecified essential hypertension Arthralgia of both hands Prediabetes Other abnormal glucose Benign prostatic hyperplasia with urinary obstruction and other lower urinary tract symptoms Routine general medical examination at health care facility Routine general medical examination at a health care facility Influenza vaccination declined- Primary Bilateral thumb pain Varicose veins of both lower extremities with pain Primary hypertension Unspecified essential hypertension Prediabetes Other abnormal glucose documented in this encounter [facility] Work Phone: Evaluation note* Diagnosis Primary hypertension- Primary Unspecified essential hypertension Arthralgia of both hands Prediabetes Other abnormal glucose Benign prostatic hyperplasia with urinary obstruction and other lower urinary tract symptoms Routine general medical examination at health care facility Routine general medical examination at a health care facility Bilateral thumb pain documented in this encounter [facility] Work Phone: Evaluation note* Diagnosis Primary hypertension- Primary Unspecified essential hypertension Arthralgia of both hands Prediabetes Other abnormal glucose Benign prostatic hyperplasia with urinary obstruction and other lower urinary tract symptoms Routine general medical examination at health care facility Routine general medical examination at a health care facility Routine general medical examination at health care facility- Primary Routine general medical examination at a health care facility Primary hypertension Unspecified essential hypertension Prediabetes Other abnormal glucose Arthralgia of both hands Elevated hemoglobin (CMS-HCC) documented in this encounter [facility] Work Phone: Evaluation note* Diagnosis Primary hypertension- Primary Unspecified essential hypertension Arthralgia of both hands Prediabetes Other abnormal glucose Benign prostatic hyperplasia with urinary obstruction and other lower urinary tract symptoms Routine general medical examination at health care facility Routine general medical examination at a health care facility Routine general medical examination at health care facility- Primary Routine general medical examination at a health care facility Primary hypertension Unspecified essential hypertension Prediabetes Other abnormal glucose Arthralgia of both hands Elevated hemoglobin Left groin mass- Primary documented in this encounter [facility] Work Phone: Hospital Discharge instructions* Attachments The following attachments cannot be sent through Care Everywhere. * Antiplatelets After Ischemic Stroke: General Info (Kosovan) * Ischemic Stroke: General Info (Kosovan) documented in this encounterOhioHealthReason for referral (narrative)* Consultation (Routine) - Authorized Specialty Diagnoses / Procedures Referred By Andreac t Referred To Contact Primary Care Diagnoses Routine general medical examination at health care facility Procedures 1 Year Follow Up In Primary Care - Wellness Exam Teresa Duffy MD [address] [facility] [place] [address] Referral ID Status Reason Start Date Expiration Date V isits Requested Visits Authorized [id number] Authorized 08/04/2022 01/31/2023 1 1 * Consultation (Routine) - Authorized Specialty Diagnoses / Procedures Referred By Charles t Referred To Contact Primary Care Procedures Follow Up In Primary Care Teresa Duffy MD [address] [facility] [place] [address] Referral ID Status Reason Start Date Expiration Date V isits Requested Visits Authorized [id number] Authorized 08/04/2022 01/31/2023 1 1 [facility] Work Phone: Reqjkm for referral (narrative)* Consultation (Routine) - Closed Specialty Diagnoses / Procedures Referred By Charles t Referred To Contact Vascular Surgery Diagnoses Varicose veins of both lower extremities with pain Teresa Duffy MD [address] [address] [facility] Referral ID Status Reason Start Date Expiration Date V isits Requested Visits Authorized [id number] Closed Specialty Services Required 02/11/2024 02/10/2025 1 1 * Imaging (Routine) - Authorized Specialty Diagnoses / Procedures Referred By Charles perez Referred To Contact Radiology Diagnoses Bilateral thumb pain Procedures XR hand right 3+ views Teresa Duffy MD [address] [id number] Referral ID Status Reason Start Date Expiration Date Visits Requested Visits Authorized [id number] Authorized Perform Procedure 02/11/2024 02/10/2025 1 1 * Imaging (Routine) - Authorized Specialty Diagnoses / Procedures Referred By Charles perez Referred To Contact Radiology Diagnoses Bilateral thumb pain Procedures XR hand left 3+ views Teresa Duffy MD [address] [id number] Referral ID Status Reason Start Date Expiration Date Visits Requested Visits Authorized [id number] Authorized Perform Procedure 02/11/2024 02/10/2025 1 1 [facility] Work Phone: Reason for referral (narrative)No reason for referral information availableWWright[facility] Work Phone: Summary Purpose Family History No Family History Records Found Mother Name Dates Details Family history of dementia(V 17.2, Z81.8) Status:Active Father Name Dates Details Family history of cerebrovas cular accident (CVA)(V17.1, Z82.3) Status:Active Brother Name Dates Details Family history of dementia(V 17.2, Z81.8) Status:Active Mother Name Dates Details Family history of dementia(V 17.2, Z81.8) Status:Active Father Name Dates Details Family history of cerebrovas cular accident (CVA)(V17.1, Z82.3) Status:Active Brother Name Dates Details Family history of dementia(V 17.2, Z81.8) Status:Active Mother Name Dates Details Family history of dementia(V 17.2, Z81.8) Status:Active Father Name Dates Details Family history of cerebrovas cular accident (CVA)(V17.1, Z82.3) Status:Active Brother Name Dates Details Family history of dementia(V 17.2, Z81.8) Status:Active Unknown Family Member Name Dates Details Family history of dementia: Mother, Brother(V17.2, Z81.8) Status:Active Family history of cerebrovas cular accident (CVA): Father(V17.1, Z82.3) Status:Active Unknown Family Member Name Dates Details Family history of dementia: Mother, Brother(V17.2, Z81.8) Status:Active Family history of cerebrovas cular accident (CVA): Father(V17.1, Z82.3) Status:Active Unknown Family Member Name Dates Details Family history of dementia: Mother, Brother(V17.2, Z81.8) Status:Active Family history of cerebrovas cular accident (CVA): Father(V17.1, Z82.3) Status:Active Unknown Family Member Name Dates Details Family history of dementia: Mother, Brother(V17.2, Z81.8) Status:Active Family history of cerebrovas cular accident (CVA): Father(V17.1, Z82.3) Status:Active Unknown Family Member Name Dates Details Family history of dementia: Mother, Brother(V17.2, Z81.8) Status:Active Family history of cerebrovas cular accident (CVA): Father(V17.1, Z82.3) Status:Active Unknown Family Member Name Dates Details Family history of dementia: Mother, Brother(V17.2, Z81.8) Status:Active Family history of cerebrovas cular accident (CVA): Father(V17.1, Z82.3) Status:Active Unknown Family Member Name Dates Details Family history of dementia: Mother, Brother(V17.2, Z81.8) Status:Active Family history of cerebrovas cular accident (CVA): Father(V17.1, Z82.3) Status:Active Unknown Family Member Name Dates Details Family history of dementia: Mother, Brother(V17.2, Z81.8) Status:Active Family history of cerebrovas cular accident (CVA): Father(V17.1, Z82.3) Status:Active Unknown Family Member Name Dates Details Family history of dementia: Mother, Brother(V17.2, Z81.8) Status:Active Family history of cerebrovas cular accident (CVA): Father(V17.1, Z82.3) Status:Active Unknown Family Member Name Dates Details Family history of dementia: Mother, Brother(V17.2, Z81.8) Status:Active Family history of cerebrovas cular accident (CVA): Father(V17.1, Z82.3) Status:Active Unknown Family Member Name Dates Details Family history of dementia: Mother, Brother(V17.2, Z81.8) Status:Active Family history of cerebrovas cular accident (CVA): Father(V17.1, Z82.3) Status:Active Unknown Family Member Name Dates Details Family history of dementia: Mother, Brother(V17.2, Z81.8) Status:Active Family history of cerebrovas cular accident (CVA): Father(V17.1, Z82.3) Status:Active Unknown Family Member Name Dates Details Family history of dementia: Mother, Brother(V17.2, Z81.8) Status:Active Family history of cerebrovas cular accident (CVA): Father(V17.1, Z82.3) Status:Active Unknown Family Member Name Dates Details Family history of dementia: Mother, Brother(V17.2, Z81.8) Status:Active Family history of cerebrovas cular accident (CVA): Father(V17.1, Z82.3) Status:Active Unknown Family Member Name Dates Details Family history of dementia: Mother, Brother(V17.2, Z81.8) Status:Active Family history of cerebrovas cular accident (CVA): Father(V17.1, Z82.3) Status:Active Relationship Condition Age at Onset Recorded Date/T robyn Not Specified Diabetes mellitus Unknown Hypertension Unknown Cerebrovascular accident (CVA) Unknown Advance Directives No Advanced Directives Records FoundLatest Code Status on File Code Status Date Activated Date Inactivated Comments Full Code 04/12/2023 5:03 AM 04/14/2023 4:55 PM Latest Code Status on File Code Status Date Activated Date Inactivated Comments Full Code 04/12/2023 5:03 AM 04/14/2023 4:55 PM Date Activated Date Inactivated Comments 04/12/2023 5:03 AM 04/14/2023 4:55 PM Chief Complaint Yearly w/ KUB and PSA* Chief Complaint: NEENA ROMAN is here with a chief complaint of VIRUTAL VISIT; C/O SORE THROAT,BODY ACHES AND CHILLS X 5D; C/O NO ENERGY; TOOK HOME COVID TEST; NEGATIVE. * An interactive audio and video telecommunication system which permits real time communications between the patient (at the originating site) and provider (at the distant site) was utilized to providethis telehealth service. renal u/s results Medications Administered Section Inactive Administered Medications - up to 3 most recent administrations Medication Order MAR Action Action Date Dose Rate Site fluorescein-benoxinate 0.3-0.4 % 1 Drop (FLURESS) 1 Drop, BOTH EYES, DIRECTED, Starting on Wed04/06/23 at 1330, Until Wed04/07/23 at 012, Administer for applanation tonometry. In the event of a Fluress shortage, administer Lake-Fluor 1 drop into both eyes as directed for applanation tonometry Given 04/06/2023 1:30 PM EST 1 Drop PHENYLephrine 2.5 % 1 Drop (AK-DILATE, LOUIS-SYNEPHRINE) 1 Drop, BOTH EYES, DIRECTED, Starting on Wed04/06/23 at 1330, Until Wed04/07/23 at 0129, Administer for dilation PROTECT FROM LIGHT Given 04/06/2023 1:30 PM EST 1 Drop tropicamide 1 % 1 Drop (MYDRIACYL) 1 Drop, BOTH EYES, DIRECTED, Starting on Wed04/06/23 at 1330, Until Wed04/07/23 at 0129, Administer for dilation Given 04/06/2023 1:30 PM EST 1 Drop Reason for Referral Specialty Diagnoses / Procedures Referred By Contac t Referred To Contact Speech Pathology Diagnoses Stroke of unknown cause (HCC) Other cerebrovascular vasospasm and vasoconstriction Carmenza Garcia MD [address] [facility] [place] [address] Referral ID Status Reason Start Date Expiration Date Visits Requested Visits Authorized [id number] Pending Review Specialty Services Required/Pat miquelnt's Best Interest 3 04/13/2024 1 1 Specialty Diagnoses / Procedures Referred By Contac t Referred To Contact Cardiology Diagnoses Stroke of unknown cause (HCC) Other cerebrovascular vasospasm and vasoconstriction Procedures Cardiac event monitor Ken Vergara MD [address] [phone] Referral ID Status Reason Start Date Expiration Date V isits Requested Visits Authorized [id number] Authorized 04/13/2023 04/12/2024 1 1 Specialty Diagnoses / Procedures Referred By Contac t Referred To Contact Cardiology Diagnoses Stroke of unknown cause (CMS/HCC) Other cerebral infarction (CMS/HCC) Procedures Vascular US carotid artery duplex bilateral Teresa Duffy MD [address] [facility] [place] [address] Referral ID Status Reason Start Date Expiration Date Visits Requested Visits Authorized [id number] Authorized Perform Procedure 3 04/27/2024 1 1 Specialty Diagnoses / Procedures Referred By Contac t Referred To Contact Cardiology Diagnoses Stroke of unknown cause (CMS/HCC) Screening for cardiovascular condition Procedures Transthoracic Echo (TTE) Complete NH ECHO TRANSTHORC R-T 2D W/WO M-MODE REC F-UP/LMTD NH DOP ECHOCARD COLOR FLOW VELOCITY MAPPING NH DOP ECHOCARD PULSE WAVE W/SPECTRAL F-UP/LMTD STD Teresa Duffy MD [address] [facility] [place] [address] Referral ID Status Reason Start Date Expiration Date Visits Requested Visits Authorized [id number] Authorized Perform Procedure 3 04/27/2024 1 1 Specialty Diagnoses / Procedures Referred By Contac t Referred To Contact Radiology Diagnoses Bilateral thumb pain Procedures XR hand left 3+ views Teresa Duffy MD [address] [address] Referral ID Status Reason Start Date Expiration Date Visits Requested Visits Authorized [id number] Authorized Perform Procedure 02/11/2024 02/10/2025 1 1 Specialty Diagnoses / Procedures Referred By Charles t Referred To Contact Radiology Diagnoses Bilateral thumb pain Procedures XR hand right 3+ views Teresa Duffy MD [address] [phone] Referral ID Status Reason Start Date Expiration Date Visits Requested Visits Authorized [id number] Authorized Perform Procedure 02/11/2024 02/10/2025 1 1 Chief Complaint and Reason for Visit Chief Complaint Admit Date 2-3M FU June 01, 2024 8: 46am VARICOSE VEINS, HISTORY OF CVA June 012024 8:42am 6 WK FU July 11, 2024 9:54am HX OF TIA (Pate) August 18, 2024 12: 56pm Nonrheumatic aortic (valve) insufficienc y September 12, 2024 12:46pm Reason for Visit Admit Date History of CVA (cerebrovascular accident ) June 01, 2024 8:46am Varicose veins of legs June 01, 2024 8:46am Carotid stenosis July 11, 2024 9:54am History of CVA (cerebrovascular accident ) July 11, 2024 9:54am Varicose veins of legs July 11 9:54am Hx of arterial ischemic stroke July 12:56pm Nonrheumatic aortic (valve) insufficienc y August 18, 2024 12:56pm Patent foramen ovale August 18, 2024 12 :56pm Chief Complaint Admit Date VARICOSE VEINS, HISTORY OF CVA June 012024 8:42am 6 WK FU July 11, 2024 9:54am HX OF TIA (Pate) August 18, 2024 12: 56pm Nonrheumatic aortic (valve) insufficienc y September 12, 2024 12:46pm Nonrheumatic aortic (valve) insufficienc y September 25, 2024 5:35am Nonrheumatic aortic (valve) insufficienc y September 26, 2024 7:41am LT GROIN MASS October 14, 2024 7:37a m Reason for Visit Admit Date Carotid stenosis July 11, 2024 9:54am History of CVA (cerebrovascular accident ) July 11, 2024 9:54am Varicose veins of legs July 11 9:54am Hx of arterial ischemic stroke July 12:56pm Nonrheumatic aortic (valve) insufficienc y August 18, 2024 12:56pm Patent foramen ovale August 18, 2024 12 :56pm Chief Complaint Admit Date 6 WK FU July 11, 2024 9:54am HX OF TIA (Pate) August 18, 2024 12: 56pm Nonrheumatic aortic (valve) insufficienc y September 12, 2024 12:46pm Nonrheumatic aortic (valve) insufficienc y September 25, 2024 5:35am Nonrheumatic aortic (valve) insufficienc y September 26, 2024 7:41am LT GROIN MASS October 14, 2024 7:37a m UMBILICAL, INGUINAL HERNIAS November 01 12:50pm Additional Source Comments (unrecognized sect ion and content) No Status Records FoundNo Status Records FoundNo Status Records FoundNo Status Records FoundNo Status Records FoundNo Status Records FoundNo Status Records FoundNo Status Records FoundNo Status Records FoundNo Status Records FoundNo Status Records FoundNo Status Records FoundNo Status Records FoundNo Status Records FoundNo Status Records Found INFORMATION SOURCE (unrecogn ized section and content) DATE CREATED AUTHOR 01/08/2019 [facility] DATE CREATED AUTHOR AUTHOR'S ORGANIZ ATION 01/27/2019 [facility] DATE CREATED AUTHOR AUTHOR'S ORGANIZ ATION 11/18/2022 [facility] DATE CREATED AUTHOR AUTHOR'S ORGANIZ ATION 11/27/2022 [facility] DATE CREATED AUTHOR AUTHOR'S ORGANIZ ATION 04/11/2023 [facility] DATE CREATED AUTHOR AUTHOR'S ORGANIZ ATION 05/13/2023 [facility] DATE CREATED AUTHOR AUTHOR'S ORGANIZ ATION 05/14/2023 [facility] DATE CREATED AUTHOR AUTHOR'S ORGANIZ ATION 07/08/2023 [facility] DATE CREATED AUTHOR AUTHOR'S ORGANIZ ATION 11/05/2023 [facility] DATE CREATED AUTHOR AUTHOR'S ORGANIZ ATION 02/07/2024 [facility] DATE CREATED AUTHOR AUTHOR'S ORGANIZ ATION 02/16/2024 [facility] DATE CREATED AUTHOR AUTHOR'S ORGANIZ ATION 04/27/2024 [facility] DATE CREATED AUTHOR AUTHOR'S ORGANIZ ATION 08/05/2024 [facility] DATE CREATED AUTHOR AUTHOR'S ORGANIZ ATION 10/28/2024 [facility] DATE CREATED AUTHOR AUTHOR'S ORGANIZ ATION 12/02/2024 [facility] Source Comments (unrecognize d section and content) In the event this informatio n is protected by the Federal Confidentiality of Alcohol and Drug Abuse Patient Records regulations: The Federal rules restrict any use of the information to criminally investigate or prosecute any alcohol or drug abuse patient.[facility] Institute[facility] the event this information is protected by the Federal Confidentiality of Alcohol and Drug Abuse Patient Records regulations: The Federal rules restrict any use of the information to criminally investigate or prosecute any alcohol or drug abuse patient.[facility] InstituteIn the event this information is protected by the Federal Confidentiality of Alcohol and Drug Abuse Patient Records regulations: The Federal rules restrict any use of the information to criminally investigate or prosecute any alcohol or drug abuse patient.[facility] Reason for Visit (unrecogniz ed section and content) Reason Comments Narrow Angle Glaucoma Evaluation Cataract Follow Up Reason Comments Cataract Follow Up Specialty Diagnoses / Procedures Referred By Contac t Referred To Contact Diagnoses Stroke of unknown cause (HCC) Aphasia concern for stroke Referral ID Status Reason Start Date Expiration Date Visits Re quested Visits Authorized [id number] 1 1 Reason Comments Follow-up Reason Comments Other right [id number] Specialty Diagnoses / Procedures Referred By Contac t Referred To Contact Cardiology Diagnoses Stroke of unknown cause (CMS/HCC) Other cerebral infarction (CMS/HCC) Procedures Vascular US carotid artery duplex bilateral Teresa Duffy MD [address] [facility] [address] [facility] [place] [address] Referral ID Status Reason Start Date Expiration Date Visits Requested Visits Authorized [id number] Authorized Perform Procedure 3 04/27/2024 1 1 Specialty Diagnoses / Procedures Referred By Contac t Referred To Contact Cardiology Diagnoses Stroke of unknown cause (CMS/HCC) Screening for cardiovascular condition Procedures Transthoracic Echo (TTE) Complete NH ECHO TRANSTHORC R-T 2D W/WO M-MODE REC F-UP/LMTD NH DOP ECHOCARD COLOR FLOW VELOCITY MAPPING NH DOP ECHOCARD PULSE WAVE W/SPECTRAL F-UP/LMTD STD Teresa Duffy MD [address] [facility] [place] [address] Referral ID Status Reason Start Date Expiration Date Visits Requested Visits Authorized [id number] Authorized Perform Procedure 3 04/27/2024 1 1 Reason Comments Cerebrovascular Accident He has his and daughter with him today. He states no issues with balance or weakness. He states some issues with memory. Reason Comments Annual Exam Specialty Diagnoses / Procedures Referred By Charles t Referred To Contact Primary Care Diagnoses Routine general medical examination at health care facility Procedures 1 Year Follow Up In Primary Care - Wellness Exam Teresa Duffy MD [address] [facility] [place] [address] Referral ID Status Reason Start Date Expiration Date Visits Re quested Visits Authorized [id number] Closed 08/04/2022 01/31/2023 1 1 Reason Comments Cerebrovascular Accident Pt states that things are going okay. Reason Comments Cataract Evaluation Reason Comments Follow-up Reason Comments Follow-up Specialty Diagnoses / Procedures Referred By Contac t Referred To Contact Radiology Diagnoses Bilateral thumb pain Procedures XR hand left 3+ views Teresa Duffy MD [address] [address] Referral ID Status Reason Start Date Expiration Date Visits Requested Visits Authorized [id number] Authorized Perform Procedure 02/11/2024 02/10/2025 1 1 Specialty Diagnoses / Procedures Referred By Contac t Referred To Contact Radiology Diagnoses Bilateral thumb pain Procedures XR hand right 3+ views Teresa Duffy MD [address] [place] [address] Referral ID Status Reason Start Date Expiration Date Visits Requested Visits Authorized [id number] Authorized Perform Procedure 02/11/2024 02/10/2025 1 1 Reason Comments Mass Care Teams (unrecognized sec tion and content) [employer] Purchasing Agent Relationship Specialty Start Date End Date Teresa Duffy MD PCP - General Family Medicine 02/22/12 [employer] Purchasing Agent Relationship Specialty Start Date End Date Teresa Duffy MD PCP - General Family Medicine 02/22/12 [employer] Purchasing Agent Relationship Specialty Start Date End Date Teresa Duffy MD [address] [place] [phone] PCP - General Family Medicine 04/11/23 [employer] Purchasing Agent Relationship Specialty Start Date End Date Teresa Duffy MD [address] [facility] [place] [phone] PCP - General Family Medicine 08/04/22 Teresa Duffy MD [address] [facility] [place] [address] PCP - [employer] Advantage PCP 08/29/22 Nannette Desir LPN Care Bulk Station Operator 04/15/23 [employer] Purchasing Agent Relationship Specialty Start Date End Date Teresa Duffy MD [address] [place] [phone] PCP - General Family Medicine 08/04/22 Tersea Duffy MD [address] [place] [phone] PCP - [employer]age PCP 08/29/22 [employer] Purchasing Agent Relationship Specialty Start Date End Date Teresa Duffy MD [address] [place] [phone] PCP - General Family Medicine 08/04/22 Teresa Duffy MD [address] [place] [phone] PCP - [employer]age PCP 08/29/22 Nannette Desir LPN Care Bulk Station Operator 04/15/23 [employer] Purchasing Agent Relationship Specialty Start Date End Date Teresa Duffy MD [address] [facility] [place] [address] PCP - General Family Medicine 08/04/22 Teresa Duffy MD [address] [facility] [place] [phone] PCP - [employer]vantage PCP 08/29/22 Nannette Desir LPN Care Bulk Station Operator 04/15/23 Mer[employer] Purchasing Agent Relationship Specialty Start Date End Date Teresa Duffy MD [address] [place], [place] [phone] PCP - General Family Medicine 04/11/23 Merch[employer] Purchasing Agent Relationship Specialty Start Date End Date Teresa Duffy MD [address] [place], [place] [phone] PCP - General Family Medicine 08/04/22 Teresa Duffy MD [address] [place] [address] [id number] PCP - [employer]vantage PCP 08/29/22 Mer[employer] Purchasing Agent Relationship Specialty Start Date End Date Teresa Duffy MD [address] [place], [place] [phone] PCP - General Family Medicine 04/11/23 Mer[employer] Purchasing Agent Relationship Specialty Start Date End Date Teresa Duffy MD PCP - General Family Medicine 02/22/12 [employer] Purchasing Agent Relationship Specialty Start Date End Date Teresa Duffy MD [address] [place] [address] [phone] PCP - [employer] Medicare Advantage PCP 07/01/21 Teresa Duffy MD [address] [place] [address] [phone] PCP - General Family Medicine 08/04/22 Merch[employer] Purchasing Agent Relationship Specialty Start Date End Date Teresa Duffy MD [address] [address] PCP - General Family Medicine 02/11/24 Merch[employer] Purchasing Agent Relationship Specialty Start Date End Date Teresa Duffy MD [address] [address] PCP - General Family Medicine 02/11/24 Merch[employer] Purchasing Agent Relationship Specialty Start Date End Date Teresa Duffy MD [address] [address] PCP - General Family Medicine 02/11/24 Mer[employer] Purchasing Agent Relationship Specialty Start Date End Date Teresa Duffy MD [address] [address] PCP - General Family Medicine 02/11/24 Team Status: Active Member Role Status Dates Dr. Teresa Duffy MD Primary Care Provider Active Team Status: Inactive Member Role Status Dates Dr. Teresa Duffy MD Primary Care Provider Active Start: June 01, 2024 End: June 01, 2024 Dr. Teresa Duffy MD Referring Provider Active Start: June 01, 2024 End: June 01, 2024 ZOEY Brown Attending Provider Active Star t: June 01, 2024 End: June 01, 2024 Team Status: Inactive Member Role Status Dates Dr. Teresa Duffy MD Primary Care Provider Active Start: June 28, 2024 End: June 28, 2024 ZOEY Brown Attending Provider Active Star t: June 28, 2024 End: June 28, 2024 ZOEY Brown Referring Provider Active Star t: June 28, 2024 End: June 28, 2024 Team Status: Active Member Role Status Dates Dr. Teresa Duffy MD Primary Care Provider Active Start: June 28, 2024 Dr. Tim Ramirez MD Attending Provider Active S tart: June 28, 2024 ZOEY Brown Referring Provider Active Star t: June 28, 2024 Team Status: Inactive Member Role Status Dates Dr. Teresa Duffy MD Primary Care Provider Active Start: July 11, 2024 End: July 11, 2024 Dr. Teresa Duffy MD Referring Provider Active Start: July 11, 2024 End: July 11, 2024 ZOEY Brown Attending Provider Active Star t: July 11, 2024 End: July 11, 2024 Team Status: Inactive Member Role Status Dates Dr. Teresa Duffy MD Primary Care Provider Active Start: August 18, 2024 End: August 18, 2024 Dr. Teresa Duffy MD Referring Provider Active Start: August 18, 2024 End: August 18, 2024 Dr. Lance Carbone MD Attending Provider Active S tart: August 18, 2024 End: August 18, 2024 Team Status: Inactive Member Role Status Dates Dr. Teresa Duffy MD Primary Care Provider Active Start: September 12, 2024 End: September 12, 2024 Dr. Lance Carbone MD Attending Provider Active S tart: September 12, 2024 End: September 12, 2024 Dr. Lance Carbone MD Referring Provider Active S tart: September 12, 2024 End: September 12, 2024 Team Status: Active Member Role Status Dates Dr. Teresa Duffy MD Primary Care Provider Active Start: September 12, 2024 Dr. Lance Carbone MD Attending Provider Active S tart: September 12, 2024 Team Status: Inactive Member Role Status Dates Dr. Teresa Duffy MD Primary Care Provider Active Start: September 25, 2024 End: September 25, 2024 Dr. Lance Carbone MD Attending Provider Active S tart: September 25, 2024 End: September 25, 2024 Dr. Lance Carbone MD Referring Provider Active S tart: September 25, 2024 End: September 25, 2024 Team Status: Active Member Role Status Dates Dr. eTresa Duffy MD Primary Care Provider Active Start: September 26, 2024 Dr. Lance Carbone MD Attending Provider Active S tart: September 26, 2024 Dr. Lance Carbone MD Referring Provider Active S tart: September 26, 2024 Dr. Lance Carbone MD Other Provider Active Start : September 26, 2024 Team Status: Inactive Member Role Status Dates Dr. Teresa Duffy MD Primary Care Provider Active Start: October 14, 2024 End: October 14, 2024 Dr. Teresa Duffy MD Attending Provider Active Start: October 14, 2024 End: October 14, 2024 Dr. Teresa Duffy MD Referring Provider Active Start: October 14, 2024 End: October 14, 2024 Team Status: Inactive Member Role Status Dates Dr. Teresa Duffy MD Primary Care Provider Active Start: November 01, 2024 End: November 01, 2024 Dr. Teresa Duffy MD Referring Provider Active Start: November 01, 2024 End: November 01, 2024 Dr. Gary Nixon MD Attending Provider Active Start: November 01, 2024 End: November 01, 2024 Scheduled Active and Recently Administ ered Medications (unrecognized section and content) Medication Order 04/12/2023 04/13/2023 04/14/2023 amLODIPine (NORVASC) tablet 10 mg 10 mg, Oral, Daily, First dose on Wed04/13/23 at 1515 1629 (Given - Provider: Rosalia Warren RN) 0930 (Given - Provider: Marce Molina RN) aspirin chewable tablet 81 mg 81 mg, Oral, Daily, First dose on Wed04/13/23 at 0930, When able to take PO safely 1204 (Given - Provider: Rosalia Warrne RN) 0930 (Given - Provider: Marce Molina RN) atorvastatin (LIPITOR) tablet 40 mg 40 mg, Oral, Daily, First dose (after last modification) on Wed04/12/23 at 0900 1107 (Given - Provider: Marce Garza RN) 0813 (Given - Provider: Rosalia Warren RN) 0930 (Given - Provider: Marce Molina RN) clopidogreL (PLAVIX) tablet 75 mg 75 mg, Oral, Daily, First dose on Wed04/13/23 at 0930 1204 (Given - Provider: Rosalia Warren RN) 0930 (Given - Provider: Marce Molina RN) enoxaparin (LOVENOX) syringe 40 mg 40 mg, Subcutaneous, Daily, First dose on Wed04/13/23 at 0930, For DVT prophylaxis Administer in abdomen unless otherwise directed by prescriber. Notify physician if patient refuses., Indication: VTE Prophylaxis 1203 (Given - Provider: Rosalia Warren RN) 0930 (Given - Provider: Marce Molina RN) multivitamin (THERAGRAN) per tablet 1 tablet 1 tablet, Oral, Daily, First dose on Wed04/12/23 at 0900 1107 (Given - Provider: Marce Garza RN) 0813 (Given - Provider: Rosalia Warren RN) 0930 (Given - Provider: Marce Molina RN) potassium chloride SA (K-DUR,KLOR-CON) CR tablet 20 mEq (COMPLETED) 20 mEq, Oral, Once, On Wed04/13/23 at 0800, For 1 dose, 20mEq orally x 1 for serum Potassium in range of 3.5-4 mEq/L per Critical Care Electrolyte Replacement Therapy. DO NOT CRUSH OR CHEW (if instructed may dissolve tablet(s) in liquid) DO NOT ADMINISTER DISSOLVED TABLET VIA SURGICALLY PLACED TUBE OR TUBE less than 14 [place]ian. To administer dissolved tablet(s) mix with 4 ounces of water over 2-3 minutes, stir for 30 seconds prior to administration; rinse dosing cup and administer residual medication to ensure full dose given 812 (Given - Provider: Rosalia Warren RN) potassium chloride SA (K-DUR,KLOR-CON) CR tablet 20 mEq (COMPLETED) 20 mEq, Oral, Once, On Wed04/13/23 at 1930, For 1 dose, 20mEq orally x 1 for serum Potassium in range of 3.5-4 mEq/L per Critical Care Electrolyte Replacement Therapy. DO NOT CRUSH OR CHEW (if instructed may dissolve tablet(s) in liquid) DO NOT ADMINISTER DISSOLVED TABLET VIA SURGICALLY PLACED TUBE OR TUBE less than 14 [place]ian. To administer dissolved tablet(s) mix with 4 ounces of water over 2-3 minutes, stir for 30 seconds prior to administration; rinse dosing cup and administer residual medication to ensure full dose given 2109 (Given - Provider: Rosalia Warren RN) senna-docusate (SENNA-S) 8.6-50 mg per tablet 1 tablet 1 tablet, Oral, 2 times daily, First dose on Wed04/12/23 at 0900, Do not crush or chew. Hold for loose stool and do not give to patients with ABD surgery. Do Not Crush or Chew if administering orally due to bitter taste. May be crushed if given via tube. 1108 (Given - Provider: Marce Garza RN)2100 (Not Given - Provider: Gerardo Burentt RN - Reason: Patient/family refused) 0813 (Given - Provider: Rosalia Warren RN)2110 (Given - Provider: Rosalia Warren RN) 0930 (Given - Provider: Marce Molina, KAMLESH) sodium chloride (PF) (NS) flush 5 mL(Linked Group 1) 5 mL, Intravenous, Every 8 hours scheduled, First dose on Wed04/12/23 at 0600, Saline lock 0600 (Given - Provider: Cece Gallagher RN)1400 (Not Given - Provider: Marce Garza RN - Reason: Other)2200 (Given - Provider: Gerardo Burnett RN) 0600 (Given - Provider: Gerardo Burnett RN)1400 (Not Given - Provider: Rosalia Warren RN - Reason: Contraindicated)2200 (Not Given - Provider: Rosalia Warren RN - Reason: Contraindicated) 0500 (Given - Provider: Loretta Frederick, KAMLESH)1400 (Not Given - Provider: Marce Molina RN - Reason: Loss of IV access) PRN Medication Order 04/12/2023 04/13/2023 04/14/2023 acetaminophen (TYLENOL) solution 650 mg(Linked Group 2) 650 mg, Tube, Every 4 hours PRN, fever 100.4 F or greater, headaches, Starting on Wed04/12/23 at [id number] (See Alternative - Provider: Marce Garza RN) 0813 (See Alternative - Provider: Rosalia Warren RN) 0709 (See Alternative - Provider: Loretta Frederick, KAMLESH) acetaminophen (TYLENOL) tablet 650 mg(Linked Group 2) 650 mg, Oral, Every 4 hours PRN, fever 100.4 F or greater, headaches, Starting on Wed04/12/23 at 0503 1108 (Given - Provider: Marce Garza, RN) 0813 (Given - Provider: Rosalia Warren, RN) 0709 (Given - Provider: Loretta Frederick, RN) gadoterate meglumine (DOTAREM) injection 20 mL (COMPLETED) 20 mL, Intravenous, Once in imaging, contrast, Starting on Wed04/12/23 at 1633, For 1 dose 1634 (Contrast Administered - Provider: Valerie Osman, TECHNOLOGIST) sodium chloride (NS) 0.9 % agitated line flush (ECHO-Bubble Study) 10 mL 10 mL, Intravenous, Once in imaging, contrast, per CV Nurse during echo study, Starting on Wed04/12/23 at 0518, For 48 hours, Use three-way stopcock with 9 mL normal saline in one syringe and 1 mL air in second syringe; agitate back and forth between the two sterile syringes just before injection in peripheral IV. May repeat once for total of 2 injections if image quality sub-optimal. sodium chloride (PF) (NS) flush 5 mL(Linked Group 1) 5 mL, Intravenous, As needed, line care, Starting on Wed04/12/23 at 0500 sodium chloride 0.9% (NS)(Linked Group 1) 0-150 mL/hr, Intravenous, As needed, To flush line after IV infusions when no maintenance IV ordered or a compatibility issue. Infuse 20ml at the same rate as the secondary infusion, Starting on Wed04/12/23 at 0500, Run as Primary IV. NOT intended for KVO. Linked Groups Order Group 1: Saline lock IV (CANCELED) Routine, Continuous, Starting on Wed04/12/23 at 0501, Until Specified And sodium chloride (PF) (NS) flush 5 mLJump to med 5 mL, Intravenous, As needed, line care, Starting on Wed04/12/23 at 0500 And sodium chloride (PF) (NS) flush 5 mLJump to med 5 mL, Intravenous, Every 8 hours scheduled, First dose on Wed04/12/23 at 0600
Saline lock
And sodium chloride 0.9% (NS)Jump to med 0-150 mL/hr, Intravenous, As needed, To flush line after IV infusions when no maintenance IV ordered or a compatibility issue. Infuse 20ml at the same rate as the secondary infusion, Starting on Wed04/12/23 at 0500
Run as Primary IV. NOT intended for KVO.
Group 2: acetaminophen (TYLENOL) tablet 650 mgJump to med 650 mg, Oral, Every 4 hours PRN, fever 100.4 F or greater, headaches, Starting on Wed04/12/23 at 0503 Or acetaminophen (TYLENOL) solution 650 mgJump to med 650 mg, Tube, Every 4 hours PRN, fever 100.4 F or greater, headaches, Starting on Wed04/12/23 at 0503 Goals (unrecognized section and content) Goals may be documented in a n alternate sectionGoals may be documented in an alternate sectionGoals may be documented in an alternate section FOR RECORDS PERTAINING TO PATIENTS WHO ARE OR HAVE BEEN ENROLLED IN A CHEMICAL DEPENDENCY/SUBSTANCEABUSE PROGRAM, SOME INFORMATION MAY BE OMITTED. This clinical summary was aggregated from multiple sources. Caution should be exercised in using it in the provision of clinical care. This summary normalizes information from multiple sources, and as a consequence, information in this document may materially change the coding, format and clinical context of patient data. In addition, data may be omitted in some cases. CLINICAL DECISIONS SHOULD BE BASED ON THE PRIMARY CLINICAL RECORDS. [facility]. provides no warranty or guarantee of the accuracy or completeness of information in this document.
[2024-12-07] MEDS: Lactated Ringers 1,000 ML 15 ML IV (06:34)
--- NOTE | 2024-12-07 07:09 | PCM.HP.STD ---
HPI - General General Date of Admission: 12/07/24 Date of Service: 12/07/24 Chief Complaint: Left inguinal hernia/umbilical hernia HPI Narrative NEENA MCKENZIE, is a 69 M who presents for elective robotic pair of left inguinal hernia and umbilical hernia. Patient was recently seen through the office. [facility] Medical History (Updated 11/23/24 @ 08:37 by Primitivo Casillas) Wears glasses Former smoker History of Holter monitoring Cardiology follow-up encounter History of echocardiogram History of stress test Left inguinal hernia BPH (benign prostatic hyperplasia) Patent foramen ovale Nonrheumatic aortic (valve) insufficiency Carotid stenosis History of CVA (cerebrovascular accident) Varicose veins of legs Bilateral thumb pain History of elevated PSA Prediabetes Hx of arterial ischemic stroke HTN (hypertension) Home Medications ?Medication ?Instructions ?Recorded ?Last Taken ?Type Lactobacillus acidophilus 1 1,000 mmu cells PO QODAY 03/24/24 12/06/24 History billion cell capsule amlodipine 10 mg tablet 10 mg PO QDAY 03/24/24 12/07/24 04:00 History atorvastatin 20 mg tablet 20 mg PO QDAY 03/24/24 12/07/24 04:00 History betamethasone dipropionate 0.05 % 1 applic topical BID 03/24/24 Unknown History topical cream glucosamine HCl 750 mg tablet 750 mg PO QDAY 03/24/24 12/06/24 History multivitamin 1 tab PO QAM 03/24/24 12/06/24 History saw palmetto 500 mg capsule 1,000 mg PO QDAY 03/24/24 12/06/24 History Allergy/AdvReac Type Severity Reaction Status Date / Time Penicillins Allergy Intermediate Rash Verified 12/07/24 06:20 Family History Other CVA (cerebral vascular accident) Diabetes Hypertension Surgical History Hx of cholecystectomy (~2003) S/P hernia surgery (~1971) Social History Smoking Status: Former smoker Tobacco: How many years used: 20 alcohol intake: never substance use type: does not use Vital Signs Vital Signs Vital Signs: 12/07/24 06:23 12/07/24 06:27 Temperature 97.4 F L Temperature Source Temporal Pulse Rate 61 Respiratory Rate 16 Respiratory Pattern Normal Blood Pressure 139/89 H Blood Pressure Mean 105 Blood Pressure Source Monitor Blood Pressure Position Semi-Fowlers Blood Pressure Location Left Arm Pulse Ox 97 Oxygen Delivery Method Room Air Weight Weight: 205 lb Body Mass Index (BMI) 27.0 Physical Exam Const alert, oriented x3 and no apparent distress Assessment & Plan Assessment/Plan (1) Left inguinal hernia: PLAN: Plan Plan is for robotic left inguinal hernia repair with mesh along with repair of umbilical hernia.
--- NOTE | 2024-12-07 07:15 | PRE.ANES_ITS ---
ASA Classification* ASA Classification ASA Classification: 3 Assessment & Plan Anesthesia* Anesthesia Assessment Anesthesia Assessment: Discussed sedation and/or anesthesia options, risks, benefits, and alternatives with patient/parents/legal guardian/POA. Questions invited. The patient/parents/legal guardian/POA seems to understand and agrees to proceed with anesthesia plan. Reviewed the physical assessment, medical history, allergy history and patient home medications list prior to surgery/procedure/anesthetic and documented any changes. Performed airway and anesthesia risk assessments. Anesthesia Type Anesthesia Type: General History Source History Obtained from:: Patient and Chart Anesthesia Focused Assessment* Temperature: 97.4 F Pulse Rate: 61 Blood Pressure: 139/89 Respiratory Rate: 16 Pulse Ox: 97 Oxygen Delivery Method: Room Air Airway Assessment Mouth opens: >3 cm Mallampati Score: III Teeth Condition: Caps/Crowns (Patient has a crown. 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 When Was Last Pacemaker Check QUESTION #4 FULL TEXT: You/Your Family Experience fever (hyperthermia) with Anesthesia Last Oral Intake Last Oral intake: Last Oral Intake NPO since 18:30 12/07/24 06:27 Meds taken in AM with sips of Yes 12/07/24 06:27 water? Meds patient instructed to take am of surgery Any additional information?: Yes Meds taken in AM with sips of water?: Yes PONV PONV - carbide tool die maker: PONV - carbide tool die maker Female No 11/23/24 08:20 HX of Motion Sickness Yes 11/23/24 08:20 HX of N/V After Surgery Yes 11/23/24 08:20 Non-Smoker Yes 11/23/24 08:20 Duration of Surgery greater Yes 11/23/24 08:20 than 60 minutes Number of Risk Factors 4 11/23/24 08:20 PONV Score Severe Risk 11/23/24 08:20 Height & Weight Height & Weight: Anesthesia: Height & Weight Height 6 ft 1 in 12/07/24 06:27 Weight: 92.986 kg 12/07/24 06:27 Body Mass Index (BMI) 27.0 12/07/24 06:27 Respiratory Assessment Respiratory Assessment - carbide tool die maker: Respiratory Tract Infection Hx - carbide tool die maker Hx Respiratory Tract Infection No 11/23/24 08:20 STOP Sleep Apnea STOP Sleep Apnea - carbide tool die maker: STOP Sleep Apnea - carbide tool die maker Hx Hypertension Yes: CONTROLLED WITH MEDS 11/23/24 08:20 Hx Sleep Apnea No 11/23/24 08:20 CPAP BIPAP Do you snore loudly (louder No 11/23/24 08:20 than talking or can be heard Do you often feel tired/ No 11/23/24 08:20 fatigued/ sleepy during daytime? Has anyone observed you stop No 11/23/24 08:20 breathing during sleep? STOP Results Negative 11/23/24 08:20 QUESTION #5 FULL TEXT : Do you snore loudly (louder than talking or can be heard through closed doors)? Tobacco Use History Tobacco Use History - carbide tool die maker: Tobacco Use History - carbide tool die maker Tobacco Use Smoking Status Former smoker 11/23/24 08:20 Hx Tobacco Use No 11/23/24 08:20 Years Smoking Packs Smoked per Day Smoking Cessation Date was Yes - quit smoking within 15 11/23/24 08:20 within the last 15 years years Hx Smoking Cessation Date Hx Smoking Cessation Counseling Hematologic Medial History Hematologic Hx - carbide tool die maker: Hematologic Medical Hx - diploma dental assistant Hx of Blood Transfusion No 11/23/24 08:20 Hx of Transfusion in last 3 No 11/23/24 08:20 Months Date of Last Transfusion (if within last 3 months) Ever experience any problems No 11/23/24 08:20 with transfusion(s)? Specify any problems Hx of Preganancy in last 3 N/A 11/23/24 08:20 Months Nurse Filling Out Transfusion [id number] 11/23/24 08:20 & Questions: Date: 11/23/24 11/23/24 08:20 Time: 08:11/23/24 08:20 Patient unable to answer at this time (ie. confused, unrespo /Reproduction History /Reproductive History - carbide tool die maker: /Reproductive Hx- carbide tool die maker Hx Now Gestational Age (in weeks): EDC: Hx Hx Para Hx Section SAB Active Medications Active Medications: Current Medications Generic Name Dose Route Start Last Admin Trade Name Freq PRN Reason Stop Dose Admin Clindamycin Phosphate 900 mg in 50 mls @ 75 mls/hr 12/07/24 07:30 Cleocin IV 12/07/24 08:09 INTRAOP ONE Lactated Ringer's 1,000 mls @ 15 mls/hr 12/07/24 06:00 12/07/24 06:34 IV 15 mls/hr .Q48H FELTON Administration PFSH Medical History (Updated 12/07/24 @ 07:[address] John Oquendo MD) Wears glasses Former smoker History of Holter monitoring Cardiology follow-up encounter History of echocardiogram History of stress test Left inguinal hernia BPH (benign prostatic hyperplasia) Patent foramen ovale Nonrheumatic aortic (valve) insufficiency Carotid stenosis History of CVA (cerebrovascular accident) Varicose veins of legs Bilateral thumb pain History of elevated PSA Prediabetes Hx of arterial ischemic stroke HTN (hypertension) Home Medications ?Medication ?Instructions ?Recorded ?Last Taken ?Type Lactobacillus acidophilus 1 1,000 mmu cells PO QODAY 1 12/06/24 History billion cell capsule amlodipine 10 mg tablet 10 mg PO QDAY 03/24/2412/07 04:00 History atorvastatin 20 mg tablet 20 mg PO QDAY 03/24/2412/07 04:00 History betamethasone dipropionate 0.05 % 1 applic topical BID 03/24/24 Unknown History topical cream glucosamine HCl 750 mg tablet 750 mg PO QDAY 03/24/24 12/06/24 History multivitamin 1 tab PO QAM 03/24/24 History saw palmetto 500 mg capsule 1,000 mg PO QDAY 03/24/24 12/06/24 History Allergy/AdvReac Type Severity Reaction Status Date / Time Penicillins Allergy Intermediate Rash Verified 12/07/24 06:20 Family History Other CVA (cerebral vascular accident) Diabetes Hypertension Surgical History Hx of cholecystectomy (~2003) S/P hernia surgery (~1971) Social History Smoking Status: Former smoker Tobacco: How many years used: 20 alcohol intake: never substance use type: does not use Review of Systems (Anesthesia) ROS Narrative System reviewed and no additional complaints, except as documented.
[2024-12-07] MEDS: Clindamycin 900 MG/50 ML BAG 75 MG IV (07:30)
[2024-12-07] MEDS: Bupiv/Epi 0.25% 30 ML Vial (07:51)
--- NOTE | 2024-12-07 09:00 | EX.PCM.DISCH ---
Discharge Instructions Diet Discharge Diet: Light diet - advance as tolerated Activity Discharge Activity: May Shower May shower in (days): 1 Ice area for (Minutes): 30 Lifting Restrictions: No lifting pushing or pulling more than 20 pounds for 6 weeks Dressing / Incision Call your doctor if your incision/area has: Continuous Slow Oozing, Sudden Increased Bleeding, Increased Pain/ Swelling, Increased Redness, Foul Smelling Discharge and Swelling at the incision site Call your doctor if you observe: Fever of 101 or Higher Cleanse incision/area with: Soap & Water Follow Up Care Please Follow Up With: Gary Nixon MD When: 2 weeks. Please call office to schedule appointment. Test Results: Test results from this visit will be discussed in further detail at your follow-up appointment, if applicable. Discharge Plan Admission Primary Reason for Your Visit: Left inguinal hernia repair Attending Provider: Gary Nixon Primary Care Provider: Teresa Jeffery Instructions Print Language: Colombian Discharge Orders/Prescriptions Prescriptions: New oxycodone-acetaminophen [Percocet] 5-325 mg tablet 1 tab PO Q8H PRN (Reason: pain) 4 Days Qty: 12 0RF Continued amlodipine 10 mg tablet 10 mg PO QDAY atorvastatin 20 mg tablet 20 mg PO QDAY betamethasone dipropionate 0.05 % cream 1 applic topical BID glucosamine HCl 750 mg tablet 750 mg PO QDAY Rx Instructions: administer with a meal Lactobacillus acidophilus 1 billion cell capsule 1,000 mmu cells PO QODAY multivitamin Tablet 1 tab PO QAM saw palmetto 500 mg capsule 1,000 mg PO QDAY Rx Instructions: give with food (meal/snack) Referrals / Follow Up: Teresa Jeffery MD [Primary Care Provider] - Disposition Disposition (needs filled in before D/C Order can be placed): Home, Self Care
--- NOTE | 2024-12-07 09:04 | PCM.OPRPT ---
Multi Select Codes Digestive Digestive CPT Codes: 63529 RPR AA HRN 1ST < 3 CM RDC and 65455 Lap ing hernia repair init Operative Report (Standard) Operative Information Date of Procedure: 12/07/24 Pre-Operative Diagnosis: 1. Left inguinal hernia 2. Umbilical hernia Post-Operative Diagnosis: Same Surgery/Procedure Performed: 1. Robotic left inguinal hernia pair with mesh 2. Umbilical hernia repair administrative law judge: Yes Cushion Spring Assembler: Jeffery Humphrey Tasks completed by shop assistant: Closing, Trocar and Other Additional metal forger's assistant?: No Type of Anesthesia: General and Local RN Documented Start/Stop Times: Operation Date: 12/07/24 07:30 Case Time Into Pre-Op 12/07/24 05:57 Out of Pre-Op 12/07/24 07:19 Anesthesia Start 12/07/24 07:29 Into Room 12/07/24 07:29 Procedure Start 12/07/24 07:51 Procedure Start Time: 07:51 Procedure Stop Time: 09:00 Select all DRAINS/GRAFTS/IMPLANTS that apply: Prosthetic device Prosthetic device details: 10 x 15 cm ProGrip mesh Special Medications: 2 g Ancef IV Estimated Blood Loss: 15 mL Specimen collected: No Description of surgery: The patient is a 69-year-old male recently seen through the office with a left inguinal hernia which was causing him increasing discomfort. He wished to have this repaired. He was also noted to have a very small umbilical hernia as well. I offered him a robotic left inguinal hernia pair with mesh along with open repair of umbilical hernia. We discussed the details of the planned procedure including risks benefits and alternatives. He wished to proceed. The patient was brought to the operative room today following informed consent. Preoperative antibiotics were given and a timeout was performed. He was placed supine on the operative table with arms outstretched and arm boards. A general endotracheal anesthesia was induced. Once adequately sedated the abdomen was then prepped and draped in the usual sterile manner. His arms were comfortably tucked at his side. A transverse incision was made just above the umbilicus. A 5 mm trocar was placed optically and was inserted into the small fat-containing umbilical hernia. The abdomen is then fully insufflated with CO2 gas. A 5 mm 0 degree scope was inserted. There were no signs of bowel or vascular injury. An 8 mm trocar was placed under direct visualization on the right side of the abdomen as well as another 8 mm trocar on the left side of the abdomen. The original umbilical trocar was switched to an 8 mm trocar. The patient was then placed into mild Trendelenburg positioning. The robot was then docked. There is no evidence of right inguinal hernia. A left inguinal hernia was visible. This appeared to be an indirect hernia. The peritoneum overlying the hernia was then incised in a medial to lateral direction using curved scissors and electrocautery. A subperitoneal plane was then developed using blunt dissection with the aid of the suture device. Clive's ligament was dissected out medially. The large indirect sac was identified and was slowly reduced.. The large cord lipoma was also reduced. The cord structures were from the hernia sac and lipoma. Once sufficient dissection was performed a 10 x 15 cm piece of ProGrip mesh was selected. It was trimmed to fit the surgical field. It was placed in antibiotic solution and inserted into the abdomen. This laid into position perfectly covering over the fascial defect. A cord lipoma was returned on top of the mesh and then the peritoneal opening was then closed using running V-Loc suture. This was secured. This closed the peritoneal opening nicely. The robot was then undocked. The umbilical defect was closed using a PDS suture with the aid of the fascial closure device. The actual defect was roughly 5 mm in size. A total of about 17 cc of local anesthetic was injected into the incisions. Incisions were then closed with 4-0 Vicryl and then dressed with skin glue. He was awakened from anesthesia and taken recovery in good condition. Surgical Findings: Left inguinal hernia with large lipoma of the cord Complications Complications: No Admit VTE Documentation VTE Present on Admission: No VTE Mechan Device Prophylaxis: SCD's VTE Pharm Prophylaxis ordered?: No Reason prophylaxis not ordered: Treatment Not Indicated
--- NOTE | 2024-12-07 09:20 | PCM.POST.ANE ---
Anesthesia: Postop Eval I Current Vital Signs Temperature: 97.4 F Pulse Rate: 78 Blood Pressure: 122/81 Respiratory Rate: 14 Pulse Ox: 95 Assessment Airway patent: Yes Spontaneous unlabored respirations: Yes nausea: No Vomiting: No Anesthesia Complication: No Fluid Hydration Crystalloid volume administer (ml): 1,700 Total IV fluid infused: 1,700 Progress Note Anesthesia document: Postop Eval 1 completed: Yes
--- NOTE | 2024-12-07 09:49 | POSTOPAN2_ITS ---
Anesthesia Postop Eval I Sum Postop Eval Completion status Anesthesia document: Postop Eval 1 completed: Yes Anesthesia Postop Eval I Summary Anesthesia Postop Eval I Summary: Anesthesia Postop Eval I: Assessment Summary Airway patent Yes 12/07/24 09:20 LEAD QA [email or web address].JYUN Spontaneous unlabored Yes 12/07/24 09:20 LEAD QA ANALYST.JYUN respirations Mental status nausea No 12/07/24 09:20 LEAD QA ANALYST.JYUN Vomiting No 12/07/24 09:20 LEAD QA ANALYST.JYUN Anesthesia Postop Eval I: Fluid Summary Crystalloid volume administer 1,700 12/07/24 09:20 LEAD QA ANALYST.JYUN (ml) Colloids volume administered ( ml) Blood Product volume administered (ml) Total IV fluid infused 1,700 12/07/24 09:20 LEAD QA ANALYST.JYUN Anesthesia Postop Eval I: Summary Notes Anesthesia Complication No 12/07/24 09:20 LEAD QA ANALYST.JYUN Anesthesia Complication Comment: Post-operative progress note Anesthesia: Postop Eval II Evaluation Mental status: Awake and Calm Pain Level: 0 nausea: No Vomiting: No Complications Anesthesia Complication: No
--- NOTE | 2024-12-07 09:49 | PCM.POSTANE2 ---
Anesthesia Postop Eval I Sum Postop Eval Completion status Anesthesia document: Postop Eval 1 completed: Yes Anesthesia Postop Eval I Summary Anesthesia Postop Eval I Summary: Anesthesia Postop Eval I: Assessment Summary Airway patent Yes 12/07/24 09:20 ADMINISTRATIVE ASSISTANT OFFICE MANAGER.[email or web address] Spontaneous unlabored Yes 12/07/24 09:20 ADMINISTRATIVE ASSISTANT OFFICE MANAGER.JYUN respirations Mental status nausea No 12/07/24 09:20 ADMINISTRATIVE ASSISTANT OFFICE MANAGER.JYUN Vomiting No 12/07/24 09:20 ADMINISTRATIVE ASSISTANT OFFICE MANAGER.JYUN Anesthesia Postop Eval I: Fluid Summary Crystalloid volume administer 1,700 12/07/24 09:20 ADMINISTRATIVE ASSISTANT OFFICE MANAGER.JYUN (ml) Colloids volume administered ( ml) Blood Product volume administered (ml) Total IV fluid infused 1,700 12/07/24 09:20 ADMINISTRATIVE ASSISTANT OFFICE MANAGER.JYUN Anesthesia Postop Eval I: Summary Notes Anesthesia Complication No 12/07/24 09:20 ADMINISTRATIVE ASSISTANT OFFICE MANAGER.JYUN Anesthesia Complication Comment: Post-operative progress note Anesthesia: Postop Eval II Evaluation Mental status: Awake and Calm Pain Level: 0 nausea: No Vomiting: No Complications Anesthesia Complication: No
== END 2024-12-07 11:34 | disposition home or self-care (01) ==
LOC: SDC 05:47 → AC 05:49
PROVIDERS: PCP Family Medicine; Referring Provider Surgery; Visit Provider Surgery
PROC: 0YQ64ZZ Repair Left Inguinal Region, Percutaneous Endoscopic Approach (ICD-10-PCS; CPT 49505; principal; 2024-12-07 07:10)
DX: K40.90 Unilateral inguinal hernia, without obstruction or gangrene, not specified as recurrent (principal); D17.1 Benign lipomatous neoplasm of skin and subcutaneous tissue of trunk; Z87.891 Personal history of nicotine dependence; K42.9 Umbilical hernia without obstruction or gangrene; I10 Essential (primary) hypertension; Z79.899 Other long term (current) drug therapy
CPT/HCPCS: 49505; S2900; 00830; C1781; J2405